=== PATIENT | female | born 1935 | race African-American/Black ===

== ENCOUNTER 2016-08-25 10:58 | Outpatient (CLI) | payer MEDICARE ==
[2016-08-25 11:26] LABS: HEMATOCRIT 22.9 % (36.0-47.0); HGB HCT DIFFERENCE 0.2; MEAN CORPUSCULAR HEMOGLOBIN 31.5 pg (27.0-33.4); MEAN CORPUSCULAR HGB CONC 33.5 g/dL (32.0-36.0); MEAN CORPUSCULAR VOLUME 94 fl (80-97); RED BLOOD COUNT 2.43 10^6/uL (3.72-5.28); RED CELL DISTRIBUTION WIDTH 14.7 % (11.5-14.0); WHITE BLOOD COUNT 5.4 10^3/uL (4.0-10.5)
[2016-08-25] MEDS ORDERED: NORMAL SALINE 250 ML IV PRN (11:40)
[2016-08-25] MEDS ORDERED: DIPHENHYDRAMINE HCL 25 MG CAPSULE PO PRN (11:41)
[2016-08-25] MEDS ORDERED: ACETAMINOPHEN 325 MG TABLET PO PRN (11:41)
[2016-08-25 12:31] LABS: HEMOGLOBIN 7.7 g/dL (12.0-15.5)
[2016-08-25 17:21] VITALS: BP 214/63
== END 2016-08-25 17:22 | disposition home or self-care (01) ==
LOC: II 10:58 → 5TH 11:05 → II 17:22
PROVIDERS: ATTEND Internal Medicine
PROC: 30233N1 Transfusion of Nonautologous Red Blood Cells into Peripheral Vein, Percutaneous Approach (ICD-10-PCS; principal; 2016-08-25)
DX: D64.9 Anemia, unspecified (principal)
CPT/HCPCS: 86900; 86901; 36430; 86850; 86920; P9016

== ENCOUNTER 2016-10-21 14:09 | Inpatient (IN) | payer MEDICARE ==
[2016-10-21 16:24] LABS: HEMATOCRIT 18.7 % (36.0-47.0); HGB HCT DIFFERENCE 0.2; MEAN CORPUSCULAR HEMOGLOBIN 31.3 pg (27.0-33.4); MEAN CORPUSCULAR HGB CONC 33.5 g/dL (32.0-36.0); MEAN CORPUSCULAR VOLUME 93 fl (80-97); RED BLOOD COUNT 2.01 10^6/uL (3.72-5.28); RED CELL DISTRIBUTION WIDTH 14.7 % (11.5-14.0); WHITE BLOOD COUNT 6.3 10^3/uL (4.0-10.5)
[2016-10-21 16:45] LABS: ALANINE AMINOTRANSFERASE 20 U/L (9-52); ALBUMIN 3.7 g/dL (3.5-5.0); ALKALINE PHOSPHATASE 534 U/L (38-126); ANION GAP 19 (5-19); ASPARTATE AMINO TRANSFERASE 18 U/L (14-36); BILIRUBIN,DIRECT 0.3 mg/dL (0.0-0.4); BILIRUBIN,TOTAL 0.3 mg/dL (0.2-1.3); BLOOD UREA NITROGEN 85 mg/dL (7-20); CALCIUM 10.1 mg/dL (8.4-10.2); CARBON DIOXIDE 15 mmol/L (22-30); CHLORIDE 110 mmol/L (98-107); CREATININE RESULT 6.17 mg/dL (0.52-1.25); GLUCOSE 85 mg/dL (75-110); POTASSIUM 5.6 mmol/L (3.6-5.0); SODIUM 143.7 mmol/L (137-145); TOTAL PROTEIN 6.2 g/dL (6.3-8.2)
[2016-10-21 16:56] LABS: HEMOGLOBIN 6.3 g/dL (12.0-15.5)
[2016-10-21] MEDS: SODIUM POLYSTYRENE SULFONATE 15 GM/60 ML PO SCH (18:44)
[2016-10-21] MEDS ORDERED: DIPHENHYDRAMINE HCL 50 MG/ML VIAL IV PRN (21:10)
[2016-10-21] MEDS ORDERED: ACETAMINOPHEN 325 MG TABLET PO PRN (21:10)
[2016-10-22] MEDS: SODIUM POLYSTYRENE SULFONATE 15 GM/60 ML PO SCH ×3 (00:30→11:08)
[2016-10-22 07:31] LABS: ABSOLUTE EOSINOPHILS # (AUTO) 0.1 10^3/uL (0.0-0.6); ABSOLUTE LYMPHOCYTES (AUTO) 1.1 10^3/uL (0.5-4.7); ABSOLUTE MONOCYTES (AUTO) 0.4 10^3/uL (0.1-1.4); ABSOLUTE NEUT (AUTO) 4.9 10^3/uL (1.7-8.2); BASOPHILS % (AUTO) 0.7 % (0-2); EOSINOPHILS % (AUTO) 1.2 % (0-6); HEMATOCRIT 27.2 % (36.0-47.0); HGB HCT DIFFERENCE 0.4; LYMPHOCYTES % (AUTO) 16.6 % (13-45); MEAN CORPUSCULAR HEMOGLOBIN 29.8 pg (27.0-33.4); MEAN CORPUSCULAR HGB CONC 33.7 g/dL (32.0-36.0); MONOCYTES % (AUTO) 5.9 % (3-13); RED BLOOD COUNT 3.07 10^6/uL (3.72-5.28); RED CELL DISTRIBUTION WIDTH 17.7 % (11.5-14.0); SEGMENTED NEUTROPHILS % (AUTO) 75.6 % (42-78); WHITE BLOOD COUNT 6.5 10^3/uL (4.0-10.5)
[2016-10-22 07:46] LABS: HEMOGLOBIN 9.2 g/dL (12.0-15.5)
[2016-10-22 07:47] LABS: MEAN CORPUSCULAR VOLUME 89 fl (80-97)
[2016-10-22] MEDS ORDERED: FUROSEMIDE INJ/PF 40 MG/4 ML SDV IV PRN (10:44)
[2016-10-22] MEDS ORDERED: CLONIDINE HCL 0.2 MG TABLET PO ONE (11:00)
--- NOTE | 2016-10-22 11:28 | CONSULTATION REPORT E ---
Consultation Report NAME: BRIAN GUDINO : 1935 AGE: 80Y DATE: 10/21/2016 325 A TO: MANDO HORVATH M.D. FROM: MARIANO WASHINGTON M.D. Requesting Physician HISTORY: This 80-year-old patient was admitted to the hospital with rectal bleeding. Her bleeding started about 4 days ago when she had 6-8 bloody bowel movements during the day. She had no bleeding for the following 2 days, but it started again on the day of admission. She does have some low abdominal pain off and on prior to bowel movements. There is no nausea or vomiting. Patient has had multiple episodes of GI bleed in the past. I saw her back in August 2015 also for rectal bleeding. She had an EGD and colonoscopy at that time and only pancolonic diverticulosis was found. Previous bleeding episodes in April 2011 and February 2013 also revealed diverticular disease. Hemoglobin on this admission was 6.3. She has a chronic history of renal disease and anemia and has refused dialysis over the years. PAST MEDICAL HISTORY: 1. Chronic renal failure, stage V. 2. Hypertension. 3. Pancolonic diverticulosis. 4. Recurrent diverticular bleeding. PAST SURGICAL HISTORY: EGD and colonoscopy in 2010, 2012, and 2015. SOCIAL HISTORY: None significant. ALLERGIES: ALOE VERA. REVIEW OF SYSTEMS: Other than the above, this is noncontributory. PHYSICAL EXAMINATION: GENERAL: Shows the patient in no distress. VITAL SIGNS: She has a blood pressure of 180/58, heart rate of 69. HEENT: There is some pallor. Oropharynx normal. NECK: No bruits. No JVD. CHEST: There is kyphosis and scoliosis. LUNGS: Clear. HEART: Heart sounds 1 and 2 without murmur. ABDOMEN: Soft and nontender. Liver and spleen not palpable. Bowel sounds active. NEUROLOGIC: Grossly nonfocal. LABORATORY: Other laboratory tests showed creatinine of 6, potassium of 5.6, alkaline phosphatase of 534, which was also high in August 2015. ASSESSMENT AND PLAN: Rectal bleeding. Again, patient has had recurrent painless rectal bleeding, most likely from her diverticular disease. Her last bloody bowel movement was about 6 hours ago and I suspect it has stopped. She also bled temporarily about 4 days ago. I would suggest conservative management for now and hold off on repeating her endoscopies. She is not a good candidate for surgery. She will be receiving transfusion. I will follow he with you. DICTATING PHYSICIAN: MANDO HORVATH M.D. [id number] PHY#: [id number] ID: [id number] JOB#: [id number] ACCT: [id number] cc:Juan YU M.D. >
--- NOTE | 2016-10-22 18:40 | PDOC H&P ---
History of Present Illness Admission Date/PCP: 10/21/16 14:09 MARIANO WASHINGTON MD History of Present Illness: BRIAN GUDINO is a 80 year old female, she has chronic kidney disease stage V, chronic anemia, hypertension related to chronic kidney disease she came to the office because of rectal bleed she said there was associated clot in the blood. She was admitted directly from the office into the hospital for management, the hemogram revealed hemoglobin of 6. She has had episode of rectal bleed in the past and she has had multiple colonoscopy she is known to have wide mouth diverticulosis and she has a tendency to bleed from the diverticulosis and that is most likely etiology of her rectal bleed. GI consultation was obtained from Dr. Reyes, he does not see another need for colonoscopy because the bleeding stopped and also because she is not particularly a candidate for surgery, the definitive treatment for this wide mouth diverticulosis will be colectomy but she is not a candidate for such invasive abdominal surgery with history of chronic kidney disease stage V and severe hypertension. She will be transfused with packed red blood cells and discharged home. Past Medical History Cardiac Medical History: Reports: Hypertension Pulmonary Medical History: Reports: Pneumonia Renal/ Medical History: Reports: Chronic Kidney Disease - Chronic kidney disease stage V GI Medical History: Reports: Diverticulitis, Other - Wide mouth diverticulosis Musculoskeltal Medical History: Reports: Arthritis Hematology: Reports: Anemia, Bleeding Tendencies Social History Smoking Status: Never Smoker Frequency of Alcohol Use: None Hx Recreational Drug Use: No Drugs: None Hx Prescription Drug Abuse: No Family History Family History: Reviewed & Not Pertinent Parental Family History Reviewed: Yes Children Family History Reviewed: Yes Sibling(s) Family History Reviewed.: Yes Medication/Allergy Home Medications: Clonidine HCl [Catapres 0.2 mg Tablet] 0.2 mg PO DAILYP PRN 10/21/16 Olmesartan/Hydrochlorothiazide [Benicar Hct 20-12.5 mg Tablet] 1 tab PO DAILY Potassium Citrate [Urocit-K] 20 mg PO DAILY 10/21/16 Allergies/Adverse Reactions: aloe vera [Aloe Vera] Allergy (Unknown, Verified 03/09/14 21:25) Swelling jalapeno peppers Allergy (Unknown, Uncoded 03/09/14 21:25) Swelling Review of Systems Constitutional: ABSENT: chills, fever(s), headache(s), weight gain, weight loss Eyes: ABSENT: visual disturbances Ears: ABSENT: hearing changes Cardiovascular: ABSENT: chest pain, dyspnea on exertion, edema, orthropnea, palpitations Respiratory: ABSENT: cough, hemoptysis Gastrointestinal: PRESENT: hematochezia Genitourinary: ABSENT: dysuria, hematuria Musculoskeletal: ABSENT: joint swelling Integumentary: ABSENT: rash, wounds Neurological: ABSENT: abnormal gait, abnormal speech, confusion, dizziness, focal weakness, syncope Psychiatric: ABSENT: anxiety, depression, homidical ideation, suicidal ideation Endocrine: ABSENT: cold intolerance, heat intolerance, menstrual abnormalities, polydipsia, polyuria Hematologic/Lymphatic: ABSENT: easy bleeding, easy bruising, lymphadenopathy Physical Exam Vital Signs: Temp Pulse Resp BP Pulse Ox 98.3 F 74 18 186/57 H 100 10/22/16 16:23 10/22/16 16:23 10/22/16 16:23 10/22/16 16:23 10/22/16 16:23 Intake & Output 10/21/16 10/22/16 10/23/16 06:59 06:59 06:59 Intake Total 1750 570 Output Total 1050 300 Balance 700 270 Weight 53.1 kg General appearance: PRESENT: no acute distress, well-developed, well-nourished Head exam: PRESENT: atraumatic, normocephalic Eye exam: PRESENT: conjunctiva pale Ear exam: PRESENT: normal external ear exam Mouth exam: PRESENT: moist, tongue midline Neck exam: PRESENT: full ROM Respiratory exam: PRESENT: clear to auscultation vinicius Cardiovascular exam: PRESENT: RRR, +S1, +S2 Pulses: PRESENT: normal dorsalis pedis pul, +2 pedal pulses bilateral Vascular exam: PRESENT: normal capillary refill GI/Abdominal exam: PRESENT: normal bowel sounds, soft Rectal exam: PRESENT: deferred Neurological exam: PRESENT: alert, awake, oriented to person, oriented to place , oriented to time, oriented to situation, CN II-XII grossly intact. ABSENT: motor sensory deficit Psychiatric exam: PRESENT: appropriate affect, normal mood Skin exam: PRESENT: dry, intact, warm Results Laboratory Results: 10/22/16 06:38 10/21/16 15:45 10/21/16 10/22/16 15:45 06:38 WBC 6.5 RBC 3.07 L Hgb 9.2 L D Hct 27.2 L MCV 89 D MCH 29.8 MCHC 33.7 RDW 17.7 H Plt Count 243 Seg Neutrophils % 75.6 Lymphocytes % 16.6 Monocytes % 5.9 Eosinophils % 1.2 Basophils % 0.7 Absolute Neutrophils 4.9 Absolute Lymphocytes 1.1 Absolute Monocytes 0.4 Absolute Eosinophils 0.1 Absolute Basophils 0.0 Blood Type O POSITIVE Antibody Screen NEGATIVE Assessment & Plan - Diagnosis (1) Anemia due to blood loss, acute Is this a current diagnosis for this admission?: YesPlan: Patient is admitted to the hospital for management of acute blood loss with anemia she be transfused with packed red blood cells, she will not have colonoscopy because she is known to have wide mouth diverticulosis GI consultation was obtained on GI is of the opinion that there is no need at this point for another colonoscopy (2) Chronic kidney disease, stage V (very severe) Is this a current diagnosis for this admission?: Yes (3) Diverticulosis of both small and large intestine with bleeding Is this a current diagnosis for this admission?: Yes
[2016-10-22 18:43] LABS: HEMATOCRIT 32.4 % (36.0-47.0); HGB HCT DIFFERENCE 0.6; MEAN CORPUSCULAR HEMOGLOBIN 29.8 pg (27.0-33.4); MEAN CORPUSCULAR HGB CONC 33.9 g/dL (32.0-36.0); MEAN CORPUSCULAR VOLUME 88 fl (80-97); RED BLOOD COUNT 3.69 10^6/uL (3.72-5.28); RED CELL DISTRIBUTION WIDTH 16.6 % (11.5-14.0); WHITE BLOOD COUNT 5.5 10^3/uL (4.0-10.5)
--- NOTE | 2016-10-22 18:45 | PDOC DISCHARGE SUMMARY ---
General - Admit/Disc Date/PCP Admission Date/Primary Care Provider: 10/21/16 14:09 MARIANO WASHINGTON MD Discharge Date: 10/22/16 - Discharge Diagnosis (1) Anemia due to blood loss, acute Is this a current diagnosis for this admission?: Yes (2) Chronic kidney disease, stage V (very severe) Is this a current diagnosis for this admission?: Yes (3) Diverticulosis of both small and large intestine with bleeding Is this a current diagnosis for this admission?: Yes - Additional Information Discharge Diet: Other (Comments) - renal diet Discharge Activity: Activity As Tolerated Home Medications: Clonidine HCl [Catapres 0.2 mg Tablet] 0.2 mg PO DAILYP PRN 10/21/16 Olmesartan/Hydrochlorothiazide [Benicar Hct 20-12.5 mg Tablet] 1 tab PO DAILY History of Present Illness History of Present Illness: BRIAN GUDINO is a 80 year old female, she has chronic kidney disease stage V, chronic anemia, hypertension related to chronic kidney disease she came to the office because of rectal bleed she said there was associated clot in the blood. She was admitted directly from the office into the hospital for management, the hemogram revealed hemoglobin of 6. She has had episode of rectal bleed in the past and she has had multiple colonoscopy she is known to have wide mouth diverticulosis and she has a tendency to bleed from the diverticulosis and that is most likely etiology of her rectal bleed. GI consultation was obtained from Dr. Reyes, he does not see another need for colonoscopy because the bleeding stopped and also because she is not particularly a candidate for surgery, the definitive treatment for this wide mouth diverticulosis will be colectomy but she is not a candidate for such invasive abdominal surgery with history of chronic kidney disease stage V and severe hypertension. She will be transfused with packed red blood cells and discharged home. Hospital Course Hospital Course: Patient was admitted because of severe anemia due to acute blood loss, she had episode of hematochezia, she was treated with blood transfusion, she was seen by GI and it was felt that there was no need at this point for colonoscopy. Posttransfusion hemoglobin is 10, she had 3 units of packed red blood cells Physical Exam Vital Signs: Temp Pulse Resp BP Pulse Ox 98.3 F 74 18 186/57 H 100 10/22/16 16:23 10/22/16 16:23 10/22/16 16:23 10/22/16 16:23 10/22/16 16:23 Intake & Output 10/21/16 10/22/16 10/23/16 06:59 06:59 06:59 Intake Total 1750 570 Output Total 1050 300 Balance 700 270 Weight 53.1 kg General appearance: PRESENT: no acute distress, well-developed, well-nourished Head exam: PRESENT: atraumatic, normocephalic Eye exam: PRESENT: conjunctiva pink, EOMI, PERRLA. ABSENT: scleral icterus Ear exam: PRESENT: normal external ear exam Mouth exam: PRESENT: moist, tongue midline Neck exam: PRESENT: full ROM Respiratory exam: PRESENT: clear to auscultation vinicius Cardiovascular exam: PRESENT: RRR, +S1, +S2 Pulses: PRESENT: normal dorsalis pedis pul, +2 pedal pulses bilateral Vascular exam: PRESENT: normal capillary refill GI/Abdominal exam: PRESENT: normal bowel sounds, soft Rectal exam: PRESENT: deferred Neurological exam: PRESENT: alert, awake, oriented to person, oriented to place , oriented to time, oriented to situation, CN II-XII grossly intact. ABSENT: motor sensory deficit Psychiatric exam: PRESENT: appropriate affect, normal mood Skin exam: PRESENT: dry, intact, warm. ABSENT: cyanosis, rash Results Laboratory Results: 10/21/16 15:45 10/21/16 10/22/16 15:45 06:38 WBC 6.5 RBC 3.07 L Hgb 9.2 L D Hct 27.2 L MCV 89 D MCH 29.8 MCHC 33.7 RDW 17.7 H Plt Count 243 Seg Neutrophils % 75.6 Lymphocytes % 16.6 Monocytes % 5.9 Eosinophils % 1.2 Basophils % 0.7 Absolute Neutrophils 4.9 Absolute Lymphocytes 1.1 Absolute Monocytes 0.4 Absolute Eosinophils 0.1 Absolute Basophils 0.0 Blood Type O POSITIVE Antibody Screen NEGATIVE
[2016-10-22 20:01] VITALS: BP 180/80
== END 2016-10-22 20:05 | disposition home or self-care (01) | DRG 378 ==
LOC: 3W 14:09
PROVIDERS: ADMIT Internal Medicine; ATTEND Internal Medicine
PROC: 30233N1 Transfusion of Nonautologous Red Blood Cells into Peripheral Vein, Percutaneous Approach (ICD-10-PCS; principal; 2016-10-21)
DX: K57.51 Diverticulosis of both small and large intestine without perforation or abscess with bleeding (principal); D62 Acute posthemorrhagic anemia; I12.0 Hypertensive chronic kidney disease with stage 5 chronic kidney disease or end stage renal disease; N18.5 Chronic kidney disease, stage 5; M40.209 Unspecified kyphosis, site unspecified; M19.90 Unspecified osteoarthritis, unspecified site; Z79.899 Other long term (current) drug therapy; Z88.8 Allergy status to other drugs, medicaments and biological substances; Z91.018 Allergy to other foods
CPT/HCPCS: 36415; 36430; 80048; 80076; 85025; 85027; 86850; 86900; 86901; 86920; J1940; P9016

== ENCOUNTER 2017-01-14 17:10 | Observation (INO) | payer MEDICARE ==
[2017-01-14 18:16] LABS: ABSOLUTE EOSINOPHILS # (AUTO) 0.1 10^3/uL (0.0-0.6); ABSOLUTE LYMPHOCYTES (AUTO) 0.9 10^3/uL (0.5-4.7); ABSOLUTE MONOCYTES (AUTO) 0.5 10^3/uL (0.1-1.4); ABSOLUTE NEUT (AUTO) 4.8 10^3/uL (1.7-8.2); BASOPHILS % (AUTO) 0.5 % (0-2); EOSINOPHILS % (AUTO) 1.2 % (0-6); HEMATOCRIT 23.5 % (36.0-47.0); HGB HCT DIFFERENCE -1.3; LYMPHOCYTES % (AUTO) 14.2 % (13-45); MEAN CORPUSCULAR HEMOGLOBIN 29.8 pg (27.0-33.4); MEAN CORPUSCULAR HGB CONC 31.5 g/dL (32.0-36.0); MEAN CORPUSCULAR VOLUME 95 fl (80-97); MONOCYTES % (AUTO) 8.3 % (3-13); RED BLOOD COUNT 2.48 10^6/uL (3.72-5.28); RED CELL DISTRIBUTION WIDTH 16.3 % (11.5-14.0); SEGMENTED NEUTROPHILS % (AUTO) 75.8 % (42-78); WHITE BLOOD COUNT 6.3 10^3/uL (4.0-10.5)
[2017-01-14 18:34] LABS: ALANINE AMINOTRANSFERASE 22 U/L (9-52); ALBUMIN 4.1 g/dL (3.5-5.0); ALKALINE PHOSPHATASE 698 U/L (38-126); ANION GAP 14 (5-19); ASPARTATE AMINO TRANSFERASE 18 U/L (14-36); BILIRUBIN,DIRECT 0.3 mg/dL (0.0-0.4); BILIRUBIN,TOTAL 0.3 mg/dL (0.2-1.3); BLOOD UREA NITROGEN 91 mg/dL (7-20); CALCIUM 10.5 mg/dL (8.4-10.2); CARBON DIOXIDE 17 mmol/L (22-30); CHLORIDE 110 mmol/L (98-107); GLUCOSE 103 mg/dL (75-110); HEMOGLOBIN 7.4 g/dL (12.0-15.5); POTASSIUM 5.4 mmol/L (3.6-5.0); SODIUM 140.8 mmol/L (137-145)
[2017-01-15] MEDS ORDERED: HYDROCHLOROTHIAZIDE 12.5 MG CAPSULE PO SCH (10:00)
[2017-01-15] MEDS ORDERED: CLONIDINE HCL 0.2 MG TABLET PO SCH (10:00)
[2017-01-15] MEDS ORDERED: OLMESARTAN PO SCH (10:00)
[2017-01-15] MEDS ORDERED: [UNRECOGNIZED DRUG - OTHER] PO SCH (10:00)
[2017-01-15] MEDS ORDERED: HYDROCHLOROTHIAZIDE PO SCH (10:00)
[2017-01-15] MEDS ORDERED: LOSARTAN POTASSIUM 50 MG TABLET PO SCH (10:00)
[2017-01-15 11:54] LABS: ABSOLUTE EOSINOPHILS # (AUTO) 0.1 10^3/uL (0.0-0.6); ABSOLUTE LYMPHOCYTES (AUTO) 1.2 10^3/uL (0.5-4.7); ABSOLUTE MONOCYTES (AUTO) 0.6 10^3/uL (0.1-1.4); ABSOLUTE NEUT (AUTO) 4.5 10^3/uL (1.7-8.2); BASOPHILS % (AUTO) 0.4 % (0-2); EOSINOPHILS % (AUTO) 1.2 % (0-6); HEMATOCRIT 31.8 % (36.0-47.0); HGB HCT DIFFERENCE 0.3; LYMPHOCYTES % (AUTO) 18.7 % (13-45); MEAN CORPUSCULAR HEMOGLOBIN 30.8 pg (27.0-33.4); MEAN CORPUSCULAR HGB CONC 33.5 g/dL (32.0-36.0); MEAN CORPUSCULAR VOLUME 92 fl (80-97); MONOCYTES % (AUTO) 9.8 % (3-13); RED BLOOD COUNT 3.47 10^6/uL (3.72-5.28); RED CELL DISTRIBUTION WIDTH 17.1 % (11.5-14.0); SEGMENTED NEUTROPHILS % (AUTO) 69.9 % (42-78); WHITE BLOOD COUNT 6.5 10^3/uL (4.0-10.5)
--- NOTE | 2017-01-15 12:00 | PDOC H&P ---
History of Present Illness Admission Date/PCP: 01/14/17 17:10 MARIANO WASHINGTON MD History of Present Illness: BRIAN GUDINO is a 81 year old female, she has a history of chronic kidney disease stage V, anemia of chronic disease, she came to the for evaluation of severe fatigue, generalized body weakness. She has a history of multiple admission for blood transfusion due to very severe symptomatic anemia from chronic kidney disease stage V. She needed to have procrit injection but the medical insurance will not pay for the medication and patient is not able to afford it. The hemogram showed hemoglobin 7.4 Past Medical History Cardiac Medical History: Reports: Hypertension Pulmonary Medical History: Reports: Pneumonia Renal/ Medical History: Reports: Chronic Kidney Disease - Chronic kidney disease stage V GI Medical History: Reports: Diverticulitis Musculoskeltal Medical History: Reports: Arthritis Hematology: Reports: Anemia, Bleeding Tendencies Social History Smoking Status: Never Smoker Frequency of Alcohol Use: None Hx Recreational Drug Use: No Drugs: None Hx Prescription Drug Abuse: No Family History Family History: Reviewed & Not Pertinent Parental Family History Reviewed: Yes Children Family History Reviewed: Yes Sibling(s) Family History Reviewed.: Yes Medication/Allergy Home Medications: Clonidine HCl [Catapres 0.2 mg Tablet] 0.2 mg PO DAILY 10/21/16 Olmesartan/Hydrochlorothiazide [Benicar Hct 40-12.5 mg Tablet] 1 tab PO DAILY Allergies/Adverse Reactions: aloe vera [Aloe Vera] Allergy (Unknown, Verified 03/09/14 21:25) Swelling jalapeno peppers Allergy (Unknown, Uncoded 03/09/14 21:25) Swelling Review of Systems Constitutional: PRESENT: fatigue Eyes: ABSENT: visual disturbances Ears: ABSENT: hearing changes Cardiovascular: ABSENT: chest pain, dyspnea on exertion, edema, orthropnea, palpitations Respiratory: ABSENT: cough, hemoptysis Gastrointestinal: ABSENT: abdominal pain, constipation, diarrhea, hematemesis, hematochezia, nausea, vomiting Genitourinary: ABSENT: dysuria, hematuria Musculoskeletal: ABSENT: joint swelling Integumentary: ABSENT: rash, wounds Neurological: ABSENT: abnormal gait, abnormal speech, confusion, dizziness, focal weakness, syncope Psychiatric: ABSENT: anxiety, depression, homidical ideation, suicidal ideation Endocrine: ABSENT: cold intolerance, heat intolerance, menstrual abnormalities, polydipsia, polyuria Hematologic/Lymphatic: ABSENT: easy bleeding, easy bruising, lymphadenopathy Physical Exam Vital Signs: Temp Pulse Resp BP Pulse Ox 98.3 F 70 20 170/68 H 100 01/15/17 08:00 01/15/17 08:00 01/15/17 08:00 01/15/17 08:00 01/15/17 08:00 Intake & Output 01/14/17 01/15/17 01/16/17 06:59 06:59 06:59 Intake Total 1500 Balance 1500 Weight 45.4 kg General appearance: PRESENT: no acute distress, well-developed, well-nourished Head exam: PRESENT: atraumatic, normocephalic Eye exam: PRESENT: conjunctiva pink, EOMI, PERRLA Ear exam: PRESENT: normal external ear exam Mouth exam: PRESENT: moist, tongue midline Neck exam: PRESENT: full ROM Cardiovascular exam: PRESENT: RRR, +S1, +S2 Pulses: PRESENT: normal dorsalis pedis pul, +2 pedal pulses bilateral Vascular exam: PRESENT: normal capillary refill GI/Abdominal exam: PRESENT: normal bowel sounds, soft Rectal exam: PRESENT: deferred Neurological exam: PRESENT: alert, CN II-XII grossly intact Skin exam: PRESENT: dry, intact, warm Results Laboratory Results: 01/14/17 18:00 01/14/17 18:00 01/14/17 01/14/17 01/14/17 18:00 18:00 18:00 WBC 6.3 RBC 2.48 L Hgb 7.4 L Hct 23.5 L MCV 95 MCH 29.8 MCHC 31.5 L RDW 16.3 H Plt Count 272 Seg Neutrophils % 75.8 Lymphocytes % 14.2 Monocytes % 8.3 Eosinophils % 1.2 Basophils % 0.5 Absolute Neutrophils 4.8 Absolute Lymphocytes 0.9 Absolute Monocytes 0.5 Absolute Eosinophils 0.1 Absolute Basophils 0.0 Sodium 140.8 Potassium 5.4 H Chloride 110 H Carbon Dioxide 17 L Anion Gap 14 BUN 91 H Creatinine 5.50 H Est GFR ( Amer) 9 L Est GFR (Non-Af Amer) 7 L Glucose 103 Calcium 10.5 H Total Bilirubin 0.3 AST 18 ALT 22 Alkaline Phosphatase 698 H Total Protein 7.0 Albumin 4.1 Blood Type O POSITIVE Antibody Screen NEGATIVE Assessment & Plan - Diagnosis (1) Anemia in chronic kidney disease Qualifiers: Chronic kidney disease stage: stage 5, not on chronic dialysis Qualified Code(s): N18.5 - Chronic kidney disease, stage 5; D63.1 - Anemia in chronic kidney disease Is this a current diagnosis for this admission?: YesPlan: She has anemia of chronic kidney disease stage V, she is very symptomatic, she was transfused with 2 units of red blood cells (2) Hypertension Qualifiers: Hypertension type: secondary to other renal disorders Qualified Code (s): I15.1 - Hypertension secondary to other renal disorders; N28.89 - Other specified disorders of kidney and ureter Is this a current diagnosis for this admission?: Yes (3) Chronic kidney disease, stage V Is this a current diagnosis for this admission?: Yes
[2017-01-15 12:01] LABS: HEMOGLOBIN 10.7 g/dL (12.0-15.5)
--- NOTE | 2017-01-15 12:03 | PDOC DISCHARGE SUMMARY ---
General - Admit/Disc Date/PCP Admission Date/Primary Care Provider: 01/14/17 17:10 MARIANO WASHINGTON MD Discharge Date: 01/15/17 - Discharge Diagnosis (1) Anemia in chronic kidney disease Is this a current diagnosis for this admission?: Yes (2) Hypertension Is this a current diagnosis for this admission?: Yes (3) Chronic kidney disease, stage V Is this a current diagnosis for this admission?: Yes - Additional Information Discharge Diet: As Tolerated Discharge Activity: Activity As Tolerated Home Medications: Clonidine HCl [Catapres 0.2 mg Tablet] 0.2 mg PO DAILY 10/21/16 Olmesartan/Hydrochlorothiazide [Benicar Hct 40-12.5 mg Tablet] 1 tab PO DAILY History of Present Illness History of Present Illness: BRIAN GUDINO is a 81 year old female, she has a history of chronic kidney disease stage V, anemia of chronic disease, she came to the for evaluation of severe fatigue, generalized body weakness. She has a history of multiple admission for blood transfusion due to very severe symptomatic anemia from chronic kidney disease stage V. She needed to have procrit injection but the medical insurance will not pay for the medication and patient is not able to afford it. The hemogram showed hemoglobin 7.4 Hospital Course Hospital Course: She was admitted because of symptomatic anemia she was transferred with packed red blood cells without any complications. She had 2 units of packed red blood Physical Exam Vital Signs: Temp Pulse Resp BP Pulse Ox 98.3 F 70 20 170/68 H 100 01/15/17 08:00 01/15/17 08:00 01/15/17 08:00 01/15/17 08:00 01/15/17 08:00 Intake & Output 01/14/17 01/15/17 01/16/17 06:59 06:59 06:59 Intake Total 1500 Balance 1500 Weight 45.4 kg General appearance: PRESENT: no acute distress, well-developed, well-nourished Head exam: PRESENT: atraumatic, normocephalic Eye exam: PRESENT: conjunctiva pink, EOMI, PERRLA. ABSENT: scleral icterus Ear exam: PRESENT: normal external ear exam Mouth exam: PRESENT: moist, tongue midline Neck exam: PRESENT: full ROM Respiratory exam: PRESENT: clear to auscultation vinicius Cardiovascular exam: PRESENT: RRR, +S1, +S2 Pulses: PRESENT: normal dorsalis pedis pul, +2 pedal pulses bilateral Vascular exam: PRESENT: normal capillary refill GI/Abdominal exam: PRESENT: normal bowel sounds, soft Rectal exam: PRESENT: deferred Neurological exam: PRESENT: alert, awake, oriented to person, oriented to place , oriented to time, oriented to situation, CN II-XII grossly intact. ABSENT: motor sensory deficit Psychiatric exam: PRESENT: appropriate affect, normal mood Skin exam: PRESENT: dry, intact, warm Results Laboratory Results: 01/14/17 18:00 01/14/17 01/14/17 01/14/17 18:00 18:00 18:00 WBC 6.3 RBC 2.48 L Hgb 7.4 L Hct 23.5 L MCV 95 MCH 29.8 MCHC 31.5 L RDW 16.3 H Plt Count 272 Seg Neutrophils % 75.8 Lymphocytes % 14.2 Monocytes % 8.3 Eosinophils % 1.2 Basophils % 0.5 Absolute Neutrophils 4.8 Absolute Lymphocytes 0.9 Absolute Monocytes 0.5 Absolute Eosinophils 0.1 Absolute Basophils 0.0 Sodium 140.8 Potassium 5.4 H Chloride 110 H Carbon Dioxide 17 L Anion Gap 14 BUN 91 H Creatinine 5.50 H Est GFR ( Amer) 9 L Est GFR (Non-Af Amer) 7 L Glucose 103 Calcium 10.5 H Total Bilirubin 0.3 AST 18 ALT 22 Alkaline Phosphatase 698 H Total Protein 7.0 Albumin 4.1 Blood Type O POSITIVE Antibody Screen NEGATIVE
[2017-01-15 12:22] VITALS: BP 197/65
== END 2017-01-15 12:30 | disposition home or self-care (01) ==
LOC: 4N 17:10
PROVIDERS: ADMIT Internal Medicine; ATTEND Internal Medicine
PROC: 30233N1 Transfusion of Nonautologous Red Blood Cells into Peripheral Vein, Percutaneous Approach (ICD-10-PCS; principal; 2017-01-14)
PROC: 30233N1 Transfusion of Nonautologous Red Blood Cells into Peripheral Vein, Percutaneous Approach (ICD-10-PCS; 2017-01-15)
DX: N18.5 Chronic kidney disease, stage 5 (principal); D63.1 Anemia in chronic kidney disease; I15.1 Hypertension secondary to other renal disorders; N28.89 Other specified disorders of kidney and ureter
CPT/HCPCS: 86900; 86901; 36415 ×2; 36430; 86850; 85025 ×2; 80076; 80048; 86920; G0378 ×2; G0379; P9016 ×2

== ENCOUNTER → 2017-02-07 | Outpatient (CLI) | payer MEDICARE ==
[2017-02-07 14:06] LABS: ABSOLUTE MONOCYTES (AUTO) 0.5 10^3/uL (0.1-1.4); ABSOLUTE NEUT (AUTO) 4.1 10^3/uL (1.7-8.2); BASOPHILS % (AUTO) 0.4 % (0-2); EOSINOPHILS % (AUTO) 0.6 % (0-6); HEMATOCRIT 29.1 % (36.0-47.0); HEMOGLOBIN 9.6 g/dL (12.0-15.5); HGB HCT DIFFERENCE -0.3; LYMPHOCYTES % (AUTO) 17.1 % (13-45); MEAN CORPUSCULAR HEMOGLOBIN 31.1 pg (27.0-33.4); MEAN CORPUSCULAR HGB CONC 32.9 g/dL (32.0-36.0); MEAN CORPUSCULAR VOLUME 95 fl (80-97); MONOCYTES % (AUTO) 8.3 % (3-13); RED BLOOD COUNT 3.09 10^6/uL (3.72-5.28); SEGMENTED NEUTROPHILS % (AUTO) 73.6 % (42-78); WHITE BLOOD COUNT 5.6 10^3/uL (4.0-10.5)
== END ==
LOC: OD 13:02
PROVIDERS: ATTEND Internal Medicine
DX: K62.5 Hemorrhage of anus and rectum (principal)
CPT/HCPCS: 36415; 85025

== ENCOUNTER → 2017-02-07 | Outpatient (CLI) | payer MEDICARE ==
[2017-02-07 18:15] LABS: ANION GAP 16 (5-19); BLOOD UREA NITROGEN 119 mg/dL (7-20); CALCIUM 10.2 mg/dL (8.4-10.2); CARBON DIOXIDE 16 mmol/L (22-30); CHLORIDE 111 mmol/L (98-107); CREATININE RESULT 5.79 mg/dL (0.52-1.25); GLUCOSE 113 mg/dL (75-110); POTASSIUM 5.1 mmol/L (3.6-5.0)
== END ==
LOC: OD 16:21
PROVIDERS: ATTEND Internal Medicine Gastroenterology
DX: N18.4 Chronic kidney disease, stage 4 (severe) (principal)
CPT/HCPCS: 36415; 80048

== ENCOUNTER 2017-02-14 06:24 | Inpatient (IN) | payer MEDICARE ==
[2017-02-14] MEDS ORDERED: ASPIRIN 81 MG TABLET, CHEWABLE PO ONE (06:55)
--- NOTE | 2017-02-14 07:31 | RADIOLOGY REPORT (SQ) ---
EXAM DESCRIPTION: CHEST SINGLE VIEW COMPLETED DATE/TIME: 02/14/2017 7:10 am REASON FOR STUDY: syncope COMPARISON: 02/14/2013. EXAM PARAMETERS: NUMBER OF VIEWS: One view. TECHNIQUE: Single frontal radiographic view of the chest acquired. RADIATION DOSE: NA LIMITATIONS: None. FINDINGS: LUNGS AND PLEURA: No opacities, masses or pneumothorax. No pleural effusion. MEDIASTINUM AND HILAR STRUCTURES: No masses. Contour normal. HEART AND VASCULAR STRUCTURES: Heart normal in size. Normal vasculature. BONES: No acute findings. HARDWARE: None in the chest. OTHER: No other significant finding. IMPRESSION: NO ACUTE RADIOGRAPHIC FINDING IN THE CHEST. TECHNICAL DOCUMENTATION: JOB ID: [id number]
--- NOTE | 2017-02-14 07:38 | ER Document Report ---
ED General - General Chief Complaint: Passed Out Prior to Arrival Stated Complaint: POSSIBLE SYNCOPAL EPISODE Time Seen by Provider: 02/14/17 06:55 Mode of Arrival: Medic Information source: Patient, Relative Notes: 81-year-old female presents with complaints of syncope. Patient notes she has passed out multiple times in the past family member says today's syncope lasts approximately 5 minutes and that this occurs when she gets overheated TRAVEL OUTSIDE OF THE [place] IN LAST 30 DAYS: No - HPI Onset: Just prior to arrival Onset/Duration: Sudden Quality of pain: No pain Severity: Mild Pain Level: Denies Associated symptoms: Other Exacerbated by: Denies Relieved by: Denies Similar symptoms previously: Yes Recently seen / treated by doctor: Yes - Related Data Allergies/Adverse Reactions: aloe vera [Aloe Vera] Allergy (Unknown, Verified 03/09/14 21:25) Swelling jalapeno peppers Allergy (Unknown, Uncoded 03/09/14 21:25) Swelling Past Medical History - Social History Smoking Status: Never Smoker Cigarette use (# per day): No Chew tobacco use (# tins/day): No Smoking Education Provided: No Family History: Reviewed & Not Pertinent Patient has suicidal ideation: No Patient has homicidal ideation: No - Past Medical History Cardiac Medical History: Reports: Hx Hypertension Pulmonary Medical History: Reports: Hx Pneumonia Renal/ Medical History: Reports: Hx Kidney Stones. Denies: Hx Peritoneal Dialysis GI Medical History: Reports: Hx Diverticulitis, Hx Ulcer - Peptic ulcer disease in 1992-no history of GI bleeding in the past Musculoskeltal Medical History: Reports Hx Arthritis, Denies Hx Multiple Sclerosis Psychiatric Medical History: Denies: Hx Schizophrenia Past Surgical History: Reports: Hx Kidney (Renal Surgery) - 1 removal - Immunizations Immunizations up to date: Yes Hx Diphtheria, Pertussis, Tetanus Vaccination: No Hx Pneumococcal Vaccination: 07/04/16 Review of Systems - Review of Systems Notes: REVIEW OF SYSTEMS: CONSTITUTIONAL : Denies fever, chills, or sweats. Denies recent illness. EENT: Denies eye, ear, throat, or mouth pain or symptoms. Denies nasal or sinus congestion or discharge. Denies throat, tongue, or mouth swelling or difficulty swallowing. CARDIOVASCULAR: Denies chest pain. Denies palpitations or racing or irregular heart beat. Denies ankle edema. RESPIRATORY: Denies cough, cold, or chest congestion. Denies shortness of breath, difficulty breathing, or wheezing. GASTROINTESTINAL: Denies abdominal pain or distention. Denies nausea, vomiting , or diarrhea. Denies blood in vomitus, stools, or per rectum. Denies black, tarry stools. Denies constipation. GENITOURINARY: Denies difficulty urinating, painful urination, burning, frequency, blood in urine, or discharge. FEMALE GENITOURINARY: Denies vaginal bleeding, heavy or abnormal periods, irregular periods. Denies vaginal discharge or odor. MUSCULOSKELETAL: Denies back or neck pain or stiffness. Denies joint pain or swelling. SKIN: Denies rash, lesions or sores. HEMATOLOGIC : Denies easy bruising or bleeding. LYMPHATIC: Denies swollen, enlarged glands. NEUROLOGICAL: Admits to syncope PSYCHIATRIC: Denies anxiety or stress. Denies depression, suicidal ideation, or homicidal ideation. ALL OTHER SYSTEMS REVIEWED AND NEGATIVE. PHYSICAL EXAMINATION: GENERAL: Well-appearing, well-nourished and in no acute distress. HEAD: Atraumatic, normocephalic. EYES: Pupils equal round and reactive to light, extraocular movements intact, conjunctiva are normal. ENT: Nares patent, oropharynx clear without exudates. Moist mucous membranes. NECK: Normal range of motion, supple without lymphadenopathy LUNGS: Breath sounds clear to auscultation bilaterally and equal. No wheezes rales or rhonchi. HEART: Regular rate and rhythm without murmurs ABDOMEN: Soft, nontender, nondistended abdomen. No guarding, no rebound. No masses appreciated. Female : deferred Musculoskeletal: Normal range of motion, no pitting or edema. No cyanosis. NEUROLOGICAL: Cranial nerves grossly intact. Normal speech, normal gait. Normal sensory, motor exams PSYCH: Normal mood, normal affect. SKIN: Warm, Dry, normal turgor, no rashes or lesions noted. Dictation was performed using [employer] voice recognition software Physical Exam - Vital signs Vitals: Temp Pulse Resp BP Pulse Ox 97.6 F 71 22 H 111/76 97 02/14/17 06:27 02/14/17 06:27 02/14/17 06:27 02/14/17 06:27 02/14/17 06:27 Course - Re-evaluation Re-evalutation: 02/14/17 07:37 This is an overall extremely well-appearing 81-year-old female who has had multiple episodes of syncope in the past, neither she nor her family member seem very concerned about the syncope, however I have asked that I perform extensive lab workup given her age and concern they are agreeable to this at this time 02/14/17 08:00 Hgb is noted to be 5.4, pt has been bleeding for 2 weeks, seen Dr Reyes who diagnosed it as internal hemorrhoids. , will emergently transfuse dr Reyes called 02/14/17 08:05 Dr Reyes notes that he is around if needed Dr Chaparro paged 02/14/17 08:[address] Chaparro to [facility] - Vital Signs Vital signs: Temp Pulse Resp BP Pulse Ox 97.6 F 71 19 100/80 100 02/14/17 06:27 02/14/17 06:27 02/14/17 07:18 02/14/17 07:18 02/14/17 07:18 - Laboratory Result Diagrams: 02/14/17 07:33 02/14/17 07:33 Laboratory results interpreted by me: 02/14/17 02/14/17 02/14/17 07:33 07:33 08:13 RBC 1.69 L Hgb 5.4 L Hct 16.2 L RDW 16.1 H Seg Neutrophils % 85.4 H Lymphocytes % 10.3 L Absolute Neutrophils 8.7 H Chloride 113 H Carbon Dioxide 13 L BUN 123 H Creatinine 6.65 H Est GFR ( Amer) 7 L Est GFR (Non-Af Amer) 6 L Glucose 230 H AST 13 L Alkaline Phosphatase 531 H Total Protein 5.5 L Albumin 3.1 L Crossmatch See Detail Critical Care Note - Critical Care Note Total time excluding time spent on procedures (mins): 34 Comments: 44 minutes of critical care time spent in direct contact evaluating and reevaluating the patient, treating symptoms, reviewing labs and studies and speaking with family and consultants excluding any procedures Discharge - Discharge Clinical Impression: Chronic kidney disease, stage V, Anemia due to blood loss, acute, Syncope and collapse Condition: Fair Disposition: ADMITTED INPATIENT Admitting Provider: Shankar Unit Admitted: [facility]
[2017-02-14 07:50] LABS: ABSOLUTE MONOCYTES (AUTO) 0.4 10^3/uL (0.1-1.4); ABSOLUTE NEUT (AUTO) 8.7 10^3/uL (1.7-8.2); BASOPHILS % (AUTO) 0.3 % (0-2); EOSINOPHILS % (AUTO) 0.3 % (0-6); HEMATOCRIT 16.2 % (36.0-47.0); LYMPHOCYTES % (AUTO) 10.3 % (13-45); MEAN CORPUSCULAR HEMOGLOBIN 31.9 pg (27.0-33.4); MEAN CORPUSCULAR HGB CONC 33.2 g/dL (32.0-36.0); MEAN CORPUSCULAR VOLUME 96 fl (80-97); MONOCYTES % (AUTO) 3.7 % (3-13); RED BLOOD COUNT 1.69 10^6/uL (3.72-5.28); RED CELL DISTRIBUTION WIDTH 16.1 % (11.5-14.0); SEGMENTED NEUTROPHILS % (AUTO) 85.4 % (42-78); WHITE BLOOD COUNT 10.1 10^3/uL (4.0-10.5)
--- NOTE | 2017-02-14 07:52 | EKG REPORT ---
SEVERITY:- ABNORMAL ECG - SINUS RHYTHM NONSPECIFIC T ABNORMALITIES, LATERAL LEADS BORDERLINE ST ELEVATION, ANTERIOR LEADS : Confirmed by: Jw Hernández MD 14-Feb-2017 07:50:55
[2017-02-14 07:55] LABS: HEMOGLOBIN 5.4 g/dL (12.0-15.5)
[2017-02-14] MEDS ORDERED: NORMAL SALINE 250 ML IV PRN ×2 (07:56)
[2017-02-14 07:57] LABS: ALANINE AMINOTRANSFERASE 19 U/L (9-52); ALBUMIN 3.1 g/dL (3.5-5.0); ALKALINE PHOSPHATASE 531 U/L (38-126); ANION GAP 15 (5-19); ASPARTATE AMINO TRANSFERASE 13 U/L (14-36); BILIRUBIN,DIRECT 0.3 mg/dL (0.0-0.4); BILIRUBIN,TOTAL 0.3 mg/dL (0.2-1.3); CALCIUM 9.6 mg/dL (8.4-10.2); CARBON DIOXIDE 13 mmol/L (22-30); CHLORIDE 113 mmol/L (98-107); CREATINE KINASE 67 U/L (30-135); CREATININE RESULT 6.65 mg/dL (0.52-1.25); GLUCOSE 230 mg/dL (75-110); POTASSIUM 4.2 mmol/L (3.6-5.0); SODIUM 141.2 mmol/L (137-145); TOTAL PROTEIN 5.5 g/dL (6.3-8.2)
[2017-02-14 08:04] LABS: BLOOD UREA NITROGEN 123 mg/dL (7-20)
[2017-02-14 08:08] LABS: CREATINE KINASE MB 1.68 ng/mL (<4.55)
[2017-02-14 08:14] LABS: TROPONIN I 0.037 ng/mL
[2017-02-14] MEDS ORDERED: ACETAMINOPHEN 325 MG TABLET PO PRN (08:31)
--- NOTE | 2017-02-14 12:48 | PDOC H&P ---
History of Present Illness Admission Date/PCP: 02/14/17 08:31 MARIANO WASHINGTON MD Patient complains of: Syncopal episode and severe anemia History of Present Illness: BRIAN GUDINO is a 81 year old female This is a 81-year-old female with a patient of Dr. Washington with a significant history of the anemia and chronic kidney disease stage IVAnd currently not on a dialysisCame to the emergency department because of the passing out and according to the daughter this is happening very often today's see almost pass out and she is scared and bring the patient in the emergency departmentWhere patient hemoglobin was 5.4 and patient's creatinine about 6 and BUN was 123 Patients denied any chest pain denied any shortness of the breath. Patient only 1 kidney and was removed so many years back do not know her daughter Patient recently see her Dr. Reyes and he thought it is coming from the hemorrhoid but today's he might think need a further scope and further evaluate for GI bleed Patients used to see a Dr. Crane in the past and patient's creatinine at that time was 3.96 back in 2012 but looking for the hospital record patient's creatinine is running about 5 and a bowel since last couple of years Patients denied any weakness Patients denied any blood in the stools or black stools are denied any abdominal pain Past Medical History Cardiac Medical History: Reports: Hyperlipidema, Hypertension Pulmonary Medical History: Reports: Pneumonia Renal/ Medical History: Reports: Chronic Kidney Disease GI Medical History: Reports: Diverticulitis Musculoskeltal Medical History: Reports: Arthritis Hematology: Reports: Anemia, Bleeding Tendencies Social History Smoking Status: Never Smoker Frequency of Alcohol Use: None Hx Recreational Drug Use: No Drugs: None Hx Prescription Drug Abuse: No Family History Family History: Reviewed & Not Pertinent Parental Family History Reviewed: Yes Children Family History Reviewed: Yes Sibling(s) Family History Reviewed.: Yes Medication/Allergy Home Medications: Clonidine HCl [Catapres 0.2 mg Tablet] 0.2 mg PO DAILYP PRN 02/14/17 Olmesartan/Hydrochlorothiazide [Benicar Hct 20-12.5 Mg Tablet] 1 each PO DAILY 02/14/17 Allergies/Adverse Reactions: aloe vera [Aloe Vera] Allergy (Unknown, Verified 02/14/17 10:17) Swelling jalapeno peppers Allergy (Unknown, Uncoded 02/14/17 10:17) Swelling Review of Systems Constitutional: PRESENT: fatigue, weakness. ABSENT: chills, fever(s), headache( s), weight gain, weight loss Eyes: ABSENT: visual disturbances Ears: ABSENT: hearing changes Cardiovascular: ABSENT: chest pain, dyspnea on exertion, edema, orthropnea, palpitations Respiratory: ABSENT: cough, hemoptysis Gastrointestinal: ABSENT: abdominal pain, constipation, diarrhea, hematemesis, hematochezia, nausea, vomiting Genitourinary: ABSENT: dysuria, hematuria Musculoskeletal: ABSENT: joint swelling Integumentary: ABSENT: rash, wounds Neurological: ABSENT: abnormal gait, abnormal speech, confusion, dizziness, focal weakness, syncope Psychiatric: ABSENT: anxiety, depression, homidical ideation, suicidal ideation Endocrine: ABSENT: cold intolerance, heat intolerance, menstrual abnormalities, polydipsia, polyuria Hematologic/Lymphatic: ABSENT: easy bleeding, easy bruising, lymphadenopathy Physical Exam Vital Signs: Temp Pulse Resp BP Pulse Ox 97.8 F 72 18 145/106 H 100 02/14/17 12:03 02/14/17 12:03 02/14/17 12:03 02/14/17 12:03 02/14/17 12:03 Intake & Output 02/13/17 02/14/17 02/15/17 06:59 06:59 06:59 Intake Total 300 Balance 300 General appearance: PRESENT: no acute distress, well-developed, well-nourished Head exam: PRESENT: atraumatic, normocephalic Eye exam: PRESENT: conjunctiva pale, EOMI, PERRLA. ABSENT: scleral icterus Ear exam: PRESENT: normal external ear exam Mouth exam: PRESENT: moist, tongue midline Neck exam: PRESENT: full ROM. ABSENT: carotid bruit, JVD, lymphadenopathy, thyromegaly Respiratory exam: PRESENT: clear to auscultation vinicius Cardiovascular exam: PRESENT: RRR. ABSENT: diastolic murmur, rubs, systolic murmur Pulses: PRESENT: normal dorsalis pedis pul, +2 pedal pulses bilateral Vascular exam: PRESENT: normal capillary refill GI/Abdominal exam: PRESENT: normal bowel sounds, soft. ABSENT: distended, guarding, mass, organolmegaly, rebound, tenderness Rectal exam: PRESENT: deferred Extremities exam: ABSENT: joint swelling, pedal edema Neurological exam: PRESENT: alert, awake, oriented to person, oriented to place , oriented to time, oriented to situation, CN II-XII grossly intact. ABSENT: motor sensory deficit Psychiatric exam: PRESENT: appropriate affect, normal mood. ABSENT: homicidal ideation, suicidal ideation Skin exam: PRESENT: dry, intact, warm. ABSENT: cyanosis, rash Results Impressions: Chest X-Ray 02/14/17 06:55 IMPRESSION: NO ACUTE RADIOGRAPHIC FINDING IN THE CHEST. Assessment & Plan - Diagnosis (1) Anemia due to blood loss, acute Is this a current diagnosis for this admission?: YesPlan: Admit the patient in IMCU transfuse her 2 units of blood and consult the GI for the further evaluations put the patient on the Protonix drip (2) Chronic kidney disease, stage V Is this a current diagnosis for this admission?: YesPlan: Patients probably need a dialysis will consult the nephrology for further evaluation (3) Syncope and collapse Is this a current diagnosis for this admission?: YesPlan: Most likely due to the anemia and GI bleed will continues to monitor and the fall precautions (4) Hypertension Qualifiers: Hypertension type: secondary to other renal disorders Qualified Code (s): I15.1 - Hypertension secondary to other renal disorders; N28.89 - Other specified disorders of kidney and ureter Is this a current diagnosis for this admission?: YesPlan: Currently stable - Time Time Spent: 30 to 50 Minutes Medications reviewed and adjusted accordingly: Yes Anticipated discharge: Other Within: Other - Inpatient Certification Medical Necessity: Need Close Monitoring Due to Risk of Patient Decompensation, Need for Surgery Post Hospital Care: D/C Entry Level Drafter Documentation - Plan Summary Plan Summary: Admit the patient's in IMCU with a serial H&H and consult the Dr. Reyes and transfused her 2 units of the blood keep hemoglobin near 10Very extensive discussions with the daughter on the bedside about the patient's current conditions and all plan and discuss about the CODE STATUS but daughter is not sure she is going to talk to the patient
--- NOTE | 2017-02-14 13:27 | RADIOLOGY REPORT (SQ) ---
EXAM DESCRIPTION: CT HEAD WITHOUT COMPLETED DATE/TIME: 02/14/2017 1:20 pm REASON FOR STUDY: syncopal episode COMPARISON: None. TECHNIQUE: Axial images acquired through the brain without intravenous contrast. Images reviewed wi th bone, brain and subdural windows. Images stored on PACS. All CT scanners at this facility use dose modulation, iterative reconstruction, and/or weight based d osing when appropriate to reduce radiation dose to as low as reasonably achievable (ALARA). [facility]: Dose Right [facility]: CareDose [facility]: Dose Right [facility]: Teradose 4D [facility]: [employer] RADIATION DOSE: Up-to-date CT equipment and radiation dose reduction techniques were employed. CTDIv ol: 49.0 mGy. DLP: 1566 mGy-cm.mGy. LIMITATIONS: Patient motion. FINDINGS: VENTRICLES: Prominent. CEREBRUM: No masses. No hemorrhage. No midline shift. Areas of low density in the white matter mos t likely due to chronic micro-vascular ischemic change. No evidence for acute infarction. CEREBELLUM: No masses. No hemorrhage. No alteration of density. No evidence for acute infarction. EXTRAAXIAL SPACES: Age-related involutional change. No fluid collections. No masses. ORBITS AND GLOBE: No intra- or extraconal masses. Normal contour of globe without masses. CALVARIUM: No fracture. PARANASAL SINUSES: No fluid or mucosal thickening. SOFT TISSUES: No mass or hematoma. OTHER: No other significant finding. IMPRESSION: CHRONIC CHANGES OF ATROPHY AND MICROVASCULAR ISCHEMIA. NO ACUTE PROCESS. TECHNICAL DOCUMENTATION: JOB ID: [id number] Quality ID # [id number]: Final reports with documentation of one or more dose reduction techniques (e.g., Au tomated exposure control, adjustment of the mA and/or kV according to patient size, use of iterative reconstruction technique) 2010 [employer]- All Rights Reserved
[2017-02-14] MEDS ORDERED: TUBERCULIN,PURIF.PROT.DERIV. 5 TU/0.1 ML TEST 1 ML VIAL ID ONE (14:00)
[2017-02-14] MEDS ORDERED: PEG 3350/NA SULF,BICARB,CL/KCL 4000 ML PO ONE (15:45)
[2017-02-14] MEDS: SODIUM BICARBONATE 650 MG TABLET PO SCH (15:58)
[2017-02-14] MEDS: PANTOPRAZOLE SODIUM 40 MG VIAL IV SCH ×2 (15:59→21:46)
[2017-02-14] MEDS ORDERED: CLONIDINE HCL 0.2 MG TABLET PO PRN (16:38)
--- NOTE | 2017-02-14 17:14 | PDOC CONSULTATION ---
Consultation Consult Date: 02/14/17 Consult reason:: ESRD and need for initiation of hemodialysis in the setting of uremia, metabolic acidosis History of Present Illness Admission Date/PCP: 02/14/17 08:31 MARIANO WASHINGTON MD History of Present Illness: BRIAN GUDINO is a 81 year old female patient of Dr. Washington with a significant history of the anemia and advancing chronic kidney disease stage 4 who came to the emergency department because of recurrent passing out according to the daughter. This has been happening intermittently over the last 1 week. There is no history of any seizures. No history of any trauma. She does have intermittent history of orthostasis. No history of any GI bleeds but patient has not been actively looking for any signs or symptoms. However does give a history of intermittent to constant left lower abdominal pain and she has a history of diverticulosis. This patient was last seen in my office in 2012 were her creatinine was close to 4 and she was advised and discussed on hemodialysis. But the patient and the daughter did not and was not willing to accept that diagnosis and did not come in further on to see me in the office as an outpatient. I see from notes from Dr. Washington's office as well as the hospitalization she has had in the last couple of years that the previous creatinine was 5.8 in this December. The patient was brought to the ER and lab evaluations revealed that her hemoglobin was 5.4 and patient's creatinine 6 + and BUN was 123 Patient recently see her Dr. Reyes and he thought it is coming from bleeding hemorrhoids. Currently the patient has underwent 1 out of 2 blood transfusions. Admits to being progressively weak over the last couple of months. She has lost her appetite and she has lost considerable amounts of weight according to both patient and the daughter. No history of nausea vomiting. Past Medical History Cardiac Medical History: Reports: Hyperlipidemia, Hypertension-primary Pulmonary Medical History: Reports: Pneumonia Renal/ Medical History: Reports: Chronic Kidney Disease Stage V Denies: Benign Prostatic Hyperplasia GI Medical History: Reports: Diverticulitis Musculoskeltal Medical History: Reports: Arthritis Hematology Medical History: Reports Anemia of Chronic Kidney Disease Social History Smoking Status: Never Smoker Frequency of Alcohol Use: None Hx Recreational Drug Use: No Drugs: None Hx Prescription Drug Abuse: No Family History Parental Family History Reviewed: Yes - Negative for ESRD Children Family History Reviewed: No Sibling(s) Family History Reviewed.: No Medication/Allergy Home Medications: Clonidine HCl [Catapres 0.2 mg Tablet] 0.2 mg PO DAILYP PRN 02/14/17 Olmesartan/Hydrochlorothiazide [Benicar Hct 20-12.5 Mg Tablet] 1 each PO DAILY 02/14/17 Allergies/Adverse Reactions: aloe vera [Aloe Vera] Allergy (Unknown, Verified 02/14/17 10:17) Swelling jalapeno peppers Allergy (Unknown, Uncoded 02/14/17 10:17) Swelling Review of Systems Constitutional: PRESENT: anorexia, fatigue, weakness, weight loss. ABSENT: chills, fever(s), headache(s), night sweats Nose, Mouth, and Throat: ABSENT: mouth pain, sore throat Cardiovascular: PRESENT: dyspnea on exertion. ABSENT: edema, orthropnea Respiratory: PRESENT: dyspnea. ABSENT: hemoptysis Gastrointestinal: PRESENT: diarrhea - Intermittent and, nausea. ABSENT: coffee ground emesis, hematemesis, vomiting Neurological: PRESENT: frequent falls. ABSENT: confusion, convulsions, focal weakness Psychiatric: PRESENT: anxiety, depression Endocrine: ABSENT: heat intolerance, polydipsia Hematologic/Lymphatic: ABSENT: easy bruising, lymphadenopathy Physical Exam Vital Signs: Temp Pulse Resp BP Pulse Ox 98.3 F 77 18 128/53 H 100 02/14/17 15:21 02/14/17 15:21 02/14/17 15:21 02/14/17 15:21 02/14/17 15:21 Intake & Output 02/13/17 02/14/17 02/15/17 06:59 06:59 06:59 Intake Total 300 Balance 300 Results Laboratory Results: 02/14/17 12:51 Troponin I 0.033 Impressions: Head CT 02/14/17 00:00 IMPRESSION: CHRONIC CHANGES OF ATROPHY AND MICROVASCULAR ISCHEMIA. NO ACUTE PROCESS. Chest X-Ray 02/14/17 06:55 IMPRESSION: NO ACUTE RADIOGRAPHIC FINDING IN THE CHEST. Assessment & Plan - Diagnosis (1) Anemia due to blood loss, acute Is this a current diagnosis for this admission?: YesPlan: Hemodynamically stable. Patient being transfused. Differentials include diverticular bleed, AV malformations dictated by uremic bleeding. Patient has been consulted with GI. The patient was stabilized I am going to initiate her on hemodialysis which will also help prevent further blood loss from the uremic standpoint (2) Syncope and collapse Is this a current diagnosis for this admission?: YesPlan: Secondary to acute GI bleed. History of orthostasis (3) Chronic kidney disease, stage V (very severe) Plan: Patient is uremic. Be the cause of GI bleed as also being aided by her being uremic. Initiation of hemodialysis will definitely help stabilize. Had a long discussion about hemodialysis the procedure and its complications with the patient and the daughter and they are both agreeable at this point. Discussed the need for insertion of an IJ catheter to initiate hemodialysis and will consult with Dr. Carvalho. Discussed the complications including infections because of the catheter and they understand. Later on the need to refer for AV fistula. Plan to initiate hemodialysis on this Tuesday. We will get hepatitis serologies and PPD in the meanwhile. (4) Diverticulosis of both small and large intestine with bleeding Plan: Based on history. I am unsure of previous history of diverticulosis but the symptomatology is quite suggestive. Further evaluations as per GI. 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 Monitor. (6) Metabolic acidosis Plan: Start bicarbonate tablets. Should correct once initiated on hemodialysis. (7) Abnormal serum level of alkaline phosphatase Plan: Will order an abdominal ultrasound
[2017-02-14] MEDS ORDERED: FUROSEMIDE INJ/PF 20 MG/2 ML SDV ONE (18:58)
[2017-02-14 19:39] LABS: ABSOLUTE LYMPHOCYTES (AUTO) 0.9 10^3/uL (0.5-4.7); ABSOLUTE MONOCYTES (AUTO) 0.5 10^3/uL (0.1-1.4); ABSOLUTE NEUT (AUTO) 5.7 10^3/uL (1.7-8.2); BASOPHILS % (AUTO) 0.2 % (0-2); EOSINOPHILS % (AUTO) 0.4 % (0-6); HEMATOCRIT 25.7 % (36.0-47.0); HGB HCT DIFFERENCE 0.1; MEAN CORPUSCULAR HEMOGLOBIN 31.2 pg (27.0-33.4); MEAN CORPUSCULAR HGB CONC 33.5 g/dL (32.0-36.0); MEAN CORPUSCULAR VOLUME 93 fl (80-97); MONOCYTES % (AUTO) 6.9 % (3-13); RED BLOOD COUNT 2.76 10^6/uL (3.72-5.28); RED CELL DISTRIBUTION WIDTH 15.4 % (11.5-14.0); SEGMENTED NEUTROPHILS % (AUTO) 79.5 % (42-78); WHITE BLOOD COUNT 7.2 10^3/uL (4.0-10.5)
[2017-02-14 19:46] LABS: HEMOGLOBIN 8.6 g/dL (12.0-15.5)
--- NOTE | 2017-02-14 19:52 | CONSULTATION REPORT E ---
Consultation Report NAME: BRIAN GUDINO : 1935 AGE: 81Y DATE: 02/14/2017 325 A TO: MARIAM JORGE M.D. FROM: LATISHA PIEDRA M.D. Requesting Physician Patient seen at the request of Dr. Nikunj Crane. REASON FOR CONSULTATION: Perm catheter placement. SUMMARY OF CONSULTATION: The patient is an 81-year-old female with now end-stage renal failure, hospitalized for weakness, syncope, and anemia. The decision has been made by the patient and Dr. Crane to proceed with hemodialysis. PAST MEDICAL AND SURGICAL HISTORY: Can be found in history and physical document. ALLERGIES: None known. REVIEW OF SYSTEMS: Patient is non-communicative. PHYSICAL EXAMINATION: GENERAL: Patient [facility] on third floor [facility]. She is scrunched up, contracted, and rolled to the right side. NECK: The neck is examined. There is no evidence of JVP. LUNGS: Clear to auscultation bilaterally. ABDOMEN: Soft. No peritoneal signs. IMPRESSION: 1. End-stage renal failure, now approaching hemodialysis. 2. Anemia, likely blood loss related due to hemorrhoids as well as end-stage renal failure. RECOMMENDATIONS: I have spoken with the patient and her 2 daughters at bedside this afternoon. I explained to them the mechanics of the planned procedure, a PermCath, with a thorough discussion of the risks, benefits and alternatives including bleeding, infection, catheter malfunction, DVT, cardiovascular collapse, and even albeit rare. The daughters appear to understand what is being proposed. The patient is less than enthusiastic as evidenced by her lack of response. At this point I suggest we keep her n.p.o., proceed with scheduled colonoscopy by Dr. Reyes tomorrow, and then set her up for PermCath placement subsequently if patient is in agreement. DICTATING PHYSICIAN: MARIAM JORGE M.D. [id number] PHY#: [id number] ID: [id number] JOB#: [id number] ACCT: [id number] cc:MARIAM JORGE M.D. >
[2017-02-14 20:10] LABS: CREATINE KINASE MB 2.03 ng/mL (<4.55); TROPONIN I 0.041 ng/mL
[2017-02-14] MEDS ORDERED: FUROSEMIDE INJ/PF 20 MG/2 ML SDV IV ONE (23:59)
[2017-02-15 02:24] LABS: CREATINE KINASE MB 2.07 ng/mL (<4.55); TROPONIN I 0.05 ng/mL
[2017-02-15 04:00] LABS: MEAN CORPUSCULAR HEMOGLOBIN 31.8 pg (27.0-33.4); MEAN CORPUSCULAR HGB CONC 34.6 g/dL (32.0-36.0); MEAN CORPUSCULAR VOLUME 92 fl (80-97); RED BLOOD COUNT 3.15 10^6/uL (3.72-5.28); RED CELL DISTRIBUTION WIDTH 15.3 % (11.5-14.0); WHITE BLOOD COUNT 6.7 10^3/uL (4.0-10.5)
[2017-02-15 07:51] LABS: ABSOLUTE EOSINOPHILS # (AUTO) 0.1 10^3/uL (0.0-0.6); ABSOLUTE LYMPHOCYTES (AUTO) 1.4 10^3/uL (0.5-4.7); ABSOLUTE MONOCYTES (AUTO) 0.6 10^3/uL (0.1-1.4); ABSOLUTE NEUT (AUTO) 5.1 10^3/uL (1.7-8.2); BASOPHILS % (AUTO) 0.4 % (0-2); EOSINOPHILS % (AUTO) 0.8 % (0-6); HEMATOCRIT 30.3 % (36.0-47.0); HEMOGLOBIN 10.4 g/dL (12.0-15.5); HGB HCT DIFFERENCE 0.9; LYMPHOCYTES % (AUTO) 19.8 % (13-45); MEAN CORPUSCULAR HEMOGLOBIN 31.3 pg (27.0-33.4); MEAN CORPUSCULAR HGB CONC 34.5 g/dL (32.0-36.0); MEAN CORPUSCULAR VOLUME 91 fl (80-97); MONOCYTES % (AUTO) 7.8 % (3-13); RED BLOOD COUNT 3.33 10^6/uL (3.72-5.28); RED CELL DISTRIBUTION WIDTH 15.4 % (11.5-14.0); SEGMENTED NEUTROPHILS % (AUTO) 71.2 % (42-78); WHITE BLOOD COUNT 7.1 10^3/uL (4.0-10.5)
[2017-02-15 07:55] LABS: ALANINE AMINOTRANSFERASE 18 U/L (9-52); ALBUMIN 3.4 g/dL (3.5-5.0); ALKALINE PHOSPHATASE 546 U/L (38-126); ANION GAP 16 (5-19); ASPARTATE AMINO TRANSFERASE 15 U/L (14-36); BILIRUBIN,DIRECT 0.4 mg/dL (0.0-0.4); BILIRUBIN,TOTAL 0.4 mg/dL (0.2-1.3); BLOOD UREA NITROGEN 110 mg/dL (7-20); CARBON DIOXIDE 14 mmol/L (22-30); CHLORIDE 112 mmol/L (98-107); CREATININE RESULT 6.31 mg/dL (0.52-1.25); GLUCOSE 99 mg/dL (75-110); POTASSIUM 4.5 mmol/L (3.6-5.0); SODIUM 142.4 mmol/L (137-145); TOTAL PROTEIN 5.9 g/dL (6.3-8.2)
[2017-02-15 07:57] LABS: PARTIAL THROMBOPLASTIN TIME 32.8 SEC (23.5-35.8)
[2017-02-15 08:07] LABS: CREATINE KINASE MB 2.24 ng/mL (<4.55); TROPONIN I 0.055 ng/mL
--- NOTE | 2017-02-15 08:52 | RADIOLOGY REPORT (SQ) ---
EXAM DESCRIPTION: U/S ABDOMEN COMPLETE W/O DOP COMPLETED DATE/TIME: 02/15/2017 7:29 am REASON FOR STUDY: elevated alkaline phosphatase COMPARISON: CT abdomen pelvis 06/29/2016, 02/13/2008 TECHNIQUE: Dynamic and static grayscale images acquired of the abdomen and recorded on PACS. Additio nal selected color Doppler and spectral images recorded. LIMITATIONS: Midline bowel gas FINDINGS: PANCREAS: Midline pancreas unremarkable LIVER: No masses. Echotexture normal. LIVER VASCULATURE: Normal directional flow of the main portal vein and hepatic veins. GALLBLADDER: No stones. Normal wall thickness. No pericholecystic fluid. Minimal sludge in the gallb ladder ULTRASOUND-DETECTED PATINO'S SIGN: Negative. INTRAHEPATIC DUCTS AND COMMON DUCT: CBD and intrahepatic ducts normal caliber. No filling defects. INFERIOR VENA CAVA: Not well seen AORTA: Upper and mid abdominal aorta normal caliber. Distal abdominal aorta not well seen RIGHT KIDNEY: Post nephrectomy and 9 LEFT KIDNEY: 9 left kidney is small, 9 cm in length with diffuse cortical thinning particularly ethel g the lower half of the left kidney. In the extreme lower pole kidney, a 2.4 cm cyst is present with an adjacent dilated blood vessel with internal color flow, which could be a venous varix. There is cortical thinning and increased echogenicity. Shadowing calcifications in the lower pole left kidn ey are present. No hydronephrosis. SPLEEN: Normal size. No solid masses. PERITONEAL AND PLEURAL SPACES: No ascites or effusions. OTHER: No other significant finding. IMPRESSION: Post right nephrectomy. Small echogenic left kidney without hydronephrosis seen. Left lower pole cortical cyst with adjacent venous varix. Liver, pancreas unremarkable. No gallstones. TECHNICAL DOCUMENTATION: JOB ID: [id number] [employer]- All Rights Reserved
[2017-02-15] MEDS: SODIUM BICARBONATE 650 MG TABLET PO SCH ×3 (11:13→15:10)
[2017-02-15] MEDS: PANTOPRAZOLE SODIUM 40 MG VIAL IV SCH (11:19)
--- NOTE | 2017-02-15 11:58 | PDOC PROGRESS REPORT ---
Subjective Progress Note for:: 02/15/17 Subjective:: Patient's currently denied any chest pain denied any shortness of the breath no abdominal pain.Patient's scheduled for the dialysis catheter tomorrow and scheduled for the colonoscopy today Patients received a total of 3 units of the blood and currently hemoglobin stable Physical Exam Vital Signs: Temp Pulse Resp BP Pulse Ox 98.7 F 67 18 150/44 H 100 02/15/17 07:28 02/15/17 07:28 02/15/17 07:28 02/15/17 07:28 02/15/17 07:28 Intake & Output 02/14/17 02/15/17 02/16/17 06:59 06:59 06:59 Intake Total 2527 Balance 2527 Weight 46.4 kg General appearance: PRESENT: no acute distress, well-developed, well-nourished Head exam: PRESENT: atraumatic, normocephalic Eye exam: PRESENT: conjunctiva pink, EOMI, PERRLA. ABSENT: scleral icterus Ear exam: PRESENT: normal external ear exam Mouth exam: PRESENT: moist, tongue midline Neck exam: PRESENT: full ROM. ABSENT: carotid bruit, JVD, lymphadenopathy, thyromegaly Respiratory exam: PRESENT: clear to auscultation vinicius Cardiovascular exam: PRESENT: RRR. ABSENT: diastolic murmur, rubs, systolic murmur Pulses: PRESENT: normal dorsalis pedis pul, +2 pedal pulses bilateral Vascular exam: PRESENT: normal capillary refill GI/Abdominal exam: PRESENT: normal bowel sounds, soft. ABSENT: distended, guarding, mass, organolmegaly, rebound, tenderness Rectal exam: PRESENT: deferred Neurological exam: PRESENT: alert, awake, oriented to person, oriented to place , oriented to time, oriented to situation, CN II-XII grossly intact. ABSENT: motor sensory deficit Psychiatric exam: PRESENT: appropriate affect, normal mood. ABSENT: homicidal ideation, suicidal ideation Skin exam: PRESENT: dry, intact, warm. ABSENT: cyanosis, rash Results Laboratory Results: 02/15/17 07:19 02/15/17 07:19 02/14/17 02/15/17 02/15/17 19:27 03:34 07:19 WBC 7.2 6.7 7.1 RBC 2.76 L 3.15 L 3.33 L Hgb 8.6 L D 10.0 L 10.4 L Hct 25.7 L 29.0 L 30.3 L MCV 93 92 91 MCH 31.2 31.8 31.3 MCHC 33.5 34.6 34.5 RDW 15.4 H 15.3 H 15.4 H Plt Count 220 220 233 Seg Neutrophils % 79.5 H 71.2 Lymphocytes % 13.0 19.8 Monocytes % 6.9 7.8 Eosinophils % 0.4 0.8 Basophils % 0.2 0.4 Absolute Neutrophils 5.7 5.1 Absolute Lymphocytes 0.9 1.4 Absolute Monocytes 0.5 0.6 Absolute Eosinophils 0.0 0.1 Absolute Basophils 0.0 0.0 Sodium Potassium Chloride Carbon Dioxide Anion Gap BUN Creatinine Est GFR ( Amer) Est GFR (Non-Af Amer) Glucose Calcium Phosphorus Total Bilirubin AST ALT Alkaline Phosphatase Total Protein Albumin 02/15/17 02/15/17 07:19 07:19 WBC RBC Hgb Hct MCV MCH MCHC RDW Plt Count Seg Neutrophils % Lymphocytes % Monocytes % Eosinophils % Basophils % Absolute Neutrophils Absolute Lymphocytes Absolute Monocytes Absolute Eosinophils Absolute Basophils Sodium 142.4 Potassium 4.5 Chloride 112 H Carbon Dioxide 14 L Anion Gap 16 BUN 110 H Creatinine 6.31 H Est GFR ( Amer) 8 L Est GFR (Non-Af Amer) 6 L Glucose 99 Calcium 10.0 Phosphorus 6.9 H Total Bilirubin 0.4 AST 15 ALT 18 Alkaline Phosphatase 546 H Total Protein 5.9 L Albumin 3.4 L 02/14/17 02/14/17 02/14/17 12:51 19:27 19:27 Creatine Kinase 81 CK-MB (CK-2) 2.03 Troponin I 0.033 0.041 02/15/17 02/15/17 02/15/17 01:45 01:45 07:19 Creatine Kinase 72 96 CK-MB (CK-2) 2.07 Troponin I 0.050 02/15/17 07:19 Creatine Kinase CK-MB (CK-2) 2.24 Troponin I 0.055 Impressions: Head CT 02/14/17 00:00 IMPRESSION: CHRONIC CHANGES OF ATROPHY AND MICROVASCULAR ISCHEMIA. NO ACUTE PROCESS. Chest X-Ray 02/14/17 06:55 IMPRESSION: NO ACUTE RADIOGRAPHIC FINDING IN THE CHEST. Abdomen Ultrasound 02/15/17 00:00 IMPRESSION: Post right nephrectomy. Small echogenic left kidney without hydronephrosis seen. Left lower pole cortical cyst with adjacent venous varix. Liver, pancreas unremarkable. No gallstones. Assessment & Plan - Diagnosis (1) Anemia due to blood loss, acute Is this a current diagnosis for this admission?: YesPlan: Status post 3 units of the blood currently stable scheduled for the colonoscopy (2) Chronic kidney disease, stage V Is this a current diagnosis for this admission?: YesPlan: Patient scheduled for the dialysis per nephrology (3) Syncope and collapse Is this a current diagnosis for this admission?: YesPlan: Patient CT head was negative and echocardiogram is also stable I think is more likely related to the anemia (4) Hypertension Qualifiers: Hypertension type: secondary to other renal disorders Qualified Code (s): I15.1 - Hypertension secondary to other renal disorders; N28.89 - Other specified disorders of kidney and ureter Is this a current diagnosis for this admission?: YesPlan: Currently stable - Time Time Spent with patient: 15-24 minutes Medications reviewed and adjusted accordingly: Yes Anticipated discharge: Other Within: Other - Inpatient Certification Medical Necessity: Need Close Monitoring Due to Risk of Patient Decompensation Post Hospital Care: D/C [facility] Map Documentation - Plan Summary Plan Summary: Continues to have as above plan continues current medication
--- NOTE | 2017-02-15 12:30 | PDOC PROGRESS REPORT ---
Subjective Progress Note for:: 02/15/17 Subjective:: Patient continues to be fatigued. She denies any history of chest pain shortness of breath. She is quite anxious about the pending procedures namely a colonoscopy later this afternoon followed by insertion of IJ PermCath. She has some questions about both the procedures which I have answered her and she seemed rather comfortable with those answers. Labs were reviewed with the patient that shows CKD stage V with no improvement. She continues to be uremic. Status post transfusion and hemoglobin is much better. Physical Exam Vital Signs: Temp Pulse Resp BP Pulse Ox 98.7 F 67 18 150/44 H 100 02/15/17 07:28 02/15/17 07:28 02/15/17 07:28 02/15/17 07:28 02/15/17 07:28 Intake & Output 02/14/17 02/15/17 02/16/17 06:59 06:59 06:59 Intake Total 2527 Balance 2527 Weight 46.4 kg General appearance: PRESENT: no acute distress Respiratory exam: PRESENT: clear to auscultation vinicius. ABSENT: crackles, rhonchi Cardiovascular exam: PRESENT: +S1, +S2, systolic murmur GI/Abdominal exam: PRESENT: normal bowel sounds, soft. ABSENT: organomegaly, tenderness Extremities exam: ABSENT: pedal edema Neurological exam: PRESENT: alert, awake, oriented to person, oriented to place Psychiatric exam: PRESENT: anxious Skin exam: ABSENT: erythema, mottled, rash Results Laboratory Results: 02/15/17 07:19 02/15/17 07:19 02/14/17 02/15/17 02/15/17 19:27 03:34 07:19 WBC 7.2 6.7 7.1 RBC 2.76 L 3.15 L 3.33 L Hgb 8.6 L D 10.0 L 10.4 L Hct 25.7 L 29.0 L 30.3 L MCV 93 92 91 MCH 31.2 31.8 31.3 MCHC 33.5 34.6 34.5 RDW 15.4 H 15.3 H 15.4 H Plt Count 220 220 233 Seg Neutrophils % 79.5 H 71.2 Lymphocytes % 13.0 19.8 Monocytes % 6.9 7.8 Eosinophils % 0.4 0.8 Basophils % 0.2 0.4 Absolute Neutrophils 5.7 5.1 Absolute Lymphocytes 0.9 1.4 Absolute Monocytes 0.5 0.6 Absolute Eosinophils 0.0 0.1 Absolute Basophils 0.0 0.0 Sodium Potassium Chloride Carbon Dioxide Anion Gap BUN Creatinine Est GFR ( Amer) Est GFR (Non-Af Amer) Glucose Calcium Phosphorus Total Bilirubin AST ALT Alkaline Phosphatase Total Protein Albumin 02/15/17 02/15/17 07:19 07:19 WBC RBC Hgb Hct MCV MCH MCHC RDW Plt Count Seg Neutrophils % Lymphocytes % Monocytes % Eosinophils % Basophils % Absolute Neutrophils Absolute Lymphocytes Absolute Monocytes Absolute Eosinophils Absolute Basophils Sodium 142.4 Potassium 4.5 Chloride 112 H Carbon Dioxide 14 L Anion Gap 16 BUN 110 H Creatinine 6.31 H Est GFR ( Amer) 8 L Est GFR (Non-Af Amer) 6 L Glucose 99 Calcium 10.0 Phosphorus 6.9 H Total Bilirubin 0.4 AST 15 ALT 18 Alkaline Phosphatase 546 H Total Protein 5.9 L Albumin 3.4 L 02/14/17 02/14/17 02/14/17 12:51 19:27 19:27 Creatine Kinase 81 CK-MB (CK-2) 2.03 Troponin I 0.033 0.041 02/15/17 02/15/17 02/15/17 01:45 01:45 07:19 Creatine Kinase 72 96 CK-MB (CK-2) 2.07 Troponin I 0.050 02/15/17 07:19 Creatine Kinase CK-MB (CK-2) 2.24 Troponin I 0.055 Impressions: Head CT 02/14/17 00:00 IMPRESSION: CHRONIC CHANGES OF ATROPHY AND MICROVASCULAR ISCHEMIA. NO ACUTE PROCESS. Chest X-Ray 02/14/17 06:55 IMPRESSION: NO ACUTE RADIOGRAPHIC FINDING IN THE CHEST. Abdomen Ultrasound 02/15/17 00:00 IMPRESSION: Post right nephrectomy. Small echogenic left kidney without hydronephrosis seen. Left lower pole cortical cyst with adjacent venous varix. Liver, pancreas unremarkable. No gallstones. Assessment & Plan - Diagnosis (1) Anemia due to blood loss, acute Is this a current diagnosis for this admission?: YesPlan: Hemodynamically stable. Status post transfusion. Stable hemoglobin at the moment. Further workup as per GI. (2) Syncope and collapse Is this a current diagnosis for this admission?: YesPlan: No further attacks. (3) Chronic kidney disease, stage V (very severe) Plan: Patient continues to be uremic. Scheduled for placement of an IJ catheter today and plan for hemodialysis in the morning. Again discussed the procedure and its complications and patient willing to proceed. (4) Diverticulosis of both small and large intestine with bleeding Plan: Presumed such. Await colonoscopy findings and GI workup. 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 Monitor. (6) Metabolic acidosis Plan: Began on bicarbonate. Monitor. Should correct well to the initiation of hemodialysis. (7) Abnormal serum level of alkaline phosphatase Plan: LFTs otherwise are normal. Abdominal ultrasound did not show any liver , gallbladder pathology. Likely this could be from bone related disease including secondary hyperparathyroidism. Elevated PTH levels.
[2017-02-15] MEDS ORDERED: LIDOCAINE 1%/EPINEPHRINE INJ 20 ML VIAL ONE (15:00)
[2017-02-15 16:28] LABS: ABSOLUTE EOSINOPHILS # (AUTO) 0.1 10^3/uL (0.0-0.6); ABSOLUTE LYMPHOCYTES (AUTO) 1.2 10^3/uL (0.5-4.7); ABSOLUTE MONOCYTES (AUTO) 0.6 10^3/uL (0.1-1.4); BASOPHILS % (AUTO) 0.3 % (0-2); HEMATOCRIT 27.7 % (36.0-47.0); HEMOGLOBIN 9.5 g/dL (12.0-15.5); HGB HCT DIFFERENCE 0.8; LYMPHOCYTES % (AUTO) 17.2 % (13-45); MEAN CORPUSCULAR HEMOGLOBIN 31.7 pg (27.0-33.4); MEAN CORPUSCULAR HGB CONC 34.2 g/dL (32.0-36.0); MEAN CORPUSCULAR VOLUME 93 fl (80-97); MONOCYTES % (AUTO) 9.2 % (3-13); RED BLOOD COUNT 2.99 10^6/uL (3.72-5.28); RED CELL DISTRIBUTION WIDTH 15.3 % (11.5-14.0); SEGMENTED NEUTROPHILS % (AUTO) 72.3 % (42-78); WHITE BLOOD COUNT 6.9 10^3/uL (4.0-10.5)
[2017-02-15] MEDS ORDERED: NALOXONE HCL INJ/PF 0.4 MG/1 ML SDV ONE (16:40)
[2017-02-15] MEDS ORDERED: MIDAZOLAM 2 MG/2 ML INJ ONE ×2 (16:40)
[2017-02-15] MEDS ORDERED: FLUMAZENIL INJ 0.5 MG/5 ML VIAL IV ONE (16:41)
[2017-02-15] MEDS ORDERED: GLUCAGON,HUMAN RECOMB 1 MG INJ ONE (16:41)
[2017-02-15] MEDS ORDERED: EPINEPHRINE INJ 1 MG/10 ML DISP.SYRIN ONE (16:41)
[2017-02-15] MEDS: FENTANYL CITRATE INJ/PF 100 MCG/2 ML AMPUL ONE ×2 (17:51→18:04)
--- NOTE | 2017-02-15 18:25 | PDOC CONSULTATION ---
Consultation Consult Date: 02/14/17 History of Present Illness Admission Date/PCP: 02/14/17 08:31 MARIANO WASHINGTON MD History of Present Illness: This is an 81-year-old patient who was admitted by Dr. Chaparro on 02/14/2017 with rectal bleeding severe anemia and syncopal episodes. Patient had 2 episodes of syncope within 24 hours of been admitted. Her hemoglobin was 8.4 on admission. I saw her in the office on 02/07/2017 when she had a few episodes of rectal bleeding mixed with brown stools. At that time I felt she was bleeding from hemorrhoids and her hemoglobin was stable at 9.6. She had another more severe rectal bleeding episode 2 days before being admitted and this was before her syncopal attacks. She also complains of some left lower quadrant pain. She has had multiple episodes of rectal bleeding over the years and has had multiple EGDs and colonoscopies. Her last EGD and colonoscopies was in August of last year and these only showed pancolonic diverticulosis. She has end-stage renal disease and has refused dialysis over the years. She seemed to be agreeable to that now Past Medical History Cardiac Medical History: Reports: Hyperlipidema, Hypertension Pulmonary Medical History: Reports: Pneumonia Neurological Medical History: Denies: Seizures Renal/ Medical History: Reports: Chronic Kidney Disease GI Medical History: Reports: Diverticulitis Musculoskeltal Medical History: Reports: Arthritis Hematology: Reports: Anemia, Bleeding Tendencies Past Surgical History Past Surgical History: Denies: Hysterectomy Social History Smoking Status: Never Smoker Frequency of Alcohol Use: None Hx Recreational Drug Use: No Drugs: None Hx Prescription Drug Abuse: No - Advance Directive Resuscitation Status: Full Code Family History Family History: Reviewed & Not Pertinent Parental Family History Reviewed: No Children Family History Reviewed: NA Sibling(s) Family History Reviewed.: NA Medication/Allergy Home Medications: Clonidine HCl [Catapres 0.2 mg Tablet] 0.2 mg PO DAILYP PRN 02/14/17 Olmesartan/Hydrochlorothiazide [Benicar Hct 20-12.5 Mg Tablet] 1 each PO DAILY 02/14/17 Allergies/Adverse Reactions: aloe vera [Aloe Vera] Allergy (Unknown, Verified 02/14/17 10:17) Swelling jalapeno peppers Allergy (Unknown, Uncoded 02/14/17 10:17) Swelling Review of Systems All systems: reviewed and no additional remarkable complaints except as stated Physical Exam Vital Signs: Temp Pulse Resp BP Pulse Ox 98.5 F 76 23 H 191/73 H 100 02/15/17 15:09 02/15/17 17:25 02/15/17 17:25 02/15/17 17:25 02/15/17 17:25 Intake & Output 02/14/17 02/15/17 02/16/17 06:59 06:59 06:59 Intake Total 2527 340 Balance 2527 340 Weight 46.4 kg Exam: General: Patient is alert and looks well. HEENT: There pallor but no jaundice. PERRLA. Oropharynx normal Respiratory: No chest deformity. No respiratory distress. Chest wall palpitation was unremarkable. Breath sounds were normal Cardiovascular: Heart sounds 1 and 2 normal with no murmurs. Abdominal: Not distended. Soft and nontender. Liver and spleen not palpable. No ascites demonstrated. Bowel sounds active. Rectal examination was deferred. Extremities: No edema Neurological: Alert and oriented x4. Grossly nonfocal. Normal speech Skin: No significant rash Psychological: Normal affect Results Laboratory Results: 02/15/17 16:00 02/15/17 07:19 02/14/17 02/15/17 02/15/17 19:27 03:34 07:19 WBC 7.2 6.7 7.1 RBC 2.76 L 3.15 L 3.33 L Hgb 8.6 L D 10.0 L 10.4 L Hct 25.7 L 29.0 L 30.3 L MCV 93 92 91 MCH 31.2 31.8 31.3 MCHC 33.5 34.6 34.5 RDW 15.4 H 15.3 H 15.4 H Plt Count 220 220 233 Seg Neutrophils % 79.5 H 71.2 Lymphocytes % 13.0 19.8 Monocytes % 6.9 7.8 Eosinophils % 0.4 0.8 Basophils % 0.2 0.4 Absolute Neutrophils 5.7 5.1 Absolute Lymphocytes 0.9 1.4 Absolute Monocytes 0.5 0.6 Absolute Eosinophils 0.0 0.1 Absolute Basophils 0.0 0.0 Sodium Potassium Chloride Carbon Dioxide Anion Gap BUN Creatinine Est GFR ( Amer) Est GFR (Non-Af Amer) Glucose Calcium Phosphorus Total Bilirubin AST ALT Alkaline Phosphatase Total Protein Albumin 02/15/17 02/15/17 02/15/17 07:19 07:19 16:00 WBC 6.9 RBC 2.99 L Hgb 9.5 L Hct 27.7 L MCV 93 MCH 31.7 MCHC 34.2 RDW 15.3 H Plt Count 210 Seg Neutrophils % 72.3 Lymphocytes % 17.2 Monocytes % 9.2 Eosinophils % 1.0 Basophils % 0.3 Absolute Neutrophils 5.0 Absolute Lymphocytes 1.2 Absolute Monocytes 0.6 Absolute Eosinophils 0.1 Absolute Basophils 0.0 Sodium 142.4 Potassium 4.5 Chloride 112 H Carbon Dioxide 14 L Anion Gap 16 BUN 110 H Creatinine 6.31 H Est GFR ( Amer) 8 L Est GFR (Non-Af Amer) 6 L Glucose 99 Calcium 10.0 Phosphorus 6.9 H Total Bilirubin 0.4 AST 15 ALT 18 Alkaline Phosphatase 546 H Total Protein 5.9 L Albumin 3.4 L 02/14/17 02/14/17 02/14/17 12:51 19:27 19:27 Creatine Kinase 81 CK-MB (CK-2) 2.03 Troponin I 0.033 0.041 02/15/17 02/15/17 02/15/17 01:45 01:45 07:19 Creatine Kinase 72 96 CK-MB (CK-2) 2.07 Troponin I 0.050 02/15/17 07:19 Creatine Kinase CK-MB (CK-2) 2.24 Troponin I 0.055 Impressions: Head CT 02/14/17 00:00 IMPRESSION: CHRONIC CHANGES OF ATROPHY AND MICROVASCULAR ISCHEMIA. NO ACUTE PROCESS. Chest X-Ray 02/14/17 06:55 IMPRESSION: NO ACUTE RADIOGRAPHIC FINDING IN THE CHEST. Abdomen Ultrasound 02/15/17 00:00 IMPRESSION: Post right nephrectomy. Small echogenic left kidney without hydronephrosis seen. Left lower pole cortical cyst with adjacent venous varix. Liver, pancreas unremarkable. No gallstones. Assessment & Plan - Diagnosis (1) Blood loss anemia Is this a current diagnosis for this admission?: YesPlan: She has had multiple episodes of bleeding over the last week or so leading to a hemoglobin of 5. She has chronic anemia and normally runs between 9 and 10. I suspect her current bleeding is from her diverticular disease. She will undergo an EGD and colonoscopy for further evaluation. She is being transfused (2) Abnormal serum level of alkaline phosphatase Is this a current diagnosis for this admission?: YesPlan: She has had elevated alkaline phosphatase at least since 2012. Her last CAT scan in June 2016 showed no hepatic lesions. I will perform liver ultrasound while in the hospital. I suspect the elevation is related to her renal failure (3) Chronic kidney disease, stage V Is this a current diagnosis for this admission?: Yes (4) Anemia in chronic kidney disease Qualifiers: Chronic kidney disease stage: stage 5, not on chronic dialysis Qualified Code(s): N18.5 - Chronic kidney disease, stage 5; D63.1 - Anemia in chronic kidney disease
--- NOTE | 2017-02-15 18:29 | Operative Report ---
Operative Report DATE OF SURGERY: 02/15/17 Operative Report: Pre-op diagnosis: GI bleed Post-op diagnosis: 1. Antral gastritis 2. Colonic diverticulosis 3. Limited view of the colon Surgery: Upper endoscopy with biopsy and Colonoscopy Medications: Versed 2mg, Fentanyl 100mcg IV push Tissue removed: Antral biopsy Procedure: After informed consent obtained from patient, patient's pharynx was sprayed with Hurricane and conscious sedation was achieved. The upper endoscope was then inserted into the esophagus under direct vision and advanced into the stomach and further into the duodenum. Detailed examination of the duodenum, stomach and the esophagus was then performed. A digital rectal examination was performed and this was unremarkable. The colonoscope was inserted into the rectum and advanced to the cecum. The appendiceal orifice and the terminal ileum were both identified. The mucosa was examined into details as the colonoscope was slowly pulled out of the patient. The endoscope was retroflexed in the rectum. Patient tolerated the procedure well. Findings Esophagus: Normal Stomach: Moderate erythema in the gastric antrum Duodenum: Normal Terminal ileum: Not intubated Cecum: Not intubated Ascending colon: View of the whole colon was very limited due to retained black stools most likely from use of iron Transverse colon: Multiple diverticuli Descending colon: Multiple diverticuli Sigmoid colon: Multiple diverticuli Rectum: Normal except for internal hemorrhoids Plan: Will repeat colonoscopy as outpatient. Consider bleeding scan if acute rectal bleeding resumes OPERATION: .
--- NOTE | 2017-02-15 19:40 | XCELERA REPORT ---
[address] [address] Transthoracic Echocardiogram Report Name: BRIAN GUDINO Age: 81 yrs Gender: Female : 1935 Patient Status: Inpatient Patient Location: 3W\S\325\S\A Study Date: 02/15/2017 11:34 AM Height: 60 in Weight: 104 lb BSA: 1.4 m2 Procedure: A complete two-dimensional transthoracic echocardiogram was performed (2D, M-mode, spectral and color flow Doppler). The study was technically adequate with some images being suboptimal in quality. Reason For Study: syncopal episode Ordering Physician: LATISHA PIEDRA Performed By: Eileen Rae Interpretation Summary The left ventricular ejection fraction is normal. Doppler measurements suggest pseudonormalized left ventricular relaxation, which is associated with grade II/IV or mild to moderate diastolic dysfunction There is mild concentric left ventricular hypertrophy. The left ventricle is grossly normal size. Wall motion cannot be accurately commented on, but no definite regional wall motion abnormalities noted. The right ventricular systolic function is normal. The right atrium is normal in size The left atrial size is normal. There is a mild amount of mitral regurgitation There is no mitral valve stenosis. No aortic regurgitation is present. There is no aortic valve stenosis There is a trace or physiologic amount of tricuspid regurgitation Tricuspid regurgitation jet envelope not well defined to measure RV systolic pressure accurately. The aortic root is not well visualized but is probably normal size. The inferior vena cava was not well visualized Minimal pericardial effusion. MMode/2D Measurements \T\ Calculations RVDd: 3.4 cm LVIDd: 4.3 cm FS: 35.4 % Ao root diam: 2.3 cm IVSd: 1.2 cm LVIDs: 2.8 cm EDV(Teich): 84.3 ml LVPWd: 1.2 cm ESV(Teich): 29.4 ml Ao root area: 4.3 cm2 EF(Teich): 65.1 % Doppler Measurements \T\ Calculations MV E max kalen: MV dec slope: Ao V2 max: LV V1 max P.3 cm/sec 166.5 cm/sec 4.8 mmHg MV A max kalen: 262.5 cm/sec2 Ao max PG: LV V1 max: 92.5 cm/sec MV dec time: 11.1 mmHg 109.2 cm/sec MV E/A: 0.69 0.24 sec PA V2 max: PI end-d kalen: TR max kalen: 90.7 cm/sec 101.7 cm/sec 234.0 cm/sec PA max PG: TR max P.3 mmHg 21.9 mmHg Left Ventricle The left ventricle is grossly normal size. There is mild concentric left ventricular hypertrophy. The left ventricular ejection fraction is normal. Doppler measurements suggest pseudonormalized left ventricular relaxation, which is associated with grade II/IV or mild to moderate diastolic dysfunction. Wall motion cannot be accurately commented on, but no definite regional wall motion abnormalities noted. Right Ventricle The right ventricle is grossly normal size. There is normal right ventricular wall thickness. The right ventricular systolic function is normal. Atria The right atrium is normal in size. The left atrial size is normal. Interarterial septum not well visualized and not well dopplered. Cannot comment on ASD/PFO presence. Mitral Valve The mitral valve is grossly normal. There is no mitral valve stenosis. There is a mild amount of mitral regurgitation. Aortic Valve The aortic valve is grossly normal. There is no aortic valve stenosis. No aortic regurgitation is present. Tricuspid Valve The tricuspid valve is not well visualized, but is grossly normal. There is no tricuspid stenosis. There is a trace or physiologic amount of tricuspid regurgitation. Tricuspid regurgitation jet envelope not well defined to measure RV systolic pressure accurately. Pulmonic Valve The pulmonic valve is not well visualized. Great Vessels The aortic root is not well visualized but is probably normal size. The inferior vena cava was not well visualized. Effusions Minimal pericardial effusion. : LATISHA PIEDRA > Caryn Anthony
[2017-02-16 07:39] LABS: ABSOLUTE EOSINOPHILS # (AUTO) 0.1 10^3/uL (0.0-0.6); ABSOLUTE LYMPHOCYTES (AUTO) 1.6 10^3/uL (0.5-4.7); ABSOLUTE MONOCYTES (AUTO) 0.7 10^3/uL (0.1-1.4); ABSOLUTE NEUT (AUTO) 5.1 10^3/uL (1.7-8.2); BASOPHILS % (AUTO) 0.2 % (0-2); EOSINOPHILS % (AUTO) 1.4 % (0-6); HEMATOCRIT 29.2 % (36.0-47.0); HEMOGLOBIN 9.9 g/dL (12.0-15.5); HGB HCT DIFFERENCE 0.5; LYMPHOCYTES % (AUTO) 20.7 % (13-45); MEAN CORPUSCULAR HEMOGLOBIN 31.3 pg (27.0-33.4); MEAN CORPUSCULAR HGB CONC 33.8 g/dL (32.0-36.0); MEAN CORPUSCULAR VOLUME 93 fl (80-97); MONOCYTES % (AUTO) 9.6 % (3-13); RED BLOOD COUNT 3.15 10^6/uL (3.72-5.28); RED CELL DISTRIBUTION WIDTH 15.6 % (11.5-14.0); SEGMENTED NEUTROPHILS % (AUTO) 68.1 % (42-78); WHITE BLOOD COUNT 7.5 10^3/uL (4.0-10.5)
[2017-02-16 07:58] LABS: ALANINE AMINOTRANSFERASE 23 U/L (9-52); ALBUMIN 3.4 g/dL (3.5-5.0); ALKALINE PHOSPHATASE 574 U/L (38-126); ANION GAP 17 (5-19); ASPARTATE AMINO TRANSFERASE 18 U/L (14-36); BILIRUBIN,DIRECT 0.4 mg/dL (0.0-0.4); BILIRUBIN,TOTAL 0.4 mg/dL (0.2-1.3); BLOOD UREA NITROGEN 107 mg/dL (7-20); CALCIUM 10.2 mg/dL (8.4-10.2); CARBON DIOXIDE 15 mmol/L (22-30); CHLORIDE 109 mmol/L (98-107); CREATININE RESULT 6.08 mg/dL (0.52-1.25); GLUCOSE 92 mg/dL (75-110); POTASSIUM 4.3 mmol/L (3.6-5.0)
[2017-02-16] MEDS: LANSOPRAZOLE 30 MG TAB.RAP.DR PO SCH (08:24)
[2017-02-16] MEDS: SODIUM BICARBONATE 650 MG TABLET PO SCH ×3 (08:24→17:21)
--- NOTE | 2017-02-16 08:49 | PDOC PROGRESS REPORT ---
Subjective Progress Note for:: 02/16/17 Subjective:: Patient is currently doing well. Patient underwent for colonoscopy yesterday. No active GI bleed is fine. Patient's also going for the catheter placement for the dialysis. Patient's complaining some mild back painBut denied any chest pain denied any shortness of the breath family is in the bedside discussed with the family about the all the test results Physical Exam Vital Signs: Temp Pulse Resp BP Pulse Ox 98.7 F 69 19 137/47 H 97 02/16/17 03:04 02/16/17 03:04 02/16/17 03:04 02/16/17 03:04 02/16/17 03:04 Intake & Output 02/15/17 02/16/17 02/17/17 06:59 06:59 06:59 Intake Total 2527 997 Balance 2527 997 Weight 46.4 kg 46.9 kg General appearance: PRESENT: no acute distress, well-developed, well-nourished Head exam: PRESENT: atraumatic, normocephalic Eye exam: PRESENT: conjunctiva pink, EOMI, PERRLA. ABSENT: scleral icterus Ear exam: PRESENT: normal external ear exam Mouth exam: PRESENT: moist, tongue midline Neck exam: PRESENT: full ROM. ABSENT: carotid bruit, JVD, lymphadenopathy, thyromegaly Respiratory exam: PRESENT: clear to auscultation vinicius Cardiovascular exam: PRESENT: RRR. ABSENT: diastolic murmur, rubs, systolic murmur Pulses: PRESENT: normal dorsalis pedis pul, +2 pedal pulses bilateral Vascular exam: PRESENT: normal capillary refill GI/Abdominal exam: PRESENT: normal bowel sounds, soft. ABSENT: distended, guarding, mass, organolmegaly, rebound, tenderness Rectal exam: PRESENT: deferred Neurological exam: PRESENT: alert, awake, oriented to person, oriented to place , oriented to time, oriented to situation, CN II-XII grossly intact. ABSENT: motor sensory deficit Psychiatric exam: PRESENT: appropriate affect, normal mood. ABSENT: homicidal ideation, suicidal ideation Skin exam: PRESENT: dry, intact, warm. ABSENT: cyanosis, rash Results Laboratory Results: 02/15/17 16:00 02/15/17 07:19 02/15/17 02/15/17 07:19 16:00 WBC 6.9 RBC 2.99 L Hgb 9.5 L Hct 27.7 L MCV 93 MCH 31.7 MCHC 34.2 RDW 15.3 H Plt Count 210 Seg Neutrophils % 72.3 Lymphocytes % 17.2 Monocytes % 9.2 Eosinophils % 1.0 Basophils % 0.3 Absolute Neutrophils 5.0 Absolute Lymphocytes 1.2 Absolute Monocytes 0.6 Absolute Eosinophils 0.1 Absolute Basophils 0.0 PTH Intact 1721 H 02/14/17 02/14/17 02/14/17 12:51 19:27 19:27 Creatine Kinase 81 CK-MB (CK-2) 2.03 Troponin I 0.033 0.041 02/15/17 02/15/17 02/15/17 01:45 01:45 07:19 Creatine Kinase 72 96 CK-MB (CK-2) 2.07 Troponin I 0.050 02/15/17 07:19 Creatine Kinase CK-MB (CK-2) 2.24 Troponin I 0.055 Impressions: Head CT 02/14/17 00:00 IMPRESSION: CHRONIC CHANGES OF ATROPHY AND MICROVASCULAR ISCHEMIA. NO ACUTE PROCESS. Chest X-Ray 02/14/17 06:55 IMPRESSION: NO ACUTE RADIOGRAPHIC FINDING IN THE CHEST. Abdomen Ultrasound 02/15/17 00:00 IMPRESSION: Post right nephrectomy. Small echogenic left kidney without hydronephrosis seen. Left lower pole cortical cyst with adjacent venous varix. Liver, pancreas unremarkable. No gallstones. Assessment & Plan - Diagnosis (1) Anemia due to blood loss, acute Is this a current diagnosis for this admission?: Yes Plan: Currently all stable (2) Chronic kidney disease, stage V Is this a current diagnosis for this admission?: Yes Plan: Scheduled for the hemodialysis (3) Syncope and collapse Is this a current diagnosis for this admission?: Yes Plan: Patient CT head was negative and echocardiogram is also stable I think is more likely related to the anemia (4) Hypertension Qualifiers: Hypertension type: secondary to other renal disorders Qualified Code(s): I15.1 - Hypertension secondary to other renal disorders Is this a current diagnosis for this admission?: Yes Plan: Currently stable - Time Time Spent with patient: 15-24 minutes Medications reviewed and adjusted accordingly: Yes Anticipated discharge: Home Within: Other - Inpatient Certification Medical Necessity: Need Close Monitoring Due to Risk of Patient Decompensation Post Hospital Care: D/C Protocol Manager Documentation - Plan Summary Plan Summary: Scheduled for hemodialysis per nephrology continues to monitor the patient
[2017-02-16] MEDS: PHARMACY COMMUNICATION ORDER MC SCH (09:38)
[2017-02-16] MEDS ORDERED: LIDOCAINE 1%/EPINEPHRINE INJ 20 ML VIAL ONE (09:50)
[2017-02-16] MEDS ORDERED: ACETAMINOPHEN 650 MG SUPP.RECT PR ONE (10:00)
[2017-02-16] MEDS ORDERED: FENTANYL CITRATE INJ/PF 100 MCG/2 ML AMPUL ONE (10:46)
[2017-02-16] MEDS ORDERED: PROPOFOL INJ 200 MG/20 ML VIAL IV ONE (10:46)
[2017-02-16] MEDS ORDERED: MIDAZOLAM 2 MG/2 ML INJ ONE (10:46)
[2017-02-16] MEDS ORDERED: CEFAZOLIN INJ 1 GM VIAL ONE (10:57)
[2017-02-16] MEDS ORDERED: DIPHENHYDRAMINE HCL 50 MG/ML VIAL IV PRN (11:08)
[2017-02-16] MEDS ORDERED: FENTANYL CITRATE INJ/PF 100 MCG/2 ML AMPUL IV PRN ×2 (11:08)
[2017-02-16] MEDS ORDERED: ONDANSETRON HCL INJ/PF 4 MG/2 ML SDV IV PRN (11:08)
[2017-02-16] MEDS ORDERED: LIDOCAINE 2%/EPINEPHRINE INJ 20 ML VIAL INJ ONE ×2 (11:09)
--- NOTE | 2017-02-16 11:27 | Operative Report ---
Operative Report DATE OF SURGERY: 02/15/17 PREOPERATIVE DIAGNOSIS: End-stage renal failure POSTOPERATIVE DIAGNOSIS: Same OPERATION: 1. Focused ultrasound of the right neck. 2. Insertion of Willie split 23 cm permacatheter right internal jugular vein. 3. Use of intraoperative fluoroscopy with interpretation SURGEON: MARIAM CERRATO MIXER DRIVER: LEROY RUCKER ANESTHESIA: LMAC TISSUE REMOVED OR ALTERED: None COMPLICATIONS: None ESTIMATED BLOOD LOSS: Scant INTRAOPERATIVE FINDINGS: See below PROCEDURE: The patient was seen in the preop holding area where consent was provided. The right neck was marked by Dr. Walker The patient was then taken to the operating room where she is placed supine position arms tucked right neck and chest wall exposed, prepped and draped sterile fashion. Suitable level of anesthesia induced. This was under LMAC. Surgical plan and surgical timeout conducted. Using the ultrasound real-time as a guide, the skin was any stopped 1% lidocaine with epinephrine, and using Seldinger technique, a micro needle and wire was threaded into the right internal jugular vein which was suitable for cannulation. A separate site for the exit of the permanent catheter was chosen on the right subclavian chest wall area. Skin was anesthetized with lidocaine 1%, incision made in the skin, and the 23 cm cuff to tip catheter was threaded between the 2 incisions using the tunneling device. Under fluoroscopic guidance, the micro wire was switched over to a conventional wire using the micro-introducer sheath. We then dilated up under fluoroscopic guidance real-time the tract using the small medium and then the large introducer dilators. We then threaded the arches dilator into the strip away sheath and threaded this over the wire. The wire and dilator were removed, and the dual lumen Willie split catheter was threaded into the right internal jugular vein. Under fluoroscopic guidance the tip of the catheter was in the superior vena cava and there is no kinking of the catheter. There was excellent aspiration and flush through both lumens. Lumens were flushed with dilute saline. Catheter was secured the skin at 4 sites with 2-0 Prolene suture Biopatch sterile dressing applied. The initial stab wound closed with 2-0 Vicryl suture. OpSite applied. Patient tolerated the procedure well, taken to the recovery room in stable condition. The physician optical assistant, Ms. Seals, provided assistance during this case by: Assisting by retracting tissue, instillation of local anesthesia and closure of skin incisions. Portable upright chest x-ray pending at time of dictation.
[2017-02-16] MEDS ORDERED: HEPARIN SOD (PORCINE) 5,000 UNIT/ML 1 ML SYRINGE ONE (12:06)
--- NOTE | 2017-02-16 12:36 | RADIOLOGY REPORT (SQ) ---
EXAM DESCRIPTION: CHEST SINGLE VIEW COMPLETED DATE/TIME: 02/16/2017 12:17 pm REASON FOR STUDY: Perm catheter placement COMPARISON: 02/14/2017 EXAM PARAMETERS: NUMBER OF VIEWS: One view. TECHNIQUE: Single frontal radiographic view of the chest acquired. RADIATION DOSE: NA LIMITATIONS: None. FINDINGS: LUNGS AND PLEURA: No opacities, masses or pneumothorax. No pleural effusion. MEDIASTINUM AND HILAR STRUCTURES: Fullness in the right paratracheal region, question enlargement of the right lobe thyroid versus right neck hematoma. Slight deviation of the trachea towards the left. This report was discussed with Dr. Carvalho 1225 hours, 02/16/2017. HEART AND VASCULAR STRUCTURES: Heart normal in size. Normal vasculature. BONES: No acute findings. HARDWARE: Right jugular central venous dialysis catheter, with the tip in the upper aspect right atri um/inferior aspect of the SVC OTHER: No other significant finding. IMPRESSION: No pneumothorax post right central venous dialysis catheter placement. Fullness of the right peritracheal region at the thoracic inlet with slight deviation airway towards the left. Findings could be due to underlying thyroid mass. Hematoma post central venous catheter p lacement could not be excluded. Findings discussed with the operating surgeon TECHNICAL DOCUMENTATION: JOB ID: [id number]
--- NOTE | 2017-02-16 15:24 | PDOC PROGRESS REPORT ---
Subjective Progress Note for:: 02/16/17 Subjective:: Patient seen in the hospital today.She continues to feel very weak and fatigued.She underwent a colonoscopy yesterday and I did discuss with Dr. Reyes/ KULWINDER about that.He did not see any clear-cut evidences of GI bleed. However he saw multiple tics and he believes the bleeding was related to diverticulitis.Patient this morning underwent a right IJ PermCath placement by Dr. Carvalho which was uneventful.She is now currently being seen on hemodialysis. Orders were discussed with the treating nurse Jessa. Will remove no fluid and try to see how she does over the period of 2.5 hours.The procedure of hemodialysis and his complications including hypotension, infections and rare causes of cardiac arrest were explained to both patient and her daughter were willing to proceed. Physical Exam Vital Signs: Temp Pulse Resp BP Pulse Ox 97.5 F 73 16 174/51 H 100 02/16/17 12:44 02/16/17 14:00 02/16/17 12:44 02/16/17 12:44 02/16/17 12:44 Intake & Output 02/15/17 02/16/17 02/17/17 06:59 06:59 06:59 Intake Total 2527 997 350 Output Total 10 Balance 2527 997 340 Weight 46.4 kg 46.9 kg General appearance: PRESENT: no acute distress Respiratory exam: PRESENT: clear to auscultation vinicius. ABSENT: crackles, rhonchi Cardiovascular exam: PRESENT: +S1, +S2, systolic murmur GI/Abdominal exam: PRESENT: normal bowel sounds, soft. ABSENT: organomegaly, tenderness Extremities exam: ABSENT: pedal edema Neurological exam: PRESENT: alert, awake, oriented to person, oriented to place Skin exam: ABSENT: erythema, rash Results Laboratory Results: 02/16/17 05:17 02/16/17 05:17 02/15/17 02/15/17 02/16/17 07:19 16:00 05:17 WBC 6.9 7.5 RBC 2.99 L 3.15 L Hgb 9.5 L 9.9 L Hct 27.7 L 29.2 L MCV 93 93 MCH 31.7 31.3 MCHC 34.2 33.8 RDW 15.3 H 15.6 H Plt Count 210 240 Seg Neutrophils % 72.3 68.1 Lymphocytes % 17.2 20.7 Monocytes % 9.2 9.6 Eosinophils % 1.0 1.4 Basophils % 0.3 0.2 Absolute Neutrophils 5.0 5.1 Absolute Lymphocytes 1.2 1.6 Absolute Monocytes 0.6 0.7 Absolute Eosinophils 0.1 0.1 Absolute Basophils 0.0 0.0 Sodium Potassium Chloride Carbon Dioxide Anion Gap BUN Creatinine Est GFR ( Amer) Est GFR (Non-Af Amer) Glucose Calcium Total Bilirubin AST ALT Alkaline Phosphatase Total Protein Albumin PTH Intact 1721 H 02/16/17 05:17 WBC RBC Hgb Hct MCV MCH MCHC RDW Plt Count Seg Neutrophils % Lymphocytes % Monocytes % Eosinophils % Basophils % Absolute Neutrophils Absolute Lymphocytes Absolute Monocytes Absolute Eosinophils Absolute Basophils Sodium 141.0 Potassium 4.3 Chloride 109 H Carbon Dioxide 15 L Anion Gap 17 BUN 107 H Creatinine 6.08 H Est GFR ( Amer) 8 L Est GFR (Non-Af Amer) 7 L Glucose 92 Calcium 10.2 Total Bilirubin 0.4 AST 18 ALT 23 Alkaline Phosphatase 574 H Total Protein 6.0 L Albumin 3.4 L PTH Intact 02/14/17 02/14/17 02/14/17 12:51 19:27 19:27 Creatine Kinase 81 CK-MB (CK-2) 2.03 Troponin I 0.033 0.041 02/15/17 02/15/17 02/15/17 01:45 01:45 07:19 Creatine Kinase 72 96 CK-MB (CK-2) 2.07 Troponin I 0.050 02/15/17 07:19 Creatine Kinase CK-MB (CK-2) 2.24 Troponin I 0.055 Impressions: Head CT 02/14/17 00:00 IMPRESSION: CHRONIC CHANGES OF ATROPHY AND MICROVASCULAR ISCHEMIA. NO ACUTE PROCESS. Abdomen Ultrasound 02/15/17 00:00 IMPRESSION: Post right nephrectomy. Small echogenic left kidney without hydronephrosis seen. Left lower pole cortical cyst with adjacent venous varix. Liver, pancreas unremarkable. No gallstones. Chest X-Ray 02/16/17 00:00 IMPRESSION: No pneumothorax post right central venous dialysis catheter placement. Fullness of the right peritracheal region at the thoracic inlet with slight deviation airway towards the left. Findings could be due to underlying thyroid mass. Hematoma post central venous catheter placement could not be excluded. Findings discussed with the operating surgeon Assessment & Plan - Diagnosis (1) Anemia due to blood loss, acute Is this a current diagnosis for this admission?: Yes Plan: Hemodynamically stable. Status post transfusion. Stable hemoglobin at the moment. Status post colonoscopy and most likely from diverticular bleed.We will also check iron studies and see if she needs any replacements. We will also start her on Procrit (2) Syncope and collapse Is this a current diagnosis for this admission?: Yes (3) Chronic kidney disease, stage V (very severe) Plan: Initiated on hemodialysis and undergoing dialysis without any issues. Vital signs are stable. Dialysis is being monitored to ensure a safe and smooth procedure.Orders were discussed with the treating nurse Jessa.Once she is hemodynamically stable from a GI bleeding point of view she can be ready to be discharged to [facility] as an outpatient. She will continue to receive outpatient dialysis. Discharge plannner and needs to coordinate that with the patient and the family. (4) Diverticulosis of both small and large intestine with bleeding Plan: Status post colonoscopy findings and GI workup. (5) Hypertension Qualifiers: Hypertension type: secondary to other renal disorders Qualified Code(s): I15.1 - Hypertension secondary to other renal disorders Is this a current diagnosis for this admission?: Yes Plan: Hemodynamically stable in the presence of GI bleed. Monitor. (6) Metabolic acidosis Plan: Began on bicarbonate. Monitor. Should correct well to the initiation of hemodialysis. (7) Abnormal serum level of alkaline phosphatase Is this a current diagnosis for this admission?: Yes Plan: Elevated PTH levels.We will start vitamin D3
[2017-02-16] MEDS ORDERED: HEPARIN SOD (PORCINE) 1,000 UNIT/ML 1 ML VIAL IV PRN (15:25)
[2017-02-16] MEDS ORDERED: HEPARIN SOD (PORCINE) 1,000 UNIT/ML 10 ML VIAL IV PRN (15:43)
[2017-02-16] MEDS ORDERED: EPOETIN ALFA 10,000 UNIT in SYRINGE, DISPOSABLE, 1 EACH IV PRN (16:15)
[2017-02-16 19:37] LABS: HEPATITIS C QUANTITATION HCV Not Detected IU/mL (.)
[2017-02-17 06:01] LABS: ABSOLUTE EOSINOPHILS # (AUTO) 0.1 10^3/uL (0.0-0.6); ABSOLUTE LYMPHOCYTES (AUTO) 1.3 10^3/uL (0.5-4.7); ABSOLUTE MONOCYTES (AUTO) 0.7 10^3/uL (0.1-1.4); ABSOLUTE NEUT (AUTO) 5.3 10^3/uL (1.7-8.2); BASOPHILS % (AUTO) 0.3 % (0-2); EOSINOPHILS % (AUTO) 1.2 % (0-6); HEMATOCRIT 27.9 % (36.0-47.0); HEMOGLOBIN 9.8 g/dL (12.0-15.5); HGB HCT DIFFERENCE 1.5; LYMPHOCYTES % (AUTO) 17.7 % (13-45); MEAN CORPUSCULAR HEMOGLOBIN 31.9 pg (27.0-33.4); MEAN CORPUSCULAR VOLUME 91 fl (80-97); MONOCYTES % (AUTO) 8.9 % (3-13); RED BLOOD COUNT 3.06 10^6/uL (3.72-5.28); RED CELL DISTRIBUTION WIDTH 15.7 % (11.5-14.0); SEGMENTED NEUTROPHILS % (AUTO) 71.9 % (42-78); WHITE BLOOD COUNT 7.4 10^3/uL (4.0-10.5)
[2017-02-17 06:26] LABS: ALANINE AMINOTRANSFERASE 22 U/L (9-52); ALBUMIN 3.3 g/dL (3.5-5.0); ALKALINE PHOSPHATASE 587 U/L (38-126); ANION GAP 12 (5-19); ASPARTATE AMINO TRANSFERASE 22 U/L (14-36); BILIRUBIN,DIRECT 0.4 mg/dL (0.0-0.4); BILIRUBIN,TOTAL 0.4 mg/dL (0.2-1.3); CHLORIDE 101 mmol/L (98-107); CREATININE RESULT 3.49 mg/dL (0.52-1.25); GLUCOSE 118 mg/dL (75-110); POTASSIUM 3.8 mmol/L (3.6-5.0); SODIUM 138.7 mmol/L (137-145); TOTAL PROTEIN 5.8 g/dL (6.3-8.2)
[2017-02-17 06:39] LABS: BLOOD UREA NITROGEN 44 mg/dL (7-20); CARBON DIOXIDE 26 mmol/L (22-30)
[2017-02-17 07:27] LABS: FOLATE 4.78 ng/mL (>2.76)
[2017-02-17] MEDS: SODIUM BICARBONATE 650 MG TABLET PO SCH ×3 (09:29→17:33)
[2017-02-17] MEDS: LANSOPRAZOLE 30 MG TAB.RAP.DR PO SCH (09:30)
[2017-02-17] MEDS: DOXERCALCIFEROL 0.5 MCG CAPSULE PO SCH (09:30)
[2017-02-17] MEDS: PHARMACY COMMUNICATION ORDER MC SCH (09:31)
--- NOTE | 2017-02-17 13:09 | PDOC PROGRESS REPORT ---
Subjective Progress Note for:: 02/17/17 Subjective:: Patient is complaining of neck pain but other than that denied any chest pain denied any headache denied any shortness of the breath Recent underwent for the hemodialysis and currently doing well Denied any chest pain denied any shortness of the breath Physical Exam Vital Signs: Temp Pulse Resp BP Pulse Ox 98.1 F 82 18 140/54 H 100 02/17/17 11:03 02/17/17 11:03 02/17/17 11:03 02/17/17 11:03 02/17/17 11:03 Intake & Output 02/16/17 02/17/17 02/18/17 06:59 06:59 06:59 Intake Total 997 1125 400 Output Total 10 Balance 997 1115 400 Weight 46.9 kg 46.7 kg General appearance: PRESENT: no acute distress, well-developed, well-nourished Head exam: PRESENT: atraumatic, normocephalic Eye exam: PRESENT: conjunctiva pink, EOMI, PERRLA. ABSENT: scleral icterus Ear exam: PRESENT: normal external ear exam Mouth exam: PRESENT: moist, tongue midline Neck exam: PRESENT: full ROM. ABSENT: carotid bruit, JVD, lymphadenopathy, thyromegaly Respiratory exam: PRESENT: clear to auscultation vinicius Cardiovascular exam: PRESENT: RRR. ABSENT: diastolic murmur, rubs, systolic murmur Pulses: PRESENT: normal dorsalis pedis pul, +2 pedal pulses bilateral Vascular exam: PRESENT: normal capillary refill GI/Abdominal exam: PRESENT: normal bowel sounds, soft. ABSENT: distended, guarding, mass, organolmegaly, rebound, tenderness Rectal exam: PRESENT: deferred Neurological exam: PRESENT: alert, awake, oriented to person, oriented to place , oriented to time, oriented to situation, CN II-XII grossly intact. ABSENT: motor sensory deficit Psychiatric exam: PRESENT: appropriate affect, normal mood. ABSENT: homicidal ideation, suicidal ideation Skin exam: PRESENT: dry, intact, warm. ABSENT: cyanosis, rash Results Laboratory Results: 02/17/17 05:14 02/17/17 05:14 02/17/17 02/17/17 02/17/17 05:14 05:14 05:14 WBC 7.4 RBC 3.06 L Hgb 9.8 L Hct 27.9 L MCV 91 MCH 31.9 MCHC 35.0 RDW 15.7 H Plt Count 219 Seg Neutrophils % 71.9 Lymphocytes % 17.7 Monocytes % 8.9 Eosinophils % 1.2 Basophils % 0.3 Absolute Neutrophils 5.3 Absolute Lymphocytes 1.3 Absolute Monocytes 0.7 Absolute Eosinophils 0.1 Absolute Basophils 0.0 Retic Count (auto) 1.97 Absolute Retic 0.060 Sodium Cancelled Cancelled Potassium Cancelled Cancelled Chloride Cancelled Cancelled Carbon Dioxide Cancelled Cancelled Anion Gap Cancelled Cancelled BUN Cancelled Cancelled Creatinine Cancelled Cancelled Est GFR ( Amer) Cancelled Cancelled Est GFR (Non-Af Amer) Cancelled Cancelled Glucose Cancelled Cancelled Calcium Cancelled Cancelled Iron 54.1 TIBC 201 L % Saturation 27 Ferritin 1690.00 H Total Bilirubin Cancelled AST Cancelled ALT Cancelled Alkaline Phosphatase Cancelled Total Protein Cancelled Albumin Cancelled Vitamin B12 806.0 Folate 4.78 02/17/17 05:14 WBC RBC Hgb Hct MCV MCH MCHC RDW Plt Count Seg Neutrophils % Lymphocytes % Monocytes % Eosinophils % Basophils % Absolute Neutrophils Absolute Lymphocytes Absolute Monocytes Absolute Eosinophils Absolute Basophils Retic Count (auto) Absolute Retic Sodium 138.7 Potassium 3.8 Chloride 101 Carbon Dioxide 26 D Anion Gap 12 BUN 44 H D Creatinine 3.49 H Est GFR ( Amer) 15 L Est GFR (Non-Af Amer) 13 L Glucose 118 H Calcium 10.0 Iron TIBC % Saturation Ferritin Total Bilirubin 0.4 AST 22 ALT 22 Alkaline Phosphatase 587 H Total Protein 5.8 L Albumin 3.3 L Vitamin B12 Folate 02/14/17 02/14/17 02/14/17 12:51 19:27 19:27 Creatine Kinase 81 CK-MB (CK-2) 2.03 Troponin I 0.033 0.041 02/15/17 02/15/17 02/15/17 01:45 01:45 07:19 Creatine Kinase 72 96 CK-MB (CK-2) 2.07 Troponin I 0.050 02/15/17 07:19 Creatine Kinase CK-MB (CK-2) 2.24 Troponin I 0.055 Impressions: Head CT 02/14/17 00:00 IMPRESSION: CHRONIC CHANGES OF ATROPHY AND MICROVASCULAR ISCHEMIA. NO ACUTE PROCESS. Abdomen Ultrasound 02/15/17 00:00 IMPRESSION: Post right nephrectomy. Small echogenic left kidney without hydronephrosis seen. Left lower pole cortical cyst with adjacent venous varix. Liver, pancreas unremarkable. No gallstones. Chest X-Ray 02/16/17 00:00 IMPRESSION: No pneumothorax post right central venous dialysis catheter placement. Fullness of the right peritracheal region at the thoracic inlet with slight deviation airway towards the left. Findings could be due to underlying thyroid mass. Hematoma post central venous catheter placement could not be excluded. Findings discussed with the operating surgeon Assessment & Plan - Diagnosis (1) Anemia due to blood loss, acute Is this a current diagnosis for this admission?: Yes Plan: Currently all stable (2) Chronic kidney disease, stage V Is this a current diagnosis for this admission?: Yes Plan: Currently on hemodialysis follow with the nephrology (3) Syncope and collapse Is this a current diagnosis for this admission?: Yes Plan: Patient CT head was negative and echocardiogram is also stable I think is more likely related to the anemia (4) Hypertension Qualifiers: Hypertension type: secondary to other renal disorders Qualified Code(s): I15.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
--- NOTE | 2017-02-17 15:05 | PDOC PROGRESS REPORT ---
Subjective Progress Note for:: 02/17/17 Subjective:: Patient is seen today lying in her bed. She said that she felt better after dialysis but did not like how long treatments were. She repeated the same story several times thus showing that she is still confused. She was not able to answer questions very well. She kept reverting back to the same story. Physical Exam Vital Signs: Temp Pulse Resp BP Pulse Ox 98.1 F 82 18 140/54 H 100 02/17/17 11:03 02/17/17 11:03 02/17/17 11:03 02/17/17 11:03 02/17/17 11:03 Intake & Output 02/16/17 02/17/17 02/18/17 06:59 06:59 06:59 Intake Total 997 1125 400 Output Total 10 Balance 997 1115 400 Weight 46.9 kg 46.7 kg General appearance: PRESENT: no acute distress. ABSENT: well-developed, well- nourished Head exam: PRESENT: atraumatic, normocephalic Mouth exam: PRESENT: moist, neck supple Respiratory exam: PRESENT: clear to auscultation vinicius. ABSENT: accessory muscle use, crackles, rhonchi, wheezes Cardiovascular exam: PRESENT: +S1, +S2, systolic murmur GI/Abdominal exam: PRESENT: normal bowel sounds, soft. ABSENT: organomegaly, tenderness Extremities exam: ABSENT: joint swelling, pedal edema Musculoskeletal exam: PRESENT: full ROM, normal inspection. ABSENT: deformity Neurological exam: PRESENT: alert, awake, oriented to person, oriented to place , oriented to time, oriented to situation Skin exam: PRESENT: dry, intact, warm. ABSENT: cyanosis, rash Results Laboratory Results: 02/17/17 05:14 02/17/17 05:14 02/17/17 02/17/17 02/17/17 05:14 05:14 05:14 WBC 7.4 RBC 3.06 L Hgb 9.8 L Hct 27.9 L MCV 91 MCH 31.9 MCHC 35.0 RDW 15.7 H Plt Count 219 Seg Neutrophils % 71.9 Lymphocytes % 17.7 Monocytes % 8.9 Eosinophils % 1.2 Basophils % 0.3 Absolute Neutrophils 5.3 Absolute Lymphocytes 1.3 Absolute Monocytes 0.7 Absolute Eosinophils 0.1 Absolute Basophils 0.0 Retic Count (auto) 1.97 Absolute Retic 0.060 Sodium Cancelled Cancelled Potassium Cancelled Cancelled Chloride Cancelled Cancelled Carbon Dioxide Cancelled Cancelled Anion Gap Cancelled Cancelled BUN Cancelled Cancelled Creatinine Cancelled Cancelled Est GFR ( Amer) Cancelled Cancelled Est GFR (Non-Af Amer) Cancelled Cancelled Glucose Cancelled Cancelled Calcium Cancelled Cancelled Iron 54.1 TIBC 201 L % Saturation 27 Ferritin 1690.00 H Total Bilirubin Cancelled AST Cancelled ALT Cancelled Alkaline Phosphatase Cancelled Total Protein Cancelled Albumin Cancelled Vitamin B12 806.0 Folate 4.78 02/17/17 05:14 WBC RBC Hgb Hct MCV MCH MCHC RDW Plt Count Seg Neutrophils % Lymphocytes % Monocytes % Eosinophils % Basophils % Absolute Neutrophils Absolute Lymphocytes Absolute Monocytes Absolute Eosinophils Absolute Basophils Retic Count (auto) Absolute Retic Sodium 138.7 Potassium 3.8 Chloride 101 Carbon Dioxide 26 D Anion Gap 12 BUN 44 H D Creatinine 3.49 H Est GFR ( Amer) 15 L Est GFR (Non-Af Amer) 13 L Glucose 118 H Calcium 10.0 Iron TIBC % Saturation Ferritin Total Bilirubin 0.4 AST 22 ALT 22 Alkaline Phosphatase 587 H Total Protein 5.8 L Albumin 3.3 L Vitamin B12 Folate 02/14/17 02/14/17 02/14/17 12:51 19:27 19:27 Creatine Kinase 81 CK-MB (CK-2) 2.03 Troponin I 0.033 0.041 02/15/17 02/15/17 02/15/17 01:45 01:45 07:19 Creatine Kinase 72 96 CK-MB (CK-2) 2.07 Troponin I 0.050 02/15/17 07:19 Creatine Kinase CK-MB (CK-2) 2.24 Troponin I 0.055 Impressions: Head CT 02/14/17 00:00 IMPRESSION: CHRONIC CHANGES OF ATROPHY AND MICROVASCULAR ISCHEMIA. NO ACUTE PROCESS. Abdomen Ultrasound 02/15/17 00:00 IMPRESSION: Post right nephrectomy. Small echogenic left kidney without hydronephrosis seen. Left lower pole cortical cyst with adjacent venous varix. Liver, pancreas unremarkable. No gallstones. Chest X-Ray 02/16/17 00:00 IMPRESSION: No pneumothorax post right central venous dialysis catheter placement. Fullness of the right peritracheal region at the thoracic inlet with slight deviation airway towards the left. Findings could be due to underlying thyroid mass. Hematoma post central venous catheter placement could not be excluded. Findings discussed with the operating surgeon Assessment & Plan - Diagnosis (1) ESRD (end stage renal disease) Plan: Will run another session of dialysis tomorrow. (2) Metabolic acidosis Plan: stable on bicarbonate (3) Anemia in chronic kidney disease Qualifiers: Chronic kidney disease stage: on chronic dialysis Qualified Code(s): N18.6 - End stage renal disease; D63.1 - Anemia in chronic kidney disease; Z99.2 - Dependence on renal dialysis Plan: On epogen 10,000 units on dialysis days. Irons stores are at the low end of normal. (4) Renal osteodystrophy Plan: elevated PTH on vitamin D.
--- NOTE | 2017-02-18 02:11 | RADIOLOGY REPORT (SQ) ---
EXAM DESCRIPTION: FLUORO/CV PLACEMENT COMPLETED DATE/TIME: 02/16/2017 2:14 pm REASON FOR STUDY: PERMCATH PLCMT RT SIDE ASSISTED WITH FLUORO IN OR COMPARISON: AP CHEST 02/14/2017 FLUOROSCOPY TIME: 0.2 minutes 3 digital C-arm images saved to PACS. TECHNIQUE: Intraoperative fluoroscopy and imaging in the OR LIMITATIONS: None. PROCEDURE: Intra procedural imaging and fluoro during placement of a right-sided central venous dial ysis catheter with the tip in the superior vena cava/upper right atrium. Please see the operative re port for further details. IMPRESSION: Intra procedural imaging and fluoro. COMMENT: Quality ID [id number]: Final reports for procedures using fluoroscopy that document radiation exp osure indices, or exposure time and number of fluorographic images (if radiation exposure indices are not available) TECHNICAL DOCUMENTATION: JOB ID: [id number] [facility]- All Rights Reserved
[2017-02-18] MEDS ORDERED: EPOETIN ALFA 10,000 UNIT in SYRINGE, DISPOSABLE, 1 EACH IV PRN ×4 (05:00)
[2017-02-18 06:10] LABS: ABSOLUTE EOSINOPHILS # (AUTO) 0.1 10^3/uL (0.0-0.6); ABSOLUTE LYMPHOCYTES (AUTO) 1.1 10^3/uL (0.5-4.7); ABSOLUTE MONOCYTES (AUTO) 0.7 10^3/uL (0.1-1.4); ABSOLUTE NEUT (AUTO) 4.2 10^3/uL (1.7-8.2); BASOPHILS % (AUTO) 0.5 % (0-2); EOSINOPHILS % (AUTO) 1.5 % (0-6); HEMATOCRIT 28.8 % (36.0-47.0); HEMOGLOBIN 9.8 g/dL (12.0-15.5); HGB HCT DIFFERENCE 0.6; LYMPHOCYTES % (AUTO) 17.9 % (13-45); MEAN CORPUSCULAR HEMOGLOBIN 31.3 pg (27.0-33.4); MEAN CORPUSCULAR HGB CONC 34.1 g/dL (32.0-36.0); MEAN CORPUSCULAR VOLUME 92 fl (80-97); MONOCYTES % (AUTO) 11.1 % (3-13); RED BLOOD COUNT 3.14 10^6/uL (3.72-5.28); RED CELL DISTRIBUTION WIDTH 15.5 % (11.5-14.0)
[2017-02-18 06:31] LABS: ALANINE AMINOTRANSFERASE 20 U/L (9-52); ALBUMIN 3.3 g/dL (3.5-5.0); ALKALINE PHOSPHATASE 548 U/L (38-126); ANION GAP 14 (5-19); ASPARTATE AMINO TRANSFERASE 21 U/L (14-36); BILIRUBIN,DIRECT 0.4 mg/dL (0.0-0.4); BILIRUBIN,TOTAL 0.4 mg/dL (0.2-1.3); BLOOD UREA NITROGEN 48 mg/dL (7-20); CALCIUM 10.1 mg/dL (8.4-10.2); CARBON DIOXIDE 25 mmol/L (22-30); CHLORIDE 98 mmol/L (98-107); GLUCOSE 107 mg/dL (75-110); POTASSIUM 3.6 mmol/L (3.6-5.0); SODIUM 136.6 mmol/L (137-145); TOTAL PROTEIN 5.8 g/dL (6.3-8.2)
[2017-02-18] MEDS ORDERED: EPOETIN ALFA INJ 20000 UNIT/1 ML VIAL (RENAL) IV PRN (07:00)
[2017-02-18] MEDS ORDERED: HEPARIN SOD (PORCINE) 1,000 UNIT/ML 1 ML VIAL IV ONE (08:36)
[2017-02-18] MEDS ORDERED: HEPARIN SOD (PORCINE) 1,000 UNIT/ML 10 ML VIAL IV PRN (08:52)
[2017-02-18] MEDS ORDERED: ONDANSETRON HCL INJ/PF 4 MG/2 ML SDV IV ONE ×2 (09:30→10:15)
[2017-02-18] MEDS: SODIUM BICARBONATE 650 MG TABLET PO SCH ×3 (09:45→16:23)
[2017-02-18] MEDS: LANSOPRAZOLE 30 MG TAB.RAP.DR PO SCH (09:45)
[2017-02-18] MEDS: DOXERCALCIFEROL 0.5 MCG CAPSULE PO SCH (12:12)
--- NOTE | 2017-02-18 14:24 | PDOC PROGRESS REPORT ---
Subjective Progress Note for:: 02/18/17 Subjective:: Patient is currently doing well. Patient's denied any chest pain denied any shortness of the breath.Patient's otherwise underwent for the hemodialysis today Physical Exam Vital Signs: Temp Pulse Resp BP Pulse Ox 98.1 F 67 19 130/85 H 98 02/18/17 05:01 02/18/17 07:00 02/18/17 05:01 02/18/17 05:01 02/18/17 05:01 Intake & Output 02/17/17 02/18/17 02/19/17 06:59 06:59 06:59 Intake Total 1125 1459 Output Total 10 700 Balance 1115 1459 -700 Weight 46.7 kg 48.9 kg General appearance: PRESENT: no acute distress, well-developed, well-nourished Head exam: PRESENT: atraumatic, normocephalic Eye exam: PRESENT: conjunctiva pink, EOMI, PERRLA. ABSENT: scleral icterus Ear exam: PRESENT: normal external ear exam Mouth exam: PRESENT: moist, tongue midline Neck exam: PRESENT: full ROM. ABSENT: carotid bruit, JVD, lymphadenopathy, thyromegaly Respiratory exam: PRESENT: clear to auscultation vinicius Cardiovascular exam: PRESENT: RRR. ABSENT: diastolic murmur, rubs, systolic murmur Pulses: PRESENT: normal dorsalis pedis pul, +2 pedal pulses bilateral Vascular exam: PRESENT: normal capillary refill GI/Abdominal exam: PRESENT: normal bowel sounds, soft. ABSENT: distended, guarding, mass, organolmegaly, rebound, tenderness Rectal exam: PRESENT: deferred Neurological exam: PRESENT: alert, awake, oriented to person, oriented to place , oriented to time, oriented to situation, CN II-XII grossly intact. ABSENT: motor sensory deficit Psychiatric exam: PRESENT: appropriate affect, normal mood. ABSENT: homicidal ideation, suicidal ideation Skin exam: PRESENT: dry, intact, warm. ABSENT: cyanosis, rash Results Laboratory Results: 02/18/17 05:31 02/18/17 05:31 02/17/17 02/18/17 02/18/17 05:14 05:31 05:31 WBC 6.0 RBC 3.14 L Hgb 9.8 L Hct 28.8 L MCV 92 MCH 31.3 MCHC 34.1 RDW 15.5 H Plt Count 228 Seg Neutrophils % 69.0 Lymphocytes % 17.9 Monocytes % 11.1 Eosinophils % 1.5 Basophils % 0.5 Absolute Neutrophils 4.2 Absolute Lymphocytes 1.1 Absolute Monocytes 0.7 Absolute Eosinophils 0.1 Absolute Basophils 0.0 Sodium 136.6 L Potassium 3.6 Chloride 98 Carbon Dioxide 25 Anion Gap 14 BUN 48 H Creatinine 4.20 H Est GFR ( Amer) 12 L Est GFR (Non-Af Amer) 10 L Glucose 107 Calcium 10.1 Transferrin 145 L Total Bilirubin 0.4 AST 21 ALT 20 Alkaline Phosphatase 548 H Total Protein 5.8 L Albumin 3.3 L 02/14/17 02/14/17 02/14/17 12:51 19:27 19:27 Creatine Kinase 81 CK-MB (CK-2) 2.03 Troponin I 0.033 0.041 02/15/17 02/15/17 02/15/17 01:45 01:45 07:19 Creatine Kinase 72 96 CK-MB (CK-2) 2.07 Troponin I 0.050 02/15/17 07:19 Creatine Kinase CK-MB (CK-2) 2.24 Troponin I 0.055 Impressions: Head CT 02/14/17 00:00 IMPRESSION: CHRONIC CHANGES OF ATROPHY AND MICROVASCULAR ISCHEMIA. NO ACUTE PROCESS. Abdomen Ultrasound 02/15/17 00:00 IMPRESSION: Post right nephrectomy. Small echogenic left kidney without hydronephrosis seen. Left lower pole cortical cyst with adjacent venous varix. Liver, pancreas unremarkable. No gallstones. Chest X-Ray 02/16/17 00:00 IMPRESSION: No pneumothorax post right central venous dialysis catheter placement. Fullness of the right peritracheal region at the thoracic inlet with slight deviation airway towards the left. Findings could be due to underlying thyroid mass. Hematoma post central venous catheter placement could not be excluded. Findings discussed with the operating surgeon Guidance Fluoroscopy 02/16/17 00:00 IMPRESSION: Intra procedural imaging and fluoro. Assessment & Plan - Diagnosis (1) Anemia due to blood loss, acute Is this a current diagnosis for this admission?: Yes Plan: Currently all stable (2) Chronic kidney disease, stage V Is this a current diagnosis for this admission?: Yes Plan: Currently on hemodialysis follow with the nephrology (3) Syncope and collapse Is this a current diagnosis for this admission?: Yes Plan: Patient CT head was negative and echocardiogram is also stable I think is more likely related to the anemia (4) Hypertension Qualifiers: Hypertension type: secondary to other renal disorders Qualified Code(s): I15.1 - Hypertension secondary to other renal disorders Is this a current diagnosis for this admission?: Yes Plan: Currently stable - Time Time Spent with patient: 15-24 minutes Medications reviewed and adjusted accordingly: Yes Anticipated discharge: Home Within: Other - Inpatient Certification Medical Necessity: Need Close Monitoring Due to Risk of Patient Decompensation Post Hospital Care: D/C R And D Lab Technician Documentation - Continues current medications
[2017-02-18] MEDS ORDERED: ONDANSETRON HCL INJ/PF 4 MG/2 ML SDV IV PRN (16:24)
[2017-02-18] MEDS ORDERED: ONDANSETRON HCL INJ/PF 4 MG/2 ML SDV ONE (16:24)
--- NOTE | 2017-02-18 18:07 | PDOC PROGRESS REPORT ---
Subjective Progress Note for:: 02/18/17 Subjective:: Patient was seen today on dialysis. She was complaining of nausea while the machine was running. When given 4mg of zofran she the nausea went away. Her labs show a creatinine around 4s. Her potassium is also stable with a bun that is not elevating. She states that she has been noticing increase in urination. While on dialysis she produced 200mL of urine. She has noticed an increase in energy since starting dialysis. Physical Exam Vital Signs: Temp Pulse Resp BP Pulse Ox 98.1 F 87 19 130/85 H 98 02/18/17 05:01 02/18/17 14:00 02/18/17 05:01 02/18/17 05:01 02/18/17 05:01 Intake & Output 02/17/17 02/18/17 02/19/17 06:59 06:59 06:59 Intake Total 1125 1459 Output Total 10 700 Balance 1115 1459 -700 Weight 46.7 kg 48.9 kg General appearance: PRESENT: no acute distress, thin Head exam: PRESENT: atraumatic, normocephalic Neck exam: PRESENT: full ROM. ABSENT: JVD, tracheal deviation Respiratory exam: PRESENT: clear to auscultation vinicius. ABSENT: accessory muscle use, chest wall tenderness, crackles, rhonchi Cardiovascular exam: PRESENT: +S1, +S2, systolic murmur GI/Abdominal exam: PRESENT: normal bowel sounds, soft. ABSENT: organomegaly, tenderness Extremities exam: ABSENT: joint swelling, pedal edema, tenderness Musculoskeletal exam: PRESENT: normal inspection. ABSENT: deformity Neurological exam: PRESENT: alert, awake, oriented to person, oriented to place , oriented to time, oriented to situation Skin exam: PRESENT: dry, intact, warm Results Laboratory Results: 02/18/17 05:31 02/18/17 05:31 02/17/17 02/18/17 02/18/17 05:14 05:31 05:31 WBC 6.0 RBC 3.14 L Hgb 9.8 L Hct 28.8 L MCV 92 MCH 31.3 MCHC 34.1 RDW 15.5 H Plt Count 228 Seg Neutrophils % 69.0 Lymphocytes % 17.9 Monocytes % 11.1 Eosinophils % 1.5 Basophils % 0.5 Absolute Neutrophils 4.2 Absolute Lymphocytes 1.1 Absolute Monocytes 0.7 Absolute Eosinophils 0.1 Absolute Basophils 0.0 Sodium 136.6 L Potassium 3.6 Chloride 98 Carbon Dioxide 25 Anion Gap 14 BUN 48 H Creatinine 4.20 H Est GFR ( Amer) 12 L Est GFR (Non-Af Amer) 10 L Glucose 107 Calcium 10.1 Transferrin 145 L Total Bilirubin 0.4 AST 21 ALT 20 Alkaline Phosphatase 548 H Total Protein 5.8 L Albumin 3.3 L 02/14/17 02/14/17 02/14/17 12:51 19:27 19:27 Creatine Kinase 81 CK-MB (CK-2) 2.03 Troponin I 0.033 0.041 02/15/17 02/15/17 02/15/17 01:45 01:45 07:19 Creatine Kinase 72 96 CK-MB (CK-2) 2.07 Troponin I 0.050 02/15/17 07:19 Creatine Kinase CK-MB (CK-2) 2.24 Troponin I 0.055 Impressions: Head CT 02/14/17 00:00 IMPRESSION: CHRONIC CHANGES OF ATROPHY AND MICROVASCULAR ISCHEMIA. NO ACUTE PROCESS. Abdomen Ultrasound 02/15/17 00:00 IMPRESSION: Post right nephrectomy. Small echogenic left kidney without hydronephrosis seen. Left lower pole cortical cyst with adjacent venous varix. Liver, pancreas unremarkable. No gallstones. Chest X-Ray 02/16/17 00:00 IMPRESSION: No pneumothorax post right central venous dialysis catheter placement. Fullness of the right peritracheal region at the thoracic inlet with slight deviation airway towards the left. Findings could be due to underlying thyroid mass. Hematoma post central venous catheter placement could not be excluded. Findings discussed with the operating surgeon Guidance Fluoroscopy 02/16/17 00:00 IMPRESSION: Intra procedural imaging and fluoro. Assessment & Plan - Diagnosis (1) ESRD (end stage renal disease) Plan: Will continue dialysis as out patient. With the improvements seen in her labs and with urination could consider that she is not in ESRD and instead possibly an ALONSO. (2) Metabolic acidosis Plan: stable on bicarbonate (3) Anemia in chronic kidney disease Qualifiers: Chronic kidney disease stage: on chronic dialysis Qualified Code(s): N18.6 - End stage renal disease; D63.1 - Anemia in chronic kidney disease; Z99.2 - Dependence on renal dialysis Plan: On epogen 10,000 units on dialysis days. (4) Renal osteodystrophy Plan: elevated PTH on vitamin D. Will follow up at the dialysis center
[2017-02-19] MEDS: SODIUM BICARBONATE 650 MG TABLET PO SCH ×3 (08:30→17:41)
[2017-02-19] MEDS: LANSOPRAZOLE 30 MG TAB.RAP.DR PO SCH (08:31)
--- NOTE | 2017-02-19 10:19 | PDOC PROGRESS REPORT ---
Subjective Progress Note for:: 02/19/17 Subjective:: Patient is currently doing well. Patient's denied any chest pain denied any shortness of the breath.Patient's underwent for the hemodialysis Physical Exam Vital Signs: Temp Pulse Resp BP Pulse Ox 98.3 F 70 19 154/49 H 99 02/19/17 07:30 02/19/17 07:30 02/19/17 07:30 02/19/17 07:30 02/19/17 07:30 Intake & Output 02/18/17 02/19/17 02/20/17 06:59 06:59 06:59 Intake Total 1459 10 Output Total 700 Balance 1459 -690 Weight 48.9 kg 50.6 kg General appearance: PRESENT: no acute distress, well-developed, well-nourished Head exam: PRESENT: atraumatic, normocephalic Eye exam: PRESENT: conjunctiva pink, EOMI, PERRLA. ABSENT: scleral icterus Ear exam: PRESENT: normal external ear exam Mouth exam: PRESENT: moist, tongue midline Neck exam: PRESENT: full ROM. ABSENT: carotid bruit, JVD, lymphadenopathy, thyromegaly Respiratory exam: PRESENT: clear to auscultation vinicius Cardiovascular exam: PRESENT: RRR. ABSENT: diastolic murmur, rubs, systolic murmur Pulses: PRESENT: normal dorsalis pedis pul, +2 pedal pulses bilateral Vascular exam: PRESENT: normal capillary refill GI/Abdominal exam: PRESENT: normal bowel sounds, soft. ABSENT: distended, guarding, mass, organolmegaly, rebound, tenderness Rectal exam: PRESENT: deferred Neurological exam: PRESENT: alert, awake, oriented to person, oriented to place , oriented to time, oriented to situation, CN II-XII grossly intact. ABSENT: motor sensory deficit Psychiatric exam: PRESENT: appropriate affect, normal mood. ABSENT: homicidal ideation, suicidal ideation Skin exam: PRESENT: dry, intact, warm. ABSENT: cyanosis, rash Results Laboratory Results: 02/18/17 05:31 02/18/17 05:31 02/14/17 02/14/17 02/14/17 12:51 19:27 19:27 Creatine Kinase 81 CK-MB (CK-2) 2.03 Troponin I 0.033 0.041 02/15/17 02/15/17 02/15/17 01:45 01:45 07:19 Creatine Kinase 72 96 CK-MB (CK-2) 2.07 Troponin I 0.050 02/15/17 07:19 Creatine Kinase CK-MB (CK-2) 2.24 Troponin I 0.055 Impressions: Head CT 02/14/17 00:00 IMPRESSION: CHRONIC CHANGES OF ATROPHY AND MICROVASCULAR ISCHEMIA. NO ACUTE PROCESS. Abdomen Ultrasound 02/15/17 00:00 IMPRESSION: Post right nephrectomy. Small echogenic left kidney without hydronephrosis seen. Left lower pole cortical cyst with adjacent venous varix. Liver, pancreas unremarkable. No gallstones. Chest X-Ray 02/16/17 00:00 IMPRESSION: No pneumothorax post right central venous dialysis catheter placement. Fullness of the right peritracheal region at the thoracic inlet with slight deviation airway towards the left. Findings could be due to underlying thyroid mass. Hematoma post central venous catheter placement could not be excluded. Findings discussed with the operating surgeon Guidance Fluoroscopy 02/16/17 00:00 IMPRESSION: Intra procedural imaging and fluoro. Assessment & Plan - Diagnosis (1) Anemia due to blood loss, acute Is this a current diagnosis for this admission?: Yes Plan: Currently all stable (2) Chronic kidney disease, stage V Is this a current diagnosis for this admission?: Yes Plan: Currently on hemodialysis follow with the nephrology (3) Syncope and collapse Is this a current diagnosis for this admission?: Yes (4) Hypertension Qualifiers: Hypertension type: secondary to other renal disorders Qualified Code(s): I15.1 - Hypertension secondary to other renal disorders Is this a current diagnosis for this admission?: Yes Plan: Currently stable - Time Time Spent with patient: 15-24 minutes Medications reviewed and adjusted accordingly: Yes Anticipated discharge: Home Within: Other - Inpatient Certification Medical Necessity: Significant Comorbidiites Make Outpatient Treatment Too Risky , Need Close Monitoring Due to Risk of Patient Decompensation - Plan Summary Plan Summary: Continues current medication
[2017-02-19] MEDS: DOXERCALCIFEROL 0.5 MCG CAPSULE PO SCH (11:26)
[2017-02-20 06:28] LABS: ANION GAP 11 (5-19); BLOOD UREA NITROGEN 35 mg/dL (7-20); CALCIUM 9.8 mg/dL (8.4-10.2); CARBON DIOXIDE 29 mmol/L (22-30); CHLORIDE 94 mmol/L (98-107); CREATININE RESULT 4.82 mg/dL (0.52-1.25); GLUCOSE 100 mg/dL (75-110); POTASSIUM 3.5 mmol/L (3.6-5.0); SODIUM 133.7 mmol/L (137-145)
[2017-02-20] MEDS ORDERED: POTASSIUM CHLORIDE 10 MEQ TABLET.SA PO ONE (07:25)
[2017-02-20] MEDS: SODIUM BICARBONATE 650 MG TABLET PO SCH ×3 (08:00→16:50)
[2017-02-20] MEDS: LANSOPRAZOLE 30 MG TAB.RAP.DR PO SCH (08:00)
--- NOTE | 2017-02-20 09:41 | PDOC PROGRESS REPORT ---
Subjective Progress Note for:: 02/20/17 Subjective:: Patient is currently doing well. Patient's denied any chest pain denied any shortness of the breath.Patient's underwent for the hemodialysis Physical Exam Vital Signs: Temp Pulse Resp BP Pulse Ox 98.3 F 77 20 161/58 H 97 02/20/17 03:04 02/20/17 03:04 02/20/17 03:04 02/20/17 03:04 02/20/17 03:04 Intake & Output 02/19/17 02/20/17 02/21/17 06:59 06:59 06:59 Intake Total 10 1600 Output Total 700 Balance -690 1600 Weight 50.6 kg 50.2 kg General appearance: PRESENT: no acute distress, well-developed, well-nourished Head exam: PRESENT: atraumatic, normocephalic Eye exam: PRESENT: conjunctiva pink, EOMI, PERRLA. ABSENT: scleral icterus Ear exam: PRESENT: normal external ear exam Mouth exam: PRESENT: moist, tongue midline Neck exam: PRESENT: full ROM. ABSENT: carotid bruit, JVD, lymphadenopathy, thyromegaly Cardiovascular exam: PRESENT: RRR. ABSENT: diastolic murmur, rubs, systolic murmur Pulses: PRESENT: normal dorsalis pedis pul, +2 pedal pulses bilateral Vascular exam: PRESENT: normal capillary refill GI/Abdominal exam: PRESENT: normal bowel sounds, soft. ABSENT: distended, guarding, mass, organolmegaly, rebound, tenderness Rectal exam: PRESENT: deferred Neurological exam: PRESENT: alert, awake, oriented to person, oriented to place , oriented to time, oriented to situation, CN II-XII grossly intact. ABSENT: motor sensory deficit Psychiatric exam: PRESENT: appropriate affect, normal mood. ABSENT: homicidal ideation, suicidal ideation Skin exam: PRESENT: dry, intact, warm. ABSENT: cyanosis, rash Results Laboratory Results: 02/18/17 05:31 02/20/17 05:17 02/20/17 05:17 Sodium 133.7 L Potassium 3.5 L Chloride 94 L Carbon Dioxide 29 Anion Gap 11 BUN 35 H Creatinine 4.82 H Est GFR ( Amer) 11 L Est GFR (Non-Af Amer) 9 L Glucose 100 Calcium 9.8 02/14/17 02/14/17 02/14/17 12:51 19:27 19:27 Creatine Kinase 81 CK-MB (CK-2) 2.03 Troponin I 0.033 0.041 02/15/17 02/15/17 02/15/17 01:45 01:45 07:19 Creatine Kinase 72 96 CK-MB (CK-2) 2.07 Troponin I 0.050 02/15/17 07:19 Creatine Kinase CK-MB (CK-2) 2.24 Troponin I 0.055 Impressions: Head CT 02/14/17 00:00 IMPRESSION: CHRONIC CHANGES OF ATROPHY AND MICROVASCULAR ISCHEMIA. NO ACUTE PROCESS. Abdomen Ultrasound 02/15/17 00:00 IMPRESSION: Post right nephrectomy. Small echogenic left kidney without hydronephrosis seen. Left lower pole cortical cyst with adjacent venous varix. Liver, pancreas unremarkable. No gallstones. Chest X-Ray 02/16/17 00:00 IMPRESSION: No pneumothorax post right central venous dialysis catheter placement. Fullness of the right peritracheal region at the thoracic inlet with slight deviation airway towards the left. Findings could be due to underlying thyroid mass. Hematoma post central venous catheter placement could not be excluded. Findings discussed with the operating surgeon Guidance Fluoroscopy 02/16/17 00:00 IMPRESSION: Intra procedural imaging and fluoro. Assessment & Plan - Diagnosis (1) Anemia due to blood loss, acute Is this a current diagnosis for this admission?: Yes Plan: Currently all stable (2) Chronic kidney disease, stage V Is this a current diagnosis for this admission?: Yes Plan: Currently on hemodialysis follow with the nephrology (3) Syncope and collapse Is this a current diagnosis for this admission?: Yes Plan: Patient CT head was negative and echocardiogram is also stable I think is more likely related to the anemia (4) Hypertension Qualifiers: Hypertension type: secondary to other renal disorders Qualified Code(s): I15.1 - Hypertension secondary to other renal disorders Is this a current diagnosis for this admission?: Yes - Time Time Spent with patient: 15-24 minutes Medications reviewed and adjusted accordingly: Yes Anticipated discharge: Home - Inpatient Certification Based on my medical assessment, after consideration of the patient's comorbidities, presenting symptoms, or acuity I expect that the services needed warrant INPATIENT care.: Yes I certify that my determination is in accordance with my understanding of Medicare's requirements for reasonable and necessary INPATIENT services [42 CFR 412.3e].: Yes Medical Necessity: Need Close Monitoring Due to Risk of Patient Decompensation Post Hospital Care: D/C Telegrapher Agent Documentation - Plan Summary Plan Summary: cont curr med
[2017-02-20] MEDS: DOXERCALCIFEROL 0.5 MCG CAPSULE PO SCH (11:07)
[2017-02-21 05:59] LABS: ANION GAP 11 (5-19); BLOOD UREA NITROGEN 42 mg/dL (7-20); CALCIUM 9.8 mg/dL (8.4-10.2); CARBON DIOXIDE 29 mmol/L (22-30); CHLORIDE 95 mmol/L (98-107); CREATININE RESULT 5.62 mg/dL (0.52-1.25); GLUCOSE 159 mg/dL (75-110); POTASSIUM 3.7 mmol/L (3.6-5.0); SODIUM 134.5 mmol/L (137-145)
[2017-02-21] MEDS ORDERED: EPOETIN ALFA INJ 20000 UNIT/1 ML VIAL (RENAL) IV PRN ×2 (07:15→15:31)
[2017-02-21] MEDS ORDERED: HEPARIN SOD (PORCINE) 1,000 UNIT/ML 10 ML VIAL IV PRN (07:15)
[2017-02-21 07:27] LABS: ABSOLUTE EOSINOPHILS # (AUTO) 0.1 10^3/uL (0.0-0.6); ABSOLUTE LYMPHOCYTES (AUTO) 0.9 10^3/uL (0.5-4.7); ABSOLUTE MONOCYTES (AUTO) 0.5 10^3/uL (0.1-1.4); ABSOLUTE NEUT (AUTO) 4.8 10^3/uL (1.7-8.2); BASOPHILS % (AUTO) 0.4 % (0-2); EOSINOPHILS % (AUTO) 1.2 % (0-6); HEMATOCRIT 24.2 % (36.0-47.0); HEMOGLOBIN 8.4 g/dL (12.0-15.5); LYMPHOCYTES % (AUTO) 13.7 % (13-45); MEAN CORPUSCULAR HEMOGLOBIN 32.5 pg (27.0-33.4); MEAN CORPUSCULAR HGB CONC 34.8 g/dL (32.0-36.0); MEAN CORPUSCULAR VOLUME 93 fl (80-97); MONOCYTES % (AUTO) 8.4 % (3-13); RED BLOOD COUNT 2.59 10^6/uL (3.72-5.28); RED CELL DISTRIBUTION WIDTH 15.5 % (11.5-14.0); SEGMENTED NEUTROPHILS % (AUTO) 76.3 % (42-78); WHITE BLOOD COUNT 6.3 10^3/uL (4.0-10.5)
[2017-02-21] MEDS ORDERED: EPOETIN ALFA 10,000 UNIT in SYRINGE, DISPOSABLE, 1 EACH IV PRN (08:00)
[2017-02-21] MEDS: SODIUM BICARBONATE 650 MG TABLET PO SCH (08:19)
[2017-02-21] MEDS: LANSOPRAZOLE 30 MG TAB.RAP.DR PO SCH (08:19)
[2017-02-21] MEDS: DOXERCALCIFEROL 0.5 MCG CAPSULE PO SCH (09:22)
[2017-02-21 12:29] VITALS: BP 132/102
--- NOTE | 2017-02-21 12:37 | PDOC PROGRESS REPORT ---
Subjective Progress Note for:: 02/21/17 Subjective:: Patient is currently doing well denied any chest pain denied any shortness of the breath Physical Exam Vital Signs: Temp Pulse Resp BP Pulse Ox 99.3 F 74 16 132/102 H 98 02/21/17 12:14 02/21/17 12:14 02/21/17 12:14 02/21/17 12:14 02/21/17 12:14 Intake & Output 02/20/17 02/21/17 02/22/17 06:59 06:59 06:59 Intake Total 1600 647 118 Balance 1600 647 118 Weight 50.2 kg 50.8 kg General appearance: PRESENT: no acute distress, well-developed, well-nourished Head exam: PRESENT: atraumatic, normocephalic Eye exam: PRESENT: conjunctiva pink, EOMI, PERRLA. ABSENT: scleral icterus Ear exam: PRESENT: normal external ear exam Mouth exam: PRESENT: moist, tongue midline Neck exam: PRESENT: full ROM. ABSENT: carotid bruit, JVD, lymphadenopathy, thyromegaly Respiratory exam: PRESENT: clear to auscultation vinicius Cardiovascular exam: PRESENT: RRR. ABSENT: diastolic murmur, rubs, systolic murmur Pulses: PRESENT: normal dorsalis pedis pul, +2 pedal pulses bilateral Vascular exam: PRESENT: normal capillary refill GI/Abdominal exam: PRESENT: normal bowel sounds, soft. ABSENT: distended, guarding, mass, organolmegaly, rebound, tenderness Rectal exam: PRESENT: deferred Neurological exam: PRESENT: alert, awake, oriented to person, oriented to place , oriented to time, oriented to situation, CN II-XII grossly intact. ABSENT: motor sensory deficit Psychiatric exam: PRESENT: appropriate affect, normal mood. ABSENT: homicidal ideation, suicidal ideation Skin exam: PRESENT: dry, intact, warm. ABSENT: cyanosis, rash Results Laboratory Results: 02/21/17 05:10 02/21/17 05:10 02/21/17 02/21/17 05:10 05:10 WBC 6.3 RBC 2.59 L Hgb 8.4 L Hct 24.2 L MCV 93 MCH 32.5 MCHC 34.8 RDW 15.5 H Plt Count 244 Seg Neutrophils % 76.3 Lymphocytes % 13.7 Monocytes % 8.4 Eosinophils % 1.2 Basophils % 0.4 Absolute Neutrophils 4.8 Absolute Lymphocytes 0.9 Absolute Monocytes 0.5 Absolute Eosinophils 0.1 Absolute Basophils 0.0 Sodium 134.5 L Potassium 3.7 Chloride 95 L Carbon Dioxide 29 Anion Gap 11 BUN 42 H Creatinine 5.62 H Est GFR ( Amer) 9 L Est GFR (Non-Af Amer) 7 L Glucose 159 H Calcium 9.8 02/14/17 02/14/17 02/14/17 12:51 19:27 19:27 Creatine Kinase 81 CK-MB (CK-2) 2.03 Troponin I 0.033 0.041 02/15/17 02/15/17 02/15/17 01:45 01:45 07:19 Creatine Kinase 72 96 CK-MB (CK-2) 2.07 Troponin I 0.050 02/15/17 07:19 Creatine Kinase CK-MB (CK-2) 2.24 Troponin I 0.055 Impressions: Head CT 02/14/17 00:00 IMPRESSION: CHRONIC CHANGES OF ATROPHY AND MICROVASCULAR ISCHEMIA. NO ACUTE PROCESS. Abdomen Ultrasound 02/15/17 00:00 IMPRESSION: Post right nephrectomy. Small echogenic left kidney without hydronephrosis seen. Left lower pole cortical cyst with adjacent venous varix. Liver, pancreas unremarkable. No gallstones. Chest X-Ray 02/16/17 00:00 IMPRESSION: No pneumothorax post right central venous dialysis catheter placement. Fullness of the right peritracheal region at the thoracic inlet with slight deviation airway towards the left. Findings could be due to underlying thyroid mass. Hematoma post central venous catheter placement could not be excluded. Findings discussed with the operating surgeon Guidance Fluoroscopy 02/16/17 00:00 IMPRESSION: Intra procedural imaging and fluoro. Assessment & Plan - Diagnosis (1) Anemia due to blood loss, acute Is this a current diagnosis for this admission?: Yes Plan: Currently all stable (2) Chronic kidney disease, stage V Is this a current diagnosis for this admission?: Yes Plan: Currently on hemodialysis follow with the nephrology (3) Syncope and collapse Is this a current diagnosis for this admission?: Yes Plan: Patient CT head was negative and echocardiogram is also stable I think is more likely related to the anemia (4) Hypertension Qualifiers: Hypertension type: secondary to other renal disorders Qualified Code(s): I15.1 - Hypertension secondary to other renal disorders Is this a current diagnosis for this admission?: Yes - Time Time Spent with patient: 15-24 minutes Medications reviewed and adjusted accordingly: Yes Anticipated discharge: Home Within: Other - Inpatient Certification Medical Necessity: Need Close Monitoring Due to Risk of Patient Decompensation Post Hospital Care: D/C Client Success Manager Documentation - Plan Summary Plan Summary: Continues current medication
--- NOTE | 2017-02-21 13:51 | PDOC PROGRESS REPORT ---
Subjective Progress Note for:: 02/21/17 Subjective:: Patient seen on dialysis today. She is doing much better than ever she states and she is quite happy that she began on dialysis.Appetite is back. She is not depressed anymore. She denies any sick chest pain shortness of breath.Dialysis is being supervised to ensure a safe and smooth procedure. Vital signs are stable. Physical Exam Vital Signs: Temp Pulse Resp BP Pulse Ox 99.3 F 74 16 132/102 H 98 02/21/17 12:14 02/21/17 12:14 02/21/17 12:14 02/21/17 12:14 02/21/17 12:14 Intake & Output 02/20/17 02/21/17 02/22/17 06:59 06:59 06:59 Intake Total 1600 647 118 Balance 1600 647 118 Weight 50.2 kg 50.8 kg General appearance: PRESENT: no acute distress Respiratory exam: PRESENT: clear to auscultation vinicius. ABSENT: crackles, rhonchi Cardiovascular exam: PRESENT: +S1, +S2, systolic murmur GI/Abdominal exam: PRESENT: normal bowel sounds, soft. ABSENT: organomegaly, tenderness Extremities exam: PRESENT: +1 edema Neurological exam: PRESENT: alert, awake, oriented to person, oriented to place Results Laboratory Results: 02/21/17 05:10 02/21/17 05:10 02/21/17 02/21/17 05:10 05:10 WBC 6.3 RBC 2.59 L Hgb 8.4 L Hct 24.2 L MCV 93 MCH 32.5 MCHC 34.8 RDW 15.5 H Plt Count 244 Seg Neutrophils % 76.3 Lymphocytes % 13.7 Monocytes % 8.4 Eosinophils % 1.2 Basophils % 0.4 Absolute Neutrophils 4.8 Absolute Lymphocytes 0.9 Absolute Monocytes 0.5 Absolute Eosinophils 0.1 Absolute Basophils 0.0 Sodium 134.5 L Potassium 3.7 Chloride 95 L Carbon Dioxide 29 Anion Gap 11 BUN 42 H Creatinine 5.62 H Est GFR ( Amer) 9 L Est GFR (Non-Af Amer) 7 L Glucose 159 H Calcium 9.8 02/14/17 02/14/17 02/14/17 12:51 19:27 19:27 Creatine Kinase 81 CK-MB (CK-2) 2.03 Troponin I 0.033 0.041 02/15/17 02/15/17 02/15/17 01:45 01:45 07:19 Creatine Kinase 72 96 CK-MB (CK-2) 2.07 Troponin I 0.050 02/15/17 07:19 Creatine Kinase CK-MB (CK-2) 2.24 Troponin I 0.055 Impressions: Head CT 02/14/17 00:00 IMPRESSION: CHRONIC CHANGES OF ATROPHY AND MICROVASCULAR ISCHEMIA. NO ACUTE PROCESS. Abdomen Ultrasound 02/15/17 00:00 IMPRESSION: Post right nephrectomy. Small echogenic left kidney without hydronephrosis seen. Left lower pole cortical cyst with adjacent venous varix. Liver, pancreas unremarkable. No gallstones. Chest X-Ray 02/16/17 00:00 IMPRESSION: No pneumothorax post right central venous dialysis catheter placement. Fullness of the right peritracheal region at the thoracic inlet with slight deviation airway towards the left. Findings could be due to underlying thyroid mass. Hematoma post central venous catheter placement could not be excluded. Findings discussed with the operating surgeon Guidance Fluoroscopy 02/16/17 00:00 IMPRESSION: Intra procedural imaging and fluoro. Assessment & Plan - Diagnosis (1) Anemia due to blood loss, acute Is this a current diagnosis for this admission?: Yes Plan: Hemodynamically stable. Stable hemoglobin at the moment. Status post colonoscopy and most likely from diverticular bleed. She is on Procrit (2) Syncope and collapse Is this a current diagnosis for this admission?: Yes (3) Chronic kidney disease, stage V (very severe) Plan: Initiated on hemodialysis and undergoing dialysis without any issues. Vital signs are stable. Dialysis is being monitored to ensure a safe and smooth procedure.Orders were discussed with the treating nurse Jessa. She is hemodynamically stable from a GI bleeding point of view and if her hemoglobin is stable tomorrow, she can be ready to be discharged to [facility] as an outpatient. She will continue to receive outpatient dialysis. Discharge plannner and needs to coordinate that with the patient and the family.If she is discharged tomorrow her next dialysis will be on .Meanwhile start on Lasix 40 daily. (4) Diverticulosis of both small and large intestine with bleeding Plan: Status post colonoscopy findings and GI workup. (5) Hypertension Qualifiers: Hypertension type: secondary to other renal disorders Qualified Code(s): I15.1 - Hypertension secondary to other renal disorders Is this a current diagnosis for this admission?: Yes Plan: Hemodynamically stable in the presence of GI bleed. Monitor. (6) Metabolic acidosis Plan: Resolved on dialysis. (7) Abnormal serum level of alkaline phosphatase Is this a current diagnosis for this admission?: Yes (8) Renal osteodystrophy Plan: Began on appropriate medications and can be followed as an outpatient
[2017-02-21] MEDS ORDERED: FUROSEMIDE 40 MG TABLET PO SCH (14:00)
--- NOTE | 2017-02-21 15:14 | PDOC DISCHARGE SUMMARY ---
General - Admit/Disc Date/PCP Admission Date/Primary Care Provider: 02/14/17 08:31 MARIANO WASHINGTON MD Discharge Date: 02/21/17 - Discharge Diagnosis (1) Anemia due to blood loss, acute Is this a current diagnosis for this admission?: Yes (2) Chronic kidney disease, stage V Is this a current diagnosis for this admission?: Yes Summary: Status post hemodialysis (3) Syncope and collapse Is this a current diagnosis for this admission?: Yes Summary: Most likely from anemia (4) Hypertension Is this a current diagnosis for this admission?: Yes Summary: Stable - Additional Information Resuscitation Status: Full Code Discharge Diet: Cardiac Discharge Activity: Activity As Tolerated Home Medications: Clonidine HCl [Catapres 0.2 mg Tablet] 0.2 mg PO DAILYP PRN 02/14/17 Olmesartan/Hydrochlorothiazide [Benicar Hct 20-12.5 mg Tablet] 1 each PO DAILY 02/14/17 Furosemide [Lasix 40 mg Tablet] 40 mg PO DAILY@1400 #30 tablet 02/21/17 History of Present Illness History of Present Illness: BRIAN GUDINO is a 81 year old female This is a 81-year-old female with a patient of Dr. Washington with a significant history of the anemia and chronic kidney disease stage IVAnd currently not on a dialysisCame to the emergency department because of the passing out and according to the daughter this is happening very often today's see almost pass out and she is scared and bring the patient in the emergency departmentWhere patient hemoglobin was 5.4 and patient's creatinine about 6 and BUN was 123 Patients denied any chest pain denied any shortness of the breath. Patient only 1 kidney and was removed so many years back do not know her daughter Patient recently see her Dr. Reyes and he thought it is coming from the hemorrhoid but today's he might think need a further scope and further evaluate for GI bleed Patients used to see a Dr. Crane in the past and patient's creatinine at that time was 3.96 back in 2012 but looking for the hospital record patient's creatinine is running about 5 and a bowel since last couple of years Patients denied any weakness Patients denied any blood in the stools or black stools are denied any abdominal pain Hospital Course Hospital Course: This 81-year-old female present in the emergency department with the feeling dizzy and the passing out and the patient's hemoglobin was very low and the patient was underwent for colonoscopy by Dr. Garcia was all stable Patients received all blood transfusions Patient also have a history of the chronic kidney disease and the patient's underwent for hemodialysis per Dr. Crane Patient otherwise remained stable throughout the hospitalizations Patient also walk around in the hallway without any problems Patient's p.o. intake is good Discussed with the daughter and the patient and coordinate care with Dr. Fraser patient's discharge home with the stable conditions Physical Exam Vital Signs: Temp Pulse Resp BP Pulse Ox 99.3 F 68 16 132/102 H 98 02/21/17 12:14 02/21/17 14:00 02/21/17 12:14 02/21/17 12:14 02/21/17 12:14 Intake & Output 02/20/17 02/21/17 02/22/17 06:59 06:59 06:59 Intake Total 1600 647 118 Balance 1600 647 118 Weight 50.2 kg 50.8 kg General appearance: PRESENT: no acute distress, well-developed, well-nourished Head exam: PRESENT: atraumatic, normocephalic Eye exam: PRESENT: conjunctiva pink, EOMI, PERRLA. ABSENT: scleral icterus Ear exam: PRESENT: normal external ear exam Mouth exam: PRESENT: moist, tongue midline Neck exam: PRESENT: full ROM. ABSENT: carotid bruit, JVD, lymphadenopathy, thyromegaly Respiratory exam: PRESENT: clear to auscultation vinicius Cardiovascular exam: PRESENT: RRR. ABSENT: diastolic murmur, rubs, systolic murmur Pulses: PRESENT: normal dorsalis pedis pul, +2 pedal pulses bilateral Vascular exam: PRESENT: normal capillary refill GI/Abdominal exam: PRESENT: normal bowel sounds, soft. ABSENT: distended, guarding, mass, organolmegaly, rebound, tenderness Rectal exam: PRESENT: deferred Neurological exam: PRESENT: alert, awake, oriented to person, oriented to place , oriented to time, oriented to situation, CN II-XII grossly intact. ABSENT: motor sensory deficit Psychiatric exam: PRESENT: appropriate affect, normal mood. ABSENT: homicidal ideation, suicidal ideation Skin exam: PRESENT: dry, intact, warm. ABSENT: cyanosis, rash Results Laboratory Results: 02/21/17 05:10 02/21/17 05:10 02/21/17 02/21/17 05:10 05:10 WBC 6.3 RBC 2.59 L Hgb 8.4 L Hct 24.2 L MCV 93 MCH 32.5 MCHC 34.8 RDW 15.5 H Plt Count 244 Seg Neutrophils % 76.3 Lymphocytes % 13.7 Monocytes % 8.4 Eosinophils % 1.2 Basophils % 0.4 Absolute Neutrophils 4.8 Absolute Lymphocytes 0.9 Absolute Monocytes 0.5 Absolute Eosinophils 0.1 Absolute Basophils 0.0 Sodium 134.5 L Potassium 3.7 Chloride 95 L Carbon Dioxide 29 Anion Gap 11 BUN 42 H Creatinine 5.62 H Est GFR ( Amer) 9 L Est GFR (Non-Af Amer) 7 L Glucose 159 H Calcium 9.8 02/14/17 02/14/17 02/14/17 12:51 19:27 19:27 Creatine Kinase 81 CK-MB (CK-2) 2.03 Troponin I 0.033 0.041 02/15/17 02/15/17 02/15/17 01:45 01:45 07:19 Creatine Kinase 72 96 CK-MB (CK-2) 2.07 Troponin I 0.050 02/15/17 07:19 Creatine Kinase CK-MB (CK-2) 2.24 Troponin I 0.055 Impressions: Head CT 02/14/17 00:00 IMPRESSION: CHRONIC CHANGES OF ATROPHY AND MICROVASCULAR ISCHEMIA. NO ACUTE PROCESS. Abdomen Ultrasound 02/15/17 00:00 IMPRESSION: Post right nephrectomy. Small echogenic left kidney without hydronephrosis seen. Left lower pole cortical cyst with adjacent venous varix. Liver, pancreas unremarkable. No gallstones. Chest X-Ray 02/16/17 00:00 IMPRESSION: No pneumothorax post right central venous dialysis catheter placement. Fullness of the right peritracheal region at the thoracic inlet with slight deviation airway towards the left. Findings could be due to underlying thyroid mass. Hematoma post central venous catheter placement could not be excluded. Findings discussed with the operating surgeon Guidance Fluoroscopy 02/16/17 00:00 IMPRESSION: Intra procedural imaging and fluoro. Plan Time Spent: Greater than 30 Minutes - Patient discharged home and follow with the Dr. Crane for the hemodialysis and follow-up with Dr. Washington in a one- week and repeat the CBC
== END 2017-02-21 17:01 | disposition home or self-care (01) | DRG 812 ==
LOC: ER 06:24 → EH 08:31 → UNDOADMIN 09:00 → 3S 11:06 → 3W 18:14
PROVIDERS: ADMIT Family Medicine; ATTEND Internal Medicine
PROC: 30233N1 Transfusion of Nonautologous Red Blood Cells into Peripheral Vein, Percutaneous Approach (ICD-10-PCS; 2017-02-14)
PROC: 0DB68ZX Excision of Stomach, Via Natural or Artificial Opening Endoscopic, Diagnostic (ICD-10-PCS; 2017-02-15)
PROC: 0DJD8ZZ Inspection of Lower Intestinal Tract, Via Natural or Artificial Opening Endoscopic (ICD-10-PCS; 2017-02-15)
PROC: 02HV33Z Insertion of Infusion Device into Superior Vena Cava, Percutaneous Approach (ICD-10-PCS; principal; 2017-02-15 17:30)
PROC: B548ZZA Ultrasonography of Superior Vena Cava, Guidance (ICD-10-PCS; 2017-02-15 17:30)
PROC: 5A1D00Z (ICD-10-PCS; 2017-02-16)
PROC: 5A1D00Z (ICD-10-PCS; 2017-02-18)
PROC: 5A1D00Z (ICD-10-PCS; 2017-02-21)
DX: D62 Acute posthemorrhagic anemia (principal); N18.5 Chronic kidney disease, stage 5; E87.2 Acidosis; K57.30 Diverticulosis of large intestine without perforation or abscess without bleeding; I12.9 Hypertensive chronic kidney disease with stage 1 through stage 4 chronic kidney disease, or unspecified chronic kidney disease; D63.1 Anemia in chronic kidney disease; E78.5 Hyperlipidemia, unspecified; K64.8 Other hemorrhoids; K29.70 Gastritis, unspecified, without bleeding; M19.90 Unspecified osteoarthritis, unspecified site; Z87.19 Personal history of other diseases of the digestive system; Z79.899 Other long term (current) drug therapy; Z91.018 Allergy to other foods; Z91.048 Other nonmedicinal substance allergy status
CPT/HCPCS: 36415; 36430; 43239; 45378; 532; 70450; 71010; 76700; 77001; 80048; 80053; 82550; 82553; 82607; 82728; 82746; 83540; 83550; 83970; 84100; 84466; 84484; 85025; 85027; 85045; 85610; 85730; 86317; 86704; 86850; 86900; 86901; 86920; 87340; 87522; 88305; 88313; 88342; 93005; 93010; 93306; 99291; C1752; J0171; J0690; J1610; J1642; J1644; J1940; J2250; J2310; J2405; J2704; J3010; J3490; P9016; Q4081; S0164

== ENCOUNTER 2017-03-29 05:24 | Day surgery (SDC) | payer MEDICARE ==
[2017-03-22 10:11] LABS: HEMATOCRIT 30.2 % (36.0-47.0); HEMOGLOBIN 10.3 g/dL (12.0-15.5); HGB HCT DIFFERENCE 0.7; MEAN CORPUSCULAR HEMOGLOBIN 32.6 pg (27.0-33.4); MEAN CORPUSCULAR HGB CONC 34.1 g/dL (32.0-36.0); MEAN CORPUSCULAR VOLUME 96 fl (80-97); RED BLOOD COUNT 3.15 10^6/uL (3.72-5.28); RED CELL DISTRIBUTION WIDTH 18.3 % (11.5-14.0); WHITE BLOOD COUNT 5.8 10^3/uL (4.0-10.5)
[2017-03-22 10:42] LABS: ANION GAP 17 (5-19); BLOOD UREA NITROGEN 37 mg/dL (7-20); CALCIUM 10.4 mg/dL (8.4-10.2); CARBON DIOXIDE 27 mmol/L (22-30); CHLORIDE 99 mmol/L (98-107); GLUCOSE 96 mg/dL (75-110); POTASSIUM 3.7 mmol/L (3.6-5.0); SODIUM 142.9 mmol/L (137-145)
[~2017-03-29 05:24] MED LIST: CEFAZOLIN 1 GM/D5W RTU 1 GM/50 ML RTUPB IV PRN; LIDOCAINE 0.5% INJ-PF (5 MG/ML) 50 ML SDV SUBCUT PRN; NORMAL SALINE 1000 ML (RENAL PATIENTS) IV PRN
[2017-03-29] MEDS ORDERED: FENTANYL CITRATE INJ/PF 100 MCG/2 ML AMPUL ONE ×2 (06:40→06:41)
[2017-03-29] MEDS ORDERED: PROPOFOL INJ 200 MG/20 ML VIAL IV ONE (06:41)
[2017-03-29] MEDS ORDERED: LIDOCAINE 1% INJ-PF (10 MG/ML) 30 ML SDV ONE (06:42)
[2017-03-29] MEDS ORDERED: BACITRACIN INJ 50,000 UNIT VIAL ONE (06:42)
[2017-03-29] MEDS ORDERED: HEPARIN SOD (PORCINE) 1,000 UNIT/ML 10 ML VIAL ONE (06:42)
[2017-03-29] MEDS ORDERED: BUPIVACAINE HCL 0.25 % INJ/PF (2.5 MG/1 ML) 30 ML VIAL ONE (06:42)
[2017-03-29] MEDS ORDERED: LIDOCAINE 0.5% INJ-PF (5 MG/ML) 50 ML SDV ONE (06:42)
[2017-03-29] MEDS ORDERED: NITROGLYCERIN/D5W 0 MG/0 ML RTUINJ IV ONE (06:46)
[2017-03-29] MEDS ORDERED: FENTANYL CITRATE INJ/PF 100 MCG/2 ML AMPUL IV PRN ×3 (08:18)
[2017-03-29] MEDS ORDERED: PROMETHAZINE HCL INJ 25 MG/1 ML VIAL IV PRN ×2 (08:18)
[2017-03-29] MEDS ORDERED: DIPHENHYDRAMINE HCL 50 MG/ML VIAL IV PRN (08:18)
[2017-03-29] MEDS ORDERED: MEPERIDINE HCL/PF INJ 25 MG/1 ML DISP.SYRIN IV PRN (08:18)
--- NOTE | 2017-03-29 09:29 | PDOC DISCHARGE SUMMARY ---
Discharge Summary (SDC) - Discharge Final Diagnosis: #[address] 2. End-stage renal disease on hemodialysis. 3. History of breast cancer. 4. Hypertension. Date of Surgery: 03/29/17 Discharge Date: 03/29/17 Condition: Fair Treatment or Instructions: Discharge home [after recovery per ASU criteria]. Diet , [renal],as tolerated, when fully awake advance as tolerated. Activities within moderation encouraged. Follow up in my office by appointment in about [1 week]. Call for appointment. Leave wounds [covered], [keep clean and dry, until office visit in 1 week]. Hold of on school/work [until evaluation in office]. Meds per med rec. May shower [in 48 hrs], [try to keep operated area as dry as possible]. Prescriptions: Oxycodone HCl/Acetaminophen [Percocet 5-325 mg Tablet] 1 tab PO ASDIR PRN #15 tab PRN Reason: Referrals: MARIANO WASHINGTON MD [Primary Care Provider] - Discharge Diet: Other (Comments) - Renal Respiratory Treatments at Home: Deep Breathing/Coughing Discharge Activity: Activity As Tolerated Report the Following to Your Physician Immediately: Shortness of Breath, Unusual Bleeding
--- NOTE | 2017-03-29 09:35 | Operative Report ---
Operative Report DATE OF SURGERY: 03/29/17 PREOPERATIVE DIAGNOSIS: #[address] 2. End-stage renal disease on hemodialysis. 3. History of breast cancer. 4. Hypertension POSTOPERATIVE DIAGNOSIS: #[address] 2. End-stage renal disease on hemodialysis. 3. History of breast cancer. 4. Hypertension OPERATION: Insertion of right brachiocephalic arteriovenous fistula. SURGEON: ALESSIA CERRATO SENIOR ENVIRONMENTAL ENGINEER: LEROY RUCKER ANESTHESIA: LMAC TISSUE REMOVED OR ALTERED: Not applicable. COMPLICATIONS: None ESTIMATED BLOOD LOSS: 5 mL. INTRAOPERATIVE FINDINGS: Of acceptable vein and arterial flow on the small side. External diameter of the artery measured over 4 mm, internal estimated about 3.5 mm. The vein accepted a 3.5 mm coronary dilator up to a distance of at least 15 cm. With ease. Anastomosis to 10.3 minutes, there was appropriate Doppler signals in the [place] proximal brachial artery which was triphasic and somewhat slurred. Distally in the brachial artery was multiphasic with no slurring and a continuous thrill and bruit were appreciated in the vein. These point to adequate findings. PROCEDURE: Operative Report PROCEDURE: After reviewing the procedure with the patient, [she] was taken to the operating room. In this patient with relatively small vessels, [id number], history of breast cancer, right permacatheter a right brachiocephalic or first stage transposed basilic fistula is recommended. The patient was sedated and the [right upper extremity] prepared with chlorhexidine and draped out with sterile linen. After the "" universal timeout ", in which it was verified that the patient [received IV antibiotics] the procedure commenced. The sterilely sheathed ultrasound probe was used to evaluate the left venous and arterial systems, pertinent to the previously done vein mapping. Based on this and the preoperative vein mapping a Brachiocephalic fistula was selected. Local anesthesia was infiltrated and a transverse incision made over the upper forearm, near the antecubital fossa. Dissection proceeded through the subcutaneous tissues down to the cephalic vein. This was dissected out proximally and distally for about 2 cm. Likewise major branches. The Bicipital aponeurosis was now incised longitudinally and the brachial artery dissected out for a distance of about 1.5 cm. Rubber loops were placed on either end. The patient was given 2500 units of heparin intravenously. The distal branch of the cephalic vein was transected and irrigated with heparinized solution. The distal branches were clipped Coronary dilators were accepted [up to 3.5 mm]. The artery was controlled proximally and distally with rubber loops. An arteriotomy approximately [1 cm] in length was made, the artery was irrigated proximally and distally with heparinized solution. The transected vein was now spatulated [using the branch patch technique], it was then anastomosed end to end to side into the brachial artery. This was done using a continuous suture of 6-0 Prolene. Controls of the fistula were now released and it was analyzed using a Doppler probe. Hemostasis was secured once optimal function was assured, the wound was irrigated with antibiotic containing solution and closed. Closure was done using interrupted 3-0 PDS for the subcutaneous tissues. The skin was closed using a continuous subcutaneous suture of 4-0 Monocryl which was reinforced with Steri-Strips over benzoin. I then left the operative field and returned with a stethoscope covered with a sterile Tegaderm dressing. The procedure was concluded by applying a sterile dressing over the surgical site. DICTATING PHYSICIAN: ALESSIA MADRID M.D.
[2017-03-29] MEDS ORDERED: OXYCODONE-ACETAMINOPHEN 5-325 MG TABLET ONE (11:05)
[2017-03-29 11:55] VITALS: BP 140/43
--- NOTE | 2017-03-29 16:45 | EKG REPORT ---
SEVERITY:- ABNORMAL ECG - SINUS RHYTHM ATRIAL PREMATURE COMPLEX CONSIDER LEFT VENTRICULAR HYPERTROPHY : Confirmed by: Marva Araiza MD 29-Mar-2017 16:44:29
== END 2017-03-29 11:30 | disposition home or self-care (01) ==
LOC: OROUT 05:24
PROVIDERS: ATTEND Surgery
PROC: 05SD0ZZ Reposition Right Cephalic Vein, Open Approach (ICD-10-PCS; principal; 2017-03-29 07:30)
DX: I12.0 Hypertensive chronic kidney disease with stage 5 chronic kidney disease or end stage renal disease (principal); N18.6 End stage renal disease; Z85.3 Personal history of malignant neoplasm of breast; Z79.899 Other long term (current) drug therapy; Z99.2 Dependence on renal dialysis
CPT/HCPCS: 36821; 36415 ×2; 84132; 85027; 80048; 93005; 93010; J3490 ×3; J0690; J3010; J1644; J2704; 1844

== ENCOUNTER 2017-06-16 07:16 | Day surgery (SDC) | payer MEDICARE ==
[2017-06-16 07:48] LABS: ABSOLUTE EOSINOPHILS # (AUTO) 0.1 10^3/uL (0.0-0.6); ABSOLUTE LYMPHOCYTES (AUTO) 1.4 10^3/uL (0.5-4.7); ABSOLUTE MONOCYTES (AUTO) 0.6 10^3/uL (0.1-1.4); ABSOLUTE NEUT (AUTO) 3.5 10^3/uL (1.7-8.2); BASOPHILS % (AUTO) 0.6 % (0-2); EOSINOPHILS % (AUTO) 1.3 % (0-6); HEMATOCRIT 29.9 % (36.0-47.0); HEMOGLOBIN 9.7 g/dL (12.0-15.5); HGB HCT DIFFERENCE -0.8; LYMPHOCYTES % (AUTO) 24.8 % (13-45); MEAN CORPUSCULAR HEMOGLOBIN 31.1 pg (27.0-33.4); MEAN CORPUSCULAR HGB CONC 32.3 g/dL (32.0-36.0); MEAN CORPUSCULAR VOLUME 96 fl (80-97); MONOCYTES % (AUTO) 10.9 % (3-13); RED BLOOD COUNT 3.11 10^6/uL (3.72-5.28); RED CELL DISTRIBUTION WIDTH 16.9 % (11.5-14.0); SEGMENTED NEUTROPHILS % (AUTO) 62.4 % (42-78); WHITE BLOOD COUNT 5.6 10^3/uL (4.0-10.5)
[2017-06-16 07:55] LABS: PROTHROMBIN TIME 13.4 SEC (11.4-15.4)
[2017-06-16 07:56] LABS: PARTIAL THROMBOPLASTIN TIME 38.9 SEC (23.5-35.8)
[2017-06-16 08:12] LABS: ANION GAP 17 (5-19); BLOOD UREA NITROGEN 46 mg/dL (7-20); CALCIUM 11.5 mg/dL (8.4-10.2); CARBON DIOXIDE 27 mmol/L (22-30); CHLORIDE 99 mmol/L (98-107); CREATININE RESULT 4.92 mg/dL (0.52-1.25); GLUCOSE 103 mg/dL (75-110); POTASSIUM 3.9 mmol/L (3.6-5.0); SODIUM 142.9 mmol/L (137-145)
[2017-06-16] MEDS ORDERED: LIDOCAINE 0.5% INJ-PF (5 MG/ML) 50 ML SDV ONE ×2 (08:26→09:04)
[2017-06-16] MEDS ORDERED: MIDAZOLAM 2 MG/2 ML INJ ONE (08:27)
[2017-06-16] MEDS ORDERED: HEPARIN SODIUM,PORCINE/NS/PF 0 UNIT/0 ML RTUINJ IV ONE (08:27)
[2017-06-16] MEDS ORDERED: HEPARIN SOD (PORCINE) 5,000 UNIT/ML 1 ML SYRINGE ONE (08:27)
[2017-06-16] MEDS ORDERED: FENTANYL CITRATE INJ/PF 100 MCG/2 ML AMPUL ONE (08:27)
[2017-06-16] MEDS ORDERED: BACITRACIN INJ 50,000 UNIT VIAL ONE (08:28)
[2017-06-16] MEDS ORDERED: OXYCODONE-ACETAMINOPHEN 5-325 MG TABLET PO PRN (08:46)
[2017-06-16] MEDS ORDERED: DIAZEPAM 5 MG TABLET PO PRN (08:47)
--- NOTE | 2017-06-16 10:19 | PDOC DISCHARGE SUMMARY ---
Discharge Summary (SDC) - Discharge Final Diagnosis: #1 malfunctioning AV fistula, right brachiocephalic. 2. End-stage renal disease on hemodialysis. 3. Hypertension Date of Surgery: 06/16/17 Discharge Date: 06/16/17 Condition: Good Treatment or Instructions: Discharge home [after recovery per ASU criteria]. Diet , [renal],as tolerated, when fully awake advance as tolerated. Activities within moderation encouraged. Follow up in my office by appointment in about [1 week]. Call for appointment. Leave wounds [covered], [keep clean and dry, until hemodialysis]. Hold of on school/work [until evaluation in office]. Meds per med rec. May shower [in 48 hrs], [try to keep operated area as dry as possible]. Referrals: MARIANO WASHINGTON MD [Primary Care Provider] - Discharge Diet: Other (Comments) - Renal Respiratory Treatments at Home: Deep Breathing/Coughing Discharge Activity: Activity As Tolerated Report the Following to Your Physician Immediately: Shortness of Breath, Unusual Bleeding
--- NOTE | 2017-06-16 10:27 | Operative Report ---
Operative Report DATE OF SURGERY: 06/16/17 PREOPERATIVE DIAGNOSIS: #1 malfunctioning AV fistula, right brachiocephalic. 2. End-stage renal disease on hemodialysis. 3. Hypertension POSTOPERATIVE DIAGNOSIS: #1 malfunctioning AV fistula, right brachiocephalic. Angioplasty. 2. End-stage renal disease on hemodialysis. 3. Hypertension OPERATION: 1. Ultrasound evaluation and guidance into arteriovenous fistula. 2. Angioplasty. 3. Angiogram and interpretation. SURGEON: ALESSIA CERRATO PTA: None ANESTHESIA: Moderate Sedation TISSUE REMOVED OR ALTERED: Not applicable. COMPLICATIONS: None ESTIMATED BLOOD LOSS: 2 mL. INTRAOPERATIVE FINDINGS: Of a well founded right brachiocephalic fistula. Quite firm and hyper pulsatile in the first 4 cm. On angioplasty a tight stenosis about 80% of the adjacent lumen noted just cephalad to the introducer. Another at about 12 cm. Both of these almost entirely resolved on angioplasty. A residual area 26 cm is about 30% stenosis. Postprocedure the fistula was improved but is still relatively soft cephalad. I would plan for a retrograde angioplasty of the next 1 or 2 weeks to really get this fistula optimal. This was not done today as the body of the fistula is really still quite small measuring 1 4.3 mm. 1.93 at its narrowest. Before dilatation. PROCEDURE: PROCEDURE: After verifying the procedure and having obtained informed consent, the patient's right arm was prepared with Chlorhexidine and draped out with sterile linen. Local anesthesia infiltrated. Percutaneous access into the fistula ,[ antegrade], obtained about [2 cm] from the arteriovenous anastomosis using a micro puncture needle followed by micro puncture wire and then a micro puncture catheter. Angiogram demonstrated the aforementioned findings. Angioplasty was elected. A 0.035 [place] wire was inserted, and over this, a 6 [place] short introducer was placed, this was followed by a [7-mm ] angioplasty balloon . Angioplasty was serially done from the upper fistula down to the introducer. Inflating using a 3 mils syringe for 2 minutes at a time.]. Completion angiogram demonstrated [acceptable result]. The instrumentation was now withdrawn over hand pressure for 10 minutes. Dressings applied, procedure concluded. Exposure time: 0.2 minutes Radiation: 2.06 mg Contrast: 25 mL of Isovue-300, low osmolality. DICTATING PHYSICIAN: ALESSIA MADRID M.D. cc: ALESSIA MADRID M.D. ([id number]) >>
[2017-06-16 11:32] VITALS: BP 165/48
--- NOTE | 2017-06-16 13:04 | EKG REPORT ---
SEVERITY:- ABNORMAL ECG - SINUS RHYTHM SUPRAVENTRICULAR BIGEMINY BLOCKED APC CONSIDER LEFT VENTRICULAR HYPERTROPHY BORDERLINE PROLONGED QT INTERVAL : Confirmed by: Caryn Anthony 16-Jun-2017 13:03:54
--- NOTE | 2017-06-16 15:05 | RADIOLOGY REPORT (SQ) ---
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 FLUOROSCOPY TIME: 0.2 minutes 10 series of digital images saved to PACS. TECHNIQUE: Intra-operative images acquired during surgical procedure to evaluate progress. NUMBER OF IMAGES: 10 series of digital images LIMITATIONS: None. FINDINGS: Intra procedural imaging and fluoro during evaluation and plasty of a right upper extremit y AV dialysis access by Dr. Gottlieb IMPRESSION: Intra procedural imaging and fluoro COMMENT: Quality ID [id number]: Final reports for procedures using fluoroscopy that document radiation exp osure indices, or exposure time and number of fluorographic images (if radiation exposure indices are not available) Please consult full operative report of the attending physician for description of the procedure. TECHNICAL DOCUMENTATION: JOB ID: [id number] [employer]- All Rights Reserved
== END 2017-06-16 11:40 | disposition home or self-care (01) ==
LOC: CCL 07:16
PROVIDERS: ATTEND Surgery
PROC: 057D3DZ Dilation of Right Cephalic Vein with Intraluminal Device, Percutaneous Approach (ICD-10-PCS; principal; 2017-06-16)
DX: T82.858A Stenosis of other vascular prosthetic devices, implants and grafts, initial encounter (principal); Y83.2 Surgical operation with anastomosis, bypass or graft as the cause of abnormal reaction of the patient, or of later complication, without mention of misadventure at the time of the procedure; I12.0 Hypertensive chronic kidney disease with stage 5 chronic kidney disease or end stage renal disease; N18.6 End stage renal disease; Z99.2 Dependence on renal dialysis; Z85.3 Personal history of malignant neoplasm of breast; Z79.899 Other long term (current) drug therapy; Q60.0 Renal agenesis, unilateral; Z87.19 Personal history of other diseases of the digestive system
CPT/HCPCS: 36415; 85025; 85610; 85730; 80048; 36902; 76937; 93005; 93010; C1752; C1725; Q9967; C1769; J2250; J1644 ×2; A9270 ×2; J3010; J3490

== ENCOUNTER 2017-06-30 09:32 | Day surgery (SDC) | payer MEDICARE ==
[~2017-06-30 09:32] MED LIST changes: -CEFAZOLIN 1 GM/D5W RTU 1 GM/50 ML RTUPB IV PRN; +DIAZEPAM 5 MG TABLET PO PRN; -LIDOCAINE 0.5% INJ-PF (5 MG/ML) 50 ML SDV SUBCUT PRN; -NORMAL SALINE 1000 ML (RENAL PATIENTS) IV PRN; +OXYCODONE-ACETAMINOPHEN 5-325 MG TABLET PO PRN
[2017-06-30] MEDS ORDERED: LIDOCAINE 0.5% INJ-PF (5 MG/ML) 50 ML SDV ONE (10:32)
[2017-06-30] MEDS ORDERED: MIDAZOLAM 2 MG/2 ML INJ ONE (10:38)
[2017-06-30] MEDS ORDERED: FENTANYL CITRATE INJ/PF 100 MCG/2 ML AMPUL ONE (10:39)
[2017-06-30] MEDS ORDERED: HEPARIN SOD (PORCINE) 5,000 UNIT/ML 1 ML SYRINGE ONE (10:39)
--- NOTE | 2017-06-30 12:14 | PDOC DISCHARGE SUMMARY ---
Discharge Summary (SDC) - Discharge Final Diagnosis: #1 malfunctioning arteriovenous fistula, right brachiocephalic. 2. End-stage renal disease on hemodialysis. 3. History of breast cancer. 4. Hypertension. Date of Surgery: 06/30/17 Discharge Date: 06/30/17 Condition: Fair Treatment or Instructions: Discharge home [after recovery per ASU criteria]. Diet , [renal],as tolerated, when fully awake advance as tolerated. Activities within moderation encouraged. Follow up in my office by appointment in about 1 month. Call for appointment. Leave wounds [covered], [keep clean and dry, until hemodialysis]. Meds per med rec. May shower [in 48 hrs], [try to keep operated area as dry as possible]. Referrals: MARIANO WASHINGTON MD [Primary Care Provider] - Discharge Diet: Other (Comments) - Renal Respiratory Treatments at Home: Deep Breathing/Coughing Report the Following to Your Physician Immediately: Shortness of Breath, Unusual Bleeding
--- NOTE | 2017-06-30 12:19 | Operative Report ---
Operative Report DATE OF SURGERY: 06/30/17 PREOPERATIVE DIAGNOSIS: #1 malfunctioning arteriovenous fistula, right brachiocephalic. 2. End-stage renal disease on hemodialysis. 3. History of breast cancer. 4. Hypertension. POSTOPERATIVE DIAGNOSIS: #1 malfunctioning arteriovenous fistula, right brachiocephalic. Post angioplasty. 2. End-stage renal disease on hemodialysis. 3. History of breast cancer. 4. Hypertension. OPERATION: 1 #1 needle access into arteriovenous fistula, right brachiocephalic. 2. Angioplasty. 3. Angiogram and interpretation. SURGEON: ALESSIA CERRATO SUPERINTENDENT MECHANICAL: None ANESTHESIA: Moderate Sedation TISSUE REMOVED OR ALTERED: Not applicable. COMPLICATIONS: None. ESTIMATED BLOOD LOSS: 5 mL. INTRAOPERATIVE FINDINGS: Of a well founded right brachiocephalic fistula. Relatively soft above the proximal 7 cm. Hyper pulsatile and firm below that level. Concordant with the stenosis at 5 cm. Difficult to see on angiogram but certainly significant waist is appreciated at that point just about 4-5 cm. Estimated to be about 70% stenosis. Much improved with probably less than 10 % residual stenosis. Another area around 7 cm was also addressed. Both were addressed with a 7 mm balloon, using hand injection with a 3 mils syringe. In addition the initial angiogram showed flow through the artery, afterwards flow is much improved to the fistula itself. All of the suggests of the fistula should be adequate for use and we will leave it to the hemodialysis team. PROCEDURE: PROCEDURE: After verifying the procedure and having obtained informed consent, the patient's right arm and forearm were prepared with Chlorhexidine and draped out with sterile linen. Local anesthesia infiltrated. Percutaneous access into the fistula ,[retrograde], obtained about [20 cm] from the arteriovenous anastomosis using a micro puncture needle followed by micro puncture wire and then a micro puncture catheter. A 0.035 [place] wire was inserted, and over this, a 6 Afghan short introducer was placed, this was followed by a Kumpe cath.. Angiogram demonstrated the aforementioned findings. Angioplasty was elected. Angioplasty was now done using a 7 mm Marvell balloon inflating using a 3 mils syringe up to 2 minutes at a time. Angiogram demonstrated successful outcome. The instrumentation was now withdrawn over hand control for 10 minutes. Dressings applied, procedure concluded. Exposure time: 1 minutes Radiation: 4.28 mGy Contrast: 25 mL of Isovue-M 300 low osmolality. DICTATING PHYSICIAN: ALESSIA MADRID M.D. cc: ALESSIA MADIRD M.D. ([id number]) >>
--- NOTE | 2017-06-30 14:17 | RADIOLOGY REPORT (SQ) ---
EXAM DESCRIPTION: FISTULAGRAM W/PLASTY COMPLETED DATE/TIME: 06/30/2017 12:42 pm REASON FOR STUDY: T82.858A AV FISTULAGRAM W/POSS ANGIOGRAM T82.858A STENOSIS OF OTHER VASCULAR PROS TH DEV/GRFT, INIT COMPARISON: None. FLUOROSCOPY TIME: 1.0 minutes. 14 series of cine fluoroscopic images saved to PACS. TECHNIQUE: Intra-operative images acquired during surgical procedure to evaluate progress. NUMBER OF IMAGES: 14 series of cine fluoroscopic images. LIMITATIONS: None. FINDINGS: Imaging in fluoroscopy during right upper extremity dialysis access evaluation and plasty by Dr. Gottlieb . Please refer to the operative report for further details. IMPRESSION: INTRA PROCEDURAL IMAGING ABOVE . COMMENT: Quality ID [id number]: Final reports for procedures using fluoroscopy that document radiation exp osure indices, or exposure time and number of fluorographic images (if radiation exposure indices are not available) Please consult full operative report of the attending physician for description of the procedure. TECHNICAL DOCUMENTATION: JOB ID: [id number] [employer]- All Rights Reserved
[2017-06-30 17:23] VITALS: BP 145/50
== END 2017-06-30 13:25 | disposition home or self-care (01) ==
LOC: CCL 09:32
PROVIDERS: ATTEND Surgery
PROC: 057D3DZ Dilation of Right Cephalic Vein with Intraluminal Device, Percutaneous Approach (ICD-10-PCS; principal; 2017-06-30)
DX: T82.858A Stenosis of other vascular prosthetic devices, implants and grafts, initial encounter (principal); Y83.2 Surgical operation with anastomosis, bypass or graft as the cause of abnormal reaction of the patient, or of later complication, without mention of misadventure at the time of the procedure; I12.0 Hypertensive chronic kidney disease with stage 5 chronic kidney disease or end stage renal disease; N18.6 End stage renal disease; Z99.2 Dependence on renal dialysis; Z85.3 Personal history of malignant neoplasm of breast; Q60.0 Renal agenesis, unilateral; Z79.899 Other long term (current) drug therapy
CPT/HCPCS: 36902; C1752; C1887; Q9967; C1769; J2250; J1644 ×2; A9270 ×2; J3010; J3490

== ENCOUNTER → 2017-08-04 | Outpatient (CLI) | payer MEDICARE ==
--- NOTE | 2017-08-04 13:00 | RADIOLOGY REPORT (SQ) ---
EXAM DESCRIPTION: HUMERUS LEFT COMPLETED DATE/TIME: 08/04/2017 12:25 pm REASON FOR STUDY: PAIN IN LEFT ARM M79.602 PAIN IN LEFT ARM COMPARISON: None. NUMBER OF VIEWS: Two views. TECHNIQUE: Two radiographic images were acquired of the left humerus to include elbow and shoulder i n at least one projection. LIMITATIONS: None. 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 This is most evident over the ribs included in the field of view BONES: No acute fracture or dislocation. No worrisome bone lesions. LEFT SHOULDER JOINT: There is advanced degenerative joint change in the left shoulder, with bony ero darline along the anterior humeral head at near the greater tuberosity, and calcific tendinitis or an ol d fracture fragment superimposed on the distal clavicle. Humeral head abuts and erodes the undersurf kaia of the acromion likely from chronic rotator cuff disease. SOFT TISSUES: No obvious swelling or foreign body. No elbow joint effusion OTHER: No other significant finding. IMPRESSION: No acute fracture. Advanced degenerative changes left shoulder TECHNICAL DOCUMENTATION: JOB ID: [id number] [employer]- All Rights Reserved
== END ==
LOC: OD 11:53
PROVIDERS: ATTEND Physician Assistant Medical
DX: M79.602 Pain in left arm (principal)

== ENCOUNTER 2017-11-07 12:12 | Emergency (ER) | payer MEDICARE ==
[2017-11-07] MEDS ORDERED: ASPIRIN 81 MG TABLET, CHEWABLE PO ONE (12:14)
[2017-11-07 12:30] LABS: ABSOLUTE EOSINOPHILS # (AUTO) 0.1 10^3/uL (0.0-0.6); ABSOLUTE LYMPHOCYTES (AUTO) 1.4 10^3/uL (0.5-4.7); ABSOLUTE MONOCYTES (AUTO) 0.5 10^3/uL (0.1-1.4); ABSOLUTE NEUT (AUTO) 3.6 10^3/uL (1.7-8.2); BASOPHILS % (AUTO) 0.6 % (0-2); HEMATOCRIT 32.4 % (36.0-47.0); HEMOGLOBIN 10.6 g/dL (12.0-15.5); LYMPHOCYTES % (AUTO) 24.8 % (13-45); MEAN CORPUSCULAR HEMOGLOBIN 30.6 pg (27.0-33.4); MEAN CORPUSCULAR HGB CONC 32.7 g/dL (32.0-36.0); MEAN CORPUSCULAR VOLUME 93 fl (80-97); MONOCYTES % (AUTO) 9.7 % (3-13); PLATELET COUNT 350 10^3/uL (150-450); RED BLOOD COUNT 3.47 10^6/uL (3.72-5.28); RED CELL DISTRIBUTION WIDTH 19.3 % (11.5-14.0); SEGMENTED NEUTROPHILS % (AUTO) 63.9 % (42-78); TOTAL CELLS COUNTED % (AUTO) 100 %; WHITE BLOOD COUNT 5.6 10^3/uL (4.0-10.5)
[2017-11-07] MEDS ORDERED: HYDROMORPHONE HCL INJ/PF 2 MG/ML AMPULE IV ONE (12:35)
[2017-11-07 12:54] LABS: ALANINE AMINOTRANSFERASE 11 U/L (9-52); ALBUMIN 4.2 g/dL (3.5-5.0); ALKALINE PHOSPHATASE 1197 U/L (38-126); ANION GAP 15 (5-19); ASPARTATE AMINO TRANSFERASE 19 U/L (14-36); BILIRUBIN,DIRECT 0.2 mg/dL (0.0-0.4); BILIRUBIN,TOTAL 0.2 mg/dL (0.2-1.3); BLOOD UREA NITROGEN 44 mg/dL (7-20); CALCIUM 10.3 mg/dL (8.4-10.2); CARBON DIOXIDE 28 mmol/L (22-30); CHLORIDE 97 mmol/L (98-107); CREATINE KINASE 73 U/L (30-135); GLUCOSE 131 mg/dL (75-110); POTASSIUM 3.3 mmol/L (3.6-5.0); TOTAL PROTEIN 7.1 g/dL (6.3-8.2)
[2017-11-07 13:06] LABS: CREATINE KINASE MB 1.27 ng/mL (<4.55)
[2017-11-07 13:11] LABS: TROPONIN I 0.054 ng/mL
--- NOTE | 2017-11-07 14:10 | EKG REPORT ---
SEVERITY:- ABNORMAL ECG - SINUS TACHYCARDIA ATRIAL PREMATURE COMPLEXES CONSIDER LEFT VENTRICULAR HYPERTROPHY : Confirmed by: Jw Hernández MD 07-Nov-2017 14:09:02
--- NOTE | 2017-11-07 14:14 | ER Document Report ---
ED General - General Chief Complaint: Chest Pain Stated Complaint: CHEST PAIN Time Seen by Provider: 11/07/17 12:20 TRAVEL OUTSIDE OF THE [place] IN LAST 30 DAYS: No - HPI Notes: 81-year-old female, single kidney, end-stage renal disease on dialysis with hypertension presents with chest discomfort. Patient was 45 minutes into dialysis when she states she had onset of a vague, poorly described chest tightness and pain. Substernal, nonradiating. EMS was called and the pain was markedly improved with the administration of sublingual and transdermal nitrates. She has some mild residual pain but feels much better. Nonradiating. Sudden onset. No history of previous stress testing, no history of known cardiac disease, no history of diabetes. No other modifying factors, no other associated symptoms, no other provocative or palliative factors. - Related Data Allergies/Adverse Reactions: aloe vera [Aloe Vera] Allergy (Unknown, Verified 06/16/17 08:02) Swelling jalapeno peppers Allergy (Unknown, Uncoded 03/22/17 08:34) Swelling Past Medical History - General Information source: Patient - Social History Smoking Status: Never Smoker Chew tobacco use (# tins/day): No Frequency of alcohol use: None Drug Abuse: None Family History: Reviewed & Not Pertinent Patient has suicidal ideation: No Patient has homicidal ideation: No - Past Medical History Cardiac Medical History: Reports: Hx Hypercholesterolemia, Hx Hypertension Denies: Hx Coronary Artery Disease, Hx Heart Attack Pulmonary Medical History: Reports: Hx Pneumonia - hx of as child Denies: Hx Asthma, Hx Bronchitis, Hx COPD Neurological Medical History: Denies: Hx Cerebrovascular Accident, Hx Seizures Renal/ Medical History: Reports: Hx Kidney Stones. Denies: Hx Peritoneal Dialysis GI Medical History: Reports: Hx Diverticulitis, Hx Ulcer - Peptic ulcer disease in 1992-no history of GI bleeding in the past Musculoskeltal Medical History: Denies Hx Arthritis, Denies Hx Multiple Sclerosis Psychiatric Medical History: Denies: Hx Schizophrenia Past Surgical History: Reports: Hx Kidney (Renal Surgery) - 1 removal. Denies: Hx Hysterectomy - Immunizations Immunizations up to date: Yes Hx Diphtheria, Pertussis, Tetanus Vaccination: Yes Hx Pneumococcal Vaccination: 07/04/16 Review of Systems - Review of Systems Notes: Review of systems as in the history of present illness, otherwise negative. Physical Exam - Vital signs Vitals: Resp Pulse Ox 16 97 11/07/17 12:35 11/07/17 12:35 - Notes Notes: General: Well developed . HEENT: Normocephalic, atraumatic. Pupils equal round reactive to light. No JVD. Chest: No trauma. Respiratory: Good air exchange, normal excursion. Cardiac: Regular rhythm. No murmurs or gallops. Abdomen: Soft, benign. Nondistended. Nontender. Back: No asymmetry or gross abnormality. Motor: Grossly normal power and tone. Neurologic: Alert, nonfocal. Cranial nerves II-12 are intact. Sensation intact. Vascular: Well perfused. Normal peripheral pulses. Skin: No petechiae or purpura. Course - Re-evaluation Re-evalutation: 81-year-old female chest pain, certainly would consider underlying ACS, atypical chest pain, esophageal spasm, pneumonia or other etiology. Plan to proceed with continued nitrates, morphine, basic labs, EKG, troponin and reassess. 12 Lead ECG Analysis A 12 lead ECG is obtained and shows a sinus rhythm, normal QRS, normal QTC. There are nonspecific ST-T changes, no evidence of acute ischemic changes. Patient has had substantial improvement, pain-free at this time. Admitted to the internal medicine service for rule out and potential provocative or stratification. Case discussed briefly with her furnace setter who indicated that she should be okay for dialysis tomorrow or later. - Vital Signs Vital signs: Temp Pulse Resp BP Pulse Ox 14 190/53 H 95 11/07/17 14:02 11/07/17 14:02 11/07/17 14:02 - Laboratory Result Diagrams: 11/07/17 11:47 11/07/17 11:47 Laboratory results interpreted by me: 11/07/17 11/07/17 11:47 11:47 RBC 3.47 L Hgb 10.6 L Hct 32.4 L RDW 19.3 H Potassium 3.3 L Chloride 97 L BUN 44 H Creatinine 4.63 H Est GFR ( Amer) 11 L Est GFR (Non-Af Amer) 9 L Glucose 131 H Calcium 10.3 H Alkaline Phosphatase 1197 H Discharge - Discharge Clinical Impression: Chest pain Qualifiers: Chest pain type: unspecified Qualified Code(s): R07.9 - Chest pain, unspecified Condition: Serious Disposition: ADMITTED OBSERVATION Admitting Provider: [facility] Admitted: Telemetry
[2017-11-07 18:00] VITALS: BP 160/80
--- NOTE | 2017-11-07 20:44 | PDOC H&P ---
History of Present Illness Admission Date/PCP: 11/07/17 15:18 MARIANO WASHINGTON MD History of Present Illness: BRIAN GUDINO is a 81 year old female. She has end-stage renal disease on maintenance hemodialysis, she came to the emergency room from dialysis center for evaluation of chest pain, in the emergency room, she was evaluated, hospital admission was advised. But patient left AMA before I saw her in the ER , when I came to the emergency room to the patient before a bed was assigned to her in the hospital she already left AMA Past Medical History Cardiac Medical History: Reports: Hyperlipidema, Hypertension Pulmonary Medical History: Reports: Pneumonia - hx of as child Renal/ Medical History: Reports: End Stage Renal Disease GI Medical History: Reports: Diverticulitis Psychiatric Medical History: Hematology: Reports: Anemia, Bleeding Tendencies Past Surgical History Past Surgical History: Denies: Hysterectomy Social History Smoking Status: Never Smoker Frequency of Alcohol Use: None Hx Recreational Drug Use: No Drugs: None Hx Prescription Drug Abuse: No Family History Family History: Reviewed & Not Pertinent Parental Family History Reviewed: Yes Children Family History Reviewed: Yes Sibling(s) Family History Reviewed.: Yes Medication/Allergy Home Medications: Olmesartan/Hydrochlorothiazide [Benicar Hct 20-12.5 mg Tablet] 1 each PO DAILY 02/14/17 Clonidine HCl [Catapres 0.2 mg Tablet] 0.2 mg PO Q8 11/07/17 Allergies/Adverse Reactions: aloe vera [Aloe Vera] Allergy (Unknown, Verified 06/16/17 08:02) Swelling jalapeno peppers Allergy (Unknown, Uncoded 03/22/17 08:34) Swelling Physical Exam Vital Signs: Temp Pulse Resp BP Pulse Ox 17 160/80 H 96 11/07/17 17:00 11/07/17 16:01 11/07/17 17:00 Results Laboratory Results: 11/07/17 16:15 Troponin I 0.057 Assessment & Plan - Diagnosis (1) Chest pain Qualifiers: Chest pain type: unspecified Qualified Code(s): R07.9 - Chest pain, unspecified Is this a current diagnosis for this admission?: Yes Plan: I did not see this patient she left AMA
--- NOTE | 2017-11-07 20:46 | PDOC DISCHARGE SUMMARY ---
General - Admit/Disc Date/PCP Admission Date/Primary Care Provider: 11/07/17 15:18 MARIANO WASHINGTON MD Discharge Date: 11/07/17 - Discharge Diagnosis (1) Chest pain Is this a current diagnosis for this admission?: Yes - Additional Information Home Medications: Olmesartan/Hydrochlorothiazide [Benicar Hct 20-12.5 mg Tablet] 1 each PO DAILY 02/14/17 Clonidine HCl [Catapres 0.2 mg Tablet] 0.2 mg PO Q8 11/07/17 History of Present Illness History of Present Illness: BRIAN GUDINO is a 81 year old female. She has end-stage renal disease on maintenance hemodialysis, she came to the emergency room from dialysis center for evaluation of chest pain, in the emergency room, she was evaluated, hospital admission was advised. But patient left AMA before I saw her in the ER , when I came to the emergency room to the patient before a bed was assigned to her in the hospital she already left AMA Hospital Course Hospital Course: She left AMA Physical Exam Vital Signs: Temp Pulse Resp BP Pulse Ox 17 160/80 H 96 11/07/17 17:00 11/07/17 16:01 11/07/17 17:00 Results Laboratory Results: 11/07/17 16:15 Troponin I 0.057 Qualifiers - * PATIENT BEING DISCHARGED WITH ANY OF THE FOLLOWING DIAGNOSIS: No
--- NOTE | 2017-11-08 16:57 | RADIOLOGY REPORT (SQ) ---
EXAM DESCRIPTION: CHEST SINGLE VIEW COMPLETED DATE/TIME: 11/07/2017 12:27 pm REASON FOR STUDY: cp COMPARISON: None. NUMBER OF VIEWS: One view. TECHNIQUE: Single frontal radiographic view of the chest acquired. LIMITATIONS: None. FINDINGS: LUNGS AND PLEURA: No acute pulmonary findings. Small stable calcified granuloma right ap ex of the lung. No pneumothorax or pleural effusion. MEDIASTINUM AND HILAR STRUCTURES: No masses. Contour normal. HEART AND VASCULAR STRUCTURES: Borderline cardiomegaly, may be related to patient positioning and de gree of inspiration. BONES: No acute findings. HARDWARE: Interval removal of the right central venous dialysis catheter. OTHER: No other significant finding. IMPRESSION: 1. Interval removal of right central venous dialysis catheter. 2 No acute pulmonary findings. 3 Borderline cardiomegaly, may be related to patient positioning and degree of inspiration. TECHNICAL DOCUMENTATION: JOB ID: [id number] [employer]- All Rights Reserved Reading location - IP/workstation name: [email or web address]
== END 2017-11-07 17:56 | disposition admitted as inpatient to this hospital (09) ==
LOC: ER 12:12 → UNDOADMOB 15:18 → EH 15:18 → UNDODISOB 18:15
DX: R07.89 Other chest pain (principal); I12.0 Hypertensive chronic kidney disease with stage 5 chronic kidney disease or end stage renal disease; N18.6 End stage renal disease; Z99.2 Dependence on renal dialysis; Z90.5 Acquired absence of kidney
CPT/HCPCS: 93005; 99285; 96374; 36415; 82553; 82550; 85025; 80053; 84484; 71045; 93010; J1170

== ENCOUNTER → 2018-02-09 | Outpatient (CLI) | payer MEDICARE ==
--- NOTE | 2018-02-09 11:35 | EKG REPORT ---
SEVERITY:- ABNORMAL ECG - SINUS RHYTHM SUPRAVENTRICULAR BIGEMINY LEFT VENTRICULAR HYPERTROPHY : Confirmed by: Marva Araiza MD 09-Feb-2018 11:34:43
== END ==
LOC: DAVITANR 08:35
PROVIDERS: ATTEND Internal Medicine Nephrology
DX: I49.9 Cardiac arrhythmia, unspecified (principal)
CPT/HCPCS: 93005; 93010

== ENCOUNTER 2018-05-01 11:01 | Inpatient (IN) | payer MEDICARE ==
--- NOTE | 2018-05-01 11:20 | ER Document Report ---
ED Medical Screen (RME) - General Chief Complaint: Shortness Of Breath Stated Complaint: DIFFICULTY BREATHING Time Seen by Provider: 05/01/18 11:17 Mode of Arrival: Ambulatory Notes: 82 years old female with a history of end-stage renal disease on dialysis, woke up this morning with shortness of breath. She went to the dialysis, while she is being dialyzed she was on oxygen. Subsequently at the end of dialysis she felt better went home. Started having shortness of breath again therefore present to the ED. Has been coughing on and off but denies any fever, largely dry cough. Denies any chest pain. Denies any left arm numbness tingling sensation. On examination-elderly female not seems to be in any acute distress. Lungs are clear no obvious rales or wheezing heard. TRAVEL OUTSIDE OF THE [place] IN LAST 30 DAYS: No - Related Data Allergies/Adverse Reactions: aloe vera [Aloe Vera] Allergy (Unknown, Verified 05/01/18 11:02) Swelling jalapeno peppers Allergy (Unknown, Uncoded 03/22/17 08:34) Swelling Past Medical History - Past Medical History Cardiac Medical History: Reports: Hx Hypercholesterolemia, Hx Hypertension Denies: Hx Coronary Artery Disease, Hx Heart Attack Pulmonary Medical History: Reports: Hx Pneumonia - hx of as child Denies: Hx Asthma, Hx Bronchitis, Hx COPD Neurological Medical History: Denies: Hx Cerebrovascular Accident, Hx Seizures Renal/ Medical History: Reports: Hx End Stage Renal Disease, Hx Kidney Stones. Denies: Hx Peritoneal Dialysis GI Medical History: Reports: Hx Diverticulitis, Hx Ulcer - Peptic ulcer disease in 1992-no history of GI bleeding in the past Musculoskeltal Medical History: Denies Hx Arthritis, Denies Hx Multiple Sclerosis Psychiatric Medical History: Denies: Hx Schizophrenia Past Surgical History: Reports: Hx Kidney (Renal Surgery) - 1 removal. Denies: Hx Hysterectomy - Immunizations Immunizations up to date: Yes Hx Diphtheria, Pertussis, Tetanus Vaccination: Yes History of Influenza Vaccine for 04/2017 - 09/2017 Season: Yes Influenza Administration Date for 04/2017 - 09/2017 Season: 04/03/17 Physical Exam - Vital signs Vitals: Temp Pulse Resp BP Pulse Ox 98.5 F 79 14 172/70 H 99 05/01/18 11:07 05/01/18 11:07 05/01/18 11:07 05/01/18 11:07 05/01/18 11:07 Course - Vital Signs Vital signs: Temp Pulse Resp BP Pulse Ox 98.5 F 79 14 172/70 H 99 05/01/18 11:07 05/01/18 11:07 05/01/18 11:07 05/01/18 11:07 05/01/18 11:07 Doctor's Discharge - Discharge Referrals: Robert SPRINGER MD [Primary Care Provider] - Follow up as needed
[2018-05-01 12:01] LABS: HEMOGLOBIN 9.6 g/dL (12.0-15.5); MEAN CORPUSCULAR HEMOGLOBIN 30.4 pg (27.0-33.4); RED CELL DISTRIBUTION WIDTH 18.5 % (11.5-14.0)
[2018-05-01 12:05] LABS: HEMATOCRIT 29.7 % (36.0-47.0); MEAN CORPUSCULAR HGB CONC 32.3 g/dL (32.0-36.0); MEAN CORPUSCULAR VOLUME 94 fl (80-97); PLATELET COUNT 351 10^3/uL (150-450); RED BLOOD COUNT 3.15 10^6/uL (3.72-5.28); WHITE BLOOD COUNT 4.7 10^3/uL (4.0-10.5)
[2018-05-01 12:18] LABS: ALANINE AMINOTRANSFERASE 23 U/L (9-52); ALBUMIN 4.2 g/dL (3.5-5.0); ALKALINE PHOSPHATASE 1282 U/L (38-126); ANION GAP 13 (5-19); ASPARTATE AMINO TRANSFERASE 27 U/L (14-36); BILIRUBIN,DIRECT 0.3 mg/dL (0.0-0.4); BILIRUBIN,TOTAL 0.6 mg/dL (0.2-1.3); BLOOD UREA NITROGEN 15 mg/dL (7-20); CALCIUM 11.4 mg/dL (8.4-10.2); CARBON DIOXIDE 30 mmol/L (22-30); CHLORIDE 99 mmol/L (98-107); CREATINE KINASE 76 U/L (30-135); GLUCOSE 79 mg/dL (75-110); POTASSIUM 3.9 mmol/L (3.6-5.0); SODIUM 142.4 mmol/L (137-145); TOTAL PROTEIN 7.3 g/dL (6.3-8.2)
[2018-05-01 12:30] LABS: CREATINE KINASE MB 1.62 ng/mL (<4.55)
[2018-05-01 12:33] LABS: ABSOLUTE LYMPHOCYTES# (MANUAL) 1.2 10^3/uL (0.5-4.7); ABSOLUTE MONOCYTES # (MANUAL) 0.2 10^3/uL (0.1-1.4); ABSOLUTE NEUTROPHILS# (MANUAL) 3.2 10^3/uL (1.7-8.2); BAND NEUTROPHILS % (MANUAL) 1 % (3-5); BASOPHILS % (MANUAL) 1 % (0-2); EOSINOPHILS % (MANUAL) 0 % (0-6); LYMPHOCYTES % (MANUAL) 25 % (13-45); MONOCYTES % (MANUAL) 4 % (3-13); SEGMENTED NEUTROPHILS % (MAN) 68 % (42-78); TOTAL CELLS COUNTED 100
[2018-05-01 12:35] LABS: ANISOCYTOSIS SLIGHT; HYPOCHROMASIA SLIGHT; PLATELET COMMENT ADEQUATE; POLYCHROMASIA SLIGHT; TROPONIN I 0.073 ng/mL
[2018-05-01] MEDS ORDERED: ASPIRIN 81 MG TABLET, CHEWABLE PO ONE (13:00)
[2018-05-01] MEDS ORDERED: LORAZEPAM 1 MG TABLET PO ONE (13:00)
--- NOTE | 2018-05-01 13:12 | ER Document Report ---
ED General - General Chief Complaint: Shortness Of Breath Stated Complaint: DIFFICULTY BREATHING Time Seen by Provider: 05/01/18 11:17 Mode of Arrival: Ambulatory TRAVEL OUTSIDE OF THE [place] IN LAST 30 DAYS: No - HPI Notes: Patient is a 82-year-old female that presents to the emergency department for chief complaint of shortness of breath. Patient had sudden onset of shortness of breath when she woke up around 430 this morning. Family denies history of lung disease including COPD and congestive heart failure. Patient has continued to feel short of breath since. She did receive a full dialysis treatment this morning and is not due for dialysis again until tomorrow. Patient denies any chest pain numbness tingling diaphoresis nausea or vomiting. She denies history of cardiac disease in the past. Patient denies any aggravating or relieving factors. She has not had relief of her shortness of breath with nasal cannula oxygen. She denies feeling anxious or having history of panic in the past. Past Medical History: CKD, hypertension Past Surgical History: Right arm AV fistula Social History: Denies drugs alcohol and tobacco Family History: Reviewed and noncontributory for presenting illness Allergies: Reviewed, see documented allergy list. REVIEW OF SYSTEMS: CONSTITUTIONAL : No fever No chills No diaphoresis No recent illness EENT: No vision changes No congestion No sore throat CARDIOVASCULAR: No chest pain No palpitations RESPIRATORY: shortness of breath No cough No difficulty breathing GASTROINTESTINAL: No abdominal pain No nausea No vomiting No diarrhea GENITOURINARY: No dysuria No hematuria No difficulty urinating MUSCULOSKELETAL: No back pain No leg pain No arm pain SKIN: No rashes No lesions LYMPHATIC: No swollen, enlarged glands. NEUROLOGICAL: No lightheadedness No headache No weakness No paresthesias PSYCHIATRIC: No anxiety No depression PHYSICAL EXAMINATION: Vital signs reviewed, nursing noted reviewed. GENERAL: Well-appearing, well-nourished and in no acute distress. HEAD: Atraumatic, normocephalic. EYES: Eyes appear normal, extraocular movements intact, sclera anicteric, conjunctiva are normal. ENT: nares patent, oropharynx clear without exudates. Moist mucous membranes. NECK: Normal range of motion, supple without lymphadenopathy LUNGS: Breath sounds clear to auscultation bilaterally and equal. No wheezes rales or rhonchi. Mild increased work of breathing and tachypnea HEART: Regular rate and rhythm without murmurs ABDOMEN: Soft, nontender, normoactive bowel sounds. No rebound, guarding, or rigidity. No masses appreciated. EXTREMITIES: Nontender, good range of motion, no pitting or edema. NEUROLOGICAL: No focal neurological deficits. Moves all extremities spontaneously Motor and sensory grossly intact on exam. PSYCH: Appears anxious, normal mood SKIN: Warm, Dry, normal turgor, no rashes or lesions noted on exposed skin - Related Data Allergies/Adverse Reactions: aloe vera [Aloe Vera] Allergy (Unknown, Verified 05/01/18 11:02) Swelling jalapeno peppers Allergy (Unknown, Uncoded 03/22/17 08:34) Swelling Past Medical History - Social History Smoking Status: Never Smoker Family History: Reviewed & Not Pertinent Patient has suicidal ideation: No Patient has homicidal ideation: No - Past Medical History Cardiac Medical History: Reports: Hx Hypercholesterolemia, Hx Hypertension Denies: Hx Coronary Artery Disease, Hx Heart Attack Pulmonary Medical History: Reports: Hx Pneumonia - hx of as child Denies: Hx Asthma, Hx Bronchitis, Hx COPD Neurological Medical History: Denies: Hx Cerebrovascular Accident, Hx Seizures Renal/ Medical History: Reports: Hx End Stage Renal Disease, Hx Kidney Stones. Denies: Hx Peritoneal Dialysis GI Medical History: Reports: Hx Diverticulitis, Hx Ulcer - Peptic ulcer disease in 1992-no history of GI bleeding in the past Musculoskeletal Medical History: Denies Hx Arthritis, Denies Hx Multiple Sclerosis Psychiatric Medical History: Denies: Hx Schizophrenia Past Surgical History: Reports: Hx Kidney (Renal Surgery) - 1 removal. Denies: Hx Hysterectomy - Immunizations Immunizations up to date: Yes Hx Diphtheria, Pertussis, Tetanus Vaccination: Yes Hx Pneumococcal Vaccination: 07/04/16 Review of Systems - Review of Systems Notes: Dictated Physical Exam - Vital signs Vitals: Temp Pulse Resp BP Pulse Ox 98.5 F 79 14 172/70 H 99 05/01/18 11:07 05/01/18 11:07 05/01/18 11:07 05/01/18 11:07 05/01/18 11:07 - Notes Notes: Dictated Course - Re-evaluation Re-evalutation: 05/01/18 13:10 Vitals reviewed. Nursing notes reviewed. Patient was given aspirin for possible ACS equivalent. She was given Ativan for air hunger and anxiety. Patient's lab work shows mild elevation in her troponin. Creatinine is 2.2. Her electrolytes are stable. Patient will be admitted to the hospital for observation and telemetry monitoring and further ACS rule out. She is stable at time of admission. Case discussed with Dr. Lozoya who accepted admission. - Vital Signs Vital signs: Temp Pulse Resp BP Pulse Ox 98.5 F 79 14 172/70 H 99 05/01/18 11:07 05/01/18 11:07 05/01/18 11:07 05/01/18 11:07 05/01/18 11:07 - Laboratory Result Diagrams: 05/01/18 11:44 05/01/18 11:44 Laboratory results interpreted by me: 05/01/18 05/01/18 11:44 11:44 RBC 3.15 L Hgb 9.6 L Hct 29.7 L RDW 18.5 H Band Neutrophils % 1 L Creatinine 2.22 H Est GFR ( Amer) 26 L Est GFR (Non-Af Amer) 21 L Calcium 11.4 H Alkaline Phosphatase 1282 H - EKG Interpretation by Me Additional EKG results interpreted by me: 05/01/18 13:11 Interpreted by myself [id number]: Sinus tachycardia, rate 112, frequent PVCs and PACs, no ST elevation, LVH , normal axis Discharge - Discharge Clinical Impression: Shortness of breath, Elevated troponin Condition: Stable Disposition: ADMITTED OBSERVATION Admitting Provider: [facility] Admitted: Telemetry Referrals: Robert SPRINGER MD [Primary Care Provider] - Follow up as needed
--- NOTE | 2018-05-01 13:24 | RADIOLOGY REPORT (SQ) ---
EXAM DESCRIPTION: CHEST SINGLE VIEW COMPLETED DATE/TIME: 05/01/2018 12:34 pm REASON FOR STUDY: Shortness of breath COMPARISON: 02/14/2013 EXAM PARAMETERS: NUMBER OF VIEWS: One view. TECHNIQUE: Single frontal radiographic view of the chest acquired. RADIATION DOSE: NA LIMITATIONS: None. FINDINGS: LUNGS AND PLEURA: Mild pulmonary vascular prominence. No pulmonary edema. MEDIASTINUM AND HILAR STRUCTURES: No masses. Contour normal. HEART AND VASCULAR STRUCTURES: Borderline heart size. BONES: No acute findings. HARDWARE: None in the chest. OTHER: Vertical linear markings overlie the right side of the chest. This appears to be secondary to skin folds. IMPRESSION: Borderline cardiomegaly without pulmonary edema. TECHNICAL DOCUMENTATION: JOB ID: [id number] [employer]- All Rights Reserved Reading location - IP/workstation name: [email or web address]
[2018-05-01] MEDS ORDERED: CINACALCET HCL 30 MG TABLET PO ONE (15:33)
[2018-05-01] MEDS: CINACALCET HCL 30 MG TABLET PO SCH (19:28)
[2018-05-01 20:19] LABS: CREATINE KINASE MB 1.33 ng/mL (<4.55); TROPONIN I 0.079 ng/mL
--- NOTE | 2018-05-01 20:34 | PDOC H&P ---
History of Present Illness Admission Date/PCP: 05/01/18 13:49 Robert SPRINGER MD History of Present Illness: BRIAN GUDINO is a 82 year old female, She presented to the emergency room for evaluation of acute onset shortness of breath, there was no chest pain, she related this symptom to her daughter this morning, the daughter was going to bring her to the emergency room earlier this morning but she opted to go to dialysis stating that she will receive oxygen in dialysis center.In the Dialysis center the symptoms persisted she was then transferred to the emergency room. In the emergency room the blood pressure was elevated at over 200 systolic, the chest x-ray did not show any acute CHF picture, the initial cardiac enzymes were negative EKG did not show any ST elevation to suggest acute ID. A VQ scan was ordered this afternoon but patient cannot lay flat in bed CTA of the chest cannot be done at this time because she is on hemodialysis , she was dialyzed today, the next dialysis day is on Tuesday hopefully can ge ,t a CTA done tomorrow before dialysis. Past Medical History Cardiac Medical History: Reports: Hyperlipidema, Hypertension Pulmonary Medical History: Reports: Pneumonia - hx of as child Renal/ Medical History: Reports: End Stage Renal Disease GI Medical History: Reports: Diverticulitis Musculoskeltal Medical History: Denies: Arthritis Psychiatric Medical History: Hematology: Reports: Anemia, Bleeding Tendencies Social History Smoking Status: Never Smoker Frequency of Alcohol Use: None Hx Recreational Drug Use: No Drugs: None Hx Prescription Drug Abuse: No Family History Family History: Reviewed & Not Pertinent Parental Family History Reviewed: Yes Children Family History Reviewed: Yes Sibling(s) Family History Reviewed.: Yes Medication/Allergy Home Medications: Aspirin [Aspirin EC] 81 mg PO DAILY 05/01/18 Cinacalcet HCl [Sensipar 60 mg Tablet] 1 tab PO DAILY 05/01/18 Furosemide [Lasix 40 mg Tablet] 40 mg PO QAM 05/01/18 Allergies/Adverse Reactions: aloe vera [Aloe Vera] Allergy (Unknown, Verified 05/01/18 11:02) Swelling jalapeno peppers Allergy (Unknown, Uncoded 03/22/17 08:34) Swelling Review of Systems Constitutional: ABSENT: chills, fever(s), headache(s), weight gain, weight loss Eyes: ABSENT: visual disturbances Ears: ABSENT: hearing changes Cardiovascular: PRESENT: orthropnea. ABSENT: chest pain, dyspnea on exertion, edema, palpitations Respiratory: PRESENT: dyspnea Gastrointestinal: ABSENT: abdominal pain, constipation, diarrhea, hematemesis, hematochezia, nausea, vomiting Genitourinary: ABSENT: dysuria, hematuria Musculoskeletal: ABSENT: joint swelling Integumentary: ABSENT: rash, wounds Neurological: ABSENT: abnormal gait, abnormal speech, confusion, dizziness, focal weakness, syncope Psychiatric: ABSENT: anxiety, depression, homidical ideation, suicidal ideation Endocrine: ABSENT: cold intolerance, heat intolerance, menstrual abnormalities, polydipsia, polyuria Hematologic/Lymphatic: ABSENT: easy bleeding, easy bruising, lymphadenopathy Physical Exam Vital Signs: Temp Pulse Resp BP Pulse Ox 98.8 F 85 18 176/68 H 100 05/01/18 17:46 05/01/18 17:59 05/01/18 17:46 05/01/18 17:46 05/01/18 17:46 Intake & Output 04/30/18 05/01/18 05/02/18 06:59 06:59 06:59 Intake Total 0 Balance 0 Weight 45.8 kg General appearance: PRESENT: no acute distress Head exam: PRESENT: atraumatic, normocephalic Eye exam: PRESENT: conjunctiva pink, EOMI, PERRLA Ear exam: PRESENT: normal external ear exam Mouth exam: PRESENT: moist, tongue midline Neck exam: PRESENT: full ROM Respiratory exam: PRESENT: clear to auscultation vinicius Cardiovascular exam: PRESENT: RRR, +S1, +S2 Pulses: PRESENT: normal dorsalis pedis pul, +2 pedal pulses bilateral Vascular exam: PRESENT: normal capillary refill GI/Abdominal exam: PRESENT: normal bowel sounds, soft Rectal exam: PRESENT: deferred Neurological exam: PRESENT: alert, awake, oriented to person, oriented to place , oriented to time, oriented to situation, CN II-XII grossly intact Psychiatric exam: PRESENT: appropriate affect, normal mood Skin exam: PRESENT: dry, intact, warm Results Laboratory Results: 05/01/18 19:35 Creatine Kinase 70 Impressions: Chest X-Ray 05/01/18 11:18 IMPRESSION: Borderline cardiomegaly without pulmonary edema. Assessment & Plan - Diagnosis (1) Hypertensive emergency Is this a current diagnosis for this admission?: Yes Plan: The blood pressure is elevated, (2) Shortness of breath Is this a current diagnosis for this admission?: Yes Plan: The differential diagnosis includes pulmonary embolism, diastolic heart failure , 2D echo to be ordered (3) End stage renal disease Is this a current diagnosis for this admission?: Yes
[2018-05-01 21:01] LABS: FREE T4 (FREE THYROXINE) 0.89 ng/dL (0.78-2.19)
[2018-05-01 21:06] LABS: PROTHROMBIN TIME 13.7 SEC (11.4-15.4)
[2018-05-01 21:07] LABS: PARTIAL THROMBOPLASTIN TIME 37.5 SEC (23.5-35.8)
[2018-05-01 21:15] LABS: THYROID STIMULATING HORMONE 1.14 uIU/mL (0.47-4.68)
[2018-05-01 21:16] LABS: ALANINE AMINOTRANSFERASE 23 U/L (9-52); ALBUMIN 3.9 g/dL (3.5-5.0); ALKALINE PHOSPHATASE 1173 U/L (38-126); AMYLASE 188 U/L (30-110); ASPARTATE AMINO TRANSFERASE 24 U/L (14-36); BILIRUBIN,DIRECT 0.2 mg/dL (0.0-0.4); BILIRUBIN,TOTAL 0.4 mg/dL (0.2-1.3); LIPASE 196.8 U/L (23-300); PHOSPHORUS 3.9 mg/dL (2.5-4.5); TOTAL PROTEIN 6.7 g/dL (6.3-8.2)
--- NOTE | 2018-05-01 21:55 | EKG REPORT ---
SEVERITY:- ABNORMAL ECG - ATRIAL FIBRILLATION VERSUS MFAT LEFT VENTRICULAR HYPERTROPHY BORDERLINE PROLONGED QT INTERVAL : Confirmed by: Marva Araiza MD 01-May-2018 21:54:43
[2018-05-01] MEDS: HEPARIN SOD (PORCINE) 5,000 UNIT/ML 1 ML SYRINGE SUBCUT SCH (23:02)
[2018-05-02 03:34] LABS: ABSOLUTE BASOPHILS # (AUTO) 0.1 10^3/uL (0.0-0.2); ABSOLUTE EOSINOPHILS # (AUTO) 0.1 10^3/uL (0.0-0.6); ABSOLUTE MONOCYTES (AUTO) 0.6 10^3/uL (0.1-1.4); ABSOLUTE NEUT (AUTO) 3.3 10^3/uL (1.7-8.2); BASOPHILS % (AUTO) 1.1 % (0-2); EOSINOPHILS % (AUTO) 1.4 % (0-6); HEMATOCRIT 28.9 % (36.0-47.0); HEMOGLOBIN 9.3 g/dL (12.0-15.5); LYMPHOCYTES % (AUTO) 20.8 % (13-45); MEAN CORPUSCULAR HEMOGLOBIN 30.1 pg (27.0-33.4); MEAN CORPUSCULAR HGB CONC 32.3 g/dL (32.0-36.0); MEAN CORPUSCULAR VOLUME 93 fl (80-97); MONOCYTES % (AUTO) 11.3 % (3-13); PLATELET COUNT 301 10^3/uL (150-450); RED CELL DISTRIBUTION WIDTH 18.6 % (11.5-14.0); SEGMENTED NEUTROPHILS % (AUTO) 65.4 % (42-78); TOTAL CELLS COUNTED % (AUTO) 100 %
[2018-05-02 03:49] LABS: ANION GAP 15 (5-19); BLOOD UREA NITROGEN 26 mg/dL (7-20); CARBON DIOXIDE 28 mmol/L (22-30); CHLORIDE 101 mmol/L (98-107); CREATINE KINASE 81 U/L (30-135); GLUCOSE 99 mg/dL (75-110); POTASSIUM 3.9 mmol/L (3.6-5.0); SODIUM 144.1 mmol/L (137-145)
[2018-05-02 04:01] LABS: CREATINE KINASE MB 1.38 ng/mL (<4.55); TROPONIN I 0.072 ng/mL
[2018-05-02] MEDS: HEPARIN SOD (PORCINE) 5,000 UNIT/ML 1 ML SYRINGE SUBCUT SCH ×3 (06:29→22:03)
[2018-05-02] MEDS: FUROSEMIDE 40 MG TABLET PO SCH (07:47)
[2018-05-02] MEDS: HYDRALAZINE HCL INJ/PF 20 MG/1 ML SDV IV PRN ×2 (07:47→22:02)
[2018-05-02] MEDS: CINACALCET HCL 30 MG TABLET PO SCH (09:55)
[2018-05-02] MEDS ORDERED: ASPIRIN 81 MG TABLET, ENT COATED PO SCH (10:00)
--- NOTE | 2018-05-02 11:22 | XCELERA REPORT ---
[address] [address] Transthoracic Echocardiogram Report Name: BRIAN GUDINO Age: 82 yrs Gender: Female : 1935 Patient Status: Inpatient Patient Location: [address] [place] [address] Study Date: 05/01/2018 08:56 PM Height: 60 in Weight: 100 lb BSA: 1.4 m2 Procedure: A complete two-dimensional transthoracic echocardiogram was performed (2D, M-mode, spectral and color flow Doppler). The study was technically adequate with some images being suboptimal in quality. Reason For Study: hypertensive emergency Ordering Physician: MARIANO WASHINGTON Performed By: Sophia Boyd Interpretation Summary The Ejection Fraction estimate is 50-55% Left ventricular systolic function is borderline reduced. There is normal left ventricular wall thickness. The left ventricle is grossly normal size. Doppler measurements suggest pseudonormalized left ventricular relaxation, which is associated with grade II/IV or mild to moderate diastolic dysfunction Wall motion cannot be accurately commented on, but no definite regional wall motion abnormalities noted. The right ventricular systolic function is normal. The right atrium is normal in size The left atrium is moderately dilated. There is a moderate to severe amount of mitral regurgitation There is no mitral valve stenosis. There is no aortic valve stenosis There is a trace amount of aortic regurgitation There is a moderate amount of tricuspid regurgitation There is moderate pulmonary hypertension by echo Right ventricular systolic pressure is estimated to be elevated at 50-60mmHg. The aortic root is not well visualized but is probably normal size. The inferior vena cava appeared normal and decreased < 50% with respiration (RAP 10-15 mmHg) Minimal pericardial effusion. MMode/2D Measurements & Calculations RVDd: 1.5 cm LVIDd: 5.1 cm FS: 17.5 % Ao root diam: 2.5 cm IVSd: 0.64 cm LVIDs: 4.2 cm EDV(Teich): 125.4 ml Ao root area: 4.8 cm2 LVPWd: 0.81 cm ESV(Teich): 80.0 ml LA dimension: 3.6 cm EF(Teich): 36.2 % Doppler Measurements & Calculations MV E max kalen: MV P1/2t max kalen: Ao V2 max: LV V1 max P.3 cm/sec 165.3 cm/sec 173.0 cm/sec 4.1 mmHg MV A max kalen: MV P1/2t: 83.7 msec Ao max PG: LV V1 max: 97.2 cm/sec MVA(P1/2t): 2.6 cm2 12.0 mmHg 100.7 cm/sec MV E/A: 1.4 MV dec slope: 578.2 cm/sec2 MV dec time: 0.15 sec PA V2 max: TR max kalen: MV P1/2t-pr_phl: 89.6 cm/sec 331.8 cm/sec 83.7 msec PA max P.2 mmHgTR max P.0 mmHg Left Ventricle The left ventricle is grossly normal size. There is normal left ventricular wall thickness. Left ventricular systolic function is borderline reduced. The Ejection Fraction estimate is 50-55%. Doppler measurements suggest pseudonormalized left ventricular relaxation, which is associated with grade II/IV or mild to moderate diastolic dysfunction. Wall motion cannot be accurately commented on, but no definite regional wall motion abnormalities noted. Right Ventricle The right ventricle is grossly normal size. There is normal right ventricular wall thickness. The right ventricular systolic function is normal. Atria The right atrium is normal in size. The left atrium is moderately dilated. Interarterial septum not well visualized and not well dopplered. Cannot comment on ASD/PFO presence. Mitral Valve The mitral valve leaflets are sclerotic and show some degree of functional abnormality. There is no mitral valve stenosis. There is a moderate to severe amount of mitral regurgitation. Aortic Valve The aortic valve is grossly normal. There is no aortic valve stenosis. There is a trace amount of aortic regurgitation. Tricuspid Valve The tricuspid valve is not well visualized, but is grossly normal. There is no tricuspid stenosis. There is a moderate amount of tricuspid regurgitation. There is moderate pulmonary hypertension by echo. Right ventricular systolic pressure is estimated to be elevated at 50-60mmHg. Pulmonic Valve The pulmonic valve is not well visualized. Great Vessels The aortic root is not well visualized but is probably normal size. The inferior vena cava appeared normal and decreased < 50% with respiration (RAP 10-15 mmHg). Effusions Minimal pericardial effusion. : MARIANO WASHINGTON > Caryn Anthony
--- NOTE | 2018-05-02 13:12 | Physician Advisory Note ---
Physician Advisor ProgressNote .: Pursuant to the plan for Kim Mcdermott, I have reviewed the medical record for this patient. Physician Advisor Statement: Please consider documenting, if you agree: 1. "Hypoxemia, suspect due to ____" ? (& state what is being done about this) 2. "[Chronic/Nqwwa-hy-oxthrwz] diastolic CHF", "mod-sev MR w/mod TR", "mod pulmonary hypertension" 3. Any clinical reason not to give presumptive tx for PE while awaiting CT-A findings (risks/concerns ...) 4. Was there a "now" dose of BP med given, to support dx of hypertensive emergency? What was the acute end-organ dysfunction felt to be caused by hypertensive emergency? - Or, by time of d/c, is dx of hypertensive emergency ruled out (" hypertensive urgency" instead)? STatus: 82yo Medicare pt w/ESRD, anemia of CKD, & HTN, in w/SOB/tachycardia/ tachypnea up to 50, persistent sx despite HD that day. Attg suspecting PE more so than acute diast CHF, given HD didn't help. Pt unable to lie flat for V/Q, unable to get CT-A 'til right before next HD ( which is 05/03), so attending knew at time of adm she would need at least 2 MNs in hospital for workup. However, intensity of service low so far: O2 only ordered in ED, Lasix is po 40mg daily, heparin is DVT prophylaxis dose. Not needing frequent prn IV hydralazine. All this sounds most appropriate for Obs status. This AM, showing hypoxemia as low as 89% on RA (but only once, at 04:49 - next sat 100% on RA). Please document ongoing clinical concerns / this pt's severity of illness & intensity of service, & reasons she is not clinically safe for d/c home later today on same po meds, with planned outpt HD again, as scheduled, tomorrow. Thanks! CK
--- NOTE | 2018-05-02 18:38 | PDOC CONSULTATION ---
Consultation Consult Date: 05/02/18 Attending physician:: DEEJAY RICE Consult reason:: epigastric pain, needs egd History of Present Illness Admission Date/PCP: 05/01/18 13:49 Robert SPRINGER MD History of Present Illness: BRIAN GUDINO is a 82 year old female patient admitted for HTN emergency, patient stabalized having CTA in the am patient has been having post prandial epigastric pain attending requesting EGD to rule out peptic ulcer disease chronic anemia due to reduced renal function patient going for dialysis tomorrow Past Medical History Cardiac Medical History: Reports: Hyperlipidema, Hypertension Denies: Coronary Artery Disease, Myocardial Infarction Pulmonary Medical History: Reports: Pneumonia - hx of as child Denies: Asthma, Bronchitis, Chronic Obstructive Pulmonary Disease (COPD) Neurological Medical History: Denies: Seizures Renal/ Medical History: Reports: End Stage Renal Disease GI Medical History: Reports: Diverticulitis Musculoskeltal Medical History: Denies: Arthritis Psychiatric Medical History: Hematology: Reports: Anemia, Bleeding Tendencies Past Surgical History Past Surgical History: Denies: Hysterectomy Social History Smoking Status: Never Smoker Frequency of Alcohol Use: None Hx Recreational Drug Use: No Drugs: None Hx Prescription Drug Abuse: No Family History Family History: Reviewed & Not Pertinent Parental Family History Reviewed: Yes Children Family History Reviewed: Unknown Sibling(s) Family History Reviewed.: Unknown Medication/Allergy Home Medications: Aspirin [Aspirin EC] 81 mg PO DAILY 05/01/18 Cinacalcet HCl [Sensipar 60 mg Tablet] 1 tab PO DAILY 05/01/18 Furosemide [Lasix 40 mg Tablet] 40 mg PO QAM 05/01/18 Allergies/Adverse Reactions: aloe vera [Aloe Vera] Allergy (Unknown, Verified 05/01/18 11:02) Swelling jalapeno peppers Allergy (Unknown, Uncoded 03/22/17 08:34) Swelling Review of Systems Constitutional: ABSENT: fever(s), headache(s), night sweats Eyes: ABSENT: visual disturbances Ears: ABSENT: hearing changes Nose, Mouth, and Throat: ABSENT: mouth pain, sore throat Cardiovascular: ABSENT: orthropnea, palpitations Respiratory: ABSENT: dyspnea, hemoptysis Gastrointestinal: PRESENT: abdominal pain, heartburn. ABSENT: melena Genitourinary: ABSENT: dysuria, hematuria Musculoskeletal: ABSENT: deformity, joint swelling Neurological: ABSENT: syncope, tingling, tremor(s), vertigo Endocrine: ABSENT: polydipsia, polyphagia, polyuria Hematologic/Lymphatic: ABSENT: easy bruising Physical Exam Vital Signs: Temp Pulse Resp BP Pulse Ox 99.3 F 127 H 16 179/86 H 100 05/02/18 15:49 05/02/18 15:49 05/02/18 15:49 05/02/18 15:49 05/02/18 15:49 Intake & Output 05/01/18 05/02/18 05/03/18 06:59 06:59 06:59 Intake Total 50 459 Output Total 0 300 Balance 50 159 Weight 45 kg General appearance: PRESENT: no acute distress, well-developed Head exam: PRESENT: atraumatic, normocephalic Eye exam: PRESENT: EOMI, PERRLA. ABSENT: scleral icterus Mouth exam: PRESENT: moist, neck supple Throat exam: ABSENT: tonsillar exudate, tonsillogmegaly Respiratory exam: PRESENT: symmetrical, unlabored. ABSENT: tachypnea, wheezes Cardiovascular exam: PRESENT: RRR, +S1, +S2 GI/Abdominal exam: PRESENT: soft. ABSENT: rebound, rigid, tenderness Neurological exam: PRESENT: alert, awake, oriented to time, CN II-XII grossly intact Focused psych exam: ABSENT: restlessness Skin exam: PRESENT: normal color. ABSENT: mottled, pallor, urticaria, vesicles Results Laboratory Results: 05/02/18 03:25 05/02/18 03:25 05/01/18 05/01/18 05/01/18 19:35 20:57 20:57 WBC RBC Hgb Hct MCV MCH MCHC RDW Plt Count Seg Neutrophils % Lymphocytes % Monocytes % Eosinophils % Basophils % Absolute Neutrophils Absolute Lymphocytes Absolute Monocytes Absolute Eosinophils Absolute Basophils Sodium Potassium Chloride Carbon Dioxide Anion Gap BUN Creatinine Est GFR ( Amer) Est GFR (Non-Af Amer) Glucose Calcium Phosphorus 3.9 Magnesium 2.3 Total Bilirubin 0.4 AST 24 ALT 23 Alkaline Phosphatase 1173 H Ammonia < 8.7 L Total Protein 6.7 Albumin 3.9 Amylase 188 H Lipase 196.8 TSH 1.14 Free T4 0.89 05/02/18 05/02/18 03:25 03:25 WBC 5.0 RBC 3.10 L Hgb 9.3 L Hct 28.9 L MCV 93 MCH 30.1 MCHC 32.3 RDW 18.6 H Plt Count 301 Seg Neutrophils % 65.4 Lymphocytes % 20.8 Monocytes % 11.3 Eosinophils % 1.4 Basophils % 1.1 Absolute Neutrophils 3.3 Absolute Lymphocytes 1.0 Absolute Monocytes 0.6 Absolute Eosinophils 0.1 Absolute Basophils 0.1 Sodium 144.1 Potassium 3.9 Chloride 101 Carbon Dioxide 28 Anion Gap 15 BUN 26 H Creatinine 3.46 H Est GFR ( Amer) 15 L Est GFR (Non-Af Amer) 13 L Glucose 99 Calcium 10.0 Phosphorus Magnesium Total Bilirubin AST ALT Alkaline Phosphatase Ammonia Total Protein Albumin Amylase Lipase TSH Free T4 05/01/18 05/01/18 05/01/18 19:35 19:35 19:35 Creatine Kinase 70 CK-MB (CK-2) 1.33 Troponin I 0.079 NT-Pro-B Natriuret Pep 32338 H 05/02/18 05/02/18 03:25 03:25 Creatine Kinase 81 CK-MB (CK-2) 1.38 Troponin I 0.072 NT-Pro-B Natriuret Pep Impressions: Chest X-Ray 05/01/18 11:18 IMPRESSION: Borderline cardiomegaly without pulmonary edema. Assessment & Plan - Diagnosis (1) Abdominal pain Plan: post prandial abdominal pain suspect for possible peptic ulcer disease will need EGD start on PPI for now Risks, benefits and alternatives are discussed with the patient in detail further recommendations to follow (2) Abnormal serum level of alkaline phosphatase Plan: with the rest of her LFT's being normal, ? if due to bone source would start with fractionation of the alk phos and may need skeletal survey (3) Anemia in chronic kidney disease Qualifiers: Chronic kidney disease stage: on chronic dialysis Qualified Code(s): N18.6 - End stage renal disease; D63.1 - Anemia in chronic kidney disease; Z99.2 - Dependence on renal dialysis Plan: due to probably ESRD, monitor for any signs of potential GI bleeding had EGD and colonoscopy in 2014,2015 and 2016 , all performed by Dr Reyes in consecutive years do not think that she would benefit from another colonoscopy she does have diverticulosis and the presumption here is that if there is any bleeding , there is a good chance that it would be from diverticulosis (4) Diverticulosis of both small and large intestine with bleeding Plan: no diverticulitis si noted - Time Time Spent: 50 to 70 Minutes
--- NOTE | 2018-05-02 21:03 | PDOC CONSULTATION ---
Consultation Consult Date: 05/02/18 Consult reason:: esrd History of Present Illness Admission Date/PCP: 05/01/18 13:49 Robert SPRINGER MD History of Present Illness: BRIAN GUDINO is a 82 year old female with past medical history of ESRD on HD, a-fib, and hypertension. She presented to the emergency room for evaluation of acute onset shortness of breath. The shortness of breath started yesterday morning prior to dialysis. There was no chest pain associated with it. The patient went to her dialysis treatment and was placed on a oxygen at treatment. In the Dialysis center the symptoms persisted she was then transferred to the emergency room. In the emergency room the blood pressure was elevated at over 200 systolic, the chest x-ray did not show any acute CHF picture. Labs done showed that initial cardiac enzymes were negative, EKG did not show any ST elevation to suggest acute GA. A CTA will be done tomorrow, prior to dialysis. Patient at the time of examination this morning was on oxygen via [place]. She denied SOB when using the oxygen. According to her when she removes the oxygen she becomes SOB. She denies chest pain, N/V/D/C. Past Medical History Cardiac Medical History: Reports: Hyperlipidemia, Hypertension-primary Denies: Coronary Artery Disease, Myocardial Infarction Pulmonary Medical History: Reports: Pneumonia - hx of as child Denies: Asthma, Bronchitis, Chronic Obstructive Pulmonary Disease (COPD) Neurological Medical History: Denies: Seizures Renal/ Medical History: Reports: Chronic Kidney Disease Stage V, End Stage Renal Disease Denies: Benign Prostatic Hyperplasia GI Medical History: Reports: Diverticulitis Musculoskeltal Medical History: Denies: Arthritis Psychiatric Medical History: Past Surgical History Past Surgical History: Denies: Hysterectomy Social History Smoking Status: Never Smoker Frequency of Alcohol Use: None Hx Recreational Drug Use: No Drugs: None Hx Prescription Drug Abuse: No Family History Parental Family History Reviewed: No Children Family History Reviewed: Unknown Sibling(s) Family History Reviewed.: Unknown Medication/Allergy Home Medications: Aspirin [Aspirin EC] 81 mg PO DAILY 05/01/18 Cinacalcet HCl [Sensipar 60 mg Tablet] 1 tab PO DAILY 05/01/18 Furosemide [Lasix 40 mg Tablet] 40 mg PO QAM 05/01/18 Allergies/Adverse Reactions: aloe vera [Aloe Vera] Allergy (Unknown, Verified 05/01/18 11:02) Swelling jalapeno peppers Allergy (Unknown, Uncoded 03/22/17 08:34) Swelling Review of Systems Constitutional: ABSENT: chills, fever(s), headache(s) Cardiovascular: PRESENT: dyspnea on exertion. ABSENT: chest pain, edema, orthropnea, palpitations Respiratory: PRESENT: dyspnea. ABSENT: cough, sputum Gastrointestinal: ABSENT: abdominal pain, nausea, vomiting Genitourinary: ABSENT: dysuria Neurological: PRESENT: memory loss - -chronic. ABSENT: dizziness, focal weakness, numbness, weakness Psychiatric: PRESENT: anxiety Physical Exam Vital Signs: Temp Pulse Resp BP Pulse Ox 99.3 F 127 H 16 179/86 H 100 05/02/18 15:49 05/02/18 15:49 05/02/18 15:49 05/02/18 15:49 05/02/18 15:49 Intake & Output 05/01/18 05/02/18 05/03/18 06:59 06:59 06:59 Intake Total 50 459 Output Total 0 300 Balance 50 159 Weight 45 kg General appearance: PRESENT: no acute distress, well-developed, well-nourished Mouth exam: PRESENT: moist, neck supple Neck exam: PRESENT: full ROM. ABSENT: JVD, tracheal deviation Respiratory exam: PRESENT: clear to auscultation vinicius. ABSENT: crackles, rales, rhonchi, wheezes Cardiovascular exam: PRESENT: irregular rhythm, +S1, +S2. ABSENT: RRR GI/Abdominal exam: PRESENT: soft. ABSENT: tenderness Extremities exam: ABSENT: pedal edema, tenderness, +1 edema, +2 edema Musculoskeletal exam: PRESENT: normal inspection. ABSENT: tenderness Neurological exam: PRESENT: alert, awake, oriented to person, oriented to place , oriented to time, oriented to situation Psychiatric exam: PRESENT: anxious. ABSENT: depressed Skin exam: PRESENT: dry, intact, warm Results Laboratory Results: 05/02/18 03:25 05/02/18 03:25 05/01/18 05/01/18 05/01/18 19:35 20:57 20:57 WBC RBC Hgb Hct MCV MCH MCHC RDW Plt Count Seg Neutrophils % Lymphocytes % Monocytes % Eosinophils % Basophils % Absolute Neutrophils Absolute Lymphocytes Absolute Monocytes Absolute Eosinophils Absolute Basophils Sodium Potassium Chloride Carbon Dioxide Anion Gap BUN Creatinine Est GFR ( Amer) Est GFR (Non-Af Amer) Glucose Calcium Phosphorus 3.9 Magnesium 2.3 Total Bilirubin 0.4 AST 24 ALT 23 Alkaline Phosphatase 1173 H Ammonia < 8.7 L Total Protein 6.7 Albumin 3.9 Amylase 188 H Lipase 196.8 TSH 1.14 Free T4 0.89 05/02/18 05/02/18 03:25 03:25 WBC 5.0 RBC 3.10 L Hgb 9.3 L Hct 28.9 L MCV 93 MCH 30.1 MCHC 32.3 RDW 18.6 H Plt Count 301 Seg Neutrophils % 65.4 Lymphocytes % 20.8 Monocytes % 11.3 Eosinophils % 1.4 Basophils % 1.1 Absolute Neutrophils 3.3 Absolute Lymphocytes 1.0 Absolute Monocytes 0.6 Absolute Eosinophils 0.1 Absolute Basophils 0.1 Sodium 144.1 Potassium 3.9 Chloride 101 Carbon Dioxide 28 Anion Gap 15 BUN 26 H Creatinine 3.46 H Est GFR ( Amer) 15 L Est GFR (Non-Af Amer) 13 L Glucose 99 Calcium 10.0 Phosphorus Magnesium Total Bilirubin AST ALT Alkaline Phosphatase Ammonia Total Protein Albumin Amylase Lipase TSH Free T4 05/01/18 05/01/18 05/01/18 19:35 19:35 19:35 Creatine Kinase 70 CK-MB (CK-2) 1.33 Troponin I 0.079 NT-Pro-B Natriuret Pep [id number] H 05/02/18 05/02/18 03:25 03:25 Creatine Kinase 81 CK-MB (CK-2) 1.38 Troponin I 0.072 NT-Pro-B Natriuret Pep Impressions: Chest X-Ray 05/01/18 11:18 IMPRESSION: Borderline cardiomegaly without pulmonary edema. Assessment & Plan - Diagnosis (1) Elevated troponin Plan: per primary, she will have a chest CTA will be performed tomorrow (2) Shortness of breath Plan: A CTA of chest will be preformed. No current signs of CHF causing the SOB. (3) End stage renal disease Is this a current diagnosis for this admission?: Yes Plan: Will look to arrange for dialysis tomorrow, no current indication for LEARNING AND DEVELOPMENT COORDINATOR today (4) Hypertensive emergency Is this a current diagnosis for this admission?: Yes Plan: According to the patient and her daughter home blood pressure is 130s to 140s systolic. Will look to see if bp can be better controlled in the hospital setting. (5) Abnormal serum level of alkaline phosphatase Plan: elevated due to a persistently high PTH despite being given medications. The family did not a parathyroidectomy due to her age. (6) Anemia in chronic kidney disease Qualifiers: Chronic kidney disease stage: on chronic dialysis Qualified Code(s): N18.6 - End stage renal disease; D63.1 - Anemia in chronic kidney disease; Z99.2 - Dependence on renal dialysis Plan: will look to give more epogen with dialysis tomorrow
--- NOTE | 2018-05-02 21:51 | PDOC PROGRESS REPORT ---
Subjective Progress Note for:: 05/02/18 Subjective:: She complains of epigastric pain after food ingestion, a GI consult requested for EGD. The pretest probability for pulmonary embolism in this patient is intermediate to low, the plan is to obtain CTA chest tomorrow morning before dialysis, yesterday she could not get the VQ scan done because she could not lay flat in bed Reason For Visit: HYPERTENSIVE EMERGENCY,SOB PE,DIASTOLIC HEART Physical Exam Vital Signs: Temp Pulse Resp BP Pulse Ox 99.3 F 127 H 16 179/86 H 100 05/02/18 15:49 05/02/18 15:49 05/02/18 15:49 05/02/18 15:49 05/02/18 15:49 Intake & Output 05/01/18 05/02/18 05/03/18 06:59 06:59 06:59 Intake Total 50 459 Output Total 0 300 Balance 50 159 Weight 45 kg General appearance: PRESENT: no acute distress Eye exam: PRESENT: PERRLA Respiratory exam: PRESENT: clear to auscultation vinicius Cardiovascular exam: PRESENT: +S1, +S2 GI/Abdominal exam: PRESENT: soft Results Laboratory Results: 05/02/18 03:25 05/02/18 03:25 05/02/18 05/02/18 03:25 03:25 WBC 5.0 RBC 3.10 L Hgb 9.3 L Hct 28.9 L MCV 93 MCH 30.1 MCHC 32.3 RDW 18.6 H Plt Count 301 Seg Neutrophils % 65.4 Lymphocytes % 20.8 Monocytes % 11.3 Eosinophils % 1.4 Basophils % 1.1 Absolute Neutrophils 3.3 Absolute Lymphocytes 1.0 Absolute Monocytes 0.6 Absolute Eosinophils 0.1 Absolute Basophils 0.1 Sodium 144.1 Potassium 3.9 Chloride 101 Carbon Dioxide 28 Anion Gap 15 BUN 26 H Creatinine 3.46 H Est GFR ( Amer) 15 L Est GFR (Non-Af Amer) 13 L Glucose 99 Calcium 10.0 05/01/18 05/01/18 05/01/18 19:35 19:35 19:35 Creatine Kinase 70 CK-MB (CK-2) 1.33 Troponin I 0.079 NT-Pro-B Natriuret Pep [id number] H 05/02/18 05/02/18 03:25 03:25 Creatine Kinase 81 CK-MB (CK-2) 1.38 Troponin I 0.072 NT-Pro-B Natriuret Pep Impressions: Chest X-Ray 05/01/18 11:18 IMPRESSION: Borderline cardiomegaly without pulmonary edema. Assessment & Plan - Diagnosis (1) Hypertensive emergency Is this a current diagnosis for this admission?: Yes (2) Shortness of breath Is this a current diagnosis for this admission?: Yes (3) End stage renal disease Is this a current diagnosis for this admission?: Yes (4) Epigastric pain Is this a current diagnosis for this admission?: Yes Plan: GI consultation for EGD
[2018-05-03] MEDS ORDERED: EPOETIN ALFA INJ 20000 UNIT/1 ML VIAL (RENAL) IV PRN (05:00)
[2018-05-03] MEDS: HEPARIN SOD (PORCINE) 5,000 UNIT/ML 1 ML SYRINGE SUBCUT SCH ×2 (05:43→15:42)
[2018-05-03 06:35] LABS: ABSOLUTE LYMPHOCYTES (AUTO) 1.1 10^3/uL (0.5-4.7); ABSOLUTE MONOCYTES (AUTO) 0.5 10^3/uL (0.1-1.4); ABSOLUTE NEUT (AUTO) 3.2 10^3/uL (1.7-8.2); BASOPHILS % (AUTO) 0.4 % (0-2); EOSINOPHILS % (AUTO) 0.7 % (0-6); HEMATOCRIT 32.2 % (36.0-47.0); HEMOGLOBIN 10.4 g/dL (12.0-15.5); LYMPHOCYTES % (AUTO) 22.4 % (13-45); MEAN CORPUSCULAR HEMOGLOBIN 30.2 pg (27.0-33.4); MEAN CORPUSCULAR HGB CONC 32.2 g/dL (32.0-36.0); MEAN CORPUSCULAR VOLUME 94 fl (80-97); PLATELET COUNT 326 10^3/uL (150-450); RED BLOOD COUNT 3.44 10^6/uL (3.72-5.28); RED CELL DISTRIBUTION WIDTH 18.7 % (11.5-14.0); SEGMENTED NEUTROPHILS % (AUTO) 66.5 % (42-78); TOTAL CELLS COUNTED % (AUTO) 100 %; WHITE BLOOD COUNT 4.8 10^3/uL (4.0-10.5)
[2018-05-03 06:56] LABS: ANION GAP 18 (5-19); BLOOD UREA NITROGEN 35 mg/dL (7-20); CALCIUM 10.7 mg/dL (8.4-10.2); CARBON DIOXIDE 26 mmol/L (22-30); CHLORIDE 100 mmol/L (98-107); GLUCOSE 90 mg/dL (75-110); SODIUM 143.8 mmol/L (137-145)
[2018-05-03] MEDS ORDERED: NALOXONE HCL INJ/PF 0.4 MG/1 ML SDV ONE (10:40)
[2018-05-03] MEDS ORDERED: FLUMAZENIL INJ 0.5 MG/5 ML VIAL ONE (10:40)
[2018-05-03] MEDS ORDERED: GLUCAGON,HUMAN RECOMB 1 MG INJ ONE (10:40)
[2018-05-03] MEDS ORDERED: EPINEPHRINE INJ 1 MG/10 ML DISP.SYRIN ONE (10:40)
[2018-05-03] MEDS ORDERED: FENTANYL CITRATE INJ/PF 100 MCG/2 ML AMPUL ONE (10:40)
[2018-05-03] MEDS ORDERED: ONDANSETRON HCL INJ/PF 4 MG/2 ML SDV ONE (10:40)
[2018-05-03] MEDS: MIDAZOLAM 2 MG/2 ML INJ ONE ×3 (11:00→11:04)
--- NOTE | 2018-05-03 11:21 | Operative Report ---
Operative Report DATE OF SURGERY: 05/03/18 Operative Report: The risks benefits and alternatives of the procedure explained to the patient in detail and informed consent is obtained.A GIF Olympus video scope was inserted into the patient's mouth and hypopharynx, the esophagus is identified intubated and insufflated, the scope was then advanced through the esophagus stomach and duodenum, retroflexion maneuver is done ,the esophagus stomach and first and second portions of the duodenum examined PREOPERATIVE DIAGNOSIS: Postprandial abdominal pain POSTOPERATIVE DIAGNOSIS: Gastritis status post biopsy OPERATION: EGD with biopsy SURGEON: DEEJAY RICE ANESTHESIA: Moderate Sedation - 3 mg of Versed. Conscious sedation monitoring time 30 minutes. TISSUE REMOVED OR ALTERED: As noted above. COMPLICATIONS: None. ESTIMATED BLOOD LOSS: None. INTRAOPERATIVE FINDINGS: As noted above. PROCEDURE: Patient tolerated the procedure well. No immediate postprocedure complications are noted. Patient sent back to her room in good condition. Resume previous medications Resume previous activity level Diet clear advance as tolerated Dialysis later on today From a GI standpoint can be discharged She has seen Dr. Reyes for the past 3 years and can follow-up with him as an outpatient
--- NOTE | 2018-05-03 15:28 | PDOC DISCHARGE SUMMARY ---
General - Admit/Disc Date/PCP Admission Date/Primary Care Provider: 05/01/18 13:49 K Soraya SPRINGER MD Discharge Date: 05/03/18 - Discharge Diagnosis (1) Severe mitral valve regurgitation Is this a current diagnosis for this admission?: Yes (2) Hypertensive emergency Is this a current diagnosis for this admission?: Yes (3) End stage renal disease Is this a current diagnosis for this admission?: Yes (4) Epigastric pain Is this a current diagnosis for this admission?: Yes (5) Pulmonary hypertension Is this a current diagnosis for this admission?: Yes (6) Chronic diastolic heart failure Is this a current diagnosis for this admission?: Yes - Additional Information Resuscitation Status: Full Code Prescriptions: Furosemide [Lasix 80 mg Tablet] 80 mg PO DAILY #90 tablet Home Medications: Aspirin [Aspirin EC] 81 mg PO DAILY 05/01/18 Cinacalcet HCl [Sensipar 60 mg Tablet] 1 tab PO DAILY 05/01/18 Furosemide [Lasix 80 mg Tablet] 80 mg PO DAILY #90 tablet 05/03/18 History of Present Illness History of Present Illness: BRIAN GUDINO is a 82 year old female, She presented to the emergency room for evaluation of acute onset shortness of breath, there was no chest pain, she related this symptom to her daughter this morning, the daughter was going to bring her to the emergency room earlier this morning but she opted to go to dialysis stating that she will receive oxygen in dialysis center.In the Dialysis center the symptoms persisted she was then transferred to the emergency room. In the emergency room the blood pressure was elevated at over 200 systolic, the chest x-ray did not show any acute CHF picture, the initial cardiac enzymes were negative EKG did not show any ST elevation to suggest acute FL. A VQ scan was ordered this afternoon but patient cannot lay flat in bed CTA of the chest cannot be done at this time because she is on hemodialysis , she was dialyzed today, the next dialysis day is on Tuesday hopefully can ge ,t a CTA done tomorrow before dialysis. Hospital Course Hospital Course: Patient was admitted for the management of shortness of breath in the setting of hypertensive emergency, she also is end-stage renal disease on hemodialysis. A 2D echo was done, it demonstrated ejection fraction left ventricle 50-55% Doppler measurement suggests pseudonormalization of left ventricle consistent with grade 2 diastolic heart failure there is moderate to severe mitral valve regurgitation, dilated left atrium moderate tricuspid regurgitation with pulmonary hypertension by echo. Attempt was made to do CTA chest to rule out PE but the IV access was a challenge for this patient, there was enough explanation for the shortness of breath on the basis of severe mitral valve regurgitation, pulmonary hypertension probably secondary to mitral valve regurgitation. I gave family option of referral to tertiary care to be considered for mitral valve repair/replacement not particularly sure she is a good candidate for this procedure family will think about it, I also gave the option of having a hospital bed at home to help with sleeping, she was given position for diuretic furosemide family says she still make urine Physical Exam Vital Signs: Temp Pulse Resp BP Pulse Ox 98.5 F 55 L 18 145/85 H 100 05/03/18 11:55 05/03/18 11:55 05/03/18 11:55 05/03/18 11:55 05/03/18 11:55 Intake & Output 05/02/18 05/03/18 05/04/18 06:59 06:59 06:59 Intake Total 50 577 387 Output Total 0 300 Balance 50 277 387 Weight 45 kg 45.2 kg General appearance: PRESENT: no acute distress Head exam: PRESENT: atraumatic, normocephalic Eye exam: PRESENT: conjunctiva pink, EOMI, PERRLA Ear exam: PRESENT: normal external ear exam Mouth exam: PRESENT: moist, tongue midline Neck exam: PRESENT: full ROM Respiratory exam: PRESENT: clear to auscultation vinicius Cardiovascular exam: PRESENT: RRR, +S1, +S2 Pulses: PRESENT: normal dorsalis pedis pul, +2 pedal pulses bilateral Vascular exam: PRESENT: normal capillary refill GI/Abdominal exam: PRESENT: normal bowel sounds, soft Rectal exam: PRESENT: deferred Neurological exam: PRESENT: alert, awake, oriented to person, oriented to place , oriented to time, oriented to situation, CN II-XII grossly intact Psychiatric exam: PRESENT: appropriate affect, normal mood Skin exam: PRESENT: dry, intact, warm Results Laboratory Results: 05/03/18 05:35 05/03/18 05:35 05/03/18 05/03/18 05:35 05:35 WBC 4.8 RBC 3.44 L Hgb 10.4 L Hct 32.2 L MCV 94 MCH 30.2 MCHC 32.2 RDW 18.7 H Plt Count 326 Seg Neutrophils % 66.5 Lymphocytes % 22.4 Monocytes % 10.0 Eosinophils % 0.7 Basophils % 0.4 Absolute Neutrophils 3.2 Absolute Lymphocytes 1.1 Absolute Monocytes 0.5 Absolute Eosinophils 0.0 Absolute Basophils 0.0 Sodium 143.8 Potassium 4.0 Chloride 100 Carbon Dioxide 26 Anion Gap 18 BUN 35 H Creatinine 5.05 H Est GFR ( Amer) 10 L Est GFR (Non-Af Amer) 8 L Glucose 90 Calcium 10.7 H 05/01/18 05/01/18 05/01/18 19:35 19:35 19:35 Creatine Kinase 70 CK-MB (CK-2) 1.33 Troponin I 0.079 NT-Pro-B Natriuret Pep [id number] H 05/02/18 05/02/18 03:25 03:25 Creatine Kinase 81 CK-MB (CK-2) 1.38 Troponin I 0.072 NT-Pro-B Natriuret Pep Impressions: Chest X-Ray 05/01/18 11:18 IMPRESSION: Borderline cardiomegaly without pulmonary edema. Qualifiers - * PATIENT BEING DISCHARGED WITH ANY OF THE FOLLOWING DIAGNOSIS: No
[2018-05-03] MEDS ORDERED: FUROSEMIDE 80 MG TABLET PO SCH (15:30)
[2018-05-03] MEDS: FUROSEMIDE 40 MG TABLET PO SCH (15:43)
--- NOTE | 2018-05-03 16:03 | PDOC PROGRESS REPORT ---
Subjective Progress Note for:: 05/03/18 Reason For Visit: Patient doing well today while she is being seen on dialysis. She is undergoing dialysis without any issues. No complaints of any chest pain or shortness of breath or headaches. Labs and medications were reviewed with the patient. Dialysis orders were reviewed with the treating dialysis nurse. Physical Exam Vital Signs: Temp Pulse Resp BP Pulse Ox 98.5 F 105 H 18 145/85 H 100 05/03/18 11:55 05/03/18 14:00 05/03/18 11:55 05/03/18 11:55 05/03/18 11:55 Intake & Output 05/02/18 05/03/18 05/04/18 06:59 06:59 06:59 Intake Total 50 577 387 Output Total 0 300 Balance 50 277 387 Weight 45 kg 45.2 kg General appearance: PRESENT: no acute distress Respiratory exam: PRESENT: clear to auscultation vinicius. ABSENT: crackles Cardiovascular exam: PRESENT: irregular rhythm, +S1, +S2. ABSENT: RRR GI/Abdominal exam: PRESENT: soft. ABSENT: organomegaly, tenderness Extremities exam: ABSENT: pedal edema Neurological exam: PRESENT: alert, awake, oriented to person, oriented to place Psychiatric exam: PRESENT: anxious Skin exam: ABSENT: erythema, rash Results Laboratory Results: 05/03/18 05:35 05/03/18 05:35 05/03/18 05/03/18 05:35 05:35 WBC 4.8 RBC 3.44 L Hgb 10.4 L Hct 32.2 L MCV 94 MCH 30.2 MCHC 32.2 RDW 18.7 H Plt Count 326 Seg Neutrophils % 66.5 Lymphocytes % 22.4 Monocytes % 10.0 Eosinophils % 0.7 Basophils % 0.4 Absolute Neutrophils 3.2 Absolute Lymphocytes 1.1 Absolute Monocytes 0.5 Absolute Eosinophils 0.0 Absolute Basophils 0.0 Sodium 143.8 Potassium 4.0 Chloride 100 Carbon Dioxide 26 Anion Gap 18 BUN 35 H Creatinine 5.05 H Est GFR ( Amer) 10 L Est GFR (Non-Af Amer) 8 L Glucose 90 Calcium 10.7 H 05/01/18 05/01/18 05/01/18 19:35 19:35 19:35 Creatine Kinase 70 CK-MB (CK-2) 1.33 Troponin I 0.079 NT-Pro-B Natriuret Pep [id number] H 05/02/18 05/02/18 03:25 03:25 Creatine Kinase 81 CK-MB (CK-2) 1.38 Troponin I 0.072 NT-Pro-B Natriuret Pep Impressions: Chest X-Ray 05/01/18 11:18 IMPRESSION: Borderline cardiomegaly without pulmonary edema. Assessment & Plan - Diagnosis (1) End-stage renal disease on hemodialysis Plan: Patient currently undergoing dialysis without any issues. Is being supervised to ensure safe and smooth procedure. Vital signs are stable. Plan to remove between 2 and 3 L as tolerated. Anemia stable. (2) Hypertension Qualifiers: Hypertension type: secondary to other renal disorders Qualified Code(s): I15.1 - Hypertension secondary to other renal disorders Plan: Relatively controlled. She gets very anxious with doctor's advice and hospitalist. (3) Anemia in chronic kidney disease Qualifiers: Chronic kidney disease stage: on chronic dialysis Qualified Code(s): N18.6 - End stage renal disease; D63.1 - Anemia in chronic kidney disease; Z99.2 - Dependence on renal dialysis Plan: Stable. No indication for erythropoietin. Monitor. (4) Abdominal pain Plan: She has had an EGD yesterday which showed gastritis. On appropriate medications. Currently feeling better. Monitor. (5) Hypertensive emergency Is this a current diagnosis for this admission?: Yes Plan: Currently resolved. Monitor.
[2018-05-03 16:53] VITALS: BP 178/68
== END 2018-05-03 18:11 | disposition home or self-care (01) | DRG 304 ==
LOC: ER 11:01 → OBSVTOIN 13:49 → EH 13:49 → INTOOBSV 13:49 → 3S 17:59 → OBSVTOIN 05-03 14:40
PROVIDERS: ADMIT Internal Medicine; ATTEND Internal Medicine
PROC: 5A1D70Z Performance of Urinary Filtration, Intermittent, Less than 6 Hours Per Day (ICD-10-PCS; 2018-05-03)
PROC: 0DB68ZX Excision of Stomach, Via Natural or Artificial Opening Endoscopic, Diagnostic (ICD-10-PCS; principal; 2018-05-03 11:00)
DX: I16.1 Hypertensive emergency (principal); N18.6 End stage renal disease; K57.51 Diverticulosis of both small and large intestine without perforation or abscess with bleeding; I50.32 Chronic diastolic (congestive) heart failure; E11.22 Type 2 diabetes mellitus with diabetic chronic kidney disease; I27.20 Pulmonary hypertension, unspecified; I13.2 Hypertensive heart and chronic kidney disease with heart failure and with stage 5 chronic kidney disease, or end stage renal disease; I08.1 Rheumatic disorders of both mitral and tricuspid valves; E78.00 Pure hypercholesterolemia, unspecified; F41.9 Anxiety disorder, unspecified; D63.1 Anemia in chronic kidney disease; K29.70 Gastritis, unspecified, without bleeding; I49.3 Ventricular premature depolarization; I49.1 Atrial premature depolarization; R00.0 Tachycardia, unspecified; Z79.899 Other long term (current) drug therapy; Z91.018 Allergy to other foods; Z99.2 Dependence on renal dialysis
CPT/HCPCS: 36415; 43239; 71045; 80048; 80053; 80076; 82140; 82150; 82550; 82553; 83036; 83690; 83735; 83880; 84100; 84439; 84443; 84484; 85025; 85610; 85730; 87040; 88305; 88342; 93005; 93010; 93306; 99285; G0378; J0171; J0360; J1610; J1644; J2250; J2310; J2405; J3010; J3490

== ENCOUNTER → 2018-11-28 | Outpatient (CLI) | payer MEDICARE ==
--- NOTE | 2018-11-28 14:40 | RADIOLOGY REPORT (SQ) ---
EXAM DESCRIPTION: ARTERIAL LOWER EXTREM UNILAT COMPLETED DATE/TIME: 11/28/2018 1:39 pm REASON FOR STUDY: LT FOOT ULCER I70.245 ATHSCL AUGUSTINE ARTERIES OF LEFT LEG W ULCERATION OTH COMPARISON: None. TECHNIQUE: Dynamic and static saeed scale and color images acquired of the left lower extremity arter ies. Additional selected spectral images recorded. LIMITATIONS: None. FINDINGS: LEFT LEG: ABIS: Unable to obtain, trickle flow in the dorsalis pedis artery. INFLOW ARTERIES: Triphasic waveform in the common femoral artery with normal velocity suggests agains t inflow disease COMMON FEMORAL ARTERY:Multiphasic waveforms. Normal, no velocity elevation to suggest focal stenosis. Normal color Doppler evaluation. No aneurysm. PROFUNDA FEMORAL ARTERY: Triphasic waveforms with mildly elevated velocities along the profunda femo ral artery. No high-grade stenosis SUPERFICIAL FEMORAL ARTERY: Diffuse disease throughout the superficial femoral artery with atheroscl erotic calcification. Focal areas of shadowing of the vessel lumen. Multiphasic waveforms with norm al velocities. POPLITEAL ARTERY:Diffuse atherosclerotic disease throughout the popliteal artery with calcified vesse l. Monophasic waveform with normal velocities but increased diastolic flow. PATENT TIBIOPERONEAL TRUNK AND 3 VESSEL RUNOFF: The posterior tibial artery is occluded throughout th e left calf. The anterior tibial artery is occluded along its mid and distal 3rd with monophasic óscar w proximally. The peroneal artery provides runoff to the foot through collaterals to the dorsalis pe dis artery. Throughout the peroneal artery in the left calf there is monophasic flow. TBI: Unable to perform OTHER: Trickle flow in the dorsalis pedis artery IMPRESSION: Moderate atherosclerotic irregularity throughout the superficial femoral and popliteal a rtery without high-grade stenosis. 1 vessel runoff in the left calf via the peroneal artery with collaterals filling the dorsalis pedis artery. COMMENT: [facility] NORMAL: Greater than 1.0 MINIMAL DISEASE: 0.9 to 1.0 CLAUDICATION: 0.5 to 0.9 SEVERE ARTERIAL DISEASE: Less than 0.5 [facility] NORMAL: Greater than 1.0 (1.2 If Heavy Calcifications) NORMAL TO MILD ISCHEMIA: 0.8 to 1.0 MODERATE ISCHEMIA: 0.4 to 0.8 SEVERE ISCHEMIA: Less than 0.4 TECHNICAL DOCUMENTATION: JOB ID: [id number]- All Rights Reserved Reading location - IP/workstation name: [email or web address]
== END ==
LOC: SP 10:57
PROVIDERS: ATTEND Internal Medicine
DX: I70.245 Atherosclerosis of native arteries of left leg with ulceration of other part of foot (principal)
CPT/HCPCS: 93926

== ENCOUNTER 2018-12-12 09:51 | Day surgery (SDC) | payer MEDICARE ==
[~2018-12-12 09:51] MED LIST changes: -OXYCODONE-ACETAMINOPHEN 5-325 MG TABLET PO PRN
[2018-12-12] MEDS ORDERED: OXYCODONE-ACETAMINOPHEN 5-325 MG TABLET ONE (10:09)
[2018-12-12] MEDS ORDERED: DIAZEPAM 5 MG TABLET ONE (10:10)
[2018-12-12 11:05] LABS: HEMOGLOBIN 8.8 g/dL (12.0-15.5); MEAN CORPUSCULAR HEMOGLOBIN 31.2 pg (27.0-33.4); MEAN CORPUSCULAR HGB CONC 32.5 g/dL (32.0-36.0); MEAN CORPUSCULAR VOLUME 96 fl (80-97); PLATELET COUNT 285 10^3/uL (150-450); RED BLOOD COUNT 2.81 10^6/uL (3.72-5.28); RED CELL DISTRIBUTION WIDTH 19.2 % (11.5-14.0); WHITE BLOOD COUNT 3.8 10^3/uL (4.0-10.5)
[2018-12-12 11:27] LABS: ANION GAP 12 (5-19); BLOOD UREA NITROGEN 22 mg/dL (7-20); CALCIUM 8.4 mg/dL (8.4-10.2); CARBON DIOXIDE 27 mmol/L (22-30); CHLORIDE 101 mmol/L (98-107); GLUCOSE 93 mg/dL (75-110); SODIUM 140.3 mmol/L (137-145)
[2018-12-12] MEDS ORDERED: LIDOCAINE 0.5% INJ-PF (5 MG/ML) 50 ML SDV ONE (12:02)
[2018-12-12] MEDS ORDERED: FENTANYL CITRATE INJ/PF 100 MCG/2 ML AMPUL ONE (12:03)
[2018-12-12] MEDS ORDERED: HEPARIN SOD (PORCINE) 5,000 UNIT/ML 1 ML SYRINGE ONE (12:03)
[2018-12-12] MEDS ORDERED: MIDAZOLAM 2 MG/2 ML INJ ONE (12:03)
--- NOTE | 2018-12-12 15:15 | PDOC H&P ---
General Chief Complaint: Malfunctioning AV fistula, right arm transposed basilic. Decreased flow has been noted. - Diagnosis (1) Dialysis AV fistula malfunction Is this a Current Diagnosis?: Yes (2) ESRD (end stage renal disease) Is this a Current Diagnosis?: Yes (3) Hypertension Is this a Current Diagnosis?: Yes (4) Pulmonary hypertension Is this a Current Diagnosis?: Yes (5) HX: breast cancer Is this a Current Diagnosis?: Yes - Current Medications/Allergies Home Medications: Aspirin [Aspirin EC] 81 mg PO DAILY 05/01/18 Cinacalcet HCl [Sensipar 60 mg Tablet] 1 tab PO DAILY 05/01/18 Allergies/Adverse Reactions: aloe vera [Aloe Vera] Allergy (Unknown, Verified 05/01/18 11:02) Swelling jalapeno peppers Allergy (Unknown, Uncoded 03/22/17 08:34) Swelling Past Medical History Cardiac Medical History: Reports: Hyperlipidema, Hypertension Denies: Coronary Artery Disease, Myocardial Infarction Pulmonary Medical History: Reports: Pneumonia - hx of Denies: Asthma, Bronchitis, Chronic Obstructive Pulmonary Disease (COPD) Neurological Medical History: Denies: Seizures Renal/ Medical History: Reports: End Stage Renal Disease GI Medical History: Reports: Diverticulitis Musculoskeltal Medical History: Denies: Arthritis Psychiatric Medical History: Hematology: Reports: Bleeding Tendencies Denies: Anemia Past Surgical History Past Surgical History: Denies: Hysterectomy Family History Family History: Reviewed & Not Pertinent Parental Family History Reviewed: No Children Family History Reviewed: No Sibling(s) Family History Reviewed.: No Social History Smoking Status: Never Smoker Frequency of Alcohol Use: None Hx Recreational Drug Use: No Drugs: None Hx Prescription Drug Abuse: No Physical Exam Vital Signs: Temp Pulse Resp BP Pulse Ox 99.2 F 89 18 135/76 H 96 12/12/18 11:10 12/12/18 11:10 12/12/18 11:10 12/12/18 11:10 12/12/18 11:10 Intake & Output 12/11/18 12/12/18 12/13/18 06:59 06:59 06:59 Weight 52.163 kg Additional comments: Constitutional: Well-developed well-nourished -[place]izen [place] lady. No apparent acute distress. Eyes: Mucous membranes pink and moist, pupils equal and reactive to light. Conjunctiva normal. Cornea normal. Cardiac: Heart sounds normal. Respiratory: Normal respiratory effort. Respiratory: breath sounds are present bilat Psychiatric: Judgment, memory, insight seem normal. Mood is pleasant and appropriate. Extremities: Upper extremities show normal range of movement. Pulses present noted to the radial arteries. Capillary refill normal. No cyanosis noted. No muscle wasting noted. Right-sided transposed basilic vein fistula. Reasonably sized but somewhat soft suggesting inflow compromise. Impression/Plan Plan: In this patient with AV fistula malfunction, angioplasty is contemplated. Preceded by diagnostic angiogram. The procedure, its risks, benefits, expected outcome and alternatives are familiar to the patient. She wishes to proceed.
--- NOTE | 2018-12-12 15:19 | Discharge Summary ---
Discharge Summary (SDC) - Discharge Final Diagnosis: #1 malfunctioning AV fistula, right transposed basilic. 2. End-stage renal disease on hemodialysis. 3. History of breast cancer. 4. Pulmonary hypertension. 5. Hypertension. Date of Surgery: 12/12/18 Condition: Fair Treatment or Instructions: Discharge home [after recovery per ASU criteria]. Diet , [renal],as tolerated, when fully awake advance as tolerated. Activities within moderation encouraged. Follow up in my office by appointment in about 1 month. Call for appointment. Leave wounds [covered], [keep clean and dry, until hemodialysis. Meds per med rec. May shower [in 48 hrs], [try to keep operated area as dry as possible]. Referrals: MARIANO WASHINGTON MD [Primary Care Provider] - Discharge Diet: Other (Comments) - Renal. Respiratory Treatments at Home: Deep Breathing/Coughing Discharge Activity: Activity As Tolerated Report the Following to Your Physician Immediately: Shortness of Breath, Unusual Bleeding
[2018-12-12 15:56] VITALS: BP 166/62
--- NOTE | 2018-12-13 09:35 | RADIOLOGY REPORT (SQ) ---
EXAM DESCRIPTION: FISTULAGRAM W/PLASTY COMPLETED DATE/TIME: 12/12/2018 3:09 pm REASON FOR STUDY: T82.858A T82.858A STENOSIS OF OTHER VASCULAR PROSTH DEV/GRFT, INIT COMPARISON: None. FLUOROSCOPY TIME: 0.9 minutes 91 images saved to PACS. TECHNIQUE: Intra-operative images acquired during surgical procedure to evaluate progress. NUMBER OF IMAGES: 91 LIMITATIONS: None. FINDINGS: Arteriography and angioplasty of upper extremity dialysis graft. IMPRESSION: IMAGE(S) OBTAINED DURING PROCEDURE. COMMENT: Quality ID 145: Final reports for procedures using fluoroscopy that document radiation exp osure indices, or exposure time and number of fluorographic images (if radiation exposure indices are not available) Please consult full operative report of the attending physician for description of the procedure. TECHNICAL DOCUMENTATION: JOB ID: [id number] [employer]- All Rights Reserved Reading location - IP/workstation name: [email or web address]
--- NOTE | 2018-12-13 11:49 | Operative Report ---
Operative Report DATE OF SURGERY: 12/12/18 PREOPERATIVE DIAGNOSIS: #1 malfunctioning AV fistula, right transposed basilic. 2. End-stage renal disease on hemodialysis. 3. History of breast cancer. 4. Pulmonary hypertension. 5. Hypertension. POSTOPERATIVE DIAGNOSIS: #1 malfunctioning AV fistula, right transposed basilic. 2. End-stage renal disease on hemodialysis. 3. History of breast cancer. 4. Pulmonary hypertension. 5. Hypertension. OPERATION: 1. Needle access into right arm arteriovenous fistula. 2. Angiogram and angioplasty. 3. Angiogram and interpretation. SURGEON: ALESSIA CERRATO DAY CARE ASSISTANT: None. ANESTHESIA: Moderate Sedation TISSUE REMOVED OR ALTERED: Not applicable. COMPLICATIONS: None. ESTIMATED BLOOD LOSS: 2 mL. INTRAOPERATIVE FINDINGS: Of a well-established transposed basilic vein fistula in the right upper extremity. Somewhat soft consistent with inflow deficiency. Angiogram demonstrates normal outflow possible mild stenosis at the right innominate about 30% or less. Stenosis noted in the fistula starting about a centimeter away from the anastomosis and continuing for about 3 cm. Estimated to be about 50% of the adjacent lumen. Satisfactory improvement after elimination of an waist using a 6 mm angioplasty balloon. The acid anastomosis looks widely patent and the kashia artery unusually large. The fistula much more normal to palpation at the end of the procedure. PROCEDURE: PROCEDURE: After verifying the procedure and having obtained informed consent, the patient's left arm and forearm were prepared with Chlorhexidine and draped out with sterile linen. Local anesthesia infiltrated. Percutaneous access into the fistula ,[retrograde], obtained about [20 cm] from the arteriovenous anastomosis using a micro puncture needle followed by micro puncture wire and then a micro puncture catheter. Angiogram done in the antegrade fashion. Angioplasty was elected. A 0.035 [place] wire was inserted, and over this, a 6 Czech short introducer was placed, this was followed by a 6 mm high pressure angioplasty balloon . Angioplasty was now done at the perianastomotic segment. This was done a 3 mils syringe for about 1 minute. Angiogram demonstrated successful outcome. The balloon was now swapped over the wire for a 6 mm angioplasty balloon. The instrumentation was now withdrawn over hand pressure for 10 minutes . Dressings applied, procedure concluded. Exposure time: 0.5 minutes Radiation: 4.97 Charmaine saeed. Contrast: 5 mL of Isovue-M 300 low osmolality. DICTATING PHYSICIAN: ALESSIA MADRID M.D. cc: ALESSIA MADRID M.D. ([id number]) >>
== END 2018-12-12 15:55 | disposition home or self-care (01) ==
LOC: CCL 09:51
PROVIDERS: ATTEND Surgery
DX: T82.858A Stenosis of other vascular prosthetic devices, implants and grafts, initial encounter (principal); Y83.2 Surgical operation with anastomosis, bypass or graft as the cause of abnormal reaction of the patient, or of later complication, without mention of misadventure at the time of the procedure; I12.0 Hypertensive chronic kidney disease with stage 5 chronic kidney disease or end stage renal disease; N18.6 End stage renal disease; Z99.2 Dependence on renal dialysis; I27.20 Pulmonary hypertension, unspecified; E78.5 Hyperlipidemia, unspecified; Z01.818 Encounter for other preprocedural examination; Z85.3 Personal history of malignant neoplasm of breast; Z79.899 Other long term (current) drug therapy; Z79.82 Long term (current) use of aspirin
CPT/HCPCS: 36415; 85027; 80048; 36902; C1752; C1887; C1725; Q9967; C1769; J2250; J1644 ×2; A9270 ×2; J3010; J3490

== ENCOUNTER 2019-03-29 21:56 | Inpatient (IN) | payer MEDICARE ==
[2019-03-29] MEDS ORDERED: LORAZEPAM INJ 2 MG/1 ML VIAL ONE (21:59)
[2019-03-29] MEDS ORDERED: NITROGLYCERIN 0.4 MG/TAB 25 TAB/BOTTLE ONE (22:06)
[2019-03-29] MEDS ORDERED: IPRATROPIUM BROMIDE 0.02% NEB 0.5 MG/2.5 ML AMPUL NEB PRN (22:08)
[2019-03-29] MEDS ORDERED: ALBUTEROL SULFATE 0.083% NEB 2.5 MG/3 ML AMPUL NEB ONE (22:09)
[2019-03-29] MEDS ORDERED: IPRATROPIUM/ALBUTEROL 0.5-2.5 MG/3 ML AMPUL NEB ONE (22:09)
[2019-03-29] MEDS ORDERED: VANCOMYCIN HCL INJ 1000 MG VIAL IV ONE (22:16)
[2019-03-29] MEDS ORDERED: PIPERACILLIN/TAZOBACTAM 3.375 GM VIAL IV ONE (22:16)
[2019-03-29] MEDS ORDERED: LORAZEPAM INJ 2 MG/1 ML VIAL IV ONE (22:21)
[2019-03-29] MEDS ORDERED: NITROGLYCERIN 0.4 MG/TAB 25 TAB/BOTTLE SL PRN (22:21)
--- NOTE | 2019-03-29 22:22 | ER Document Report ---
ED General - General Chief Complaint: Breathing Difficulty Stated Complaint: DIFFICULTY BREATHING Time Seen by Provider: 03/29/19 22:05 TRAVEL OUTSIDE OF THE [place] IN LAST 30 DAYS: No - HPI Notes: Dialysis patient presents with sudden onset of shortness of breath at home prior to arrival. She did have amputation surgery of her left lower extremity approximately end of February. She has not had any recent fevers or illnesses but today had started developing a cough. She takes Coreg for hypertension ot herwise no other medications. When EMS arrived she was in the 60s saturating. She denies any chest pain - Related Data Allergies/Adverse Reactions: aloe vera [Aloe Vera] Allergy (Unknown, Verified 05/01/18 11:02) Swelling jalapeno peppers Allergy (Unknown, Uncoded 03/22/17 08:34) Swelling Past Medical History - Social History Smoking Status: Unknown if Ever Smoked Family History: Reviewed & Not Pertinent - Past Medical History Cardiac Medical History: Reports: Hx Hypercholesterolemia, Hx Hypertension Denies: Hx Coronary Artery Disease, Hx Heart Attack Pulmonary Medical History: Reports: Hx Pneumonia - hx of Denies: Hx Asthma, Hx Bronchitis, Hx COPD Neurological Medical History: Denies: Hx Cerebrovascular Accident, Hx Seizures, Hx Parkinson's Disease Renal/ Medical History: Reports: Hx End Stage Renal Disease, Hx Kidney Stones. Denies: Hx Peritoneal Dialysis GI Medical History: Reports: Hx Diverticulitis, Hx Ulcer - Peptic ulcer disease in 1992-no history of GI bleeding in the past Musculoskeletal Medical History: Denies Hx Arthritis, Denies Hx Multiple Sclerosis Psychiatric Medical History: Denies: Hx Schizophrenia Past Surgical History: Reports: Hx Kidney (Renal Surgery) - 1 removal. Denies: Hx Hysterectomy - Immunizations Immunizations up to date: Yes Hx Diphtheria, Pertussis, Tetanus Vaccination: Yes Hx Pneumococcal Vaccination: 07/04/16 Review of Systems - Review of Systems Constitutional: No symptoms reported EENT: No symptoms reported Cardiovascular: No symptoms reported Respiratory: See HPI Gastrointestinal: No symptoms reported Genitourinary: No symptoms reported Female Genitourinary: No symptoms reported Musculoskeletal: No symptoms reported Skin: No symptoms reported Hematologic/Lymphatic: No symptoms reported Neurological/Psychological: No symptoms reported Physical Exam - Vital signs Vitals: Pulse Ox 85 L 03/29/19 22:00 - General General appearance: Alert, Other - Very frail In distress: Moderate - HEENT Head: Normocephalic, Atraumatic Eyes: Normal Pupils: PERRL - Respiratory Respiratory status: Respiratory distress, Agonal respirations, Tachypnea Breath sounds: Decreased air movement, Rhonchi, Wheezing - Cardiovascular Rhythm: Regular Heart sounds: Normal auscultation - Abdominal Inspection: Normal Distension: No distension Bowel sounds: Normal Tenderness: Nontender - Extremities General upper extremity: Normal inspection, Normal strength General lower extremity: Other - [id number]-rbke amputation on the left, patient has Jasper bandage wrapped up to proximal aspect of lower leg on the right Course - Re-evaluation Re-evalutation: 03/29/19 22:21 Patient was placed on BiPAP tolerating well saturating 100%, nebulizer treatment started as well as nitroglycerin provided. X-ray was brought in and appears to have bilateral pneumonia worse on the left than the right. 1mg of Ativan provided to help patient tolerate BiPAP 03/29/19 22:22 Blood cultures drawn, pending lactic acid, antibiotics started. Patient is hypertensive do not feel like fluid bolus is necessary at this time. Leading diagnosis at this time is pneumonia would not want to saturate patient's lungs. 03/29/19 23:44 Tolerating BiPAP well 100%. The biotics been provided patient stabilized. Patient will be admitted to the MICU per Dr. Lozoya he does have a slight troponin increase with no chest pain and an elevated BNP likely due to congestive heart failure. Devora made aware - Vital Signs Vital signs: Temp Pulse Resp BP Pulse Ox 98.0 F 87 18 153/68 H 94 03/30/19 01:32 03/30/19 14:27 03/30/19 14:27 03/30/19 14:27 03/30/19 15:53 - Laboratory Result Diagrams: 03/30/19 05:32 03/30/19 05:32 Laboratory results interpreted by me: 03/29/19 03/29/19 03/29/19 22:30 22:30 22:30 WBC 12.2 H RBC 3.20 L Hgb 9.4 L Hct 30.5 L MCHC 30.7 L RDW 26.3 H Lymph % (Auto) 7.6 L Absolute Neuts (auto) 10.4 H Seg Neutrophils % 85.2 H BUN 30 H Creatinine 2.68 H Est GFR ( Amer) 21 L Est GFR (MDRD) Non-Af 17 L Calcium 7.8 L Direct Bilirubin 0.5 H AST 122 H Alkaline Phosphatase 885 H NT-Pro-B Natriuret Pep 11226 H Albumin 3.4 L - Diagnostic Test Radiology reviewed: Reports reviewed - EKG Interpretation by Me EKG shows normal: Sinus rhythm Rate: Tachycardia Rhythm: NSR Discharge - Discharge Clinical Impression: Respiratory distress Pneumonia Qualifiers: Pneumonia type: due to unspecified organism Laterality: unspecified laterality Lung location: unspecified part of lung Qualified Code(s): J18.9 - Pneumonia, unspecified organism Congestive heart failure Qualifiers: Heart failure type: unspecified Heart failure chronicity: unspecified Qualified Code(s): I50.9 - Heart failure, unspecified Condition: Fair Disposition: ADMITTED INPATIENT Admitting Provider: [facility] Unit Admitted: [facility]
--- NOTE | 2019-03-29 22:43 | RADIOLOGY REPORT (SQ) ---
EXAM DESCRIPTION: XR CHEST 1 VIEW COMPLETED DATE/TME: 03/29/2019 22:00 CLINICAL HISTORY: 83 years, Female, resp distress COMPARISON: 02/16/2017 chest NUMBER OF VIEWS: 1 TECHNIQUE: Portable chest LIMITATIONS: None. FINDINGS: Cardiomegaly. Atheromatous change thoracic aorta. Osteopenia. Reticulonodular changes bilaterally suggesting pneumonitis. No pneumothorax IMPRESSION: Cardiomegaly. Reticulonodular changes suggesting minor pneumonitis copyright 2010 [email or web address]- All Rights Reserved
[2019-03-29 22:49] LABS: ABSOLUTE LYMPHOCYTES (AUTO) 0.9 10^3/uL (0.5-4.7); ABSOLUTE MONOCYTES (AUTO) 0.8 10^3/uL (0.1-1.4); ABSOLUTE NEUT (AUTO) 10.4 10^3/uL (1.7-8.2); BASOPHILS % (AUTO) 0.4 % (0-2); EOSINOPHILS % (AUTO) 0.1 % (0-6); HEMATOCRIT 30.5 % (36.0-47.0); HEMOGLOBIN 9.4 g/dL (12.0-15.5); LYMPHOCYTES % (AUTO) 7.6 % (13-45); MEAN CORPUSCULAR HEMOGLOBIN 29.2 pg (27.0-33.4); MEAN CORPUSCULAR HGB CONC 30.7 g/dL (32.0-36.0); MEAN CORPUSCULAR VOLUME 95 fl (80-97); MONOCYTES % (AUTO) 6.7 % (3-13); PLATELET COUNT 361 10^3/uL (150-450); RED CELL DISTRIBUTION WIDTH 26.3 % (11.5-14.0); SEGMENTED NEUTROPHILS % (AUTO) 85.2 % (42-78); TOTAL CELLS COUNTED % (AUTO) 100 %; WHITE BLOOD COUNT 12.2 10^3/uL (4.0-10.5)
[2019-03-29 23:11] LABS: ALBUMIN 3.4 g/dL (3.5-5.0); ALKALINE PHOSPHATASE 885 U/L (38-126); ANION GAP 13 (5-19); ASPARTATE AMINO TRANSFERASE 122 U/L (14-36); BILIRUBIN,DIRECT 0.5 mg/dL (0.0-0.4); BILIRUBIN,TOTAL 0.6 mg/dL (0.2-1.3); BLOOD UREA NITROGEN 30 mg/dL (7-20); CALCIUM 7.8 mg/dL (8.4-10.2); CARBON DIOXIDE 25 mmol/L (22-30); CHLORIDE 100 mmol/L (98-107); GLUCOSE 108 mg/dL (75-110); POTASSIUM 4.2 mmol/L (3.6-5.0); TOTAL PROTEIN 6.7 g/dL (6.3-8.2)
[2019-03-29 23:16] LABS: ANISOCYTOSIS 3+; OVALOCYTES 1+; POLYCHROMASIA SLIGHT; TEAR DROP CELLS SLIGHT
[2019-03-29 23:17] LABS: SCHISTOCYTES SLIGHT
[2019-03-29 23:18] LABS: PLATELET COMMENT ADEQUATE
[2019-03-29 23:40] LABS: TROPONIN I 0.253 ng/mL
[2019-03-29] MEDS ORDERED: PIPERACILLIN SODIUM/TAZOBACTAM 3.375 GM in NORMAL SALINE 100 ML IV ONE (23:45)
[2019-03-29] MEDS ORDERED: HEPARIN SOD (PORCINE) 5,000 UNIT/ML 1 ML VIAL SUBCUT ONE (23:45)
[2019-03-29] MEDS ORDERED: CEFTRIAXONE 1 GM/D5W RTU 50 ML IV SCH (23:45)
[2019-03-29] MEDS ORDERED: VANCOMYCIN HCL 0 MG in DEXTROSE 5%-WATER 250 ML IV NR (23:45)
[2019-03-29] MEDS ORDERED: PIPERACILLIN/TAZOBACTAM 3.375 GM VIAL IV PRN (23:58)
[2019-03-30] MEDS ORDERED: PIPERACILLIN SODIUM/TAZOBACTAM 3.375 GM in NORMAL SALINE 100 ML IV SCH ×2
[2019-03-30 06:01] LABS: ABSOLUTE BASOPHILS # (AUTO) 0.1 10^3/uL (0.0-0.2); ABSOLUTE LYMPHOCYTES (AUTO) 0.7 10^3/uL (0.5-4.7); ABSOLUTE MONOCYTES (AUTO) 0.7 10^3/uL (0.1-1.4); ABSOLUTE NEUT (AUTO) 6.5 10^3/uL (1.7-8.2); BASOPHILS % (AUTO) 0.8 % (0-2); EOSINOPHILS % (AUTO) 0.1 % (0-6); HEMATOCRIT 28.8 % (36.0-47.0); HEMOGLOBIN 9.2 g/dL (12.0-15.5); LYMPHOCYTES % (AUTO) 8.9 % (13-45); MEAN CORPUSCULAR HEMOGLOBIN 29.5 pg (27.0-33.4); MEAN CORPUSCULAR HGB CONC 31.8 g/dL (32.0-36.0); MEAN CORPUSCULAR VOLUME 93 fl (80-97); MONOCYTES % (AUTO) 8.4 % (3-13); PLATELET COUNT 319 10^3/uL (150-450); RED CELL DISTRIBUTION WIDTH 25.5 % (11.5-14.0); SEGMENTED NEUTROPHILS % (AUTO) 81.8 % (42-78); TOTAL CELLS COUNTED % (AUTO) 100 %
[2019-03-30 06:14] LABS: ALBUMIN 3.4 g/dL (3.5-5.0); ALKALINE PHOSPHATASE 800 U/L (38-126); ANION GAP 13 (5-19); ASPARTATE AMINO TRANSFERASE 67 U/L (14-36); BILIRUBIN,DIRECT 0.4 mg/dL (0.0-0.4); BILIRUBIN,TOTAL 0.5 mg/dL (0.2-1.3); BLOOD UREA NITROGEN 32 mg/dL (7-20); CALCIUM 7.6 mg/dL (8.4-10.2); CARBON DIOXIDE 25 mmol/L (22-30); CHLORIDE 100 mmol/L (98-107); GLUCOSE 97 mg/dL (75-110); POTASSIUM 4.4 mmol/L (3.6-5.0); TOTAL PROTEIN 6.6 g/dL (6.3-8.2)
[2019-03-30 06:25] LABS: CREATINE KINASE MB 2.13 ng/mL (<4.55); TROPONIN I 0.239 ng/mL
[2019-03-30] MEDS: HEPARIN SOD (PORCINE) 5,000 UNIT/ML 1 ML VIAL SUBCUT SCH ×3 (06:35→21:45)
[2019-03-30 06:43] LABS: ANISOCYTOSIS 3+; HYPOCHROMASIA 1+
[2019-03-30 06:44] LABS: PLATELET COMMENT ADEQUATE
[2019-03-30] MEDS ORDERED: PIPERACILLIN SODIUM/TAZOBACTAM 3.375 GM in NORMAL SALINE 100 ML IV ONE (07:00)
[2019-03-30] MEDS ORDERED: EPOETIN ALFA-EPBX 20,000 UNIT in SYRINGE, DISPOSABLE, 1 EACH IV PRN (08:54)
[2019-03-30] MEDS ORDERED: PIPERACILLIN SODIUM/TAZOBACTAM 2.25 GM in NORMAL SALINE 50 ML IV SCH (10:00)
[2019-03-30] MEDS: ACETAMINOPHEN 325 MG TABLET PO PRN (11:35)
--- NOTE | 2019-03-30 12:56 | PDOC CONSULTATION ---
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 She denies any history of fever or chills. Evaluations in the ER reveals that she possibly has a left lower lobe pneumonia. Presently she is being seen while undergoing dialysis. She looks rather sickly. She admits to pain which is getting progressively worse affecting her right foot now. She is has a wrap around her whole right lower leg except for some of the toes which shows gangrene. She says she is following with the wound clinic in [place]. No complaints of any chest pain, abdominal pains. She has a good appetite without history of nausea vomiting. Labs and medications were reviewed. Dialysis orders were reviewed with the treating dialysis nurse.Tried to call her daughter but she was not able to answer the phone call. Past Medical History Cardiac Medical History: Reports: Hyperlipidemia, Hypertension-primary Denies: Coronary Artery Disease, Myocardial Infarction Pulmonary Medical History: Reports: Pneumonia - hx of Denies: Asthma, Bronchitis, Chronic Obstructive Pulmonary Disease (COPD) Neurological Medical History: Denies: Seizures Renal/ Medical History: Reports: End Stage Renal Disease Denies: Benign Prostatic Hyperplasia GI Medical History: Reports: Diverticulitis Musculoskeltal Medical History: Denies: Arthritis Psychiatric Medical History: Hematology Medical History: Reports Anemia of Chronic Kidney Disease Past Surgical History Past Surgical History: Reports: Orthopedic Surgery - left AKA mar Denies: Hysterectomy Social History Smoking Status: Never Smoker Frequency of Alcohol Use: None Hx Recreational Drug Use: No Drugs: None Hx Prescription Drug Abuse: No - Advance Directive Resuscitation Status: Full Code Family History Parental Family History Reviewed: Yes - Negative for ESRD Children Family History Reviewed: No Sibling(s) Family History Reviewed.: No Medication/Allergy Home Medications: Carvedilol [Coreg 3.125 mg Tablet] 3.125 mg PO Q12 03/30/19 Furosemide [Lasix 40 mg Tablet] 40 mg PO DAILY 03/30/19 Valsartan [Diovan] 320 mg PO DAILY 03/30/19 Allergies/Adverse Reactions: aloe vera [Aloe Vera] Allergy (Unknown, Verified 05/01/18 11:02) Swelling jalapeno peppers Allergy (Unknown, Uncoded 03/22/17 08:34) Swelling Review of Systems Constitutional: PRESENT: fatigue, weakness. ABSENT: anorexia, chills, fever(s), headache(s), night sweats Nose, Mouth, and Throat: ABSENT: mouth pain, sore throat Cardiovascular: PRESENT: dyspnea on exertion. ABSENT: chest pain, edema, orthropnea, palpitations Gastrointestinal: ABSENT: abdominal pain, bloating, coffee ground emesis, diarrhea, dysphagia, heartburn, hematemesis Genitourinary: ABSENT: difficulty urinating, dysuria Musculoskeletal: ABSENT: deformity, joint swelling Integumentary: ABSENT: lesions, pruritus Neurological: PRESENT: memory loss. ABSENT: abnormal movements, abnormal speech, confusion, convulsions, focal weakness, frequent falls, lack of coordination Psychiatric: PRESENT: depression Hematologic/Lymphatic: ABSENT: easy bleeding, easy bruising Physical Exam Vital Signs: Temp Pulse Resp BP Pulse Ox 98.0 F 88 19 154/76 H 100 03/30/19 01:32 03/30/19 09:40 03/30/19 09:00 03/30/19 08:01 03/30/19 09:00 Intake & Output 03/29/19 03/30/19 03/31/19 06:59 06:59 06:59 Intake Total 150 Balance 150 Weight 43.8 kg General appearance: PRESENT: no acute distress Eye exam: PRESENT: EOMI, PERRLA Ear exam: PRESENT: normal external ear exam Mouth exam: PRESENT: neck supple. ABSENT: moist Neck exam: ABSENT: meningismus, tenderness, thyromegaly, tracheal deviation Respiratory exam: PRESENT: clear to auscultation vinicius. ABSENT: crackles Cardiovascular exam: PRESENT: +S1, +S2, systolic murmur GI/Abdominal exam: PRESENT: normal bowel sounds, soft. ABSENT: organomegaly, tenderness Extremities exam: ABSENT: pedal edema - She is status post left BKA. Her right leg is wrapped except for some toes sticking out which shows dry gangrene. There is no foul-smelling coming out of her right leg. Neurological exam: PRESENT: alert, awake, oriented to person, oriented to place, oriented to time Psychiatric exam: PRESENT: depressed Skin exam: PRESENT: cyanosis - Of right toes., mottled, rash. ABSENT: normal color Results Laboratory Results: 03/30/19 05:32 03/30/19 05:32 03/29/19 03/29/19 03/29/19 22:30 22:30 22:30 WBC 12.2 H RBC 3.20 L Hgb 9.4 L Hct 30.5 L MCV 95 MCH 29.2 MCHC 30.7 L RDW 26.3 H Plt Count 361 Seg Neutrophils % 85.2 H Sodium 138.0 Potassium 4.2 Chloride 100 Carbon Dioxide 25 Anion Gap 13 BUN 30 H Creatinine 2.68 H Est GFR ( Amer) 21 L Glucose 108 Lactic Acid 1.9 Calcium 7.8 L Magnesium 2.2 Total Bilirubin 0.6 AST 122 H Alkaline Phosphatase 885 H Total Protein 6.7 Albumin 3.4 L 03/30/19 03/30/19 05:32 05:32 WBC 8.0 RBC 3.10 L Hgb 9.2 L Hct 28.8 L MCV 93 MCH 29.5 MCHC 31.8 L RDW 25.5 H Plt Count 319 Seg Neutrophils % 81.8 H Sodium 137.9 Potassium 4.4 Chloride 100 Carbon Dioxide 25 Anion Gap 13 BUN 32 H Creatinine 2.94 H Est GFR ( Amer) 19 L Glucose 97 Lactic Acid Calcium 7.6 L Magnesium Total Bilirubin 0.5 AST 67 H Alkaline Phosphatase 800 H Total Protein 6.6 Albumin 3.4 L 03/29/19 03/30/19 22:30 05:32 CK-MB (CK-2) Cancelled 2.13 Troponin I 0.253 0.239 NT-Pro-B Natriuret Pep 99283 H 93653 H Impressions: Chest X-Ray 03/29/19 22:00 IMPRESSION: Cardiomegaly. Reticulonodular changes suggesting minor pneumonitis copyright 2011 [employer]- All Rights Reserved Assessment & Plan - Diagnosis (1) Pneumonia Qualifiers: Pneumonia type: due to unspecified organism Laterality: unspecified laterality Lung location: unspecified part of lung Qualified Code(s): J18.9 - Pneumonia, unspecified organism Plan: Chest x-ray shows high likelihood of left lower lobe pneumonia. She is also got features of sepsis. Patient begun on IV antibiotics. (2) Anemia in chronic kidney disease Qualifiers: Chronic kidney disease stage: on chronic dialysis Qualified Code(s): N18.6 - End stage renal disease; D63.1 - Anemia in chronic kidney disease; Z99.2 - Dependence on renal dialysis Plan: Will adjust erythropoietin. (3) End-stage renal disease on hemodialysis Plan: Patient is currently undergoing dialysis without any issues. Plan to remove approximately a liter of fluid as tolerated. Vital signs are currently stable. Dialysis is being supervised to ensure safe and smooth procedure. Dialysis orders were reviewed with the treating dialysis nurse. (4) Hypertension Qualifiers: Hypertension type: secondary to other renal disorders Qualified Code(s): I15.1 - Hypertension secondary to other renal disorders Plan: Relatively controlled. See response to dialysis. (5) Renal osteodystrophy Plan: Patient is got tertiary hyperparathyroidism and had refused parathyroid surgery which was recommended when she began dialysis. As a result of that she has had severe peripheral vascular disease which has resulted in that left BKA. Currently she is showing all features of a similar nature affecting her right lower extremity resulting in pain and gangrene of the toes. Is unfortunate that I believe she is going to end up with another amputation. I will try again and speak with her daughter.She also needs to have this right leg evaluated by surgeons while she is in the hospital to see if this maybe another focus for infection. (6) Peripheral vascular disease Plan: She is now status post left BKA from her tertiary hyperparathyroidism and severe vascular disease. Unfortunately similar presentation now involving the right lower extremity.
[2019-03-30] MEDS: PIPERACILLIN SODIUM/TAZOBACTAM 2.25 GM in NORMAL SALINE 50 ML IV SCH ×2 (13:37→21:45)
[2019-03-30] MEDS ORDERED: VANCOMYCIN HCL 750 MG in DEXTROSE 5%-WATER 250 ML IV SCH (18:00)
--- NOTE | 2019-03-30 20:39 | PDOC H&P ---
History of Present Illness Admission Date/PCP: 03/30/19 00:12 MARIANO WASHINGTON MD History of Present Illness: BRIAN GUDINO is a 83 year old female,She has end-stage renal disease on maintenance hemodialysis, she presented to the emergency room for evaluation of shortness of breath, She recently had amputation of the left lower extremity approximately at the end of February, when she arrived in the emergency room the oxygen saturation was in the low 60s, she required noninvasive positive pressure ventilation with BiPAP. Chest x-ray that was done demonstrated bilateral pneumonia worse on the left than the right. She also was found to have elevated BNP, I do not understand the value of BNP in the patient with end-stage renal disease, it is essentially uninterpretable.The chest x-ray is consistent with bilateral pneumonia,There is associated leukocytosis, this is consistent with pneumonia rather than CHF I spoke to the patient's daughter about CODE STATUS, patient is wish is to be DNR. She also recently left the half-way where she was for rehabilitation, She probably have healthcare associated pneumonia Past Medical History Cardiac Medical History: Reports: Hyperlipidema, Hypertension, Peripheral Vascular Disease Pulmonary Medical History: Reports: Pneumonia - hx of Renal/ Medical History: Reports: End Stage Renal Disease GI Medical History: Reports: Diverticulitis Psychiatric Medical History: Hematology: Reports: Bleeding Tendencies Past Surgical History Past Surgical History: Reports: Orthopedic Surgery - left A mar Social History Smoking Status: Never Smoker Frequency of Alcohol Use: None Hx Recreational Drug Use: No Drugs: None Hx Prescription Drug Abuse: No - Advance Directive Resuscitation Status: Do Not Resuscitate Family History Family History: Reviewed & Not Pertinent Parental Family History Reviewed: Yes Children Family History Reviewed: Yes Sibling(s) Family History Reviewed.: Yes Medication/Allergy Home Medications: Carvedilol [Coreg 3.125 mg Tablet] 3.125 mg PO Q12 03/30/19 Furosemide [Lasix 40 mg Tablet] 40 mg PO DAILY 03/30/19 Valsartan [Diovan] 320 mg PO DAILY 03/30/19 Allergies/Adverse Reactions: aloe vera [Aloe Vera] Allergy (Unknown, Verified 05/01/18 11:02) Swelling jalapeno peppers Allergy (Unknown, Uncoded 03/22/17 08:34) Swelling Review of Systems Constitutional: ABSENT: chills, fever(s), headache(s), weight gain, weight loss Eyes: ABSENT: visual disturbances Ears: ABSENT: hearing changes Cardiovascular: ABSENT: chest pain, dyspnea on exertion, edema, orthropnea, palpitations Respiratory: PRESENT: cough, dyspnea, sputum Gastrointestinal: ABSENT: abdominal pain, constipation, diarrhea, hematemesis, hematochezia, nausea, vomiting Genitourinary: ABSENT: dysuria, hematuria Musculoskeletal: ABSENT: joint swelling Integumentary: ABSENT: rash, wounds Neurological: ABSENT: abnormal gait, abnormal speech, confusion, dizziness, focal weakness, syncope Psychiatric: ABSENT: anxiety, depression, homidical ideation, suicidal ideation Endocrine: ABSENT: cold intolerance, heat intolerance, menstrual abnormalities, polydipsia, polyuria Hematologic/Lymphatic: ABSENT: easy bleeding, easy bruising, lymphadenopathy Physical Exam Vital Signs: Temp Pulse Resp BP Pulse Ox 98.0 F 96 18 153/68 H 94 03/30/19 01:32 03/30/19 19:00 03/30/19 14:27 03/30/19 14:27 03/30/19 15:53 Intake & Output 03/29/19 03/30/19 03/31/19 06:59 06:59 06:59 Intake Total 150 50 Output Total 2700 Balance 150 -2650 Weight 43.8 kg General appearance: PRESENT: severe distress Head exam: PRESENT: atraumatic Eye exam: PRESENT: PERRLA Neck exam: PRESENT: full ROM Respiratory exam: PRESENT: rhonchi Cardiovascular exam: PRESENT: RRR, +S1, +S2 Vascular exam: PRESENT: normal capillary refill GI/Abdominal exam: PRESENT: normal bowel sounds, soft Rectal exam: PRESENT: deferred Extremities exam: PRESENT: left AKA Neurological exam: PRESENT: alert, CN II-XII grossly intact Psychiatric exam: PRESENT: appropriate affect, normal mood Skin exam: PRESENT: dry, intact, warm Results Laboratory Results: 03/30/19 05:32 03/30/19 05:32 03/29/19 03/29/19 03/29/19 22:30 22:30 22:30 WBC 12.2 H RBC 3.20 L Hgb 9.4 L Hct 30.5 L MCV 95 MCH 29.2 MCHC 30.7 L RDW 26.3 H Plt Count 361 Seg Neutrophils % 85.2 H Sodium 138.0 Potassium 4.2 Chloride 100 Carbon Dioxide 25 Anion Gap 13 BUN 30 H Creatinine 2.68 H Est GFR ( Amer) 21 L Glucose 108 Lactic Acid 1.9 Calcium 7.8 L Magnesium 2.2 Total Bilirubin 0.6 AST 122 H Alkaline Phosphatase 885 H Total Protein 6.7 Albumin 3.4 L 03/30/19 03/30/19 05:32 05:32 WBC 8.0 RBC 3.10 L Hgb 9.2 L Hct 28.8 L MCV 93 MCH 29.5 MCHC 31.8 L RDW 25.5 H Plt Count 319 Seg Neutrophils % 81.8 H Sodium 137.9 Potassium 4.4 Chloride 100 Carbon Dioxide 25 Anion Gap 13 BUN 32 H Creatinine 2.94 H Est GFR ( Amer) 19 L Glucose 97 Lactic Acid Calcium 7.6 L Magnesium Total Bilirubin 0.5 AST 67 H Alkaline Phosphatase 800 H Total Protein 6.6 Albumin 3.4 L 03/29/19 03/30/19 22:30 05:32 CK-MB (CK-2) Cancelled 2.13 Troponin I 0.253 0.239 NT-Pro-B Natriuret Pep 39669 H 48304 H Impressions: Chest X-Ray 03/29/19 22:00 IMPRESSION: Cardiomegaly. Reticulonodular changes suggesting minor pneumonitis copyright 2011 [employer]- All Rights Reserved Assessment & Plan - Diagnosis (1) Acute hypoxemic respiratory failure Is this a current diagnosis for this admission?: Yes Plan: Patient required noninvasive positive pressure ventilation, BiPAP (2) Healthcare-associated pneumonia Is this a current diagnosis for this admission?: Yes Plan: She has bilateral pneumonia, recently was admitted at [facility] for rehabilitation, she will be treated empirically with antibiotic to cover MRSA, gram-negative organisms (3) End stage renal disease Is this a current diagnosis for this admission?: Yes Plan: Consultation requested from nephrology for dialysis while in the hospital (4) Peripheral vascular disease Is this a current diagnosis for this admission?: Yes - Time Time Spent: Greater than 70 Minutes Medications reviewed and adjusted accordingly: Yes Anticipated discharge: Home
--- NOTE | 2019-03-30 21:02 | ADVANCED CARE ---
- Diagnosis (1) Acute hypoxemic respiratory failure Diagnosis Current: Yes (2) Healthcare-associated pneumonia Diagnosis Current: Yes (3) End stage renal disease Diagnosis Current: Yes (4) Peripheral vascular disease Diagnosis Current: Yes Resuscitation Status: Do Not Resuscitate Discussion: Discussed with family, including the daughter about DNR status, family wants patient to be DNR
[2019-03-30] MEDS: CARVEDILOL 3.125 MG TABLET PO SCH (21:46)
[2019-03-31 05:14] LABS: ABSOLUTE EOSINOPHILS # (AUTO) 0.1 10^3/uL (0.0-0.6); ABSOLUTE LYMPHOCYTES (AUTO) 0.9 10^3/uL (0.5-4.7); ABSOLUTE MONOCYTES (AUTO) 0.7 10^3/uL (0.1-1.4); ABSOLUTE NEUT (AUTO) 3.8 10^3/uL (1.7-8.2); BASOPHILS % (AUTO) 0.7 % (0-2); HEMATOCRIT 27.6 % (36.0-47.0); HEMOGLOBIN 8.6 g/dL (12.0-15.5); LYMPHOCYTES % (AUTO) 16.6 % (13-45); MEAN CORPUSCULAR HEMOGLOBIN 29.2 pg (27.0-33.4); MEAN CORPUSCULAR HGB CONC 31.2 g/dL (32.0-36.0); MEAN CORPUSCULAR VOLUME 93 fl (80-97); MONOCYTES % (AUTO) 13.4 % (3-13); PLATELET COUNT 313 10^3/uL (150-450); RED BLOOD COUNT 2.96 10^6/uL (3.72-5.28); RED CELL DISTRIBUTION WIDTH 25.7 % (11.5-14.0); SEGMENTED NEUTROPHILS % (AUTO) 68.3 % (42-78); TOTAL CELLS COUNTED % (AUTO) 100 %; WHITE BLOOD COUNT 5.6 10^3/uL (4.0-10.5)
[2019-03-31] MEDS: PIPERACILLIN SODIUM/TAZOBACTAM 2.25 GM in NORMAL SALINE 50 ML IV SCH ×3 (05:25→21:48)
[2019-03-31] MEDS: HEPARIN SOD (PORCINE) 5,000 UNIT/ML 1 ML VIAL SUBCUT SCH ×3 (05:26→21:47)
[2019-03-31 05:35] LABS: ALBUMIN 3.2 g/dL (3.5-5.0); ALKALINE PHOSPHATASE 676 U/L (38-126); ANION GAP 10 (5-19); ASPARTATE AMINO TRANSFERASE 30 U/L (14-36); BILIRUBIN,DIRECT 0.2 mg/dL (0.0-0.4); BILIRUBIN,TOTAL 0.4 mg/dL (0.2-1.3); BLOOD UREA NITROGEN 22 mg/dL (7-20); CARBON DIOXIDE 30 mmol/L (22-30); CHLORIDE 101 mmol/L (98-107); GLUCOSE 104 mg/dL (75-110); POTASSIUM 3.5 mmol/L (3.6-5.0); TOTAL PROTEIN 6.4 g/dL (6.3-8.2)
[2019-03-31 05:56] LABS: ANISOCYTOSIS 3+; HYPOCHROMASIA 2+; PLATELET COMMENT ADEQUATE
--- NOTE | 2019-03-31 08:54 | EKG REPORT ---
SEVERITY:- ABNORMAL ECG - SINUS RHYTHM MULTIFORM VENTRICULAR PREMATURE COMPLEXES ABERRANT COMPLEX, POSSIBLY SUPRAVENTRICULAR LVH WITH SECONDARY REPOLARIZATION ABNORMALITY : Confirmed by: Caryn Anthony 31-Mar-2019 08:53:25
--- NOTE | 2019-03-31 08:55 | EKG REPORT ---
SEVERITY:- ABNORMAL ECG - MULTI FOCAL ATRIAL TACHYCARDIA PAIRED VENTRICULAR PREMATURE COMPLEXES PROLONGED QT INTERVAL : Confirmed by: Caryn Anthony 31-Mar-2019 08:54:22
[2019-03-31] MEDS: ACETAMINOPHEN 325 MG TABLET PO PRN ×2 (09:07→20:35)
[2019-03-31] MEDS: FUROSEMIDE 40 MG TABLET PO SCH (09:07)
[2019-03-31] MEDS: VALSARTAN 160 MG TABLET PO SCH (09:08)
[2019-03-31] MEDS: CARVEDILOL 3.125 MG TABLET PO SCH ×2 (09:08→21:47)
[2019-03-31] MEDS ORDERED: (PENDING PHARMACY ID) (Valsartan [Diovan] 320 MG) PO SCH (10:00)
--- NOTE | 2019-03-31 15:44 | PDOC PROGRESS REPORT ---
Subjective Progress Note for:: 03/31/19 Subjective:: Patient seen by the bedside, she continues to improve Reason For Visit: PNEUMONIA, ESRD Physical Exam Vital Signs: Temp Pulse Resp BP Pulse Ox 99.0 F 98 23 H 186/71 H 91 L 03/31/19 04:01 03/31/19 14:00 03/31/19 04:01 03/31/19 04:01 03/31/19 04:01 Intake & Output 03/30/19 03/31/19 04/01/19 06:59 06:59 06:59 Intake Total 150 150 360 Output Total 2700 Balance 150 -2550 360 Weight 43.8 kg 44.7 kg General appearance: PRESENT: no acute distress Eye exam: PRESENT: PERRLA Respiratory exam: PRESENT: decreased breath sounds, stridor Cardiovascular exam: PRESENT: +S1, +S2 GI/Abdominal exam: PRESENT: soft Neurological exam: PRESENT: alert, CN II-XII grossly intact Results Laboratory Results: 03/31/19 04:25 03/31/19 04:25 03/31/19 03/31/19 04:25 04:25 WBC 5.6 RBC 2.96 L Hgb 8.6 L Hct 27.6 L MCV 93 MCH 29.2 MCHC 31.2 L RDW 25.7 H Plt Count 313 Seg Neutrophils % 68.3 Sodium 141.1 Potassium 3.5 L Chloride 101 Carbon Dioxide 30 Anion Gap 10 BUN 22 H Creatinine 2.28 H Est GFR ( Amer) 25 L Glucose 104 Calcium 8.0 L Total Bilirubin 0.4 AST 30 Alkaline Phosphatase 676 H Total Protein 6.4 Albumin 3.2 L 03/29/19 03/30/19 22:30 05:32 CK-MB (CK-2) Cancelled 2.13 Troponin I 0.253 0.239 NT-Pro-B Natriuret Pep 05973 H 60048 H Impressions: Chest X-Ray 03/29/19 22:00 IMPRESSION: Cardiomegaly. Reticulonodular changes suggesting minor pneumonitis copyright 2011 [employer]- All Rights Reserved Assessment & Plan - Diagnosis (1) Acute hypoxemic respiratory failure Is this a current diagnosis for this admission?: Yes Plan: She does not require BiPAP in 24 hours, a manifestation of improvement in respiratory status (2) Healthcare-associated pneumonia Is this a current diagnosis for this admission?: Yes Plan: Continue IV antibiotic (3) End stage renal disease Is this a current diagnosis for this admission?: Yes Plan: Per nephrology (4) Peripheral vascular disease Is this a current diagnosis for this admission?: Yes
[2019-04-01 05:48] LABS: ABSOLUTE BASOPHILS # (AUTO) 0.1 10^3/uL (0.0-0.2); ABSOLUTE EOSINOPHILS # (AUTO) 0.1 10^3/uL (0.0-0.6); ABSOLUTE LYMPHOCYTES (AUTO) 1.1 10^3/uL (0.5-4.7); ABSOLUTE MONOCYTES (AUTO) 0.7 10^3/uL (0.1-1.4); ABSOLUTE NEUT (AUTO) 3.5 10^3/uL (1.7-8.2); BASOPHILS % (AUTO) 1.3 % (0-2); EOSINOPHILS % (AUTO) 2.2 % (0-6); HEMATOCRIT 26.1 % (36.0-47.0); HEMOGLOBIN 8.3 g/dL (12.0-15.5); LYMPHOCYTES % (AUTO) 19.9 % (13-45); MEAN CORPUSCULAR HEMOGLOBIN 29.7 pg (27.0-33.4); MEAN CORPUSCULAR HGB CONC 31.7 g/dL (32.0-36.0); MEAN CORPUSCULAR VOLUME 94 fl (80-97); MONOCYTES % (AUTO) 12.3 % (3-13); PLATELET COUNT 292 10^3/uL (150-450); RED BLOOD COUNT 2.78 10^6/uL (3.72-5.28); RED CELL DISTRIBUTION WIDTH 25.6 % (11.5-14.0); SEGMENTED NEUTROPHILS % (AUTO) 64.3 % (42-78); TOTAL CELLS COUNTED % (AUTO) 100 %; WHITE BLOOD COUNT 5.4 10^3/uL (4.0-10.5)
[2019-04-01] MEDS: PIPERACILLIN SODIUM/TAZOBACTAM 2.25 GM in NORMAL SALINE 50 ML IV SCH ×3 (05:50→21:54)
[2019-04-01] MEDS: HEPARIN SOD (PORCINE) 5,000 UNIT/ML 1 ML VIAL SUBCUT SCH ×3 (05:51→21:55)
[2019-04-01 06:01] LABS: ALBUMIN 3.2 g/dL (3.5-5.0); ALKALINE PHOSPHATASE 602 U/L (38-126); ANION GAP 10 (5-19); ASPARTATE AMINO TRANSFERASE 23 U/L (14-36); BILIRUBIN,DIRECT 0.3 mg/dL (0.0-0.4); BILIRUBIN,TOTAL 0.5 mg/dL (0.2-1.3); BLOOD UREA NITROGEN 28 mg/dL (7-20); CARBON DIOXIDE 27 mmol/L (22-30); CHLORIDE 103 mmol/L (98-107); GLUCOSE 97 mg/dL (75-110); POTASSIUM 3.5 mmol/L (3.6-5.0); TOTAL PROTEIN 6.4 g/dL (6.3-8.2)
[2019-04-01 07:06] LABS: ANISOCYTOSIS 3+; HYPOCHROMASIA 2+; PLATELET COMMENT ADEQUATE; POLYCHROMASIA SLIGHT
[2019-04-01] MEDS: CARVEDILOL 3.125 MG TABLET PO SCH ×2 (09:31→21:52)
[2019-04-01] MEDS: FUROSEMIDE 40 MG TABLET PO SCH (09:31)
[2019-04-01] MEDS: VALSARTAN 160 MG TABLET PO SCH (09:31)
--- NOTE | 2019-04-01 14:41 | PDOC PROGRESS REPORT ---
Subjective Progress Note for:: 04/01/19 Subjective:: Patient seen by the bedside, presently stable on present treatment regimen Reason For Visit: PNEUMONIA, ESRD Physical Exam Vital Signs: Temp Pulse Resp BP Pulse Ox 98.6 F 129 H 16 135/75 H 95 04/01/19 07:13 04/01/19 07:13 04/01/19 07:13 04/01/19 07:13 04/01/19 07:13 Intake & Output 03/31/19 04/01/19 04/02/19 06:59 06:59 06:59 Intake Total 150 950 50 Output Total 2700 0 Balance -2550 950 50 Weight 44.7 kg 44 kg General appearance: PRESENT: no acute distress Eye exam: PRESENT: PERRLA Respiratory exam: PRESENT: clear to auscultation vinicius Cardiovascular exam: PRESENT: +S1, +S2 GI/Abdominal exam: PRESENT: soft Neurological exam: PRESENT: alert, CN II-XII grossly intact Results Laboratory Results: 04/01/19 05:10 04/01/19 05:10 04/01/19 04/01/19 05:10 05:10 WBC 5.4 RBC 2.78 L Hgb 8.3 L Hct 26.1 L MCV 94 MCH 29.7 MCHC 31.7 L RDW 25.6 H Plt Count 292 Seg Neutrophils % 64.3 Sodium 140.3 Potassium 3.5 L Chloride 103 Carbon Dioxide 27 Anion Gap 10 BUN 28 H Creatinine 3.16 H Est GFR ( Amer) 17 L Glucose 97 Calcium 8.0 L Total Bilirubin 0.5 AST 23 Alkaline Phosphatase 602 H Total Protein 6.4 Albumin 3.2 L 03/29/19 03/30/19 22:30 05:32 CK-MB (CK-2) Cancelled 2.13 Troponin I 0.253 0.239 NT-Pro-B Natriuret Pep 74731 H 19052 H Impressions: Chest X-Ray 03/29/19 22:00 IMPRESSION: Cardiomegaly. Reticulonodular changes suggesting minor pneumonitis copyright 2011 [employer]- All Rights Reserved Assessment & Plan - Diagnosis (1) Acute hypoxemic respiratory failure Is this a current diagnosis for this admission?: Yes (2) Healthcare-associated pneumonia Is this a current diagnosis for this admission?: Yes Plan: Continue IV antibiotic (3) End stage renal disease Is this a current diagnosis for this admission?: Yes (4) Peripheral vascular disease Is this a current diagnosis for this admission?: Yes
[2019-04-02] MEDS: PIPERACILLIN SODIUM/TAZOBACTAM 2.25 GM in NORMAL SALINE 50 ML IV SCH ×3 (05:30→21:15)
[2019-04-02] MEDS: HEPARIN SOD (PORCINE) 5,000 UNIT/ML 1 ML VIAL SUBCUT SCH ×3 (05:30→21:15)
[2019-04-02 06:26] LABS: HEMATOCRIT 26.7 % (36.0-47.0); HEMOGLOBIN 8.3 g/dL (12.0-15.5); MEAN CORPUSCULAR HEMOGLOBIN 29.6 pg (27.0-33.4); MEAN CORPUSCULAR HGB CONC 31.2 g/dL (32.0-36.0); MEAN CORPUSCULAR VOLUME 95 fl (80-97); PLATELET COUNT 304 10^3/uL (150-450); RED BLOOD COUNT 2.82 10^6/uL (3.72-5.28); RED CELL DISTRIBUTION WIDTH 25.8 % (11.5-14.0); WHITE BLOOD COUNT 7.2 10^3/uL (4.0-10.5)
[2019-04-02 06:41] LABS: ANION GAP 14 (5-19); BLOOD UREA NITROGEN 33 mg/dL (7-20); CARBON DIOXIDE 25 mmol/L (22-30); CHLORIDE 106 mmol/L (98-107); GLUCOSE 95 mg/dL (75-110); POTASSIUM 3.3 mmol/L (3.6-5.0)
[2019-04-02 06:47] LABS: VANCOMYCIN,TROUGH 13.4 ug/mL (5.0-20.0)
[2019-04-02] MEDS: VALSARTAN 160 MG TABLET PO SCH (09:52)
[2019-04-02] MEDS: CARVEDILOL 3.125 MG TABLET PO SCH ×2 (09:52→21:15)
[2019-04-02] MEDS: FUROSEMIDE 40 MG TABLET PO SCH (09:53)
[2019-04-02] MEDS ORDERED: EPOETIN ALFA-EPBX 20,000 UNITS (ESRD) in SYRINGE IV SCH (10:00)
[2019-04-02] MEDS: HYDRALAZINE HCL 50 MG TABLET PO SCH ×2 (10:18→21:15)
--- NOTE | 2019-04-02 12:02 | PDOC PROGRESS REPORT ---
Subjective Progress Note for:: 04/02/19 Reason For Visit: Patient seen today on dialysis. She is undergoing dialysis without any issues but for the fact she gets anxious when she is undergoing dialysis resulting in high blood pressure. She denies history of headaches, chest pain and improved shortness of breath. Food intake is very poor as she says the food is not good in the hospital. No complaints otherwise. Her leg pains is much better now. Labs and medications were reviewed with her. Dialysis orders were reviewed with the treating dialysis nurse. Physical Exam Vital Signs: Temp Pulse Resp BP Pulse Ox 98.2 F 77 17 199/77 H 89 L 04/02/19 07:11 04/02/19 07:11 04/02/19 07:11 04/02/19 07:11 04/02/19 07:11 Intake & Output 04/01/19 04/02/19 04/03/19 06:59 06:59 06:59 Intake Total 950 780 50 Output Total 0 0 Balance 950 780 50 Weight 44 kg 43.8 kg General appearance: PRESENT: no acute distress Respiratory exam: PRESENT: clear to auscultation vinicius. ABSENT: crackles Cardiovascular exam: PRESENT: +S1, +S2, systolic murmur GI/Abdominal exam: PRESENT: normal bowel sounds, soft. ABSENT: organomegaly, tenderness Extremities exam: ABSENT: pedal edema Neurological exam: PRESENT: alert, awake, oriented to person, oriented to place, oriented to time Psychiatric exam: PRESENT: anxious Results Laboratory Results: 04/02/19 05:58 04/02/19 05:58 04/02/19 04/02/19 05:58 05:58 WBC 7.2 RBC 2.82 L Hgb 8.3 L Hct 26.7 L MCV 95 MCH 29.6 MCHC 31.2 L RDW 25.8 H Plt Count 304 Sodium 145.1 H Potassium 3.3 L Chloride 106 Carbon Dioxide 25 Anion Gap 14 BUN 33 H Creatinine 3.76 H Est GFR ( Amer) 14 L Glucose 95 Calcium 8.0 L 03/29/19 03/30/19 22:30 05:32 CK-MB (CK-2) Cancelled 2.13 Troponin I 0.253 0.239 NT-Pro-B Natriuret Pep 65979 H 62750 H Impressions: Chest X-Ray 03/29/19 22:00 IMPRESSION: Cardiomegaly. Reticulonodular changes suggesting minor pneumonitis copyright 2010 [employer]- All Rights Reserved Assessment & Plan - Diagnosis (1) Pneumonia Qualifiers: Pneumonia type: due to unspecified organism Laterality: unspecified laterality Lung location: unspecified part of lung Qualified Code(s): J18.9 - Pneumonia, unspecified organism Plan: Improving on antibiotics. (2) Anemia in chronic kidney disease Qualifiers: Chronic kidney disease stage: on chronic dialysis Qualified Code(s): N18.6 - End stage renal disease; D63.1 - Anemia in chronic kidney disease; Z99.2 - Dependence on renal dialysis Plan: Adjust erythropoietin. (3) End-stage renal disease on hemodialysis Plan: Currently undergoing dialysis without any issues. Vital signs are showing high blood pressure she always gets anxious while she is on dialysis. Appropriate antihypertensive medications have been administered. Dialysis is being supervised to ensure safe and smooth procedure. Plan to remove between 1 and 2 L as tolerated. Dialysis orders were reviewed with the treating dialysis nurse. (4) Hypertension Qualifiers: Hypertension type: secondary to other renal disorders Qualified Code(s): I15.1 - Hypertension secondary to other renal disorders Plan: Currently uncontrolled as she is on dialysis. Monitor. Antihypertensives have been given. 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 She is got evidences of perip heral vascular disease of the right leg which is unfortunate. Patient had refused any form of surgical treatment when she was begun on dialysis earlier. She and her daughter had been explained about the potential complications. (6) Peripheral vascular disease Plan: She has left BKA and now having this is affecting the right leg as well.
--- NOTE | 2019-04-02 12:06 | EKG REPORT ---
SEVERITY:- ABNORMAL ECG - SINUS RHYTHM MULTIFORM VENTRICULAR PREMATURE COMPLEXES BORDERLINE T WAVE ABNORMALITIES BORDERLINE PROLONGED QT INTERVAL : Confirmed by: Marva Araiza MD 02-Apr-2019 12:05:37
[2019-04-02] MEDS ORDERED: VANCOMYCIN HCL 1,000 MG in DEXTROSE 5%-WATER 250 ML IV SCH (18:00)
--- NOTE | 2019-04-02 18:29 | PDOC PROGRESS REPORT ---
Subjective Progress Note for:: 04/02/19 Subjective:: Patient seen by the bedside, she had dialysis today. She is improving, Reason For Visit: PNEUMONIA, ESRD Physical Exam Vital Signs: Temp Pulse Resp BP Pulse Ox 98.2 F 105 H 17 170/80 H 89 L 04/02/19 07:11 04/02/19 14:00 04/02/19 07:11 04/02/19 12:00 04/02/19 07:11 Intake & Output 04/01/19 04/02/19 04/03/19 06:59 06:59 06:59 Intake Total 950 780 580 Output Total 0 0 1800 Balance 950 780 -1220 Weight 44 kg 43.8 kg General appearance: PRESENT: no acute distress Eye exam: PRESENT: PERRLA Respiratory exam: PRESENT: clear to auscultation vinicius Cardiovascular exam: PRESENT: +S1, +S2 GI/Abdominal exam: PRESENT: soft Neurological exam: PRESENT: alert Results Laboratory Results: 04/02/19 05:58 04/02/19 05:58 04/02/19 04/02/19 05:58 05:58 WBC 7.2 RBC 2.82 L Hgb 8.3 L Hct 26.7 L MCV 95 MCH 29.6 MCHC 31.2 L RDW 25.8 H Plt Count 304 Sodium 145.1 H Potassium 3.3 L Chloride 106 Carbon Dioxide 25 Anion Gap 14 BUN 33 H Creatinine 3.76 H Est GFR ( Amer) 14 L Glucose 95 Calcium 8.0 L 03/29/19 03/30/19 22:30 05:32 CK-MB (CK-2) Cancelled 2.13 Troponin I 0.253 0.239 NT-Pro-B Natriuret Pep 98089 H 44330 H Impressions: Chest X-Ray 03/29/19 22:00 IMPRESSION: Cardiomegaly. Reticulonodular changes suggesting minor pneumonitis copyright 2011 [employer]- All Rights Reserved Assessment & Plan - Diagnosis (1) Acute hypoxemic respiratory failure Is this a current diagnosis for this admission?: Yes (2) Healthcare-associated pneumonia Is this a current diagnosis for this admission?: Yes Plan: Pneumonia is improving, advised to have a total of 7 days of IV antibiotic, she will be discharged home on Tuesday after dialysis (3) End stage renal disease Is this a current diagnosis for this admission?: Yes (4) Peripheral vascular disease Is this a current diagnosis for this admission?: Yes
[2019-04-02] MEDS: ACETAMINOPHEN 325 MG TABLET PO PRN (18:36)
[2019-04-03] MEDS: HYDRALAZINE HCL 50 MG TABLET PO SCH ×4 (06:03→21:20)
[2019-04-03] MEDS: HEPARIN SOD (PORCINE) 5,000 UNIT/ML 1 ML VIAL SUBCUT SCH ×3 (06:03→21:20)
[2019-04-03] MEDS: PIPERACILLIN SODIUM/TAZOBACTAM 2.25 GM in NORMAL SALINE 50 ML IV SCH ×3 (06:03→21:20)
[2019-04-03] MEDS: CARVEDILOL 3.125 MG TABLET PO SCH ×2 (09:12→21:20)
[2019-04-03] MEDS: VALSARTAN 160 MG TABLET PO SCH (09:12)
[2019-04-03] MEDS: FUROSEMIDE 40 MG TABLET PO SCH (09:12)
[2019-04-03] MEDS ORDERED: DIPHENHYDRAMINE HCL 25 MG CAPSULE PO ONE (17:00)
[2019-04-03] MEDS ORDERED: DIPHENHYDRAMINE HCL 25 MG CAPSULE ONE (17:11)
--- NOTE | 2019-04-03 18:27 | PDOC PROGRESS REPORT ---
Subjective Progress Note for:: 04/03/19 Subjective:: Patient seen by the bedside, admitted for pneumonia Reason For Visit: PNEUMONIA, ESRD Physical Exam Vital Signs: Temp Pulse Resp BP Pulse Ox 98.9 F 68 18 144/40 H 100 04/03/19 16:46 04/03/19 16:46 04/03/19 16:46 04/03/19 17:28 04/03/19 16:46 Intake & Output 04/02/19 04/03/19 04/04/19 06:59 06:59 06:59 Intake Total 780 1330 50 Output Total 0 1800 Balance 780 -470 50 Weight 43.8 kg 42 kg General appearance: PRESENT: no acute distress Eye exam: PRESENT: PERRLA Respiratory exam: PRESENT: clear to auscultation vinicius Cardiovascular exam: PRESENT: +S1, +S2 GI/Abdominal exam: PRESENT: soft Neurological exam: PRESENT: alert, CN II-XII grossly intact Results Laboratory Results: 04/02/19 05:58 04/02/19 05:58 03/29/19 03/30/19 22:30 05:32 CK-MB (CK-2) Cancelled 2.13 Troponin I 0.253 0.239 NT-Pro-B Natriuret Pep 88697 H 30715 H Impressions: Chest X-Ray 03/29/19 22:00 IMPRESSION: Cardiomegaly. Reticulonodular changes suggesting minor pneumonitis copyright 2011 [employer]- All Rights Reserved Assessment & Plan - Diagnosis (1) Acute hypoxemic respiratory failure Is this a current diagnosis for this admission?: Yes (2) Healthcare-associated pneumonia Is this a current diagnosis for this admission?: Yes Plan: Continue IV antibiotic (3) End stage renal disease Is this a current diagnosis for this admission?: Yes (4) Peripheral vascular disease Is this a current diagnosis for this admission?: Yes
[2019-04-04] MEDS: HYDRALAZINE HCL 50 MG TABLET PO SCH (06:24)
[2019-04-04] MEDS: PIPERACILLIN SODIUM/TAZOBACTAM 2.25 GM in NORMAL SALINE 50 ML IV SCH (06:25)
[2019-04-04] MEDS: HEPARIN SOD (PORCINE) 5,000 UNIT/ML 1 ML VIAL SUBCUT SCH (06:25)
[2019-04-04 06:50] LABS: VANCOMYCIN,TROUGH 21.5 ug/mL (5.0-20.0)
[2019-04-04] MEDS ORDERED: EPOETIN ALFA-EPBX 20,000 UNIT in SYRINGE, DISPOSABLE, 1 EACH IV PRN (07:29)
--- NOTE | 2019-04-04 08:37 | PDOC DISCHARGE SUMMARY ---
Impression - Admit/DC Date/PCP Admission Date/Primary Care Provider: 03/30/19 00:12 MARIANO WASHINGTON MD Discharge Date: 04/04/19 - Discharge Diagnosis (1) Acute hypoxemic respiratory failure Is this a current diagnosis for this admission?: Yes (2) Healthcare-associated pneumonia Is this a current diagnosis for this admission?: Yes (3) End stage renal disease Is this a current diagnosis for this admission?: Yes (4) Peripheral vascular disease Is this a current diagnosis for this admission?: Yes - Additional Information Resuscitation Status: Do Not Resuscitate Discharge Activity: Activity As Tolerated, Balance Activity w/Rest Referrals: MARIANO WASHINGTON MD [Primary Care Provider] - 04/11/19 9:30 am LEN JARVIS PA-C [ALLIED HEALTH PROFESSIONAL] - Follow up as needed (The patient will see the [facility] in dialysis.) Home Medications: Carvedilol [Coreg 3.125 mg Tablet] 3.125 mg PO Q12 03/30/19 Furosemide [Lasix 40 mg Tablet] 40 mg PO DAILY 03/30/19 Valsartan [Diovan] 320 mg PO DAILY 03/30/19 History of Present Illiness History of Present Illness: BRIAN GUDINO is a 83 year old female,She has end-stage renal disease on maintenance hemodialysis, she presented to the emergency room for evaluation of shortness of breath, She recently had amputation of the left lower extremity approximately at the end of February, when she arrived in the emergency room the oxygen saturation was in the low 60s, she required noninvasive positive pressure ventilation with BiPAP. Chest x-ray that was done demonstrated bilateral pneumonia worse on the left than the right. She also was found to have elevated BNP, I do not understand the value of BNP in the patient with end-stage renal disease, it is essentially uninterpretable.The chest x-ray is consistent with bilateral pneumonia,There is associated leukocytosis, this is consistent with pneumonia rather than CHF I spoke to the patient's daughter about CODE STATUS, patient is wish is to be DNR. She also recently left the [place] [facility] where she was for rehabilitation, She probably have healthcare associated pneumonia Hospital Course Hospital Course: Patient was admitted for the management of pneumonia associated with acute hypoxemic respiratory failure. She has end-stage kidney disease on maintenance hemodialysis, she was treated with IV antibiotic, vancomycin and Zosyn, the choice of antibiotic was based on the fact that she she had healthcare associated pneumonia. She recently went amputation of the left leg due to PAD and she was just discharged from the [place] [facility] after rehabilitation and physical therapy.She was seen by nephrology, underwent hemodialysis in the hospital, she had 7 days of intravenous antibiotic which is the recommended duration of antibiotic usage pneumonia. Patient was stable throughout hospital stay, it was felt that patient has maximized hospital stay on could be safely d ischarged home Physical Exam Vital Signs: Temp Pulse Resp BP Pulse Ox 98.5 F 75 20 149/60 H 97 04/04/19 03:21 04/04/19 07:00 04/04/19 03:21 04/04/19 03:21 04/04/19 03:21 Intake & Output 04/03/19 04/04/19 04/05/19 06:59 06:59 06:59 Intake Total 1330 370 50 Output Total 1800 Balance -470 370 50 Weight 42 kg 41.8 kg General appearance: PRESENT: no acute distress Eye exam: PRESENT: PERRLA Respiratory exam: PRESENT: clear to auscultation vinicius Cardiovascular exam: PRESENT: +S1, +S2 GI/Abdominal exam: PRESENT: soft Neurological exam: PRESENT: alert Results Laboratory Results: WBC 7.2 10^3/uL (4.0-10.5) 04/02/19 05:58 RBC 2.82 10^6/uL (3.72-5.28) L 04/02/19 05:58 Hgb 8.3 g/dL (12.0-15.5) L 04/02/19 05:58 Hct 26.7 % (36.0-47.0) L 04/02/19 05:58 MCV 95 fl (80-97) 04/02/19 05:58 MCH 29.6 pg (27.0-33.4) 04/02/19 05:58 MCHC 31.2 g/dL (32.0-36.0) L 04/02/19 05:58 RDW 25.8 % (11.5-14.0) H 04/02/19 05:58 Plt Count 304 10^3/uL (150-450) 04/02/19 05:58 Lymph % (Auto) 19.9 % (13-45) 04/01/19 05:10 Schuyler % (Auto) 12.3 % (3-13) 04/01/19 05:10 Eos % (Auto) 2.2 % (0-6) 04/01/19 05:10 Baso % (Auto) 1.3 % (0-2) 04/01/19 05:10 Absolute Neuts (auto) 3.5 10^3/uL (1.7-8.2) 04/01/19 05:10 Absolute Lymphs (auto) 1.1 10^3/uL (0.5-4.7) 04/01/19 05:10 Absolute Monos (auto) 0.7 10^3/uL (0.1-1.4) 04/01/19 05:10 Absolute Eos (auto) 0.1 10^3/uL (0.0-0.6) 04/01/19 05:10 Absolute Basos (auto) 0.1 10^3/uL (0.0-0.2) 04/01/19 05:10 Seg Neutrophils % 64.3 % (42-78) 04/01/19 05:10 Platelet Comment ADEQUATE 04/01/19 05:10 Polychromasia SLIGHT 04/01/19 05:10 Hypochromasia 2+ 04/01/19 05:10 Anisocytosis 3+ 04/01/19 05:10 Tear Drop Cells SLIGHT 03/29/19 22:30 Ovalocytes 1+ 03/29/19 22:30 Schistocytes SLIGHT 03/29/19 22:30 Sodium 145.1 mmol/L (137-145) H 04/02/19 05:58 Potassium 3.3 mmol/L (3.6-5.0) L 04/02/19 05:58 Chloride 106 mmol/L (98-107) 04/02/19 05:58 Carbon Dioxide 25 mmol/L (22-30) 04/02/19 05:58 Anion Gap 14 (5-19) 04/02/19 05:58 BUN 33 mg/dL (7-20) H 04/02/19 05:58 Creatinine 3.76 mg/dL (0.52-1.25) H 04/02/19 05:58 Est GFR ( Amer) 14 (>60) L 04/02/19 05:58 Est GFR (MDRD) Non-Af 12 (>60) L 04/02/19 05:58 Glucose 95 mg/dL (75-110) 04/02/19 05:58 Hemoglobin A1c % 5.1 % (4.7-6.0) 03/30/19 05:32 Lactic Acid 1.9 mmol/L (0.7-2.1) 03/29/19 22:30 Calcium 8.0 mg/dL (8.4-10.2) L 04/02/19 05:58 Magnesium 2.2 mg/dL (1.6-2.3) 03/29/19 22:30 Total Bilirubin 0.5 mg/dL (0.2-1.3) 04/01/19 05:10 Direct Bilirubin 0.3 mg/dL (0.0-0.4) 04/01/19 05:10 Neonat Total Bilirubin Not Reportable 04/01/19 05:10 Neonat Direct Bilirubin Not Reportable 04/01/19 05:10 Neonat Indirect Bili Not Reportable 04/01/19 05:10 AST 23 U/L (14-36) 04/01/19 05:10 ALT 22 U/L (<35) 04/01/19 05:10 Alkaline Phosphatase 602 U/L (38-126) H 04/01/19 05:10 CK-MB (CK-2) 2.13 ng/mL (<4.55) 03/30/19 05:32 Troponin I 0.239 ng/mL 03/30/19 05:32 NT-Pro-B Natriuret Pep 05649 pg/mL (<450) H 03/30/19 05:32 Total Protein 6.4 g/dL (6.3-8.2) 04/01/19 05:10 Albumin 3.2 g/dL (3.5-5.0) L 04/01/19 05:10 Time Trough Drawn 0608 04/04/19 06:08 Vancomycin Trough 21.5 ug/mL (5.0-20.0) H 04/04/19 06:08 03/29/19 03/30/19 22:30 05:32 CK-MB (CK-2) Cancelled 2.13 Troponin I 0.253 0.239 NT-Pro-B Natriuret Pep 34376 H 65736 H Impressions: Chest X-Ray 03/29/19 22:00 IMPRESSION: Cardiomegaly. Reticulonodular changes suggesting minor pneumonitis copyright 2011 [employer]- All Rights Reserved Stroke Is this a Stroke Patient?: No Stroke Pt being discharged on Anti-thrombolytic therapy?: No Reason(s) for not prescribing Anti-thrombolytic therapy:: Not indicated Stroke Pt being discharged on Anti-coagulation therapy?: No Reason(s) for not prescribing Anti-coagulation therapy:: Not indicated Stroke Pt being discharged on Statins?: No Reason(s) for not prescribing Statins therapy:: Not indicated Acute Heart Failure - Is this a Heart Failure Patient?: No Follow-up Appointment scheduled within 7 days?: Yes
[2019-04-04] MEDS: VALSARTAN 160 MG TABLET PO SCH (12:10)
[2019-04-04] MEDS: FUROSEMIDE 40 MG TABLET PO SCH (12:11)
[2019-04-04] MEDS: CARVEDILOL 3.125 MG TABLET PO SCH (12:11)
[2019-04-04 12:22] VITALS: BP 159/48
--- NOTE | 2019-04-04 15:54 | PDOC PROGRESS REPORT ---
Subjective Progress Note for:: 04/04/19 Reason For Visit: Patient admitted with pneumonia in the background of ESRD. Patient seen today undergoing dialysis. She is in no distress and feels a lot better. Dialysis is stable. Labs and medications were reviewed. She denies any history of chest pain or shortness of breath. Dialysis orders were reviewed with the treating dialysis nurse. Physical Exam Vital Signs: Temp Pulse Resp BP Pulse Ox 98.2 F 77 16 159/48 H 98 04/04/19 12:20 04/04/19 12:20 04/04/19 12:20 04/04/19 12:20 04/04/19 12:20 Intake & Output 04/03/19 04/04/19 04/05/19 06:59 06:59 06:59 Intake Total 1330 370 50 Output Total 1800 1000 Balance -470 370 -950 Weight 42 kg 41.8 kg General appearance: PRESENT: no acute distress Respiratory exam: PRESENT: clear to auscultation vinicisu. ABSENT: chest wall tenderness, crackles Cardiovascular exam: PRESENT: +S1, +S2, systolic murmur GI/Abdominal exam: PRESENT: normal bowel sounds, soft. ABSENT: organomegaly, tenderness Extremities exam: ABSENT: pedal edema Neurological exam: PRESENT: alert, awake, oriented to person, oriented to place Psychiatric exam: PRESENT: appropriate affect Results Laboratory Results: 04/02/19 05:58 04/02/19 05:58 03/29/19 23:40 Blood Blood Culture - Final NO GROWTH IN 5 DAYS 03/29/19 22:30 Blood Blood Culture - Final NO GROWTH IN 5 DAYS 03/29/19 03/30/19 22:30 05:32 CK-MB (CK-2) Cancelled 2.13 Troponin I 0.253 0.239 NT-Pro-B Natriuret Pep 17297 H 49122 H Impressions: Chest X-Ray 03/29/19 22:00 IMPRESSION: Cardiomegaly. Reticulonodular changes suggesting minor pneumonitis copyright 2011 [employer]- All Rights Reserved Assessment & Plan - Diagnosis (1) Pneumonia Qualifiers: Pneumonia type: due to unspecified organism Laterality: unspecified laterality Lung location: unspecified part of lung Qualified Code(s): J18.9 - Pneumonia, unspecified organism Plan: Improving on antibiotics. (2) Anemia in chronic kidney disease Qualifiers: Chronic kidney disease stage: on chronic dialysis Qualified Code(s): N18.6 - End stage renal disease; D63.1 - Anemia in chronic kidney disease; Z99.2 - De pendence on renal dialysis Plan: Adjust erythropoietin. (3) End-stage renal disease on hemodialysis Plan: Currently undergoing dialysis without any issues. Vital signs are showing high blood pressure she always gets anxious while she is on dialysis. Appropriate antihypertensive medications have been administered. Dialysis is being supervised to ensure safe and smooth procedure. Plan to remove between 1 and 2 L as tolerated. Dialysis orders were reviewed with the treating dialysis nurse. (4) Hypertension Qualifiers: Hypertension type: secondary to other renal disorders Qualified Code(s): I15.1 - Hypertension secondary to other renal disorders Plan: Currently uncontrolled as she is on dialysis. Monitor. Antihypertensives have been given. 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 She is got evidences of peripheral vascular disease of the right leg which is unfortunate. Patient had refused any form of surgical treatment when she was begun on dialysis earlier. She and her daughter had been explained about the potential complications. (6) Peripheral vascular disease Plan: She has left BKA and now having this is affecting the right leg as well.
[2019-04-04] MEDS ORDERED: VANCOMYCIN HCL 750 MG in DEXTROSE 5%-WATER 250 ML IV SCH (18:00)
== END 2019-04-04 13:10 | disposition home or self-care (01) | DRG 193 ==
LOC: ER 21:56 → EH 03-30 00:12 → 4W 03-30 09:29 → 3W 03-30 16:04
PROVIDERS: ADMIT Internal Medicine; ATTEND Internal Medicine
PROC: 5A09457 Assistance with Respiratory Ventilation, 24-96 Consecutive Hours, Continuous Positive Airway Pressure (ICD-10-PCS; principal; 2019-03-29)
PROC: 5A1D70Z Performance of Urinary Filtration, Intermittent, Less than 6 Hours Per Day (ICD-10-PCS; 2019-03-30)
PROC: 5A1D70Z Performance of Urinary Filtration, Intermittent, Less than 6 Hours Per Day (ICD-10-PCS; 2019-04-02)
PROC: 5A1D70Z Performance of Urinary Filtration, Intermittent, Less than 6 Hours Per Day (ICD-10-PCS; 2019-04-04)
DX: J18.9 Pneumonia, unspecified organism (principal); N18.6 End stage renal disease; J96.01 Acute respiratory failure with hypoxia; I12.0 Hypertensive chronic kidney disease with stage 5 chronic kidney disease or end stage renal disease; Z66 Do not resuscitate; I73.9 Peripheral vascular disease, unspecified; E78.5 Hyperlipidemia, unspecified; D63.1 Anemia in chronic kidney disease; F32.9 Major depressive disorder, single episode, unspecified; N25.0 Renal osteodystrophy; E21.2 Other hyperparathyroidism; E78.00 Pure hypercholesterolemia, unspecified; Z79.899 Other long term (current) drug therapy; Z99.2 Dependence on renal dialysis; Z89.612 Acquired absence of left leg above knee; Z91.018 Allergy to other foods; Z91.048 Other nonmedicinal substance allergy status; Z87.11 Personal history of peptic ulcer disease
CPT/HCPCS: 36415; 71045; 80048; 80053; 80202; 82553; 83036; 83605; 83735; 83880; 84484; 85025; 85027; 87040; 93005; 93010; 94640; 94660; 96365; 96367; 96375; 99285; J1644; J2060; J2543; J3370; J3490; J7060; J7620; Q5105

== ENCOUNTER 2019-04-13 14:19 | Emergency (ER) | payer MEDICARE ==
--- NOTE | 2019-04-13 14:32 | ER Document Report ---
ED Medical Screen (RME) - General Chief Complaint: Shortness Of Breath Stated Complaint: SHORTNESS OF BREATH Time Seen by Provider: 04/13/19 14:25 Primary Care Provider: MARIANO WASHINGTON MD [Primary Care Provider] - Follow up as needed TRAVEL OUTSIDE OF THE [place] IN LAST 30 DAYS: No - HPI Notes: 04/13/19 14:28 Patient is an 83-year-old female with a history of hypertension, hypercholesterolemia, end-stage renal disease on maintenance hemodialysis (m/w/f)-did not go today, recent admission for pneumonia with discharge 9 days ago who presents per Dr. Washington for evaluation of shortness of breath and oxygen saturation at 90% in his office today. Patient states that her shortness of breath started yesterday. She is otherwise able to eat and drink without difficultly. No fever. I have treated and performed a rapid initial assessment of this patient. A comprehensive ED assessment and evaluation of the patient, analysis of test results and completion of medical decision making process will be conducted by additional ED providers. PHYSICAL EXAMINATION: GENERAL: Well-appearing, well-nourished and in no acute distress. A&Ox4. Answers questions appropriately. LUNGS: crackle RLL w/o significant retraction noted. Pulse ox varies 90-94% on RA currently. - Related Data Allergies/Adverse Reactions: aloe vera [Aloe Vera] Allergy (Unknown, Verified 04/13/19 14:22) Swelling jalapeno peppers Allergy (Unknown, Uncoded 04/13/19 14:22) Swelling Past Medical History - Past Medical History Cardiac Medical History: Reports: Hx Hypercholesterolemia, Hx Hypertension, Hx Peripheral Vascular Disease Denies: Hx Coronary Artery Disease, Hx Heart Attack Pulmonary Medical History: Reports: Hx Pneumonia - hx of Denies: Hx Asthma, Hx Bronchitis, Hx COPD Neurological Medical History: Denies: Hx Cerebrovascular Accident, Hx Seizures, Hx Parkinson's Disease Renal/ Medical History: Reports: Hx End Stage Renal Disease, Hx Kidney Stones. Denies: Hx Peritoneal Dialysis GI Medical History: Reports: Hx Diverticulitis, Hx Ulcer - Peptic ulcer disease in 1992-no history of GI bleeding in the past Musculoskeltal Medical History: Denies Hx Arthritis, Denies Hx Multiple Sclerosis Psychiatric Medical History: Denies: Hx Schizophrenia Past Surgical History: Reports: Hx Kidney (Renal Surgery) - 1 removal, Hx Orthopedic Surgery - left AKA mar. Denies: Hx Hysterectomy - Immunizations Immunizations up to date: Yes Hx Diphtheria, Pertussis, Tetanus Vaccination: Yes Physical Exam - Vital signs Vitals: Temp Pulse Resp BP Pulse Ox 99 F 76 28 H 163/64 H 91 L 04/13/19 14:26 04/13/19 14:26 04/13/19 14:26 04/13/19 14:26 04/13/19 14:26 Course - Vital Signs Vital signs: Temp Pulse Resp BP Pulse Ox 99 F 76 28 H 163/64 H 91 L 04/13/19 14:26 04/13/19 14:26 04/13/19 14:26 04/13/19 14:26 04/13/19 14:26 Doctor's Discharge - Discharge Referrals: MARIANO WASHINGTON MD [Primary Care Provider] - Follow up as needed
[2019-04-13] MEDS ORDERED: IPRATROPIUM/ALBUTEROL 0.5-2.5 MG/3 ML AMPUL NEB ONE (14:33)
--- NOTE | 2019-04-13 15:39 | RADIOLOGY REPORT (SQ) ---
EXAM DESCRIPTION: CHEST 2 VIEWS COMPLETED DATE/TIME: 04/13/2019 3:20 pm REASON FOR STUDY: SOB, crackle RLL COMPARISON: 03/29/2019 EXAM PARAMETERS: NUMBER OF VIEWS: two views TECHNIQUE: Digital Frontal and Lateral radiographic views of the chest acquired. RADIATION DOSE: NA LIMITATIONS: none FINDINGS: LUNGS AND PLEURA: Pulmonary vascular congestion. Cannot exclude mild pulmonary edema. Il l-defined retrocardiac opacification on the right. Ill-defined posterior inferior opacification on t he lateral view. MEDIASTINUM AND HILAR STRUCTURES: No masses or contour abnormalities. HEART AND VASCULAR STRUCTURES: Cardiomegaly. BONES: No acute findings. HARDWARE: None in the chest. OTHER: No other significant finding. IMPRESSION: Cardiomegaly. Cannot exclude pulmonary edema. Cannot exclude a right lower lobe pneumo diego. TECHNICAL DOCUMENTATION: JOB ID: [id number] [employer]- All Rights Reserved Reading location - IP/workstation name: [email or web address]
--- NOTE | 2019-04-13 16:08 | ER Document Report ---
ED General - General Chief Complaint: Shortness Of Breath Stated Complaint: SHORTNESS OF BREATH Time Seen by Provider: 04/13/19 14:25 Primary Care Provider: MARIANO WASHINGTON MD [Primary Care Provider] - Follow up as needed TRAVEL OUTSIDE OF THE [place] IN LAST 30 DAYS: No - HPI Notes: Patient is an 83-year-old female with a history of end-stage renal disease who presents to the emergency department for evaluation of shortness of breath. Patient states that she had been admitted to the hospital a few weeks ago, discharged, treated for pneumonia. She states she finished her antibiotics. She was feeling significantly improved. 2 days ago she started feeling short of breath again. She had a doctor's appointment with her primary care physician, who found her to be borderline hypoxic with crackles in the bases. She was sent to the ED for further evaluation. The patient is a Tuesday dialysis patient, did not go to dialysis this morning as she was not feeling well. No known fevers. No nausea or vomiting. Eating and drinking normally. She does still urinate, has had no urinary symptoms. She denies any pain at this point, states her only recent pain has been chronic right leg pain. - Related Data Allergies/Adverse Reactions: aloe vera [Aloe Vera] Allergy (Unknown, Verified 04/13/19 14:22) Swelling jalapeno peppers Allergy (Unknown, Uncoded 04/13/19 14:22) Swelling Past Medical History - General Information source: Patient - Social History Smoking Status: Never Smoker Chew tobacco use (# tins/day): No Frequency of alcohol use: None Drug Abuse: None Family History: Reviewed & Not Pertinent Patient has suicidal ideation: No Patient has homicidal ideation: No - Past Medical History Cardiac Medical History: Reports: Hx Hypercholesterolemia, Hx Hypertension, Hx Peripheral Vascular Disease Denies: Hx Coronary Artery Disease, Hx Heart Attack Pulmonary Medical History: Reports: Hx Pneumonia - hx of Denies: Hx Asthma, Hx Bronchitis, Hx COPD Neurological Medical History: Denies: Hx Cerebrovascular Accident, Hx Seizures, Hx Parkinson's Disease Renal/ Medical History: Reports: Hx End Stage Renal Disease, Hx Kidney Stones. Denies: Hx Peritoneal Dialysis GI Medical History: Reports: Hx Diverticulitis, Hx Ulcer - Peptic ulcer disease in 1992-no history of GI bleeding in the past Musculoskeletal Medical History: Denies Hx Arthritis, Denies Hx Multiple Sclerosis Psychiatric Medical History: Denies: Hx Schizophrenia Past Surgical History: Reports: Hx Kidney (Renal Surgery) - 1 removal, Hx Orthopedic Surgery - left AKA mar. Denies: Hx Hysterectomy - Immunizations Immunizations up to date: Yes Hx Diphtheria, Pertussis, Tetanus Vaccination: Yes Hx Pneumococcal Vaccination: 07/04/16 Review of Systems - Review of Systems Constitutional: No symptoms reported EENT: No symptoms reported Cardiovascular: No symptoms reported Respiratory: See HPI Gastrointestinal: No symptoms reported Genitourinary: No symptoms reported Musculoskeletal: No symptoms reported Skin: No symptoms reported Neurological/Psychological: No symptoms reported Physical Exam - Vital signs Vitals: Temp Pulse Resp BP Pulse Ox 99 F 76 28 H 163/64 H 91 L 04/13/19 14:26 04/13/19 14:26 04/13/19 14:26 04/13/19 14:26 04/13/19 14:26 - Notes Notes: This is an 83-year-old female, frail in appearance, in no acute distress. Head is normocephalic and atraumatic, pupils are equal round, reactive to light. Oral mucosa is moist. Uvula is midline. Heart is regular, lungs show bibasilar rales. Abdomen soft, nontender, normoactive bowel sounds. Patient has a left AKA, stump is intact without signs of infection. Right lower extremity reveals no posterior calf tenderness, no cyanosis, clubbing, edema. Peripheral pulse at posterior tibial site is 2+. Patient is awake and alert, neurological exam is nonfocal. Course - Re-evaluation Re-evalutation: 04/13/19 16:08 Patient presents emergency department for evaluation of difficulty breathing. Clinically she does not appear to be a pneumonia at this time, awaiting blood work. Laboratory investigations are still pending. My primary concern is that this patient is more short of breath that she needs to be dialyzed. We will con tinue to monitor. 04/13/19 22:48 Patient's laboratory investigation was found to be largely unremarkable. She does have known end-stage renal disease. Her elect lites were not significantly altered. Her chest x-ray does show questionable pneumonia. Given her recent hospitalization and status this is a dialysis patient, this was covered with IV cefepime. Patient had blood cultures ordered. Unfortunately, ultimately I believe that the patient requires most his dialysis. We do not have any d ialysis beds available at this time. Patient has been seen at [facility] in the past, is amenable to transfer there. Awaiting phone call from internal medicine physician. 04/13/19 23:26 Patient will be transferred to [facility], Dr. Malagon excepting. - Vital Signs Vital signs: Temp Pulse Resp BP Pulse Ox 99 F 76 26 H 163/104 H 94 04/13/19 14:26 04/13/19 14:26 04/13/19 23:02 04/13/19 23:02 04/13/19 23:02 - Laboratory Result Diagrams: 04/13/19 16:38 04/13/19 15:36 Laboratory results interpreted by me: 04/13/19 04/13/19 04/13/19 15:36 15:36 16:38 RBC 2.53 L Hgb 7.7 L Hct 24.7 L MCV 98 H MCHC 31.4 L RDW 24.7 H BUN 37 H Creatinine 3.24 H Est GFR ( Amer) 17 L Est GFR (MDRD) Non-Af 14 L Alkaline Phosphatase 845 H NT-Pro-B Natriuret Pep 03311 H - EKG Interpretation by Me Additional EKG results interpreted by me: 04/13/19 22:49 Sinus mechanism with rate of 80 bpm, PVCs and PACs noted. Normal axis. Nonspecific ST changes, no acute changes concerning for ischemia or infarction. No significant change compared to prior study of June 16, 2017. Discharge - Discharge Clinical Impression: Anemia, End-stage renal disease on hemodialysis, Pneumonia, Hypoxia Condition: Stable Disposition: [facility] Admitting Provider: Dr. Malagon Referrals: MARIANO WASHINGTON MD [Primary Care Provider] - Follow up as needed
[2019-04-13 16:10] LABS: ALBUMIN 3.7 g/dL (3.5-5.0); ALKALINE PHOSPHATASE 845 U/L (38-126); ANION GAP 11 (5-19); ASPARTATE AMINO TRANSFERASE 24 U/L (14-36); BILIRUBIN,DIRECT 0.2 mg/dL (0.0-0.4); BILIRUBIN,TOTAL 0.3 mg/dL (0.2-1.3); BLOOD UREA NITROGEN 37 mg/dL (7-20); CALCIUM 9.1 mg/dL (8.4-10.2); CARBON DIOXIDE 27 mmol/L (22-30); CHLORIDE 103 mmol/L (98-107); GLUCOSE 93 mg/dL (75-110); POTASSIUM 4.1 mmol/L (3.6-5.0)
[2019-04-13 16:23] LABS: TROPONIN I 0.046 ng/mL
[2019-04-13 17:10] LABS: ABSOLUTE EOSINOPHILS # (AUTO) 0.1 10^3/uL (0.0-0.6); ABSOLUTE LYMPHOCYTES (AUTO) 1.4 10^3/uL (0.5-4.7); ABSOLUTE MONOCYTES (AUTO) 0.5 10^3/uL (0.1-1.4); ABSOLUTE NEUT (AUTO) 3.2 10^3/uL (1.7-8.2); BASOPHILS % (AUTO) 0.8 % (0-2); EOSINOPHILS % (AUTO) 1.9 % (0-6); HEMATOCRIT 24.7 % (36.0-47.0); MEAN CORPUSCULAR HEMOGLOBIN 30.6 pg (27.0-33.4); MEAN CORPUSCULAR HGB CONC 31.4 g/dL (32.0-36.0); MEAN CORPUSCULAR VOLUME 98 fl (80-97); MONOCYTES % (AUTO) 9.9 % (3-13); PLATELET COUNT 377 10^3/uL (150-450); RED BLOOD COUNT 2.53 10^6/uL (3.72-5.28); RED CELL DISTRIBUTION WIDTH 24.7 % (11.5-14.0); SEGMENTED NEUTROPHILS % (AUTO) 61.4 % (42-78); TOTAL CELLS COUNTED % (AUTO) 100 %; WHITE BLOOD COUNT 5.3 10^3/uL (4.0-10.5)
[2019-04-13 17:27] LABS: ANISOCYTOSIS 3+; OVALOCYTES SLIGHT; PLATELET COMMENT ADEQUATE; POIKILOCYTOSIS SLIGHT; POLYCHROMASIA SLIGHT; TEAR DROP CELLS SLIGHT
[2019-04-13 17:29] LABS: HEMOGLOBIN 7.7 g/dL (12.0-15.5)
[2019-04-13] MEDS ORDERED: CEFEPIME 1 GM/D5W RTU 1 GM/50 ML RTUPB IV ONE (19:28)
--- NOTE | 2019-04-13 21:13 | EKG REPORT ---
SEVERITY:- ABNORMAL ECG - SINUS RHYTHM CONSIDER LEFT VENTRICULAR HYPERTROPHY : Confirmed by: Jw Hernández MD 13-Apr-2019 21:13:37
[2019-04-14 07:47] VITALS: BP 180/58
--- NOTE | 2019-04-16 11:58 | EKG REPORT ---
SEVERITY:- ABNORMAL ECG - SINUS RHYTHM MULTIPLE PREMATURE COMPLEXES, SUPRAVEN CONSIDER LEFT VENTRICULAR HYPERTROPHY : Confirmed on behalf of: Jw Hernández MD 16-Apr-2019 11:58:07
== END 2019-04-14 08:10 | disposition short-term general hospital (02) ==
LOC: ER 14:19
DX: J18.9 Pneumonia, unspecified organism (principal); I12.0 Hypertensive chronic kidney disease with stage 5 chronic kidney disease or end stage renal disease; D63.1 Anemia in chronic kidney disease; N18.6 End stage renal disease; R09.02 Hypoxemia; E78.00 Pure hypercholesterolemia, unspecified; Z89.612 Acquired absence of left leg above knee; Z99.2 Dependence on renal dialysis
CPT/HCPCS: 93005; 36415; 87040; 85025; 87077; 80053; 84484; 83880; 71046; 93010; A9270; J0692; 94640; 96365; 99285; J7620

== ENCOUNTER 2019-12-28 06:28 | Inpatient (IN) | payer MEDICARE ==
[2019-12-28] MEDS ORDERED: NALOXONE HCL INJ 2 MG/2 ML DISP.SYRIN ONE (06:33)
[2019-12-28] MEDS ORDERED: NALOXONE HCL INJ 2 MG/2 ML DISP.SYRIN IV ONE (06:41)
[2019-12-28] MEDS ORDERED: PIPERACILLIN/TAZOBACTAM 4.5 GM VIAL IV ONE (06:43)
[2019-12-28] MEDS ORDERED: VANCOMYCIN HCL INJ 1000 MG VIAL IV ONE (06:43)
--- NOTE | 2019-12-28 07:02 | ER Document Report ---
ED General - General Chief Complaint: Shortness Of Breath Stated Complaint: SHORTNESS OF BREATH Time Seen by Provider: 12/28/19 06:38 Primary Care Provider: MARIANO WASHINGTON MD [Primary Care Provider] - Follow up as needed TRAVEL OUTSIDE OF THE [place] IN LAST 30 DAYS: No - HPI Notes: Chief complaint: Respiratory distress and altered mental status History of present illness: 83-year-old female patient followed by Dr. Washington and also followed by nephrology with a history of end-stage renal disease on Tuesday hemodialysis presenting now via private automobile transported here by family for lethargy and difficulty breathing. FAMILY MEMBERS INDICATE PATIENT IS ON DNR/DNI STATUS. Patient received full dialysis session on Tuesday. Family member's were getting the patient up to get her ready to go to dialysis when they observed her change in mental status and difficulty breathing and they transported her directly here. Extensive old hospital records from this facility have been reviewed. Patient is not able to relate her own history. I have spoken to the patient's daughter Natacha Hobson at and she confirms DNR/DNI status. - Related Data Allergies/Adverse Reactions: aloe vera [Aloe Vera] Allergy (Unknown, Verified 04/13/19 14:22) Swelling jalapeno peppers Allergy (Unknown, Uncoded 04/13/19 14:22) Swelling Past Medical History - General Information source: Relative, ON LICENSE OF [facility] Records Cannot obtain history due to: Unstable vital signs, Altered mental status - Social History Smoking Status: Never Smoker Frequency of alcohol use: None Drug Abuse: None - Old left AKA Family History: Reviewed & Not Pertinent - Past Medical History Cardiac Medical History: Reports: Hx Hypercholesterolemia, Hx Hypertension, Hx Peripheral Vascular Disease Denies: Hx Coronary Artery Disease, Hx Heart Attack Pulmonary Medical History: Reports: Hx Pneumonia - hx of Denies: Hx Asthma, Hx Bronchitis, Hx COPD Neurological Medical History: Denies: Hx Cerebrovascular Accident, Hx Seizures, Hx Parkinson's Disease Renal/ Medical History: Reports: Hx End Stage Renal Disease, Hx Kidney Stones. Denies: Hx Peritoneal Dialysis GI Medical History: Reports: Hx Diverticulitis, Hx Ulcer - Peptic ulcer disease in 1992-no history of GI bleeding in the past Musculoskeletal Medical History: Denies Hx Arthritis, Denies Hx Multiple Sclerosis Psychiatric Medical History: Denies: Hx Schizophrenia Past Surgical History: Reports: Hx Kidney (Renal Surgery) - 1 removal, Hx Orthopedic Surgery - left AKA mar. Denies: Hx Hysterectomy - Immunizations Immunizations up to date: Yes Hx Diphtheria, Pertussis, Tetanus Vaccination: Yes Hx Pneumococcal Vaccination: 07/04/16 Review of Systems - Review of Systems -: Yes ROS unobtainable due to patient's medical condition Physical Exam - Vital signs Vitals: Resp Pulse Ox 22 H 97 12/28/19 06:45 12/28/19 06:45 - Notes Notes: GENERAL: Emaciated frail elderly female obtunded with agonal respirations. SKIN: Good turgor no rashes. HEAD: Bitemporal wasting. EYES: Pupils are small equal and sluggish. Gaze is conjugate. Conjunctivae and sclerae clear. EARS: CANALS AND TMS CLEAR. NOSE: CLEAR. MOUTH: Moist mucosa. Edentulous. No stridor or edema. No drooling. NECK: Supple. No masses or thyromegaly. No adenopathy. Carotids 1+ without bruits. Prominent bilateral JVD. BACK: Symmetrical without tenderness. CHEST: Respirations agonal. Breath sounds grossly clear and symmetrical. HEART: Tachycardic regular rhythm. No murmur gallop or rub. ABDOMEN: Soft nontender without masses, organomegaly or rebound. Bowel sounds normally active. No bruits. GENITALIA: Normal female. EXTREMITIES: Left AKA. No edema. No calf tenderness. Cap refill less than 1.5 seconds. Dorsalis pedis and posterior tibial pulses 3+ and symmetrical. NEUROLOGICAL: GCS 11 (eyes 4 verbal to best motor 5). Moves all 4 extremities symmetrically in response to pain Course - Re-evaluation Re-evalutation: 12/28/19 08:50 Patient was initially bagged. She had no IV access initially and I had a placed on intraosseous line for her. We gave Narcan. We covered her for possible sepsis obtaining blood cultures and giving initial dose of Zosyn and vancomycin. We confirmed with family that she is on DNR/DNI status. We placed her on BiPAP and she tolerated this reasonably well. Her chest x-ray shows fluid overload. I have paged nephrology for dialysis. Case was discussed with her primary care physician Dr. Washington who is excepted for admission to [facility]. - Vital Signs Vital signs: Temp Pulse Resp BP Pulse Ox 22 H 97 12/28/19 06:45 12/28/19 06:45 - Laboratory Result Diagrams: 12/28/19 07:40 12/28/19 07:02 Laboratory results interpreted by me: 12/28/19 12/28/19 12/28/19 07:02 07:02 07:02 RBC Hgb Hct MCV MCHC RDW [place] % (Auto) VBG pH 7.06 L* VBG pCO2 89.0 H* Potassium 3.5 L BUN 27 H Creatinine 3.89 H Est GFR ( Amer) 13 L Est GFR (MDRD) Non-Af 11 L Glucose 232 H POC Glucose Lactic Acid 5.8 H Alkaline Phosphatase 1231 H 12/28/19 12/28/19 07:40 08:19 RBC 2.78 L Hgb 9.2 L Hct 29.9 L MCV 107 H MCHC 30.9 L RDW 19.5 H [place] % (Auto) 2.9 L VBG pH VBG pCO2 Potassium BUN Creatinine Est GFR ( Amer) Est GFR (MDRD) Non-Af Glucose POC Glucose 284 H Lactic Acid Alkaline Phosphatase Procedures - Additional Procedures IO insertion Additional Procedures: IO insertion - Left pretibial IO line placed by me without difficulty or complications. Critical Care Note - Critical Care Note Total time excluding time spent on procedures (mins): 35 - DNR/DNI status is confirmed with family. Patient was bagged initially. I placed an IO line and gave the patient 1 mg of Narcan. She improved slightly with this. Random glucose 245. BiPAP initiated. Discharge - Discharge Clinical Impression: End-stage renal disease on hemodialysis, Paroxysmal atrial fibrillation Acute respiratory failure Qualifiers: Respiratory failure complication: hypoxia and hypercapnia Qualified Code(s): J96.01 - Acute respiratory failure with hypoxia; J96.02 - Acute respiratory failure with hypercapnia Fluid overload Qualifiers: Hypervolemia type: other Qualified Code(s): E87.79 - Other fluid overload Condition: Poor Disposition: ADMITTED INPATIENT Admitting Provider: Devora Unit Admitted: [facility] Referrals: MARIANO WASHINGTON MD [Primary Care Provider] - Follow up as needed
[2019-12-28] MEDS ORDERED: DIPHENHYDRAMINE HCL 50 MG/ML VIAL IV ONE (07:15)
[2019-12-28 07:18] LABS: VENOUS BLOOD HCO3 24.6 mmol/L (20-32)
[2019-12-28] MEDS ORDERED: LORAZEPAM INJ 2 MG/1 ML VIAL IV ONE ×2 (07:22→07:24)
[2019-12-28 07:23] LABS: INTERNATIONAL RATION (INR) 1.08
[2019-12-28 07:34] LABS: VENOUS BLOOD PH 7.06 (7.30-7.42)
[2019-12-28 07:37] LABS: ALBUMIN 3.8 g/dL (3.5-5.0); ALKALINE PHOSPHATASE 1231 U/L (38-126); ANION GAP 11 (5-19); ASPARTATE AMINO TRANSFERASE 35 U/L (14-36); BILIRUBIN,DIRECT 0.2 mg/dL (0.0-0.4); BILIRUBIN,TOTAL 0.5 mg/dL (0.2-1.3); BLOOD UREA NITROGEN 27 mg/dL (7-20); CALCIUM 10.1 mg/dL (8.4-10.2); CARBON DIOXIDE 26 mmol/L (22-30); CHLORIDE 103 mmol/L (98-107); GLUCOSE 232 mg/dL (75-110); POTASSIUM 3.5 mmol/L (3.6-5.0); TOTAL PROTEIN 6.7 g/dL (6.3-8.2)
[2019-12-28 07:59] LABS: ABSOLUTE BASOPHILS # (AUTO) 0.1 10^3/uL (0.0-0.2); ABSOLUTE EOSINOPHILS # (AUTO) 0.1 10^3/uL (0.0-0.6); ABSOLUTE LYMPHOCYTES (AUTO) 1.7 10^3/uL (0.5-4.7); ABSOLUTE MONOCYTES (AUTO) 0.3 10^3/uL (0.1-1.4); ABSOLUTE NEUT (AUTO) 7.7 10^3/uL (1.7-8.2); BASOPHILS % (AUTO) 1.2 % (0-2); EOSINOPHILS % (AUTO) 1.1 % (0-6); HEMATOCRIT 29.9 % (36.0-47.0); HEMOGLOBIN 9.2 g/dL (12.0-15.5); LYMPHOCYTES % (AUTO) 16.9 % (13-45); MEAN CORPUSCULAR HEMOGLOBIN 33.2 pg (27.0-33.4); MEAN CORPUSCULAR HGB CONC 30.9 g/dL (32.0-36.0); MEAN CORPUSCULAR VOLUME 107 fl (80-97); MONOCYTES % (AUTO) 2.9 % (3-13); PLATELET COUNT 332 10^3/uL (150-450); RED BLOOD COUNT 2.78 10^6/uL (3.72-5.28); RED CELL DISTRIBUTION WIDTH 19.5 % (11.5-14.0); SEGMENTED NEUTROPHILS % (AUTO) 77.9 % (42-78); TOTAL CELLS COUNTED % (AUTO) 100 %; WHITE BLOOD COUNT 9.9 10^3/uL (4.0-10.5)
--- NOTE | 2019-12-28 08:24 | RADIOLOGY REPORT (SQ) ---
EXAM DESCRIPTION: CHEST SINGLE VIEW IMAGES COMPLETED DATE/TIME: 12/28/2019 7:45 am REASON FOR STUDY: dyspnea COMPARISON: 04/13/2019 EXAM PARAMETERS: NUMBER OF VIEWS: One view. TECHNIQUE: Single frontal radiographic view of the chest acquired. RADIATION DOSE: NA LIMITATIONS: Patient rotation. FINDINGS: LUNGS AND PLEURA: Diffuse bilateral interstitial opacities. Right infrahilar opacificatio n. No large effusion. No pneumothorax. MEDIASTINUM AND HILAR STRUCTURES: Central vascular congestion. HEART AND VASCULAR STRUCTURES: Enlarged cardiac silhouette, likely partially related to portable tech nique. BONES: Dextroconvex thoracic curvature. No acute findings. Decreased mineralization. HARDWARE: None in the chest. Surgical clip overlies left upper quadrant. OTHER: No other significant finding. IMPRESSION: Enlarged cardiac silhouette with diffuse bilateral interstitial opacities, likely edema. Additional right infrahilar opacities possibly asymmetric edema, atelectasis or infection. TECHNICAL DOCUMENTATION: JOB ID: [id number] 2010 [employer]- All Rights Reserved Reading location - IP/workstation name: [email or web address]
[2019-12-28 10:34] LABS: APPEARANCE,URINE SLIGHTLY-CLOUDY; BILIRUBIN,URINE NEGATIVE (NEGATIVE); COLOR,URINE YELLOW; GLUCOSE, URINE >=500 mg/dL (NEGATIVE); KETONES,URINE NEGATIVE (NEGATIVE); PROTEIN,URINE 100 mg/dL (NEGATIVE); URINE SPECIFIC GRAVITY 1.007; UROBILINOGEN,URINE NEGATIVE mg/dL (<2.0)
[2019-12-28] MEDS ORDERED: ONDANSETRON 4 MG TAB.RAPDIS PO PRN (10:37)
[2019-12-28] MEDS ORDERED: ACETAMINOPHEN 325 MG TABLET PO PRN (10:37)
[2019-12-28] MEDS ORDERED: GLUCAGON,HUMAN RECOMB 1 MG INJ SUBCUT PRN (10:37)
[2019-12-28] MEDS ORDERED: DEXTROSE 40% GEL 15 GM TUBE PO PRN ×2 (10:37)
[2019-12-28] MEDS ORDERED: DEXTROSE 50%-WATER 25 GM/50 ML DISP.SYRIN IV PRN ×2 (10:37)
--- NOTE | 2019-12-28 10:49 | Progress Note ---
Provider Note Provider Note: This patient is an 83 o woman getting HD M/W/F who felt SOB this AM and was to get HD today, but due to her SOB she instead came to the ED where she was placed on bipap. She als received 0.5mg of ativan for sedation and is quite sleepy. History comes from ED MD Felix and daughter at bedside. Daughter clearly st ates she is to be DNR/DNI. Policy is to provide HD on bipap in the ICU, then send to floor. Primary MD is Shyanne.
[2019-12-28] MEDS ORDERED: PANTOPRAZOLE SODIUM 40 MG VIAL IV SCH (12:00)
[2019-12-28] MEDS ORDERED: EPOETIN ALFA-EPBX 2,000 UNIT, EPOETIN ALFA-EPBX 3,000 UNIT, EPOETIN ALFA-EPBX 20,000 UN... IV PRN ×4 (12:40)
--- NOTE | 2019-12-28 12:47 | PDOC CONSULTATION ---
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 Her last dialysis was Tuesday. Apparently she began to show alteration of mental status as well as difficulty to breathe while family was getting ready to be transported to [facility] for dialysis today and hence was brought straight to the hospital. Initial evaluations revealed that she was in congestive heart failure and with severe hypertension. She has responded to BiPAP after failing nasal cannula. Labs and medications were reviewed. She has had a history of a right nephrectomy apparently for a large stone and not due to cancer as per patient and other comorbidities include history of diverticulosis, nephrolithiasis, anxiety/depression, anemia of chronic disease.Patient is subsequently seen while undergoing dialysis. She looks very moribund on the BiPAP. She is hard to wake and. Labs and medications and dialysis orders were reviewed with the treating dialysis nurse. Past Medical History Cardiac Medical History: Reports: Hyperlipidemia, Hypertension-primary, Peripheral Vascular Disease Denies: Coronary Artery Disease, Myocardial Infarction Pulmonary Medical History: Reports: Pneumonia - hx of Denies: Asthma, Bronchitis, Chronic Obstructive Pulmonary Disease (COPD) Neurological Medical History: Denies: Seizures Renal/ Medical History: Reports: End Stage Renal Disease, Secondary Hyperparathyroidism Denies: Benign Prostatic Hyperplasia GI Medical History: Reports: Diverticulitis Musculoskeltal Medical History: Denies: Arthritis Psychiatric Medical History: Past Surgical History Past Surgical History: Reports: Orthopedic Surgery - left AKA mar Denies: Hysterectomy Social History Smoking Status: Never Smoker Frequency of Alcohol Use: None Hx Recreational Drug Use: No Drugs: None Hx Prescription Drug Abuse: No Family History Parental Family History Reviewed: No Children Family History Reviewed: No Sibling(s) Family History Reviewed.: No Medication/Allergy Home Medications: Carvedilol [Coreg 3.125 mg Tablet] 3.125 mg PO Q12 03/30/19 Furosemide [Lasix 40 mg Tablet] 40 mg PO DAILY 03/30/19 Valsartan [Diovan] 320 mg PO DAILY 03/30/19 Clonidine HCl [Catapres 0.2 mg Tablet] 0.2 mg PO DAILYP PRN 12/28/19 Gabapentin [Neurontin 100 mg Capsule] 100 mg PO .BEFORE DIALYSIS 12/28/19 Allergies/Adverse Reactions: aloe vera [Aloe Vera] Allergy (Unknown, Verified 04/13/19 14:22) Swelling jalapeno peppers Allergy (Unknown, Uncoded 04/13/19 14:22) Swelling Review of Systems ROS unobtainable: Due to mental status Physical Exam Vital Signs: Temp Pulse Resp BP Pulse Ox 98.1 F 80 25 H 122/62 100 12/28/19 12:31 12/28/19 12:31 12/28/19 12:31 12/28/19 12:31 12/28/19 12:31 Intake & Output 12/27/19 12/28/19 12/29/19 06:59 06:59 06:59 Weight 36.7 kg General appearance: PRESENT: disheveled Exam: Looks quite sick and moribund on the BiPAP. She is not very responsive to questions. Eye exam: PRESENT: EOMI, PERRLA Neck exam: ABSENT: lymphadenopathy, meningismus, tenderness, thyromegaly, tracheal deviation Respiratory exam: PRESENT: clear to auscultation vinicius, crackles, decreased breath sounds Cardiovascular exam: PRESENT: +S1, +S2. ABSENT: RRR GI/Abdominal exam: PRESENT: normal bowel sounds, soft. ABSENT: organomegaly, tenderness Extremities exam: PRESENT: pedal edema Neurological exam: PRESENT: altered Skin exam: ABSENT: erythema, mottled, rash Results Laboratory Results: 12/28/19 07:40 12/28/19 07:02 12/28/19 12/28/19 12/28/19 07:02 07:02 07:02 WBC Cancelled RBC Cancelled Hgb Cancelled Hct Cancelled MCV Cancelled MCH Cancelled MCHC Cancelled RDW Cancelled Plt Count Cancelled Seg Neutrophils % Cancelled VBG pH 7.06 L* VBG pCO2 89.0 H* VBG HCO3 24.6 VBG Base Excess -7.0 Sodium 140.4 Potassium 3.5 L Chloride 103 Carbon Dioxide 26 Anion Gap 11 BUN 27 H Creatinine 3.89 H Est GFR ( Amer) 13 L Glucose 232 H Lactic Acid Calcium 10.1 Total Bilirubin 0.5 AST 35 Alkaline Phosphatase 1231 H Total Protein 6.7 Albumin 3.8 Urine Color Urine Appearance Urine pH Ur Specific [place] Urine Protein Urine Glucose (UA) Urine Ketones Urine Blood Urine RBC (Auto) 12/28/19 12/28/19 12/28/19 07:02 07:40 10:00 WBC 9.9 RBC 2.78 L Hgb 9.2 L Hct 29.9 L MCV 107 H MCH 33.2 MCHC 30.9 L RDW 19.5 H Plt Count 332 Seg Neutrophils % 77.9 VBG pH VBG pCO2 VBG HCO3 VBG Base Excess Sodium Potassium Chloride Carbon Dioxide Anion Gap BUN Creatinine Est GFR ( Amer) Glucose Lactic Acid 5.8 H Calcium Total Bilirubin AST Alkaline Phosphatase Total Protein Albumin Urine Color YELLOW Urine Appearance SLIGHTLY-CLOUDY Urine pH 7.0 Ur Specific [place] 1.007 Urine Protein 100 H Urine Glucose (UA) >=500 H Urine Ketones NEGATIVE Urine Blood SMALL H Urine RBC (Auto) 7 12/28/19 07:02 Troponin I 0.096 Impressions: Chest X-Ray 12/28/19 06:44 IMPRESSION: Enlarged cardiac silhouette with diffuse bilateral interstitial opacities, likely edema. Additional right infrahilar opacities possibly asym metric edema, atelectasis or infection. Assessment & Plan - Diagnosis (1) Congestive heart failure Qualifiers: Heart failure type: unspecified Heart failure chronicity: unspecified Qualified Code(s): I50.9 - Heart failure, unspecified Plan: Patient decompensated heart failure in the setting of ESRD and hypertension. Emergent dialysis and is ongoing. We will try to remove 3-4 L of fluid as tolerated and see the response. (2) Acute respiratory failure Qualifiers: Respiratory failure complication: hypoxia and hypercapnia Qualified Code(s): J96.01 - Acute respiratory failure with hypoxia; J96.02 - Acute respiratory failure with hypercapnia Plan: Secondary to congestive heart failure. Patient on BiPAP. For emergent dialy sis. Patient poorly responsive. (3) End-stage renal disease on hemodialysis Plan: Patient currently undergoing emergent dialysis in the setting of decompensated heart failure. Patient apparently had her last dialysis on Tuesday. Patient has been gradually deteriorating over the last few months in the setting of ESRD and hypertensive heart disease and tertiary hyperparathyroidism as she has refused any surgical interventions when it was initially found. We will plan to remove 3-4 L as tolerated. Dialysis being supervised. Dialysis orders were reviewed with the treating dialysis nurse. (4) Paroxysmal atrial fibrillation Plan: Currently rate controlled. Monitor (5) Anemia in chronic kidney disease Qualifiers: Chronic kidney disease stage: on chronic dialysis Qualified Code(s): N18.6 - End stage renal disease; D63.1 - Anemia in chronic kidney disease; Z99.2 - Dependence on renal dialysis Plan: Adjust erythropoietin. (6) Tertiary hyperparathyroidism Plan: Continue on current guidelines.
[2019-12-28] MEDS ORDERED: HEPARIN SOD (PORCINE) 5,000 UNIT/ML 1 ML VIAL SUBCUT SCH (14:00)
[2019-12-28] MEDS ORDERED: CLONIDINE HCL 0.2 MG TABLET PO PRN (17:20)
[2019-12-28 17:27] LABS: ARTERIAL BLOOD BASE EXCESS 3.1 mmol/L; ARTERIAL BLOOD H2CO3 1.52 mmol/L (1.05-1.35); ARTERIAL BLOOD HCO3 28.9 mmol/L (20-24); ARTERIAL BLOOD O2 SATURATION 97.8 % (94-98); ARTERIAL BLOOD PCO2 50.4 mmHg (35-45); ARTERIAL BLOOD PH 7.38 (7.35-7.45); ARTERIAL BLOOD TOTAL CO2 30.4 mmol/L (21-25)
[2019-12-28 17:28] LABS: ARTERIAL BLOOD FIO2 40%
[2019-12-28] MEDS ORDERED: (PENDING PHARMACY ID) (Valsartan [Diovan] 320 MG) PO SCH (17:30)
--- NOTE | 2019-12-28 17:34 | Progress Note ---
Provider Note Provider Note: Tolerated HD with 2-2.5 L off. Arousable, ativan wearing off and ABG shows normal pH. Transfer out to [facility] until fully awake.
[2019-12-28] MEDS ORDERED: GABAPENTIN 100 MG CAPSULE PO SCH (18:00)
[2019-12-28] MEDS: CARVEDILOL 3.125 MG TABLET PO SCH (19:00)
[2019-12-28] MEDS: FUROSEMIDE 40 MG TABLET PO SCH (19:00)
--- NOTE | 2019-12-28 19:21 | EKG REPORT ---
SEVERITY:- ABNORMAL ECG - SINUS TACHYCARDIA MULTIPLE PREMATURE COMPLEXES, VENT LVH WITH SECONDARY REPOLARIZATION ABNORMALITY : Confirmed by: Caryn Anthony 28-Dec-2019 19:21:14
--- NOTE | 2019-12-28 19:23 | EKG REPORT ---
SEVERITY:- ABNORMAL ECG - ATRIAL FIBRILLATION MULTIPLE VENTRICULAR PREMATURE COMPLEXES LVH WITH SECONDARY REPOLARIZATION ABNORMALITY : Confirmed by: Caryn Anthony 28-Dec-2019 19:22:21
[2019-12-28] MEDS: LABETALOL HCL INJ 20 MG/4 ML DISP.SYRIN IV PRN ×3 (20:19→23:55)
--- NOTE | 2019-12-28 22:05 | PDOC H&P ---
History of Present Illness Admission Date/PCP: 12/28/19 09:01 MARIANO WASHINGTON MD History of Present Illness: BRIAN GUDINO is a 83 year old female,She was brought to the emergency room for evaluation of altered mental status, respiratory distress, she has end-stage renal disease on hemodialysis, she was last dialyzed on Tuesday this week, she get hemodialysis on Mondays, Wednesdays and Fridays no history could be obtained from this patient, she is a DNR status. Prognosis is very poor, patient looks moribund cannot get any history from this patient. She was dialyzed this morning in intensive care unit. It looks like end-of-life situation comfort care is appropriate Past Medical History Cardiac Medical History: Reports: Hyperlipidema, Hypertension, Peripheral Vascular Disease Pulmonary Medical History: Reports: Pneumonia - hx of Neurological Medical History: Denies: Seizures Renal/ Medical History: Reports: End Stage Renal Disease GI Medical History: Reports: Diverticulitis Musculoskeltal Medical History: Denies: Arthritis Psychiatric Medical History: Hematology: Reports: Bleeding Tendencies Denies: Anemia Past Surgical History Past Surgical History: Reports: Orthopedic Surgery - left AKA mar Denies: Hysterectomy Social History Smoking Status: Never Smoker Frequency of Alcohol Use: None Hx Recreational Drug Use: No Drugs: None Hx Prescription Drug Abuse: No Family History Family History: Reviewed & Not Pertinent Parental Family History Reviewed: Yes Children Family History Reviewed: Yes Sibling(s) Family History Reviewed.: Yes Medication/Allergy Home Medications: Carvedilol [Coreg 3.125 mg Tablet] 3.125 mg PO Q12 03/30/19 Furosemide [Lasix 40 mg Tablet] 40 mg PO DAILY 03/30/19 Valsartan [Diovan] 320 mg PO DAILY 03/30/19 Clonidine HCl [Catapres 0.2 mg Tablet] 0.2 mg PO DAILYP PRN 12/28/19 Gabapentin [Neurontin 100 mg Capsule] 100 mg PO .BEFORE DIALYSIS 12/28/19 Allergies/Adverse Reactions: aloe vera [Aloe Vera] Allergy (Unknown, Verified 04/13/19 14:22) Swelling jalapeno peppers Allergy (Unknown, Uncoded 04/13/19 14:22) Swelling Review of Systems ROS unobtainable: Due to mental status Physical Exam Vital Signs: Temp Pulse Resp BP Pulse Ox 97.9 F 75 17 150/50 H 100 12/28/19 18:14 12/28/19 18:14 12/28/19 18:14 12/28/19 18:14 12/28/19 18:14 Intake & Output 12/27/19 12/28/19 12/29/19 06:59 06:59 06:59 Intake Total 0 Output Total 3000 Balance -3000 Weight 37.8 kg General appearance: PRESENT: thin, other - Patient unresponsive she is moribund Respiratory exam: PRESENT: rhonchi Cardiovascular exam: PRESENT: +S1, +S2 Extremities exam: PRESENT: right AKA Neurological exam: PRESENT: altered Skin exam: PRESENT: mottled Results Laboratory Results: 12/28/19 07:40 12/28/19 07:02 12/28/19 12/28/19 12/28/19 07:02 07:02 07:02 WBC Cancelled RBC Cancelled Hgb Cancelled Hct Cancelled MCV Cancelled MCH Cancelled MCHC Cancelled RDW Cancelled Plt Count Cancelled Seg Neutrophils % Cancelled Carbonic Acid HCO3/H2CO3 Ratio ABG pH ABG pCO2 ABG pO2 ABG HCO3 ABG O2 Saturation ABG Base Excess VBG pH 7.06 L* VBG pCO2 89.0 H* VBG HCO3 24.6 VBG Base Excess -7.0 FiO2 Sodium 140.4 Potassium 3.5 L Chloride 103 Carbon Dioxide 26 Anion Gap 11 BUN 27 H Creatinine 3.89 H Est GFR ( Amer) 13 L Glucose 232 H Lactic Acid Calcium 10.1 Total Bilirubin 0.5 AST 35 Alkaline Phosphatase 1231 H Total Protein 6.7 Albumin 3.8 Urine Color Urine Appearance Urine pH Ur Specific [place] Urine Protein Urine Glucose (UA) Urine Ketones Urine Blood Urine RBC (Auto) 12/28/19 12/28/19 12/28/19 07:02 07:40 10:00 WBC 9.9 RBC 2.78 L Hgb 9.2 L Hct 29.9 L MCV 107 H MCH 33.2 MCHC 30.9 L RDW 19.5 H Plt Count 332 Seg Neutrophils % 77.9 Carbonic Acid HCO3/H2CO3 Ratio ABG pH ABG pCO2 ABG pO2 ABG HCO3 ABG O2 Saturation ABG Base Excess VBG pH VBG pCO2 VBG HCO3 VBG Base Excess FiO2 Sodium Potassium Chloride Carbon Dioxide Anion Gap BUN Creatinine Est GFR ( Amer) Glucose Lactic Acid 5.8 H Calcium Total Bilirubin AST Alkaline Phosphatase Total Protein Albumin Urine Color YELLOW Urine Appearance SLIGHTLY-CLOUDY Urine pH 7.0 Ur Specific [place] 1.007 Urine Protein 100 H Urine Glucose (UA) >=500 H Urine Ketones NEGATIVE Urine Blood SMALL H Urine RBC (Auto) 7 12/28/19 12/28/19 12/28/19 13:37 16:53 19:21 WBC RBC Hgb Hct MCV MCH MCHC RDW Plt Count Seg Neutrophils % Carbonic Acid 1.52 H HCO3/H2CO3 Ratio 19:1 ABG pH 7.38 ABG pCO2 50.4 H ABG pO2 108.0 H ABG HCO3 28.9 H ABG O2 Saturation 97.8 ABG Base Excess 3.1 VBG pH VBG pCO2 VBG HCO3 VBG Base Excess FiO2 40% Sodium Potassium Chloride Carbon Dioxide Anion Gap BUN Creatinine Est GFR ( Amer) Glucose Lactic Acid 0.8 1.8 Calcium Total Bilirubin AST Alkaline Phosphatase Total Protein Albumin Urine Color Urine Appearance Urine pH Ur Specific [place] Urine Protein Urine Glucose (UA) Urine Ketones Urine Blood Urine RBC (Auto) 12/28/19 07:02 Troponin I 0.096 Impressions: Chest X-Ray 12/28/19 06:44 IMPRESSION: Enlarged cardiac silhouette with diffuse bilateral interstitial opacities, likely edema. Additional right infrahilar opacities possibly asymmetric edema, atelectasis or infection. Assessment & Plan - Diagnosis (1) Acute hypoxemic respiratory failure Is this a current diagnosis for this admission?: Yes Plan: The etiology is most likely from pulmonary edema from kidney failure patient continues to require noninvasive positive pressure ventilation, BiPAP.Patient is a DNR extremely poor prognosis (2) End-stage renal disease on hemodialysis Is this a current diagnosis for this admission?: Yes Plan: Per nephrology (3) Paroxysmal atrial fibrillation Is this a current diagnosis for this admission?: Yes
[2019-12-29 05:32] LABS: ANION GAP 11 (5-19); BLOOD UREA NITROGEN 18 mg/dL (7-20); CALCIUM 9.9 mg/dL (8.4-10.2); CARBON DIOXIDE 27 mmol/L (22-30); CHLORIDE 99 mmol/L (98-107); GLUCOSE 87 mg/dL (75-110); POTASSIUM 3.4 mmol/L (3.6-5.0)
[2019-12-29] MEDS: CARVEDILOL 3.125 MG TABLET PO SCH ×2 (05:32→17:11)
[2019-12-29] MEDS: LABETALOL HCL INJ 20 MG/4 ML DISP.SYRIN IV PRN ×3 (06:17→13:37)
[2019-12-29 07:31] LABS: ABSOLUTE LYMPHOCYTES (AUTO) 0.6 10^3/uL (0.5-4.7); ABSOLUTE MONOCYTES (AUTO) 0.4 10^3/uL (0.1-1.4); ABSOLUTE NEUT (AUTO) 4.6 10^3/uL (1.7-8.2); BASOPHILS % (AUTO) 0.6 % (0-2); EOSINOPHILS % (AUTO) 0.2 % (0-6); HEMATOCRIT 28.5 % (36.0-47.0); HEMOGLOBIN 9.2 g/dL (12.0-15.5); LYMPHOCYTES % (AUTO) 9.9 % (13-45); MEAN CORPUSCULAR HGB CONC 32.3 g/dL (32.0-36.0); MONOCYTES % (AUTO) 6.9 % (3-13); PLATELET COUNT 278 10^3/uL (150-450); RED BLOOD COUNT 2.79 10^6/uL (3.72-5.28); RED CELL DISTRIBUTION WIDTH 18.4 % (11.5-14.0); SEGMENTED NEUTROPHILS % (AUTO) 82.4 % (42-78); TOTAL CELLS COUNTED % (AUTO) 100 %; WHITE BLOOD COUNT 5.6 10^3/uL (4.0-10.5)
[2019-12-29 07:58] LABS: MEAN CORPUSCULAR VOLUME 102 fl (80-97)
[2019-12-29] MEDS: FUROSEMIDE 40 MG TABLET PO SCH (09:49)
[2019-12-29] MEDS: VALSARTAN 160 MG TABLET PO SCH (09:49)
--- NOTE | 2019-12-29 22:02 | EKG REPORT ---
SEVERITY:- ABNORMAL ECG - MULTOFOCAL ATRAIL TACHYCARDIA ABERRANT COMPLEX, POSSIBLY SUPRAVENTRICULAR LEFT VENTRICULAR HYPERTROPHY ANTERIOR Q WAVES, POSSIBLY DUE TO LVH BORDERLINE PROLONGED QT INTERVAL ANT T WAVE INVERSION CONSISTENT WITH ISCHEMIA : Confirmed by: Caryn Anthony 29-Dec-2019 22:01:55
[2019-12-30] MEDS: CARVEDILOL 3.125 MG TABLET PO SCH ×2 (05:20→17:28)
[2019-12-30] MEDS: LABETALOL HCL INJ 20 MG/4 ML DISP.SYRIN IV PRN (08:18)
[2019-12-30] MEDS: VALSARTAN 160 MG TABLET PO SCH (10:08)
[2019-12-30] MEDS: FUROSEMIDE 40 MG TABLET PO SCH (10:08)
--- NOTE | 2019-12-30 18:02 | PDOC PROGRESS REPORT ---
Subjective Progress Note for:: 12/29/19 Subjective:: Patient is awake and appropriate in her responses, requested for food before my bedside visit today. She denied any chest pain or difficulty with breathing. No reported fever. No nausea, vomiting or abdominal pain. Reason For Visit: VOLUME OVERLOAD, ON BIPAP AND NEEDING HD Physical Exam Vital Signs: Temp Pulse Resp BP Pulse Ox 97.5 F 90 16 127/65 H 96 12/29/19 17:24 12/29/19 19:00 12/29/19 17:24 12/29/19 17:24 12/29/19 17:24 Intake & Output 12/28/19 12/29/19 12/30/19 06:59 06:59 06:59 Intake Total 0 Output Total 3050 Balance -3050 Weight 32.8 kg General appearance: PRESENT: no acute distress Head exam: PRESENT: atraumatic, normocephalic Eye exam: PRESENT: conjunctiva pink. ABSENT: scleral icterus Respiratory exam: PRESENT: clear to auscultation vinicius, decreased breath sounds - at lung bases Cardiovascular exam: PRESENT: RRR, +S1, +S2. ABSENT: diastolic murmur, rubs, systolic murmur Vascular exam: ABSENT: pallor GI/Abdominal exam: PRESENT: normal bowel sounds, soft. ABSENT: distended, guarding, mass, organolmegaly, rebound, tenderness Extremities exam: PRESENT: right AKA. ABSENT: pedal edema Neurological exam: PRESENT: alert, awake Psychiatric exam: PRESENT: appropriate affect, normal mood. ABSENT: homicidal ideation, suicidal ideation Skin exam: PRESENT: dry, warm Results Laboratory Results: 12/29/19 06:47 12/29/19 04:32 12/29/19 12/29/19 12/29/19 04:32 04:37 06:47 WBC Cancelled 5.6 RBC Cancelled 2.79 L Hgb Cancelled 9.2 L Hct Cancelled 28.5 L MCV Cancelled 102 H D MCH Cancelled 33.0 MCHC Cancelled 32.3 RDW Cancelled 18.4 H Plt Count Cancelled 278 Seg Neutrophils % Cancelled 82.4 H Sodium 136.5 L Potassium 3.4 L Chloride 99 Carbon Dioxide 27 Anion Gap 11 BUN 18 Creatinine 2.46 H Est GFR ( Amer) 23 L Glucose 87 Calcium 9.9 12/28/19 07:02 Troponin I 0.096 Impressions: Chest X-Ray 12/28/19 06:44 IMPRESSION: Enlarged cardiac silhouette with diffuse bilateral interstitial opacities, likely edema. Additional right infrahilar opacities possibly asymmetric edema, atelectasis or infection. Assessment & Plan - Diagnosis (1) Acute metabolic encephalopathy Is this a current diagnosis for this admission?: Yes Plan: Improved, probably multi-factorial with hypoxemia, hyperglycemia and renal failure. (2) End-stage renal disease on hemodialysis Is this a current diagnosis for this admission?: Yes Plan: Continue current management with hemodialysis support. (3) Paroxysmal atrial fibrillation Is this a current diagnosis for this admission?: Yes Plan: Continue current management. (4) Acute hypoxemic respiratory failure Is this a current diagnosis for this admission?: Yes Plan: Continue current management. - Time Time Spent with patient: 25-34 minutes Level of Care: IMCU Medications reviewed and adjusted accordingly: Yes Anticipated discharge: Home with Homehealth Within: Other - Inpatient Certification Based on my medical assessment, after consideration of the patient's comorbidities, presenting symptoms, or acuity I expect that the services needed warrant INPATIENT care.: Yes I certify that my determination is in accordance with my understanding of Medicare's requirements for reasonable and necessary INPATIENT services [42 CFR 412.3e].: Yes Medical Necessity: Significant Comorbidiites Make Outpatient Treatment Too Risky, Need Close Monitoring Due to Risk of Patient Decompensation, Need For Continuous Telemetry Monitoring, Risk of Complication if Not Cared For in Hospital, Risk of Diagnosis Which Will Require Inpatient Eval/Care/Monitoring Post Hospital Care: D/C Hand Stapler Documentation - Plan Summary Plan Summary: Continue current management.
--- NOTE | 2019-12-30 18:05 | PDOC PROGRESS REPORT ---
Subjective Progress Note for:: 12/30/19 Subjective:: Patient denied any chest pain or difficulty with breathing. No reported fever. No nausea, vomiting or abdominal pain. Tolerating oral feeding. Reason For Visit: VOLUME OVERLOAD, ON BIPAP AND NEEDING HD Physical Exam Vital Signs: Temp Pulse Resp BP Pulse Ox 98.9 F 69 17 129/85 H 94 12/30/19 15:24 12/30/19 15:24 12/30/19 15:24 12/30/19 15:24 12/30/19 15:24 Intake & Output 12/29/19 12/30/19 12/31/19 06:59 06:59 06:59 Intake Total 0 150 Output Total 3050 65 Balance -3050 85 Weight 32.8 kg 37.2 kg Physical Exam: General appearance: PRESENT: no acute distress Head exam: PRESENT: atraumatic, normocephalic Eye exam: PRESENT: conjunctiva pink. ABSENT: pallor, scleral icterus Respiratory exam: PRESENT: clear to auscultation vinicius, decreased breath sounds - at lung bases Cardiovascular exam: PRESENT: RRR, +S1, +S2. ABSENT: diastolic murmur, rubs, systolic murmur GI/Abdominal exam: PRESENT: normal bowel sounds, soft. ABSENT: distended, guarding, mass, organomegaly, rebound, tenderness Extremities exam: PRESENT: right AKA. ABSENT: pedal edema Neurological exam: PRESENT: alert, awake Psychiatric exam: PRESENT: appropriate affect, normal mood. ABSENT: homicidal ideation, suicidal ideation Skin exam: PRESENT: dry, warm Results Laboratory Results: 12/29/19 06:47 12/29/19 04:32 12/28/19 07:02 Troponin I 0.096 Impressions: Chest X-Ray 12/28/19 06:44 IMPRESSION: Enlarged cardiac silhouette with diffuse bilateral interstitial opacities, likely edema. Additional right infrahilar opacities possibly asymmetric edema, atelectasis or infection. Assessment & Plan - Diagnosis (1) Acute metabolic encephalopathy Is this a current diagnosis for this admission?: Yes (2) End-stage renal disease on hemodialysis Is this a current diagnosis for this admission?: Yes (3) Paroxysmal atrial fibrillation Is this a current diagnosis for this admission?: Yes (4) Acute hypoxemic respiratory failure Is this a current diagnosis for this admission?: Yes - Time Time Spent with patient: 25-34 minutes Level of Care: IMCU Medications reviewed and adjusted accordingly: Yes Anticipated discharge: Home with Homehealth Within: Other - Inpatient Certification Based on my medical assessment, after consideration of the patient's comorbidities, presenting symptoms, or acuity I expect that the services needed warrant INPATIENT care.: Yes I certify that my determination is in accordance with my understanding of Medicare's requirements for reasonable and necessary INPATIENT services [42 CFR 412.3e].: Yes Medical Necessity: Significant Comorbidiites Make Outpatient Treatment Too Risky, Need Close Monitoring Due to Risk of Patient Decompensation, Risk of Complication if Not Cared For in Hospital, Risk of Diagnosis Which Will Require Inpatient Eval/Care/Monitoring Post Hospital Care: D/C Gas Pump Attendant Documentation - Plan Summary Plan Summary: Continue current management.
[2019-12-31] MEDS: CARVEDILOL 3.125 MG TABLET PO SCH ×2 (06:21→18:09)
[2019-12-31] MEDS ORDERED: NORMAL SALINE 1000 ML 1,000 ML IV PRN (09:16)
[2019-12-31] MEDS ORDERED: EPOETIN ALFA-EPBX 10,000 UNIT/ML VIAL (RENAL) IV ONE (09:30)
[2019-12-31] MEDS: VALSARTAN 160 MG TABLET PO SCH (11:48)
[2019-12-31] MEDS: FUROSEMIDE 40 MG TABLET PO SCH (11:49)
[2019-12-31] MEDS ORDERED: DILTIAZEM HCL/D5W 125 MG/125 ML RTUINJ IV PRN (12:26)
[2019-12-31] MEDS ORDERED: LORAZEPAM INJ 2 MG/1 ML VIAL ONE (13:56)
--- NOTE | 2019-12-31 20:11 | CDI QUERY ---
<BALTAZAR NEAL - Last Filed: 12/31/19 20:10> CDI Query CDI Review: Dear Provider: To better reflect your patients severity of illness, morbidity, and resource utilization Please specify and document in the Progress Notes and Discharge Summary if you are monitoring / treating / evaluating any of the following conditions: Query Clinical indicators Please specify the type and acuity of heart failure: TYPE Systolic Diastolic Combined systolic and diastolic Other heart failure (please specify) ACUITY Acute Chronic Acute on chronic (decompensated, exacerbated) Unable to determine Per Nephrology Note: (1) Congestive heart failure Qualifiers: Heart failure type: unspecified Heart failure chronicity: unspecified Qualified Code(s): I50.9 - Heart failure, unspecified Plan: Patient decompensated heart failure in the setting of ESRD and hypertension. Emergent dialysis and is ongoing. We will try to remove 3-4 L of fluid as tolerated and see the response. The terms probable, suspected, likely, possible or still to be ruled out may be used if you are unable to determine the exact nature of a condition. Thank you for your consideration, Clinical Documentation Physician Advisor ALIE Calhoun RN <CHARLEY VALLEJO - Last Filed: 01/01/20 08:02> CDI Query Agree with Query: No - Please direct your query to her PCP.
--- NOTE | 2019-12-31 20:17 | PDOC PROGRESS REPORT ---
Subjective Progress Note for:: 12/31/19 Subjective:: Patient seen by the bedside, she is very confused, the heart rate is increased she is in A. fib Reason For Visit: VOLUME OVERLOAD, ON BIPAP AND NEEDING HD Physical Exam Vital Signs: Temp Pulse Resp BP Pulse Ox 97.9 F 5 L 26 H 136/97 H 97 12/31/19 16:00 12/31/19 17:00 12/31/19 16:00 12/31/19 17:05 12/31/19 17:05 Intake & Output 12/30/19 12/31/19 01/01/20 06:59 06:59 06:59 Intake Total 150 320 21 Output Total 65 110 1400 Balance 85 210 -1379 Weight 37.2 kg 34.2 kg General appearance: PRESENT: mild distress Eye exam: PRESENT: PERRLA Respiratory exam: PRESENT: clear to auscultation vinicius Cardiovascular exam: PRESENT: +S1, +S2 GI/Abdominal exam: PRESENT: soft Neurological exam: PRESENT: alert Results Laboratory Results: 12/29/19 06:47 12/29/19 04:32 12/28/19 07:02 Troponin I 0.096 Impressions: Chest X-Ray 12/28/19 06:44 IMPRESSION: Enlarged cardiac silhouette with diffuse bilateral interstitial opa cities, likely edema. Additional right infrahilar opacities possibly asymmetric edema, atelectasis or infection. Assessment & Plan - Diagnosis (1) Acute hypoxemic respiratory failure Is this a current diagnosis for this admission?: Yes (2) End-stage renal disease on hemodialysis Is this a current diagnosis for this admission?: Yes Plan: She was dialyzed today (3) Paroxysmal atrial fibrillation Is this a current diagnosis for this admission?: Yes Plan: Start Cardizem infusion - Time Time Spent with patient: 25-34 minutes Level of Care: IMCU
--- NOTE | 2020-01-01 02:17 | PDOC PROGRESS REPORT ---
Subjective Progress Note for:: 12/31/19 Subjective:: I am seeing the patient dialysis this morning. She is very comfortable and does not have any complaints. He denies any shortness of breath. She denies any other complaints. She is tolerating dialysis well. Reason For Visit: VOLUME OVERLOAD, ON BIPAP AND NEEDING HD Physical Exam Vital Signs: Temp Pulse Resp BP Pulse Ox 98.0 F 83 22 H 130/78 H 90 L 12/31/19 00:45 12/31/19 07:00 12/31/19 00:45 12/31/19 00:45 12/31/19 00:45 Intake & Output 12/30/19 12/31/19 01/01/20 06:59 06:59 06:59 Intake Total 150 320 Output Total 65 110 Balance 85 210 Weight 37.2 kg 34.2 kg Vitals during dialysis: Blood pressure 147/57, heart rate of 63, blood flow rate of 400 mL/min and dialysate flow rate of 800 mL/min. Exam: General appearance: PRESENT: no acute distress, cooperative, well-developed, well-nourished Head exam: PRESENT: atraumatic, normocephalic Eye exam: PRESENT: conjunctiva pink, PERRLA. ABSENT: scleral icterus Neck exam: ABSENT: JVD Respiratory exam: PRESENT: Normal breath sounds. ABSENT: crackles, rales, rhonchi, unlabored, wheezes Cardiovascular exam: PRESENT: Irregularly irregular rate rhythm -+S1, +S2. ABSENT: diastolic murmur, systolic murmur GI/Abdominal exam: PRESENT: normal bowel sounds, soft. ABSENT: guarding, mass, tenderness Extremities exam: ABSENT: No edema, left AKA Neurological exam: PRESENT: alert, awake, oriented to person, place and time. Skin exam: PRESENT: dry, warm, Cardiovascular exam: PRESENT: +S1, +S2. ABSENT: RRR GI/Abdominal exam: PRESENT: normal bowel sounds, soft. ABSENT: organomegaly, tenderness Results Laboratory Results: 12/29/19 06:47 12/29/19 04:32 12/28/19 07:02 Troponin I 0.096 Impressions: Chest X-Ray 12/28/19 06:44 IMPRESSION: Enlarged cardiac silhouette with diffuse bilateral interstitial opacities, likely edema. Additional right infrahilar opacities possibly asymmetric edema, atelectasis or infection. Assessment & Plan - Diagnosis (1) End-stage renal disease on hemodialysis Is this a current diagnosis for this admission?: Yes Plan: We will do dialysis today for 3 hours, using the patient's AV fistula, with 3 potassium bath, blood flow rate of 400 mL per minute, dialysate flow rate of 800 mL per minute, ultrafiltration 1 to 1.5 L as tolerated, no heparin and Retacrit with 10,000 units during dialysis intravenously. Patient is monitored closely during dialysis. (2) Paroxysmal atrial fibrillation Is this a current diagnosis for this admission?: Yes (3) Tertiary hyperparathyroidism Is this a current diagnosis for this admission?: Yes (4) Anemia in chronic kidney disease Qualifiers: Chronic kidney disease stage: on chronic dialysis Qualified Code(s): N18.6 - End stage renal disease; D63.1 - Anemia in chronic kidney disease; Z99.2 - Dependence on renal dialysis Is this a current diagnosis for this admission?: Yes Plan: Retacrit during dialysis as needed. (5) Congestive heart failure Qualifiers: Heart failure type: unspecified Heart failure chronicity: unspecified Qualified Code(s): I50.9 - Heart failure, unspecified Is this a current diagnosis for this admission?: Yes Plan: Clinically compensated. - Time Time with patient: 15-25 minutes
[2020-01-01] MEDS: CARVEDILOL 3.125 MG TABLET PO SCH ×2 (05:31→18:16)
[2020-01-01] MEDS: VALSARTAN 160 MG TABLET PO SCH (10:17)
[2020-01-01] MEDS: FUROSEMIDE 40 MG TABLET PO SCH (10:18)
[2020-01-01] MEDS ORDERED: METOPROLOL TARTRATE 25 MG TABLET PO ONE (15:00)
--- NOTE | 2020-01-01 21:25 | PDOC PROGRESS REPORT ---
Subjective Progress Note for:: 01/01/20 Subjective:: Patient is more responsive today, she is presently on intravenous Cardizem infusion for rate control of the proximal atrial fibrillation, this will be changed to p.o. Reason For Visit: VOLUME OVERLOAD, ON BIPAP AND NEEDING HD Physical Exam Vital Signs: Temp Pulse Resp BP Pulse Ox 97.3 F 101 H 14 84/62 L 92 01/01/20 16:00 01/01/20 16:00 01/01/20 16:00 01/01/20 16:00 01/01/20 16:00 Intake & Output 12/31/19 01/01/20 01/02/20 06:59 06:59 06:59 Intake Total 320 21 Output Total 110 1600 Balance 210 -1579 Weight 34.2 kg 34.2 kg General appearance: PRESENT: no acute distress Eye exam: PRESENT: PERRLA Respiratory exam: PRESENT: clear to auscultation vinicius Cardiovascular exam: PRESENT: +S1, +S2 GI/Abdominal exam: PRESENT: soft Neurological exam: PRESENT: alert Results Laboratory Results: 12/29/19 06:47 12/29/19 04:32 12/28/19 07:02 Troponin I 0.096 Impressions: Chest X-Ray 12/28/19 06:44 IMPRESSION: Enlarged cardiac silhouette with diffuse bilateral interstitial opacities, likely edema. Additional right infrahilar opacities possibly asymmetric edema, atelectasis or infection. Assessment & Plan - Diagnosis (1) Acute hypoxemic respiratory failure Is this a current diagnosis for this admission?: Yes (2) End-stage renal disease on hemodialysis Is this a current diagnosis for this admission?: Yes (3) Paroxysmal atrial fibrillation Is this a current diagnosis for this admission?: Yes Plan: Start p.o. carvedilol ,d/c IV cardizem - Time Time Spent with patient: 15-24 minutes Level of Care: [facility]
[2020-01-01] MEDS: METOPROLOL TARTRATE 25 MG TABLET PO SCH (21:43)
[2020-01-02] MEDS ORDERED: NORMAL SALINE 1000 ML 1,000 ML IV PRN (05:00)
[2020-01-02] MEDS ORDERED: EPOETIN ALFA-EPBX 20,000 UNIT in SYRINGE, DISPOSABLE, 1 EACH IV PRN (05:00)
[2020-01-02 05:23] LABS: ABSOLUTE EOSINOPHILS # (AUTO) 0.3 10^3/uL (0.0-0.6); ABSOLUTE LYMPHOCYTES (AUTO) 1.1 10^3/uL (0.5-4.7); ABSOLUTE MONOCYTES (AUTO) 0.7 10^3/uL (0.1-1.4); ABSOLUTE NEUT (AUTO) 3.4 10^3/uL (1.7-8.2); BASOPHILS % (AUTO) 0.7 % (0-2); EOSINOPHILS % (AUTO) 5.9 % (0-6); HEMATOCRIT 28.5 % (36.0-47.0); HEMOGLOBIN 9.2 g/dL (12.0-15.5); LYMPHOCYTES % (AUTO) 19.3 % (13-45); MEAN CORPUSCULAR HEMOGLOBIN 32.7 pg (27.0-33.4); MEAN CORPUSCULAR HGB CONC 32.2 g/dL (32.0-36.0); MEAN CORPUSCULAR VOLUME 101 fl (80-97); PLATELET COUNT 280 10^3/uL (150-450); RED BLOOD COUNT 2.81 10^6/uL (3.72-5.28); RED CELL DISTRIBUTION WIDTH 19.3 % (11.5-14.0); SEGMENTED NEUTROPHILS % (AUTO) 61.1 % (42-78); TOTAL CELLS COUNTED % (AUTO) 100 %; WHITE BLOOD COUNT 5.5 10^3/uL (4.0-10.5)
[2020-01-02] MEDS: CARVEDILOL 3.125 MG TABLET PO SCH ×2 (05:35→17:02)
[2020-01-02 05:43] LABS: ANION GAP 10 (5-19); BLOOD UREA NITROGEN 31 mg/dL (7-20); CALCIUM 9.2 mg/dL (8.4-10.2); CARBON DIOXIDE 29 mmol/L (22-30); CHLORIDE 96 mmol/L (98-107); GLUCOSE 87 mg/dL (75-110); PHOSPHORUS 5.9 mg/dL (2.5-4.5)
[2020-01-02] MEDS: METOPROLOL TARTRATE 25 MG TABLET PO SCH (10:48)
--- NOTE | 2020-01-02 12:46 | PDOC PROGRESS REPORT ---
Subjective Progress Note for:: 01/02/20 Subjective:: The patient during dialysis this afternoon. She is not really verbalizing anything but she is awake and alert. She nods on questioning. P indicated that she wanted to go home. It looks like she has not been eating or drinking much her intake and output record. So far she is comfortable receiving dialysis. Reason For Visit: VOLUME OVERLOAD, ON BIPAP AND NEEDING HD Physical Exam Vital Signs: Temp Pulse Resp BP Pulse Ox 98.2 F 84 17 142/59 H 95 01/02/20 08:04 01/02/20 08:04 01/02/20 08:04 01/02/20 08:04 01/02/20 08:04 Intake & Output 01/01/20 01/02/20 01/03/20 06:59 06:59 06:59 Intake Total 21 124 Output Total 1600 200 Balance -1579 -76 Weight 34.2 kg 31.5 kg Vitals during dialysis: Blood pressure 124/73, heart rate of 81, blood flow rate of 450 mL/min and dialysate flow rate of 800 mL/min. Exam: General appearance: PRESENT: no acute distress, cooperative, well-developed, well-nourished Head exam: PRESENT: atraumatic, normocephalic Eye exam: PRESENT: conjunctiva slightly pale, PERRLA. ABSENT: scleral icterus Neck exam: ABSENT: JVD Respiratory exam: PRESENT: Normal breath sounds. ABSENT: crackles, rales, rhonchi, unlabored, wheezes Cardiovascular exam: PRESENT: Irregularly irregular rate rhythm -+S1, +S2. Grade 2/6 systolic murmur GI/Abdominal exam: PRESENT: normal bowel sounds, soft. ABSENT: guarding, mass, tenderness Extremities exam: ABSENT: No edema Neurological exam: PRESENT: alert, awake, not verbalizing anything. Skin exam: PRESENT: dry, warm, Cardiovascular exam: PRESENT: +S1, +S2. ABSENT: RRR GI/Abdominal exam: PRESENT: normal bowel sounds, soft. ABSENT: organomegaly, tenderness Results Laboratory Results: 01/02/20 04:52 01/02/20 04:52 01/02/20 01/02/20 04:52 04:52 WBC 5.5 RBC 2.81 L Hgb 9.2 L Hct 28.5 L MCV 101 H MCH 32.7 MCHC 32.2 RDW 19.3 H Plt Count 280 Seg Neutrophils % 61.1 Sodium 134.6 L Potassium 4.0 Chloride 96 L Carbon Dioxide 29 Anion Gap 10 BUN 31 H Creatinine 3.93 H Est GFR ( Amer) 13 L Glucose 87 Calcium 9.2 Phosphorus 5.9 H Magnesium 2.1 12/28/19 07:40 Blood Blood Culture - Final NO GROWTH IN 5 DAYS 12/28/19 07:02 Blood Blood Culture - Final NO GROWTH IN 5 DAYS 12/28/19 07:02 Troponin I 0.096 Impressions: Chest X-Ray 12/28/19 06:44 IMPRESSION: Enlarged cardiac silhouette with diffuse bilateral interstitial opacities, likely edema. Additional right infrahilar opacities possibly asymmetric edema, atelectasis or infection. Assessment & Plan - Diagnosis (1) End-stage renal disease on hemodialysis Is this a current diagnosis for this admission?: Yes Plan: We will do dialysis today for 3 hours, using the patient's AV fistula, with 3 potassium bath, blood flow rate of 450 mL per minute, dialysate flow rate of 800 mL per minute, ultrafiltration none since the patient is dry and will give 250 to 500 mL of fluids positive during dialysis, no heparin and Retacrit with 20,000 units during dialysis intravenously. Patient is monitored closely during dialysis. (2) Paroxysmal atrial fibrillation Is this a current diagnosis for this admission?: Yes Plan: Patient was on Cardizem drip and now on oral metoprolol per Dr. Lozoya. (3) Tertiary hyperparathyroidism Is this a current diagnosis for this admission?: Yes Plan: Not a candidate for surgery due to age. (4) Anemia in chronic kidney disease Qualifiers: Chronic kidney disease stage: on chronic dialysis Qualified Code(s): N18.6 - End stage renal disease; D63.1 - Anemia in chronic kidney disease; Z99.2 - Dependence on renal dialysis Is this a current diagnosis for this admission?: Yes Plan: Retacrit during dialysis as needed. (5) Congestive heart failure Qualifiers: Heart failure type: unspecified Heart failure chronicity: unspecified Qualified Code(s): I50.9 - Heart failure, unspecified Is this a current diagnosis for this admission?: Yes Plan: Clinically compensated. - Time Time with patient: 15-25 minutes
--- NOTE | 2020-01-02 16:50 | PDOC DISCHARGE SUMMARY ---
Impression - Admit/DC Date/PCP Admission Date/Primary Care Provider: 12/28/19 09:01 MARIANO WASHINGTON MD Discharge Date: 01/02/20 - Discharge Diagnosis (1) Acute hypoxemic respiratory failure Is this a current diagnosis for this admission?: Yes (2) End-stage renal disease on hemodialysis Is this a current diagnosis for this admission?: Yes (3) Paroxysmal atrial fibrillation Is this a current diagnosis for this admission?: Yes (4) Chronic systolic heart failure Is this a current diagnosis for this admission?: Yes - Additional Information Resuscitation Status: Do Not Intubate Referrals: MARIANO WASHINGTON MD [Primary Care Provider] - Follow up as needed (Someone will call you with your appointment tomorrow.) Home Medications: Carvedilol [Coreg 3.125 mg Tablet] 3.125 mg PO Q12 03/30/19 Furosemide [Lasix 40 mg Tablet] 40 mg PO DAILY 03/30/19 Valsartan [Diovan] 320 mg PO DAILY 03/30/19 Clonidine HCl [Catapres 0.2 mg Tablet] 0.2 mg PO DAILYP PRN 12/28/19 Gabapentin [Neurontin 100 mg Capsule] 100 mg PO .BEFORE DIALYSIS 12/28/19 History of Present Illiness History of Present Illness: BRIAN GUDINO is a 83 year old female,She was brought to the emergency room for evaluation of altered mental status, respiratory distress, she has end-stage renal disease on hemodialysis, she was last dialyzed on Tuesday this week, she get hemodialysis on Mondays, Wednesdays and Fridays no history could be obtained from this patient, she is a DNR status. Prognosis is very poor, patient looks moribund cannot get any history from this patient. She was dialyzed this morning in intensive care unit. It looks like end-of-life situation comfort care is appropriate Hospital Course Hospital Course: Patient was admitted for the management of acute hypoxemic respiratory failure, she required noninvasive positive pressure ventilation. She was seen in consultation by nephrology she is on hemodialysis, she received session of hemodialysis on this admission.She had episode of paroxysmal atrial fibrillation with rapid ventricular response, this was treated with Cardizem infusion for rate control. Patient overall condition was very poor.She was a DNR status Physical Exam Vital Signs: Temp Pulse Resp BP Pulse Ox 98.2 F 84 17 142/59 H 95 01/02/20 08:04 01/02/20 08:04 01/02/20 08:04 01/02/20 08:04 01/02/20 08:04 Intake & Output 01/01/20 01/02/20 01/03/20 06:59 06:59 06:59 Intake Total 21 124 200 Output Total 1600 200 Balance -1579 -76 200 Weight 34.2 kg 31.5 kg General appearance: PRESENT: no acute distress Eye exam: PRESENT: PERRLA Respiratory exam: PRESENT: clear to auscultation vinicius Cardiovascular exam: PRESENT: +S1, +S2 GI/Abdominal exam: PRESENT: soft Neurological exam: PRESENT: alert Results Laboratory Results: WBC 5.5 10^3/uL (4.0-10.5) 01/02/20 04:52 RBC 2.81 10^6/uL (3.72-5.28) L 01/02/20 04:52 Hgb 9.2 g/dL (12.0-15.5) L 01/02/20 04:52 Hct 28.5 % (36.0-47.0) L 01/02/20 04:52 MCV 101 fl (80-97) H 01/02/20 04:52 MCH 32.7 pg (27.0-33.4) 01/02/20 04:52 MCHC 32.2 g/dL (32.0-36.0) 01/02/20 04:52 RDW 19.3 % (11.5-14.0) H 01/02/20 04:52 Plt Count 280 10^3/uL (150-450) 01/02/20 04:52 Lymph % (Auto) 19.3 % (13-45) 01/02/20 04:52 [place] % (Auto) 13.0 % (3-13) 01/02/20 04:52 Eos % (Auto) 5.9 % (0-6) 01/02/20 04:52 Baso % (Auto) 0.7 % (0-2) 01/02/20 04:52 Absolute Neuts (auto) 3.4 10^3/uL (1.7-8.2) 01/02/20 04:52 Absolute Lymphs (auto) 1.1 10^3/uL (0.5-4.7) 01/02/20 04:52 Absolute Monos (auto) 0.7 10^3/uL (0.1-1.4) 01/02/20 04:52 Absolute Eos (auto) 0.3 10^3/uL (0.0-0.6) 01/02/20 04:52 Absolute Basos (auto) 0.0 10^3/uL (0.0-0.2) 01/02/20 04:52 Seg Neutrophils % 61.1 % (42-78) 01/02/20 04:52 Platelet Estimate Cancelled 12/29/19 04:37 PT 14.0 SEC (11.4-15.4) 12/28/19 07:02 INR 1.08 12/28/19 07:02 Carbonic Acid 1.52 mmol/L (1.05-1.35) H 12/28/19 16:53 HCO3/H2CO3 Ratio 19:1 12/28/19 16:53 ABG pH 7.38 (7.35-7.45) 12/28/19 16:53 ABG pCO2 50.4 mmHg (35-45) H 12/28/19 16:53 ABG pO2 108.0 mmHg (80-100) H 12/28/19 16:53 ABG HCO3 28.9 mmol/L (20-24) H 12/28/19 16:53 ABG Total CO2 30.4 mmol/L (21-25) H 12/28/19 16:53 ABG O2 Saturation 97.8 % (94-98) 12/28/19 16:53 ABG Base Excess 3.1 mmol/L 12/28/19 16:53 VBG pH 7.06 (7.30-7.42) L* 12/28/19 07:02 VBG pCO2 89.0 mmHg (35-63) H* 12/28/19 07:02 VBG HCO3 24.6 mmol/L (20-32) 12/28/19 07:02 VBG Base Excess -7.0 mmol/L 12/28/19 07:02 FiO2 40% 12/28/19 16:53 Sodium 134.6 mmol/L (137-145) L 01/02/20 04:52 Potassium 4.0 mmol/L (3.6-5.0) 01/02/20 04:52 Chloride 96 mmol/L (98-107) L 01/02/20 04:52 Carbon Dioxide 29 mmol/L (22-30) 01/02/20 04:52 Anion Gap 10 (5-19) 01/02/20 04:52 BUN 31 mg/dL (7-20) H 01/02/20 04:52 Creatinine 3.93 mg/dL (0.52-1.25) H 01/02/20 04:52 Est GFR ( Amer) 13 (>60) L 01/02/20 04:52 Est GFR (MDRD) Non-Af 11 (>60) L 01/02/20 04:52 Glucose 87 mg/dL (75-110) 01/02/20 04:52 POC Glucose 114 mg/dL (70-110) H 12/29/19 17:23 Lactic Acid 1.8 mmol/L (0.7-2.1) 12/28/19 19:21 Calcium 9.2 mg/dL (8.4-10.2) 01/02/20 04:52 Phosphorus 5.9 mg/dL (2.5-4.5) H 01/02/20 04:52 Magnesium 2.1 mg/dL (1.6-2.3) 01/02/20 04:52 Total Bilirubin 0.5 mg/dL (0.2-1.3) 12/28/19 07:02 Direct Bilirubin 0.2 mg/dL (0.0-0.4) 12/28/19 07:02 Neonat Total Bilirubin Not Reportable 12/28/19 07:02 Neonat Direct Bilirubin Not Reportable 12/28/19 07:02 Neonat Indirect Bili Not Reportable 12/28/19 07:02 AST 35 U/L (14-36) 12/28/19 07:02 ALT 17 U/L (<35) 12/28/19 07:02 Alkaline Phosphatase 1231 U/L (38-126) H 12/28/19 07:02 Troponin I 0.096 ng/mL 12/28/19 07:02 Total Protein 6.7 g/dL (6.3-8.2) 12/28/19 07:02 Albumin 3.8 g/dL (3.5-5.0) 12/28/19 07:02 Urine Color YELLOW 12/28/19 10:00 Urine Appearance SLIGHTLY-CLOUDY 12/28/19 10:00 Urine pH 7.0 (5.0-9.0) 12/28/19 10:00 Ur Specific [place] 1.007 12/28/19 10:00 Urine Protein 100 mg/dL (NEGATIVE) H 12/28/19 10:00 Urine Glucose (UA) >=500 mg/dL (NEGATIVE) H 12/28/19 10:00 Urine Ketones NEGATIVE mg/dL (NEGATIVE) 12/28/19 10:00 Urine Blood SMALL (NEGATIVE) H 12/28/19 10:00 Urine Nitrite (Reflex) NEGATIVE (NEGATIVE) 12/28/19 10:00 Urine Bilirubin NEGATIVE (NEGATIVE) 12/28/19 10:00 Urine Urobilinogen NEGATIVE mg/dL (<2.0) 12/28/19 10:00 Leukocyte Esterase Rfl LARGE (NEGATIVE) H 12/28/19 10:00 Urine RBC (Auto) 7 /HPF 12/28/19 10:00 U Hyaline Cast (Auto) 1 /LPF 12/28/19 10:00 Urine WBC (Reflex) 23 /HPF 12/28/19 10:00 Squamous Epi Cells Auto 6 /HPF 12/28/19 10:00 Urine Mucus (Auto) RARE /LPF 12/28/19 10:00 Urine Ascorbic Acid NEGATIVE (NEGATIVE) 12/28/19 10:00 Slides for Path Review Cancelled 12/29/19 04:37 12/28/19 07:02 Troponin I 0.096 Impressions: Chest X-Ray 12/28/19 06:44 IMPRESSION: Enlarged cardiac silhouette with diffuse bilateral interstitial opacities, likely edema. Additional right infrahilar opacities possibly asymmetric edema, atelectasis or infection. Stroke Is this a Stroke Patient?: No Acute Heart Failure - Is this a Heart Failure Patient?: No
[2020-01-02] MEDS: FUROSEMIDE 40 MG TABLET PO SCH (17:01)
[2020-01-02] MEDS: VALSARTAN 160 MG TABLET PO SCH (17:01)
[2020-01-02 17:24] VITALS: BP 84/62
== END 2020-01-02 19:45 | disposition home or self-care (01) | DRG 291 ==
LOC: ER 06:28 → EH 09:01 → ICU 12:00 → 3W 17:58
PROVIDERS: ADMIT Internal Medicine; ATTEND Internal Medicine
PROC: 0YHJ33Z Insertion of Infusion Device into Left Lower Leg, Percutaneous Approach (ICD-10-PCS; principal; 2019-12-28)
PROC: 5A1D70Z Performance of Urinary Filtration, Intermittent, Less than 6 Hours Per Day (ICD-10-PCS; 2019-12-28)
DX: I13.2 Hypertensive heart and chronic kidney disease with heart failure and with stage 5 chronic kidney disease, or end stage renal disease (principal); J96.01 Acute respiratory failure with hypoxia; N18.6 End stage renal disease; J96.02 Acute respiratory failure with hypercapnia; R64 Cachexia; Q60.0 Renal agenesis, unilateral; Z66 Do not resuscitate; E78.00 Pure hypercholesterolemia, unspecified; E21.2 Other hyperparathyroidism; D63.1 Anemia in chronic kidney disease; I50.9 Heart failure, unspecified; I73.9 Peripheral vascular disease, unspecified; I48.0 Paroxysmal atrial fibrillation; N25.0 Renal osteodystrophy; E87.79 Other fluid overload; R41.82 Altered mental status, unspecified; Z99.2 Dependence on renal dialysis; Z89.612 Acquired absence of left leg above knee
CPT/HCPCS: 36415; 71045; 80048; 80053; 81001; 82803; 82962; 83605; 83735; 84100; 84484; 85025; 85610; 87040; 93005; 93010; 94660; 96365; 96367; 96375; 99221; 99291; C9113; J1200; J2060; J2310; J2543; J3370; J3490; Q5105

== ENCOUNTER 2020-01-10 23:30 | Inpatient (IN) | payer MEDICARE ==
[2020-01-10] MEDS ORDERED: NITROGLYCERIN/D5W 50 MG/250 ML RTUINJ IV PRN (23:48)
[2020-01-11] LABS: VENOUS BLOOD BASE EXCESS -6.4 mmol/L; VENOUS BLOOD HCO3 25.6 mmol/L (20-32)
--- NOTE | 2020-01-11 | ER Document Report ---
ED Respiratory Problem - General Chief Complaint: Breathing Difficulty Stated Complaint: DIFFICULTY BREATHING Time Seen by Provider: 01/10/20 23:46 Notes: Patient is an 84-year-old female that comes emergency department for chief complaint of respiratory distress. She comes by personal vehicle with family. On arrival to the emergency department patient is gasping and unable to answer questions, daughter states that in the back of the car she kept stating "I cannot breathe". Patient has a history of congestive heart failure and she is on hemodialysis, her last dialysis was Tuesday and she has not missed any. Patient was hospitalized within the past 2 weeks for difficulty breathing and has been intubated recently as well. No fevers reported, daughter states that patient was actually doing well during the day, she is compliant with her medications reportedly. 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 TRAVEL OUTSIDE OF THE [place] IN LAST 30 DAYS: No - Related Data Allergies/Adverse Reactions: aloe vera [Aloe Vera] Allergy (Unknown, Verified 04/13/19 14:22) Swelling jalapeno peppers Allergy (Unknown, Uncoded 04/13/19 14:22) Swelling Past Medical History - General Information source: Relative - daughter - Social History Smoking Status: Never Smoker Drug Abuse: None Lives with: Family Family History: Reviewed & Not Pertinent - Past Medical History Cardiac Medical History: Reports: Hx Congestive Heart Failure, Hx Hypercholesterolemia, Hx Hypertension, Hx Peripheral Vascular Disease Denies: Hx Coronary Artery Disease, Hx Heart Attack Pulmonary Medical History: Reports: Hx Pneumonia - hx of Denies: Hx Asthma, Hx Bronchitis, Hx COPD Neurological Medical History: Denies: Hx Cerebrovascular Accident, Hx Seizures, Hx Parkinson's Disease Renal/ Medical History: Reports: Hx End Stage Renal Disease, Hx Kidney Stones. Denies: Hx Peritoneal Dialysis GI Medical History: Reports: Hx Diverticulitis, Hx Ulcer - Peptic ulcer disease in 1992-no history of GI bleeding in the past Musculoskeletal Medical History: Denies Hx Arthritis, Denies Hx Multiple Sclerosis Psychiatric Medical History: Denies: Hx Schizophrenia Past Surgical History: Reports: Hx Kidney (Renal Surgery) - 1 removal, Hx Orthopedic Surgery - left AKA mar. Denies: Hx Hysterectomy - Immunizations Immunizations up to date: Yes Hx Diphtheria, Pertussis, Tetanus Vaccination: Yes Hx Pneumococcal Vaccination: 07/04/16 Review of Systems - Review of Systems Constitutional: See HPI EENT: No symptoms reported Cardiovascular: See HPI Respiratory: See HPI Gastrointestinal: No symptoms reported Genitourinary: No symptoms reported Female Genitourinary: No symptoms reported Musculoskeletal: No symptoms reported Skin: No symptoms reported Hematologic/Lymphatic: No symptoms reported Neurological/Psychological: No symptoms reported Physical Exam - Vital signs Vitals: Pulse Ox 87 L 01/10/20 23:38 - Notes Notes: GENERAL: Patient in obvious respiratory distress, minimally responsive HEAD: Normocephalic, atraumatic. EYES: Pupils equal, round, and reactive to light. Extraocular movements intact. ENT: Oral mucosa moist, tongue midline. Oropharynx unremarkable. Airway patent. NECK: Full range of motion. Supple. Trachea midline. No lymphadenopathy. LUNGS: Tachypnea, labored breathing, severe respiratory distress. Scattered coarse breath sounds. Unable to speak responses. HEART: Tachycardia with extrasystoles, no murmur ABDOMEN: Soft, non-tender. Non-distended. EXTREMITIES: Left BKA, right leg without edema with normal distal pulses and sensation. BACK: no cervical, thoracic, lumbar midline tenderness. No saddle anesthesia, normal distal neurovascular exam. NEUROLOGICAL: Patient is cooperative but unable to answer any questions. PSYCH: Normal affect, normal mood. SKIN: Slightly diaphoretic Course - Re-evaluation Re-evalutation: 01/10/20 23:55 I have been at patient's bedside until now. Patient initially gasping for airin obvious respiratory distress, unable to answer questions, wide-eyed and groaning. Patient was cooperative however. Patient was immediately placed on nonrebreather because she had oxygen saturation in the 60s, she was transitioned to BiPAP as soon as possible. Patient was very tachycardic and her initial blo od pressure was 210 systolic. Patient was placed on nitroglycerin drip although after she was placed on BiPAP that blood pressure down trended even as we set this up, this was started on only a low drip initially at 10 mcg/min and then down to 5 mcg/min. Patient is extremely small. Oxygen saturation normalized into the mid and upper 90s on BiPAP, patient's work of breathing resolved, patient remains arousable at this time. Per daughter at bedside patient is DNR status but she can get intubated. She states Dr. Miranda did evaluate the patient at bedside. 01/11/20 00:20 Patient became awake, started saying "take this off my face", became slightly agitated. Attempted to calm her down, gave her 1 mg of morphine IV, after this she did calm down. Patient remains arousable and cooperative. Initial venous blood gas shows marked hypercarbia at 93.8 with pH of 7.08. However despite the significant respiratory acidosis patient continues to improve. CBC not showing leukocytosis, shows anemia without significant change from prior. Chemistry nonspecific, troponin indeterminate, BNP without significant change from prior. Chest x-ray showing bilateral opacities suggesting pneumonia, patient was given cefepime and vancomycin because of recent hospital admission. Blood cultures are pending. Venous blood gas cycled after 1 hour and this shows dramatic improvement. Patient remains arousable and is responsive on my reevaluation. Discussed with patient daughter, will discuss with her professional development manager because her dialysis is due today and will discuss with hospitalist for admission. They state agreement and appreciation. I called and spoke with Dr. Crane, professional development manager, he states that if patient is not admitted to the ICU then he should be able to dialyze patient this afternoon, however he asks that I clear this with nursing sulfuric acid plant supervisor. I called and spoke with Chrissie, nursing sulfuric acid plant supervisor, she states patient can be admitted to the IMCU if possible and if COVID is negative. Culture was checked and negative. I have spoken to Dr. Lozoya, patient's provider, patient accepted to IMCU full admission. - Vital Signs Vital signs: Temp Pulse Resp BP Pulse Ox 98.2 F 10 L 156/42 H 100 01/11/20 00:00 01/11/20 04:02 01/11/20 04:03 01/11/20 04:03 - Laboratory Result Diagrams: 01/11/20 00:23 01/10/20 23:45 Laboratory results interpreted by me: 01/10/20 01/10/20 01/10/20 23:45 23:45 23:45 RBC Hgb Hct MCV MCHC RDW VBG pH 7.05 L* VBG pCO2 93.8 H* Creatinine 3.27 H Est GFR ( Amer) 16 L Est GFR (MDRD) Non-Af 13 L Glucose 182 H AST 40 H Alkaline Phosphatase 1359 H NT-Pro-B Natriuret Pep 78342 H 07/10/20 07/10/20 00:23 00:43 RBC 3.20 L Hgb 10.7 L Hct 34.6 L MCV 108 H D MCHC 30.8 L RDW 19.4 H VBG pH 7.25 L VBG pCO2 Creatinine Est GFR ( Amer) Est GFR (MDRD) Non-Af Glucose AST Alkaline Phosphatase NT-Pro-B Natriuret Pep Critical Care Note - Critical Care Note Total time excluding time spent on procedures (mins): 40 - Respiratory distress, pneumonia, hypoxia Comments: Please allow 40 minutes of critical care time for evaluation and management of this critically ill patient. Patient treated for severe respiratory distress with respiratory acidosis and hypercarbia with oxygen, BiPAP, nitroglycerin drip. Treated for pneumonia with antibiotics. Time spent performing multiple re-evaluations, discussing with family, discussing with nephrology, admission to the hospital. Discharge - Discharge Clinical Impression: Respiratory distress, Hypoxia, Hypercarbia Pneumonia Qualifiers: Pneumonia type: due to unspecified organism Laterality: bilateral Lung location: unspecified part of lung Qualified Code(s): J18.9 - Pneumonia, unspecified organism Condition: Stable Disposition: ADMITTED INPATIENT Admitting Provider: [facility] Unit Admitted: [facility]
[2020-01-11 00:08] LABS: VENOUS BLOOD PH 7.05 (7.30-7.42)
[2020-01-11 00:09] LABS: VENOUS BLOOD PCO2 93.8 mmHg (35-63)
[2020-01-11 00:12] LABS: ALBUMIN 3.7 g/dL (3.5-5.0); ALKALINE PHOSPHATASE 1359 U/L (38-126); ANION GAP 12 (5-19); ASPARTATE AMINO TRANSFERASE 40 U/L (14-36); BILIRUBIN,DIRECT 0.2 mg/dL (0.0-0.4); BILIRUBIN,TOTAL 0.5 mg/dL (0.2-1.3); BLOOD UREA NITROGEN 16 mg/dL (7-20); CALCIUM 9.4 mg/dL (8.4-10.2); CARBON DIOXIDE 26 mmol/L (22-30); CHLORIDE 101 mmol/L (98-107); GLUCOSE 182 mg/dL (75-110); POTASSIUM 3.7 mmol/L (3.6-5.0); TOTAL PROTEIN 6.4 g/dL (6.3-8.2)
[2020-01-11] MEDS ORDERED: MORPHINE SULFATE 10 MG/ML INJ IV ONE (00:13)
--- NOTE | 2020-01-11 00:29 | RADIOLOGY REPORT (SQ) ---
AP Portable chest: 01/10/2020 11:27 PM CDT History: 84-year old patient with dyspnea, hypoxia. Comparison: Chest radiograph performed 2019. Findings: The cardiomediastinal silhouette is enlarged. No pneumothorax is seen. There are diffuse bilateral airspace opacities seen. Consolidative airspace opacities are seen at the right upper lobe which has significantly increased since prior imaging. Interstitial and central vascular prominence is seen. The lung volumes are low. The patient's chin overlies the apices. Impression: These bilateral airspace opacities appear increased since prior imaging. There are increasing consolidative airspace opacities at the right upper lobe. These are concerning for infection.
[2020-01-11 00:34] LABS: ABSOLUTE BASOPHILS # (AUTO) 0.1 10^3/uL (0.0-0.2); ABSOLUTE EOSINOPHILS # (AUTO) 0.1 10^3/uL (0.0-0.6); ABSOLUTE LYMPHOCYTES (AUTO) 1.4 10^3/uL (0.5-4.7); ABSOLUTE MONOCYTES (AUTO) 0.5 10^3/uL (0.1-1.4); ABSOLUTE NEUT (AUTO) 6.6 10^3/uL (1.7-8.2); BASOPHILS % (AUTO) 1.2 % (0-2); EOSINOPHILS % (AUTO) 1.5 % (0-6); HEMATOCRIT 34.6 % (36.0-47.0); HEMOGLOBIN 10.7 g/dL (12.0-15.5); LYMPHOCYTES % (AUTO) 16.4 % (13-45); MEAN CORPUSCULAR HEMOGLOBIN 33.3 pg (27.0-33.4); MEAN CORPUSCULAR HGB CONC 30.8 g/dL (32.0-36.0); MONOCYTES % (AUTO) 5.7 % (3-13); PLATELET COUNT 322 10^3/uL (150-450); RED CELL DISTRIBUTION WIDTH 19.4 % (11.5-14.0); SEGMENTED NEUTROPHILS % (AUTO) 75.2 % (42-78); TOTAL CELLS COUNTED % (AUTO) 100 %; WHITE BLOOD COUNT 8.7 10^3/uL (4.0-10.5)
[2020-01-11] MEDS ORDERED: CEFEPIME 2 GM/D5W RTU 2 GM/50 ML RTUPB IV ONE (00:46)
[2020-01-11 00:58] LABS: MEAN CORPUSCULAR VOLUME 108 fl (80-97)
[2020-01-11 01:01] LABS: TROPONIN I 0.093 ng/mL
[2020-01-11 01:21] LABS: VENOUS BLOOD BASE EXCESS -2.3 mmol/L; VENOUS BLOOD HCO3 25.6 mmol/L (20-32); VENOUS BLOOD PCO2 59.7 mmHg (35-63); VENOUS BLOOD PH 7.25 (7.30-7.42)
[2020-01-11] MEDS ORDERED: VANCOMYCIN HCL INJ 1000 MG VIAL IV ONE (01:24)
[2020-01-11] MEDS ORDERED: HEPARIN SOD (PORCINE) 1,000 UNIT/ML 10 ML VIAL IV PRN (02:07)
[2020-01-11] MEDS ORDERED: HEPARIN SOD (PORCINE) 5,000 UNIT/ML 1 ML VIAL SUBCUT ONE (02:45)
[2020-01-11] MEDS ORDERED: LEVOFLOXACIN 250 MG/D5W RTU 250 MG/50 ML RTUPB IV ONE (03:00)
[2020-01-11] MEDS: HEPARIN SOD (PORCINE) 5,000 UNIT/ML 1 ML VIAL SUBCUT SCH ×4 (03:08→22:32)
--- NOTE | 2020-01-11 07:43 | EKG REPORT ---
SEVERITY:- ABNORMAL ECG - SINUS TACHYCARDIA MULTIFORM VENTRICULAR PREMATURE COMPLEXES AND PACS CONSIDER LEFT VENTRICULAR HYPERTROPHY BORDERLINE T ABNORMALITIES, INFERIOR LEADS : Confirmed by: Jw Hernández MD 11-Jan-2020 07:41:58
[2020-01-11] MEDS: DILTIAZEM HCL/D5W 125 MG/125 ML RTUINJ IV PRN (09:52)
[2020-01-11] MEDS ORDERED: DILTIAZEM HCL/D5W 125 MG/125 ML RTUINJ IV ONE (10:24)
--- NOTE | 2020-01-11 15:06 | PDOC CONSULTATION ---
Consultation Consult Date: 01/11/20 Provider Consulted: Robert SPRINGER Consult reason:: ESRD for HD. 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 Evaluations have revealed that she has right pneumonia and respiratory failure. Currently she is now being seen while undergoing dialysis in the ICU. She looks very lethargic and is responding poorly to questions. Labs and medications were reviewed. She denies any history of chest pains, fever or chills. Dialysis orders were reviewed with the treating dialysis carter se. Her COVID PCR was negative on this admission. Past Medical History Cardiac Medical History: Reports: Hyperlipidemia, Hypertension-primary, Peripheral Vascular Disease Denies: Coronary Artery Disease, Myocardial Infarction Pulmonary Medical History: Reports: Pneumonia - hx of Denies: Asthma, Bronchitis, Chronic Obstructive Pulmonary Disease (COPD) Neurological Medical History: Denies: Seizures Renal/ Medical History: Reports: End Stage Renal Disease, Secondary Hyperpara thyroidism Denies: Benign Prostatic Hyperplasia GI Medical History: Reports: Diverticulitis Musculoskeltal Medical History: Denies: Arthritis Psychiatric Medical History: Hematology Medical History: Reports Anemia of Chronic Kidney Disease Past Surgical History Past Surgical History: Reports: Orthopedic Surgery - left AKA mar Denies: Hysterectomy Social History Lives with: Family Smoking Status: Never Smoker Frequency of Alcohol Use: None Hx Recreational Drug Use: No Drugs: None Hx Prescription Drug Abuse: No - Advance Directive Resuscitation Status: Do Not Resuscitate Family History Parental Family History Reviewed: No Children Family History Reviewed: No Sibling(s) Family History Reviewed.: No Medication/Allergy Home Medications: Carvedilol [Coreg 3.125 mg Tablet] 3.125 mg PO Q12 03/30/19 Furosemide [Lasix 40 mg Tablet] 40 mg PO DAILY 03/30/19 Valsartan [Diovan] 320 mg PO DAILY 03/30/19 Clonidine HCl [Catapres 0.2 mg Tablet] 0.2 mg PO DAILYP PRN 12/28/19 Gabapentin [Neurontin 100 mg Capsule] 100 mg PO .BEFORE DIALYSIS 12/28/19 Lidocaine/Prilocaine [Emla Cream 30 gm (Clinic Use Only)] 1 applic TP .BEFORE DIALYSIS 01/11/20 Pregabalin [Lyrica 25 Mg Capsule] 25 mg PO .BEFORE DIALYSIS 01/11/20 Allergies/Adverse Reactions: aloe vera [Aloe Vera] Allergy (Unknown, Verified 04/13/19 14:22) Swelling jalapeno peppers Allergy (Unknown, Uncoded 04/13/19 14:22) Swelling Review of Systems Constitutional: PRESENT: anorexia, fatigue, weakness. ABSENT: chills, fever(s), headache(s), night sweats Nose, Mouth, and Throat: ABSENT: mouth pain, sore throat Cardiovascular: PRESENT: dyspnea on exertion. ABSENT: chest pain, edema, orthropnea, palpitations Respiratory: PRESENT: cough, dyspnea. ABSENT: hemoptysis Gastrointestinal: ABSENT: abdominal pain, coffee ground emesis, hematemesis, vomiting Genitourinary: ABSENT: dysuria, hematuria Musculoskeletal: ABSENT: deformity, joint swelling Integumentary: PRESENT: pruritus. ABSENT: lesions, rash Neurological: ABSENT: abnormal speech, convulsions, focal weakness, frequent falls Hematologic/Lymphatic: ABSENT: easy bruising, lymphadenopathy Physical Exam Vital Signs: Temp Pulse Resp BP Pulse Ox 97.7 F 65 16 118/79 98 01/11/20 11:33 01/11/20 11:33 01/11/20 11:33 01/11/20 11:33 01/11/20 11:33 Intake & Output 01/10/20 01/11/20 01/12/20 06:59 06:59 06:59 Intake Total 60 Output Total 0 Balance 60 Weight 35.5 kg General appearance: PRESENT: disheveled Eye exam: PRESENT: EOMI, PERRLA Mouth exam: ABSENT: moist Respiratory exam: PRESENT: clear to auscultation vinicius, decreased breath sounds. ABSENT: crackles Cardiovascular exam: PRESENT: +S1, +S2 GI/Abdominal exam: PRESENT: normal bowel sounds, soft. ABSENT: organomegaly, tenderness Extremities exam: ABSENT: pedal edema Neurological exam: PRESENT: altered Skin exam: ABSENT: erythema, mottled, rash Results Laboratory Results: 01/11/20 00:23 01/10/20 23:45 01/10/20 01/10/20 01/10/20 23:45 23:45 23:45 WBC Cancelled RBC Cancelled Hgb Cancelled Hct Cancelled MCV Cancelled MCH Cancelled MCHC Cancelled RDW Cancelled Plt Count Cancelled Seg Neutrophils % Cancelled VBG pH 7.05 L* VBG pCO2 93.8 H* VBG HCO3 25.6 VBG Base Excess -6.4 Sodium 139.4 Potassium 3.7 Chloride 101 Carbon Dioxide 26 Anion Gap 12 BUN 16 Creatinine 3.27 H Est GFR ( Amer) 16 L Glucose 182 H Calcium 9.4 Total Bilirubin 0.5 AST 40 H Alkaline Phosphatase 1359 H Total Protein 6.4 Albumin 3.7 01/11/20 01/11/20 00:23 00:43 WBC 8.7 RBC 3.20 L Hgb 10.7 L Hct 34.6 L MCV 108 H D MCH 33.3 MCHC 30.8 L RDW 19.4 H Plt Count 322 Seg Neutrophils % 75.2 VBG pH 7.25 L VBG pCO2 59.7 VBG HCO3 25.6 VBG Base Excess -2.3 Sodium Potassium Chloride Carbon Dioxide Anion Gap BUN Creatinine Est GFR ( Amer) Glucose Calcium Total Bilirubin AST Alkaline Phosphatase Total Protein Albumin 01/10/20 01/10/20 23:45 23:45 CK-MB (CK-2) 1.25 Troponin I 0.093 NT-Pro-B Natriuret Pep 76904 H Assessment & Plan - Diagnosis (1) Acute hypoxemic respiratory failure Plan: Secondary to pneumonia. Currently on antibiotics. (2) End-stage renal disease on hemodialysis Plan: Patient currently in ICU undergoing dialysis. Dialysis being supervised. Vital signs are stable. However she is in A. fib presently rate controlled. Labs and medications were reviewed. Dialysis orders were reviewed with the treating dialysis nurse. (3) Hypertension Qualifiers: Plan: Controlled. Monitor. (4) Paroxysmal atrial fibrillation Plan: Currently on diltiazem and rate control. Monitor. (5) Renal osteodystrophy Plan: And has gone into tertiary hyperparathyroidism as she has refused surgical interventions. (6) Tertiary hyperparathyroidism Plan: Status quo. (7) HX: breast cancer Plan: Status quo.
[2020-01-11] MEDS ORDERED: VANCOMYCIN HCL 750 MG in DEXTROSE 5%-WATER 250 ML IV SCH (18:00)
[2020-01-11] MEDS ORDERED: VANCOMYCIN HCL 500 MG in DEXTROSE 5%-WATER 100 ML IV SCH (18:00)
--- NOTE | 2020-01-11 20:49 | PDOC H&P ---
History of Present Illness Admission Date/PCP: 01/11/20 01:54 MARIANO WASHINGTON MD History of Present Illness: BRIAN GUDINO is a 84 year old female She has a history of end-stage renal disease on maintenance hemodialysis she came to emergency room last night for evaluation of respiratory distress, hypertensive urgency, the emergency room a chest x-ray was done that demonstrated right lung pneumonia she was also found to have acute respiratory failure with hypoxemia and hypercapnia. Patient was recently discharged from this hospital when she presented with respiratory failure.During the course of the day she developed paroxysmal atrial fibrillation with rapid ventricular response, she required Cardizem infusion for ventricular rate control. Patient condition is very poor she is status post right above-knee amputation, extremely undernourished she has anterior chest wal l deformity, patient also expressed her desire to the nursing staff to stop hemodialysis ,she said she is tired of it Past Medical History Cardiac Medical History: Reports: Hyperlipidema, Hypertension, Peripheral Vascular Disease Pulmonary Medical History: Reports: Pneumonia - hx of Neurological Medical History: Denies: Seizures Renal/ Medical History: Reports: End Stage Renal Disease GI Medical History: Reports: Diverticulitis Musculoskeltal Medical History: Denies: Arthritis Psychiatric Medical History: Hematology: Reports: Bleeding Tendencies Past Surgical History Past Surgical History: Reports: Orthopedic Surgery - left AKA mar Social History Lives with: Family Smoking Status: Never Smoker Frequency of Alcohol Use: None Hx Recreational Drug Use: No Drugs: None Hx Prescription Drug Abuse: No - Advance Directive Resuscitation Status: Do Not Resuscitate Family History Family History: Reviewed & Not Pertinent Parental Family History Reviewed: Yes Children Family History Reviewed: Yes Sibling(s) Family History Reviewed.: Yes Medication/Allergy Home Medications: Carvedilol [Coreg 3.125 mg Tablet] 3.125 mg PO Q12 03/30/19 Furosemide [Lasix 40 mg Tablet] 40 mg PO DAILY 03/30/19 Valsartan [Diovan] 320 mg PO DAILY 03/30/19 Clonidine HCl [Catapres 0.2 mg Tablet] 0.2 mg PO DAILYP PRN 12/28/19 Gabapentin [Neurontin 100 mg Capsule] 100 mg PO .BEFORE DIALYSIS 12/28/19 Lidocaine/Prilocaine [Emla Cream 30 gm (Clinic Use Only)] 1 applic TP .BEFORE DIALYSIS 07/10/20 Pregabalin [Lyrica 25 Mg Capsule] 25 mg PO .BEFORE DIALYSIS 01/11/20 Allergies/Adverse Reactions: aloe vera [Aloe Vera] Allergy (Unknown, Verified 04/13/19 14:22) Swelling jalapeno peppers Allergy (Unknown, Uncoded 04/13/19 14:22) Swelling Review of Systems Constitutional: PRESENT: fever(s) Eyes: ABSENT: visual disturbances Ears: ABSENT: hearing changes Cardiovascular: ABSENT: chest pain, dyspnea on exertion, edema, orthropnea, palpitations Respiratory: PRESENT: cough, dyspnea Gastrointestinal: ABSENT: abdominal pain, constipation, diarrhea, hematemesis, hematochezia, nausea, vomiting Genitourinary: ABSENT: dysuria, hematuria Musculoskeletal: ABSENT: joint swelling Integumentary: ABSENT: rash, wounds Endocrine: ABSENT: cold intolerance, heat intolerance, menstrual abnormalities, polydipsia, polyuria Hematologic/Lymphatic: ABSENT: easy bleeding, easy bruising, lymphadenopathy Physical Exam Vital Signs: Temp Pulse Resp BP Pulse Ox 98.4 F 95 20 143/47 H 100 01/11/20 16:20 01/11/20 18:00 01/11/20 16:20 01/11/20 16:20 01/11/20 16:20 Intake & Output 01/10/20 01/11/20 01/12/20 06:59 06:59 06:59 Intake Total 60 Output Total 0 800 Balance 60 -800 Weight 35.5 kg General appearance: PRESENT: thin Head exam: PRESENT: atraumatic, normocephalic Eye exam: PRESENT: conjunctiva pink, EOMI, PERRLA Ear exam: PRESENT: normal external ear exam Respiratory exam: PRESENT: chest wall tenderness, rhonchi Cardiovascular exam: PRESENT: RRR, +S1, +S2 Vascular exam: PRESENT: normal capillary refill GI/Abdominal exam: PRESENT: normal bowel sounds, soft Rectal exam: PRESENT: deferred Extremities exam: PRESENT: right AKA Neurological exam: PRESENT: alert Psychiatric exam: PRESENT: appropriate affect, normal mood Skin exam: PRESENT: dry, intact, warm Results Laboratory Results: 01/11/20 00:23 01/10/20 23:45 01/10/20 01/10/20 01/10/20 23:45 23:45 23:45 WBC Cancelled RBC Cancelled Hgb Cancelled Hct Cancelled MCV Cancelled MCH Cancelled MCHC Cancelled RDW Cancelled Plt Count Cancelled Seg Neutrophils % Cancelled VBG pH 7.05 L* VBG pCO2 93.8 H* VBG HCO3 25.6 VBG Base Excess -6.4 Sodium 139.4 Potassium 3.7 Chloride 101 Carbon Dioxide 26 Anion Gap 12 BUN 16 Creatinine 3.27 H Est GFR ( Amer) 16 L Glucose 182 H Calcium 9.4 Total Bilirubin 0.5 AST 40 H Alkaline Phosphatase 1359 H Total Protein 6.4 Albumin 3.7 01/11/20 01/11/20 00:23 00:43 WBC 8.7 RBC 3.20 L Hgb 10.7 L Hct 34.6 L MCV 108 H D MCH 33.3 MCHC 30.8 L RDW 19.4 H Plt Count 322 Seg Neutrophils % 75.2 VBG pH 7.25 L VBG pCO2 59.7 VBG HCO3 25.6 VBG Base Excess -2.3 Sodium Potassium Chloride Carbon Dioxide Anion Gap BUN Creatinine Est GFR ( Amer) Glucose Calcium Total Bilirubin AST Alkaline Phosphatase Total Protein Albumin 01/10/20 01/10/20 23:45 23:45 CK-MB (CK-2) 1.25 Troponin I 0.093 NT-Pro-B Natriuret Pep 77786 H Assessment & Plan - Diagnosis (1) Acute respiratory failure with hypoxia and hypercapnia Is this a current diagnosis for this admission?: Yes Plan: Patient requires noninvasive positive pressure ventilation BiPAP (2) Paroxysmal atrial fibrillation with rapid ventricular response Is this a current diagnosis for this admission?: Yes Plan: Start Cardizem infusion (3) Pneumonia Qualifiers: Pneumonia type: due to unspecified organism Laterality: bilateral Lung location: unspecified part of lung Qualified Code(s): J18.9 - Pneumonia, unspecified organism Is this a current diagnosis for this admission?: Yes Plan: Antibiotic to cover healthcare associated pneumonia, vancomycin, ceftriaxone Levaquin (4) ESRD (end stage renal disease) Is this a current diagnosis for this admission?: Yes Plan: Management per nephrology
[2020-01-11] MEDS: LEVOFLOXACIN 250 MG/D5W RTU 250 MG/50 ML RTUPB IV SCH (22:32)
[2020-01-12] MEDS ORDERED: ACETAMINOPHEN 325 MG TABLET ONE (03:45)
[2020-01-12] MEDS: HEPARIN SOD (PORCINE) 5,000 UNIT/ML 1 ML VIAL SUBCUT SCH ×3 (06:22→22:52)
[2020-01-12] MEDS: DILTIAZEM HCL/D5W 125 MG/125 ML RTUINJ IV PRN (06:31)
[2020-01-12 06:53] LABS: ABSOLUTE EOSINOPHILS # (AUTO) 0.1 10^3/uL (0.0-0.6); ABSOLUTE LYMPHOCYTES (AUTO) 0.7 10^3/uL (0.5-4.7); ABSOLUTE MONOCYTES (AUTO) 0.4 10^3/uL (0.1-1.4); ABSOLUTE NEUT (AUTO) 2.6 10^3/uL (1.7-8.2); BASOPHILS % (AUTO) 0.9 % (0-2); EOSINOPHILS % (AUTO) 3.1 % (0-6); HEMATOCRIT 31.3 % (36.0-47.0); HEMOGLOBIN 10.1 g/dL (12.0-15.5); LYMPHOCYTES % (AUTO) 18.4 % (13-45); MEAN CORPUSCULAR HEMOGLOBIN 33.3 pg (27.0-33.4); MEAN CORPUSCULAR HGB CONC 32.1 g/dL (32.0-36.0); MONOCYTES % (AUTO) 11.1 % (3-13); PLATELET COUNT 276 10^3/uL (150-450); RED BLOOD COUNT 3.02 10^6/uL (3.72-5.28); RED CELL DISTRIBUTION WIDTH 19.4 % (11.5-14.0); SEGMENTED NEUTROPHILS % (AUTO) 66.5 % (42-78); TOTAL CELLS COUNTED % (AUTO) 100 %; WHITE BLOOD COUNT 3.9 10^3/uL (4.0-10.5)
[2020-01-12 07:10] LABS: ALBUMIN 3.2 g/dL (3.5-5.0); ALKALINE PHOSPHATASE 1184 U/L (38-126); ANION GAP 6 (5-19); ASPARTATE AMINO TRANSFERASE 23 U/L (14-36); BILIRUBIN,DIRECT 0.1 mg/dL (0.0-0.4); BILIRUBIN,TOTAL 0.5 mg/dL (0.2-1.3); BLOOD UREA NITROGEN 10 mg/dL (7-20); CALCIUM 9.7 mg/dL (8.4-10.2); CARBON DIOXIDE 29 mmol/L (22-30); CHLORIDE 99 mmol/L (98-107); GLUCOSE 90 mg/dL (75-110); POTASSIUM 3.2 mmol/L (3.6-5.0)
[2020-01-12 07:32] LABS: MEAN CORPUSCULAR VOLUME 104 fl (80-97)
--- NOTE | 2020-01-12 12:27 | PDOC PROGRESS REPORT ---
Subjective Progress Note for:: 01/12/20 Subjective:: Patient was admitting in the hospital for the atrial fibrillation with a rapid ventricular response shortness of the breath pneumonia Patient is initially refused to take her treatments Patient is currently on a Cardizem drip 5 continues to regularly take the medicines Patient's denied any chest pain no short of breath Reason For Visit: PNEUMONIA,ESRD,ACUTE HYPERCAPNIC AND HYPOXEMIC Physical Exam Vital Signs: Temp Pulse Resp BP Pulse Ox 98.7 F 98 15 175/66 H 95 01/12/20 11:40 01/12/20 11:40 01/12/20 11:40 01/12/20 11:40 01/12/20 11:40 Intake & Output 01/11/20 01/12/20 01/13/20 06:59 06:59 06:59 Intake Total 60 923 Output Total 0 800 Balance 60 123 Weight 35.5 kg 35.1 kg General appearance: PRESENT: no acute distress, well-developed, well-nourished Head exam: PRESENT: atraumatic, normocephalic Eye exam: PRESENT: conjunctiva pink, EOMI, PERRLA. ABSENT: scleral icterus Ear exam: PRESENT: normal external ear exam Mouth exam: PRESENT: moist, tongue midline Neck exam: PRESENT: full ROM. ABSENT: carotid bruit, JVD, lymphadenopathy, thyromegaly Respiratory exam: PRESENT: clear to auscultation vinicius Cardiovascular exam: PRESENT: RRR. ABSENT: diastolic murmur, rubs, systolic murmur Pulses: PRESENT: normal dorsalis pedis pul, +2 pedal pulses bilateral Vascular exam: PRESENT: normal capillary refill GI/Abdominal exam: PRESENT: normal bowel sounds, soft. ABSENT: distended, guarding, mass, organolmegaly, rebound, tenderness Rectal exam: PRESENT: deferred Neurological exam: PRESENT: alert, awake, oriented to person, oriented to place, oriented to time, oriented to situation, CN II-XII grossly intact. ABSENT: motor sensory deficit Psychiatric exam: PRESENT: appropriate affect, normal mood. ABSENT: homicidal ideation, suicidal ideation Skin exam: PRESENT: dry, intact, warm. ABSENT: cyanosis, rash Results Laboratory Results: 01/12/20 06:31 01/12/20 06:31 01/12/20 01/12/20 06:31 06:31 WBC 3.9 L RBC 3.02 L Hgb 10.1 L Hct 31.3 L MCV 104 H D MCH 33.3 MCHC 32.1 RDW 19.4 H Plt Count 276 Seg Neutrophils % 66.5 Sodium 134.0 L Potassium 3.2 L Chloride 99 Carbon Dioxide 29 Anion Gap 6 BUN 10 Creatinine 1.99 H Est GFR ( Amer) 29 L Glucose 90 Calcium 9.7 Total Bilirubin 0.5 AST 23 Alkaline Phosphatase 1184 H Total Protein 6.0 L Albumin 3.2 L 01/10/20 01/10/20 01/12/20 23:45 23:45 06:31 CK-MB (CK-2) 1.25 Troponin I 0.093 0.105 NT-Pro-B Natriuret Pep 53782 H Assessment & Plan - Diagnosis (1) Acute respiratory failure with hypoxia and hypercapnia Is this a current diagnosis for this admission?: Yes (2) Paroxysmal atrial fibrillation with rapid ventricular response Is this a current diagnosis for this admission?: Yes (3) Pneumonia Qualifiers: Pneumonia type: due to unspecified organism Laterality: bilateral Lung location: unspecified part of lung Qualified Code(s): J18.9 - Pneumonia, unspecified organism Is this a current diagnosis for this admission?: Yes (4) End stage renal disease Is this a current diagnosis for this admission?: Yes (5) Hypertension Qualifiers: Is this a current diagnosis for this admission?: Yes - Time Time Spent with patient: 15-24 minutes Level of Care: TELE Medications reviewed and adjusted accordingly: Yes Anticipated discharge: Other Within: Other - Plan Summary Plan Summary: Continues the Cardizem drips Continues to current medications Patient's troponin is elevated most likely underlying chronic kidney disease we consulted cardiology Get a 12-lead EKG
--- NOTE | 2020-01-12 15:15 | PDOC CONSULTATION ---
Consultation-Blank Consultation: CARDIOLOGY CONSULTATION by Dr. Marva Araiza on 01/12/2020. Patient seen at 5 PM. 60 minutes spent as patient more than 50% of time spent in direct patient care. REASON FOR CONSULTATION: Atrial fibrillation CONSULT REQUESTING PHYSICIAN: Dr. Chaparro HISTORY OF PRESENT ILLNESS: Patient is a 84-year-old Afro-Citizen Of [place] female with known history of end-stage renal disease on hemodialysis, hypertension, peripheral vascular disease and history of atrial fibrillation admitted through the emergency room with hypertensive urgency, and respiratory distress and found to have right-sided pneumonia. The patient also refused to take a p.o. Cardizem and hence the patient is on IV Cardizem. At present the rate is controlled. There is no ventricle arrhythmia seen on the monitor. She denies any chest pain discomfort. There is no PND orthopnea or leg edema. She has history of peripheral vascular disease and is status post left above-knee amputation. Past Medical History Cardiac Medical History: Reports: Hyperlipidema, Hypertension, Peripheral Vascular Disease Pulmonary Medical History: Reports: Pneumonia - hx of Neurological Medical History: Denies: Seizures Renal/ Medical History: Reports: End Stage Renal Disease GI Medical History: Reports: Diverticulitis Musculoskeltal Medical History: Denies: Arthritis Psychiatric Medical History: Hematology: Reports: Bleeding Tendencies Past Surgical History Past Surgical History: Reports: Orthopedic Surgery - left AKA mar. Resuscitation STATUS: The patient is a DNR. Her daughter is her surrogate healthcare decision maker. Social History Lives with: Family Smoking Status: Never Smoker Frequency of Alcohol Use: None Hx Recreational Drug Use: No Drugs: None Hx Prescription Drug Abuse: No - Advance Directive Resuscitation Status: Do Not Resuscitate Family History Family History: Reviewed & Not Pertinent Parental Family History Reviewed: Yes Children Family History Reviewed: Yes Sibling(s) Family History Reviewed.: Yes Medication/Allergy Home Medications: Carvedilol [Coreg 3.125 mg Tablet] 3.125 mg PO Q12 03/30/19 Furosemide [Lasix 40 mg Tablet] 40 mg PO DAILY 03/30/19 Valsartan [Diovan] 320 mg PO DAILY 03/30/19 Clonidine HCl [Catapres 0.2 mg Tablet] 0.2 mg PO DAILYP PRN 12/28/19 Gabapentin [Neurontin 100 mg Capsule] 100 mg PO .BEFORE DIALYSIS 12/28/19 Lidocaine/Prilocaine [Emla Cream 30 gm (Clinic Use Only)] 1 applic TP .BEFORE DIALYSIS 01/11/20 Pregabalin [Lyrica 25 Mg Capsule] 25 mg PO .BEFORE DIALYSIS 01/11/20 Allergies/Adverse Reactions: aloe vera [Aloe Vera] Allergy (Unknown, Verified 04/13/19 14:22) Swelling jalapeno peppers Allergy (Unknown, Uncoded 04/13/19 14:22) Swelling Review of Systems Constitutional: PRESENT: fever(s) Eyes: ABSENT: visual disturbances Ears: ABSENT: hearing changes Cardiovascular: ABSENT: chest pain, dyspnea on exertion, edema, orthropnea, palpitations Respiratory: PRESENT: cough, dyspnea Gastrointestinal: ABSENT: abdominal pain, constipation, diarrhea, hematemesis, hematochezia, nausea, vomiting Genitourinary: ABSENT: dysuria, hematuria Musculoskeletal: ABSENT: joint swelling Integumentary: ABSENT: rash, wounds Endocrine: ABSENT: cold intolerance, heat intolerance, menstrual abnormalities, polydipsia, polyuria Hematologic/Lymphatic: ABSENT: easy bleeding, easy bruising, lymphadenopathy. PHYSICAL EXAMINATION: The patient is a frail build and appears to be malnourished and chronically ill. She appears to be cachectic also. Selected Entries 01/12/20 01/12/20 16:08 16:13 Temperature 98.4 F Temperature Oral Source Pulse Rate 80 Respiratory 15 Rate Blood Pressure 131/62 H Blood Pressure 85 Mean BP Location Left Arm BP Position Supine O2 Sat by Pulse 92 93 Oximetry Oxygen Delivery Nasal Cannula Method ( includes room air) Oxygen Flow 2 Rate HEAD: Is atraumatic normocephalic. EYES: Pupils are equal round regular reactive light accommodation. HEENT is negative. NECK: Is supple. There is no JVD. Carotids are equal there is no bruit there is no lymphadenopathy. There is no goiter. LUNGS: Clear to auscultation percussion. HEART: S1-S2 is heard. There is no S3 gallop. There is no S4 gallop. S1 is a variable intensity. Systolic murmur left sternal border and the apex there is no rub. ABDOMEN: Is soft. Nontender. There is no paraspinal megaly. Bowel sounds are well heard. EXTREMITIES: Femorals are diminished. Leg pulses are diminished. There is left AKA. ANUS: The patient is conscious awake alert confused. There is no focal deficits. PSYCHIATRIC.: The patient does not appear to be anxious or agitated. Labs- Entire Visit 01/10/20 01/10/20 01/10/20 23:45 23:45 23:45 WBC Cancelled RBC Cancelled Hgb Cancelled Hct Cancelled MCV Cancelled MCH Cancelled MCHC Cancelled RDW Cancelled Plt Count Cancelled Lymph % (Auto) Cancelled [place] % (Auto) Cancelled Eos % (Auto) Cancelled Baso % (Auto) Cancelled Absolute Neuts (auto) Cancelled Absolute Lymphs (auto) Cancelled Absolute Monos (auto) Cancelled Absolute Eos (auto) Cancelled Absolute Basos (auto) Cancelled Seg Neutrophils % Cancelled Platelet Estimate Cancelled VBG pH VBG pCO2 VBG HCO3 VBG Base Excess Sodium 139.4 Potassium 3.7 Chloride 101 Carbon Dioxide 26 Anion Gap 12 BUN 16 Creatinine 3.27 H Est GFR ( Amer) 16 L Est GFR (MDRD) Non-Af 13 L Glucose 182 H Hemoglobin A1c % Calcium 9.4 Total Bilirubin 0.5 Direct Bilirubin 0.2 Neonat Total Bilirubin Not Reportable Neonat Direct Bilirubin Not Reportable Neonat Indirect Bili Not Reportable AST 40 H ALT 15 Alkaline Phosphatase 1359 H CK-MB (CK-2) Troponin I 0.093 NT-Pro-B Natriuret Pep 65299 H Total Protein 6.4 Albumin 3.7 SARS-CoV-2 (PCR) Slides for Path Review Cancelled 01/10/20 01/10/20 01/11/20 23:45 23:45 00:23 WBC 8.7 RBC 3.20 L Hgb 10.7 L Hct 34.6 L MCV 108 H D MCH 33.3 MCHC 30.8 L RDW 19.4 H Plt Count 322 Lymph % (Auto) 16.4 [place] % (Auto) 5.7 Eos % (Auto) 1.5 Baso % (Auto) 1.2 Absolute Neuts (auto) 6.6 Absolute Lymphs (auto) 1.4 Absolute Monos (auto) 0.5 Absolute Eos (auto) 0.1 Absolute Basos (auto) 0.1 Seg Neutrophils % 75.2 Platelet Estimate VBG pH 7.05 L* VBG pCO2 93.8 H* VBG HCO3 25.6 VBG Base Excess -6.4 Sodium Potassium Chloride Carbon Dioxide Anion Gap BUN Creatinine Est GFR ( Amer) Est GFR (MDRD) Non-Af Glucose Hemoglobin A1c % Calcium Total Bilirubin Direct Bilirubin Neonat Total Bilirubin Neonat Direct Bilirubin Neonat Indirect Bili AST ALT Alkaline Phosphatase CK-MB (CK-2) 1.25 Troponin I NT-Pro-B Natriuret Pep Total Protein Albumin SARS-CoV-2 (PCR) Slides for Path Review 01/11/20 01/11/20 01/12/20 00:43 01:51 06:31 WBC 3.9 L RBC 3.02 L Hgb 10.1 L Hct 31.3 L MCV 104 H D MCH 33.3 MCHC 32.1 RDW 19.4 H Plt Count 276 Lymph % (Auto) 18.4 [place] % (Auto) 11.1 Eos % (Auto) 3.1 Baso % (Auto) 0.9 Absolute Neuts (auto) 2.6 Absolute Lymphs (auto) 0.7 Absolute Monos (auto) 0.4 Absolute Eos (auto) 0.1 Absolute Basos (auto) 0.0 Seg Neutrophils % 66.5 Platelet Estimate VBG pH 7.25 L VBG pCO2 59.7 VBG HCO3 25.6 VBG Base Excess -2.3 Sodium Potassium Chloride Carbon Dioxide Anion Gap BUN Creatinine Est GFR ( Amer) Est GFR (MDRD) Non-Af Glucose Hemoglobin A1c % Calcium Total Bilirubin Direct Bilirubin Neonat Total Bilirubin Neonat Direct Bilirubin Neonat Indirect Bili AST ALT Alkaline Phosphatase CK-MB (CK-2) Troponin I NT-Pro-B Natriuret Pep Total Protein Albumin SARS-CoV-2 (PCR) NEGATIVE Slides for Path Review 01/12/20 01/12/20 01/12/20 06:31 06:31 06:31 WBC RBC Hgb Hct MCV MCH MCHC RDW Plt Count Lymph % (Auto) [place] % (Auto) Eos % (Auto) Baso % (Auto) Absolute Neuts (auto) Absolute Lymphs (auto) Absolute Monos (auto) Absolute Eos (auto) Absolute Basos (auto) Seg Neutrophils % Platelet Estimate VBG pH VBG pCO2 VBG HCO3 VBG Base Excess Sodium 134.0 L Potassium 3.2 L Chloride 99 Carbon Dioxide 29 Anion Gap 6 BUN 10 Creatinine 1.99 H Est GFR ( Amer) 29 L Est GFR (MDRD) Non-Af 24 L Glucose 90 Hemoglobin A1c % 4.5 L Calcium 9.7 Total Bilirubin 0.5 Direct Bilirubin 0.1 Neonat Total Bilirubin Not Reportable Neonat Direct Bilirubin Not Reportable Neonat Indirect Bili Not Reportable AST 23 ALT 16 Alkaline Phosphatase 1184 H CK-MB (CK-2) Troponin I 0.105 NT-Pro-B Natriuret Pep Total Protein 6.0 L Albumin 3.2 L SARS-CoV-2 (PCR) Slides for Path Review SINUS TACHYCARDIA - STMT - * MULTIFORM VENTRICULAR PREMATURE COMPLEXES AND PACS [LVHSR] . CONSIDER LEFT VENTRICULAR HYPERTROPHY [T0IN] . BORDERLINE T ABNORMALITIES, INFERIOR LEADS Impression/RECOMMENDATION: 1. Chronic atrial fibrillation: Hypertension controlled ventricular response. The patient taking p.o. Not a candidate for chronic anticoagulation. 2. End-stage renal disease on hemodialysis. 3. Hypertension: Blood pressures are fair control but not optimally controlled 4. Peripheral vascular disease status post left AKA. 5. Severe dementia: But pleasantly confused. Medications reviewed. Medical regimen management plan discussed with RN Provider of the case. Medical decision making is of moderate complexity. 60 minutes spent as patient more than 50% time spent in direct patient care. Will follow.
[2020-01-12] MEDS: LEVOFLOXACIN 250 MG/D5W RTU 250 MG/50 ML RTUPB IV SCH (23:56)
[2020-01-13 03:48] LABS: APPEARANCE,URINE SLIGHTLY-CLOUDY; BILIRUBIN,URINE NEGATIVE (NEGATIVE); COLOR,URINE STRAW; GLUCOSE, URINE 50 mg/dL (NEGATIVE); KETONES,URINE NEGATIVE (NEGATIVE); LEUKOCYTE ESTERASE,URINE LARGE (NEGATIVE); NITRITE,URINE NEGATIVE (NEGATIVE); PROTEIN,URINE 30 mg/dL (NEGATIVE); URINE SPECIFIC GRAVITY 1.006; UROBILINOGEN,URINE NEGATIVE mg/dL (<2.0)
[2020-01-13 05:57] LABS: ALBUMIN 3.5 g/dL (3.5-5.0); ALKALINE PHOSPHATASE 1272 U/L (38-126); ANION GAP 9 (5-19); ASPARTATE AMINO TRANSFERASE 24 U/L (14-36); BILIRUBIN,DIRECT 0.2 mg/dL (0.0-0.4); BILIRUBIN,TOTAL 0.6 mg/dL (0.2-1.3); BLOOD UREA NITROGEN 18 mg/dL (7-20); CALCIUM 9.4 mg/dL (8.4-10.2); CARBON DIOXIDE 28 mmol/L (22-30); CHLORIDE 99 mmol/L (98-107); GLUCOSE 106 mg/dL (75-110); POTASSIUM 3.6 mmol/L (3.6-5.0); TOTAL PROTEIN 6.5 g/dL (6.3-8.2)
[2020-01-13 06:01] LABS: ABSOLUTE EOSINOPHILS # (AUTO) 0.1 10^3/uL (0.0-0.6); ABSOLUTE LYMPHOCYTES (AUTO) 0.7 10^3/uL (0.5-4.7); ABSOLUTE MONOCYTES (AUTO) 0.5 10^3/uL (0.1-1.4); ABSOLUTE NEUT (AUTO) 3.7 10^3/uL (1.7-8.2); BASOPHILS % (AUTO) 0.8 % (0-2); EOSINOPHILS % (AUTO) 1.6 % (0-6); HEMOGLOBIN 10.4 g/dL (12.0-15.5); LYMPHOCYTES % (AUTO) 13.1 % (13-45); MEAN CORPUSCULAR HEMOGLOBIN 32.9 pg (27.0-33.4); MEAN CORPUSCULAR HGB CONC 32.4 g/dL (32.0-36.0); MEAN CORPUSCULAR VOLUME 102 fl (80-97); MONOCYTES % (AUTO) 9.9 % (3-13); PLATELET COUNT 323 10^3/uL (150-450); RED BLOOD COUNT 3.16 10^6/uL (3.72-5.28); RED CELL DISTRIBUTION WIDTH 19.7 % (11.5-14.0); SEGMENTED NEUTROPHILS % (AUTO) 74.6 % (42-78); TOTAL CELLS COUNTED % (AUTO) 100 %
[2020-01-13] MEDS: ACETAMINOPHEN 325 MG TABLET PO PRN ×2 (06:02→20:47)
[2020-01-13] MEDS: HEPARIN SOD (PORCINE) 5,000 UNIT/ML 1 ML VIAL SUBCUT SCH ×3 (06:02→21:40)
[2020-01-13] MEDS: DILTIAZEM HCL/D5W 125 MG/125 ML RTUINJ IV PRN (06:03)
[2020-01-13] MEDS ORDERED: 1/2 NORMAL SALINE 1,000 ML IV PRN (08:41)
[2020-01-13] MEDS: DILTIAZEM HCL 120 MG CAP.SR.24H PO SCH (09:01)
--- NOTE | 2020-01-13 10:04 | PDOC PROGRESS REPORT ---
Subjective Progress Note for:: 01/13/20 Subjective:: Patient was agitated last night requiring restraints Patient is feeling better this morning Patient seen by the cardiology currently on Cardizem drip at 5 Patient creatinine is 2.66 Patient is currently on IV vancomycin Patient is no fever no chills No chest pain Reason For Visit: PNEUMONIA,ESRD,ACUTE HYPERCAPNIC AND HYPOXEMIC Physical Exam Vital Signs: Temp Pulse Resp BP Pulse Ox 98.2 F 86 17 168/89 H 92 01/13/20 08:00 01/13/20 08:00 01/13/20 08:00 01/13/20 08:00 01/13/20 08:16 Intake & Output 01/12/20 01/13/20 01/14/20 06:59 06:59 06:59 Intake Total 923 419 13 Output Total 800 100 Balance 123 319 13 Weight 35.1 kg 39.1 kg General appearance: PRESENT: no acute distress, well-developed, well-nourished Head exam: PRESENT: atraumatic, normocephalic Eye exam: PRESENT: conjunctiva pink, EOMI, PERRLA. ABSENT: scleral icterus Ear exam: PRESENT: normal external ear exam Mouth exam: PRESENT: moist, tongue midline Neck exam: PRESENT: full ROM. ABSENT: carotid bruit, JVD, lymphadenopathy, thyromegaly Respiratory exam: PRESENT: decreased breath sounds Cardiovascular exam: PRESENT: RRR. ABSENT: diastolic murmur, rubs, systolic murmur Vascular exam: PRESENT: normal capillary refill GI/Abdominal exam: PRESENT: normal bowel sounds, soft. ABSENT: distended, guarding, mass, organolmegaly, rebound, tenderness Rectal exam: PRESENT: deferred Neurological exam: PRESENT: alert, awake, oriented to person. ABSENT: motor sensory deficit Psychiatric exam: PRESENT: appropriate affect, normal mood. ABSENT: homicidal ideation, suicidal ideation Skin exam: PRESENT: dry, intact, warm. ABSENT: cyanosis, rash Results Laboratory Results: 01/13/20 05:17 01/13/20 05:17 01/13/20 01/13/20 01/13/20 03:19 05:17 05:17 WBC 5.0 RBC 3.16 L Hgb 10.4 L Hct 32.0 L MCV 102 H MCH 32.9 MCHC 32.4 RDW 19.7 H Plt Count 323 Seg Neutrophils % 74.6 Sodium 135.8 L Potassium 3.6 Chloride 99 Carbon Dioxide 28 Anion Gap 9 BUN 18 Creatinine 2.66 H Est GFR ( Amer) 21 L Glucose 106 Calcium 9.4 Total Bilirubin 0.6 AST 24 Alkaline Phosphatase 1272 H Total Protein 6.5 Albumin 3.5 Urine Color STRAW Urine Appearance SLIGHTLY-CLOUDY Urine pH 8.0 Ur Specific [place] 1.006 Urine Protein 30 H Urine Glucose (UA) 50 H Urine Ketones NEGATIVE Urine Blood SMALL H Urine Nitrite NEGATIVE Ur Leukocyte Esterase LARGE H Urine WBC (Auto) 23 Urine RBC (Auto) 2 01/10/20 01/10/20 01/12/20 23:45 23:45 06:31 CK-MB (CK-2) 1.25 Troponin I 0.093 0.105 NT-Pro-B Natriuret Pep 40610 H Assessment & Plan - Diagnosis (1) Acute respiratory failure with hypoxia and hypercapnia Is this a current diagnosis for this admission?: Yes Plan: We will get the chest x-ray (2) Paroxysmal atrial fibrillation with rapid ventricular response Is this a current diagnosis for this admission?: Yes Plan: The patient on a p.o. Cardizem (3) Pneumonia Qualifiers: Pneumonia type: due to unspecified organism Laterality: bilateral Lung location: unspecified part of lung Qualified Code(s): J18.9 - Pneumonia, unspecified organism Is this a current diagnosis for this admission?: Yes Plan: DC the IV vancomycin as continues the Levaquin repeat the chest x-ray (4) End stage renal disease Is this a current diagnosis for this admission?: Yes (5) Hypertension Qualifiers: Is this a current diagnosis for this admission?: Yes - Time Time Spent with patient: 15-24 minutes Level of Care: TELE Medications reviewed and adjusted accordingly: Yes Anticipated discharge: Other Within: Other - Plan Summary Plan Summary: Continues to current medications Within patients get the vancomycin through the dialysis
--- NOTE | 2020-01-13 12:13 | Progress Note ---
Provider Note Provider Note: CARDIOLOGY PROGRESS NOTE by Dr. Tomas Ralph on 01/13/2020. Subjective: The patient remains atrial fibrillation with controlled ventricular response. She is taking them off. Although she is pleasantly confused she denies chest pain or discomfort. She denies any shortness of breath. PHYSICAL EXAMINATION: The patient appears to be chronically ill frail build and malnourished and cachectic. Selected Entries 01/13/20 12:04 Temperature 98.7 F Temperature Oral Source Pulse Rate 76 Respiratory 17 Rate Blood Pressure 158/60 H Blood Pressure 92 Mean BP Location Left Arm BP Position Sitting O2 Sat by Pulse 97 Oximetry Oxygen Delivery Room Air Method HEAD: Is atraumatic normocephalic. EYES: Pupils are equal round regular reactive light accommodation. HEENT is negative. NECK: Is supple. There is no JVD. Carotids are equal there is no bruit there is no lymphadenopathy. There is no goiter. LUNGS: Clear to auscultation percussion. HEART: S1-S2 is heard. There is no S3 gallop. There is no S4 gallop. S1 is a variable intensity. Systolic murmur left sternal border and the apex there is no rub. ABDOMEN: Is soft. Nontender. There is no paraspinal megaly. Bowel sounds are well heard. EXTREMITIES: Femorals are diminished. Leg pulses are diminished. There is left AKA. ANUS: The patient is conscious awake alert confused. There is no focal deficits. PSYCHIATRIC.: The patient does not appear to be anxious or agitate Chest X-Ray 01/13/20 00:00 IMPRESSION: 1. Improved aeration in the right upper lobe. 2. Lytic appearance of the right humerus and glenoid at the shoulder joint is of uncertain etiology. Dedicated right shoulder radiographs recommended. Labs- Entire Visit 01/10/20 01/10/20 01/10/20 23:45 23:45 23:45 WBC Cancelled RBC Cancelled Hgb Cancelled Hct Cancelled MCV Cancelled MCH Cancelled MCHC Cancelled RDW Cancelled Plt Count Cancelled Lymph % (Auto) Cancelled [place] % (Auto) Cancelled Eos % (Auto) Cancelled Baso % (Auto) Cancelled Absolute Neuts (auto) Cancelled Absolute Lymphs (auto) Cancelled Absolute Monos (auto) Cancelled Absolute Eos (auto) Cancelled Absolute Basos (auto) Cancelled Total Counted Seg Neutrophils % Cancelled Seg Neuts % (Manual) Lymphocytes % (Manual) Atypical Lymphs % Monocytes % (Manual) Eosinophils % (Manual) Basophils % (Manual) Abs Neuts (Manual) Abs Lymphs (Manual) Abs Monocytes (Manual) Absolute Eos (Manual) Abs Basophils (Manual) Platelet Estimate Cancelled Platelet Comment Polychromasia Hypochromasia Poikilocytosis Anisocytosis Macrocytosis Tear Drop Cells Ovalocytes Schistocytes VBG pH VBG pCO2 VBG HCO3 VBG Base Excess Sodium 139.4 Potassium 3.7 Chloride 101 Carbon Dioxide 26 Anion Gap 12 BUN 16 Creatinine 3.27 H Est GFR ( Amer) 16 L Est GFR (MDRD) Non-Af 13 L Glucose 182 H Hemoglobin A1c % Calcium 9.4 Total Bilirubin 0.5 Direct Bilirubin 0.2 Neonat Total Bilirubin Not Reportable Neonat Direct Bilirubin Not Reportable Neonat Indirect Bili Not Reportable AST 40 H ALT 15 Alkaline Phosphatase 1359 H CK-MB (CK-2) Troponin I 0.093 NT-Pro-B Natriuret Pep 42433 H Total Protein 6.4 Albumin 3.7 Urine Color Urine Appearance Urine pH Ur Specific [place] Urine Protein Urine Glucose (UA) Urine Ketones Urine Blood Urine Nitrite Urine Nitrite (Reflex) Urine Bilirubin Urine Urobilinogen Ur Leukocyte Esterase Leukocyte Esterase Rfl Urine WBC (Auto) Urine RBC (Auto) Urine Bacteria (Auto) Urine WBC (Reflex) Squamous Epi Cells Auto Urine Ascorbic Acid SARS-CoV-2 (PCR) Slides for Path Review Cancelled 01/10/20 01/10/20 01/11/20 23:45 23:45 00:23 WBC 8.7 RBC 3.20 L Hgb 10.7 L Hct 34.6 L MCV 108 H D MCH 33.3 MCHC 30.8 L RDW 19.4 H Plt Count 322 Lymph % (Auto) 16.4 [place] % (Auto) 5.7 Eos % (Auto) 1.5 Baso % (Auto) 1.2 Absolute Neuts (auto) 6.6 Absolute Lymphs (auto) 1.4 Absolute Monos (auto) 0.5 Absolute Eos (auto) 0.1 Absolute Basos (auto) 0.1 Total Counted Seg Neutrophils % 75.2 Seg Neuts % (Manual) Lymphocytes % (Manual) Atypical Lymphs % Monocytes % (Manual) Eosinophils % (Manual) Basophils % (Manual) Abs Neuts (Manual) Abs Lymphs (Manual) Abs Monocytes (Manual) Absolute Eos (Manual) Abs Basophils (Manual) Platelet Estimate Platelet Comment Polychromasia Hypochromasia Poikilocytosis Anisocytosis Macrocytosis Tear Drop Cells Ovalocytes Schistocytes VBG pH 7.05 L* VBG pCO2 93.8 H* VBG HCO3 25.6 VBG Base Excess -6.4 Sodium Potassium Chloride Carbon Dioxide Anion Gap BUN Creatinine Est GFR ( Amer) Est GFR (MDRD) Non-Af Glucose Hemoglobin A1c % Calcium Total Bilirubin Direct Bilirubin Neonat Total Bilirubin Neonat Direct Bilirubin Neonat Indirect Bili AST ALT Alkaline Phosphatase CK-MB (CK-2) 1.25 Troponin I NT-Pro-B Natriuret Pep Total Protein Albumin Urine Color Urine Appearance Urine pH Ur Specific [place] Urine Protein Urine Glucose (UA) Urine Ketones Urine Blood Urine Nitrite Urine Nitrite (Reflex) Urine Bilirubin Urine Urobilinogen Ur Leukocyte Esterase Leukocyte Esterase Rfl Urine WBC (Auto) Urine RBC (Auto) Urine Bacteria (Auto) Urine WBC (Reflex) Squamous Epi Cells Auto Urine Ascorbic Acid SARS-CoV-2 (PCR) Slides for Path Review 01/11/20 01/11/20 01/12/20 00:43 01:51 06:31 WBC 3.9 L RBC 3.02 L Hgb 10.1 L Hct 31.3 L MCV 104 H D MCH 33.3 MCHC 32.1 RDW 19.4 H Plt Count 276 Lymph % (Auto) 18.4 [place] % (Auto) 11.1 Eos % (Auto) 3.1 Baso % (Auto) 0.9 Absolute Neuts (auto) 2.6 Absolute Lymphs (auto) 0.7 Absolute Monos (auto) 0.4 Absolute Eos (auto) 0.1 Absolute Basos (auto) 0.0 Total Counted Seg Neutrophils % 66.5 Seg Neuts % (Manual) Lymphocytes % (Manual) Atypical Lymphs % Monocytes % (Manual) Eosinophils % (Manual) Basophils % (Manual) Abs Neuts (Manual) Abs Lymphs (Manual) Abs Monocytes (Manual) Absolute Eos (Manual) Abs Basophils (Manual) Platelet Estimate Platelet Comment Polychromasia Hypochromasia Poikilocytosis Anisocytosis Macrocytosis Tear Drop Cells Ovalocytes Schistocytes VBG pH 7.25 L VBG pCO2 59.7 VBG HCO3 25.6 VBG Base Excess -2.3 Sodium Potassium Chloride Carbon Dioxide Anion Gap BUN Creatinine Est GFR ( Amer) Est GFR (MDRD) Non-Af Glucose Hemoglobin A1c % Calcium Total Bilirubin Direct Bilirubin Neonat Total Bilirubin Neonat Direct Bilirubin Neonat Indirect Bili AST ALT Alkaline Phosphatase CK-MB (CK-2) Troponin I NT-Pro-B Natriuret Pep Total Protein Albumin Urine Color Urine Appearance Urine pH Ur Specific [place] Urine Protein Urine Glucose (UA) Urine Ketones Urine Blood Urine Nitrite Urine Nitrite (Reflex) Urine Bilirubin Urine Urobilinogen Ur Leukocyte Esterase Leukocyte Esterase Rfl Urine WBC (Auto) Urine RBC (Auto) Urine Bacteria (Auto) Urine WBC (Reflex) Squamous Epi Cells Auto Urine Ascorbic Acid SARS-CoV-2 (PCR) NEGATIVE Slides for Path Review 01/12/20 01/12/20 01/12/20 06:31 06:31 06:31 WBC RBC Hgb Hct MCV MCH MCHC RDW Plt Count Lymph % (Auto) [place] % (Auto) Eos % (Auto) Baso % (Auto) Absolute Neuts (auto) Absolute Lymphs (auto) Absolute Monos (auto) Absolute Eos (auto) Absolute Basos (auto) Total Counted Seg Neutrophils % Seg Neuts % (Manual) Lymphocytes % (Manual) Atypical Lymphs % Monocytes % (Manual) Eosinophils % (Manual) Basophils % (Manual) Abs Neuts (Manual) Abs Lymphs (Manual) Abs Monocytes (Manual) Absolute Eos (Manual) Abs Basophils (Manual) Platelet Estimate Platelet Comment Polychromasia Hypochromasia Poikilocytosis Anisocytosis Macrocytosis Tear Drop Cells Ovalocytes Schistocytes VBG pH VBG pCO2 VBG HCO3 VBG Base Excess Sodium 134.0 L Potassium 3.2 L Chloride 99 Carbon Dioxide 29 Anion Gap 6 BUN 10 Creatinine 1.99 H Est GFR ( Amer) 29 L Est GFR (MDRD) Non-Af 24 L Glucose 90 Hemoglobin A1c % 4.5 L Calcium 9.7 Total Bilirubin 0.5 Direct Bilirubin 0.1 Neonat Total Bilirubin Not Reportable Neonat Direct Bilirubin Not Reportable Neonat Indirect Bili Not Reportable AST 23 ALT 16 Alkaline Phosphatase 1184 H CK-MB (CK-2) Troponin I 0.105 NT-Pro-B Natriuret Pep Total Protein 6.0 L Albumin 3.2 L Urine Color Urine Appearance Urine pH Ur Specific [place] Urine Protein Urine Glucose (UA) Urine Ketones Urine Blood Urine Nitrite Urine Nitrite (Reflex) Urine Bilirubin Urine Urobilinogen Ur Leukocyte Esterase Leukocyte Esterase Rfl Urine WBC (Auto) Urine RBC (Auto) Urine Bacteria (Auto) Urine WBC (Reflex) Squamous Epi Cells Auto Urine Ascorbic Acid SARS-CoV-2 (PCR) Slides for Path Review 01/13/20 01/13/20 01/13/20 03:19 05:17 05:17 WBC 5.0 RBC 3.16 L Hgb 10.4 L Hct 32.0 L MCV 102 H MCH 32.9 MCHC 32.4 RDW 19.7 H Plt Count 323 Lymph % (Auto) 13.1 [place] % (Auto) 9.9 Eos % (Auto) 1.6 Baso % (Auto) 0.8 Absolute Neuts (auto) 3.7 Absolute Lymphs (auto) 0.7 Absolute Monos (auto) 0.5 Absolute Eos (auto) 0.1 Absolute Basos (auto) 0.0 Total Counted Seg Neutrophils % 74.6 Seg Neuts % (Manual) Lymphocytes % (Manual) Atypical Lymphs % Monocytes % (Manual) Eosinophils % (Manual) Basophils % (Manual) Abs Neuts (Manual) Abs Lymphs (Manual) Abs Monocytes (Manual) Absolute Eos (Manual) Abs Basophils (Manual) Platelet Estimate Platelet Comment Polychromasia Hypochromasia Poikilocytosis Anisocytosis Macrocytosis Tear Drop Cells Ovalocytes Schistocytes VBG pH VBG pCO2 VBG HCO3 VBG Base Excess Sodium 135.8 L Potassium 3.6 Chloride 99 Carbon Dioxide 28 Anion Gap 9 BUN 18 Creatinine 2.66 H Est GFR ( Amer) 21 L Est GFR (MDRD) Non-Af 17 L Glucose 106 Hemoglobin A1c % Calcium 9.4 Total Bilirubin 0.6 Direct Bilirubin 0.2 Neonat Total Bilirubin Not Reportable Neonat Direct Bilirubin Not Reportable Neonat Indirect Bili Not Reportable AST 24 ALT 14 Alkaline Phosphatase 1272 H CK-MB (CK-2) Troponin I NT-Pro-B Natriuret Pep Total Protein 6.5 Albumin 3.5 Urine Color STRAW Urine Appearance SLIGHTLY-CLOUDY Urine pH 8.0 Ur Specific [place] 1.006 Urine Protein 30 H Urine Glucose (UA) 50 H Urine Ketones NEGATIVE Urine Blood SMALL H Urine Nitrite NEGATIVE Urine Nitrite (Reflex) Cancelled Urine Bilirubin NEGATIVE Urine Urobilinogen NEGATIVE Ur Leukocyte Esterase LARGE H Leukocyte Esterase Rfl Cancelled Urine WBC (Auto) 23 Urine RBC (Auto) 2 Urine Bacteria (Auto) TRACE Urine WBC (Reflex) Cancelled Squamous Epi Cells Auto 6 Urine Ascorbic Acid NEGATIVE SARS-CoV-2 (PCR) Slides for Path Review Impression/RECOMMENDATION: 1. Chronic atrial fibrillation: Hypertension controlled ventricular response. The patient taking p.o. Not a candidate for chronic anticoagulation. 2. End-stage renal disease on hemodialysis. 3. Hypertension: Blood pressures are fair control but not optimally controlled 4. Peripheral vascular disease status post left AKA. 5. Severe dementia: But pleasantly confused. Occasions reviewed medical regimen management plan discussed with attending provider on the case. 40 minutes spent as patient more than 50% of time spent in direct patient care. Cardiac status is stable. No further work-up needed in view of the patient's significant dementia. We will sign off.
--- NOTE | 2020-01-13 13:01 | RADIOLOGY REPORT (SQ) ---
EXAM DESCRIPTION: CHEST SINGLE VIEW IMAGES COMPLETED DATE/TIME: 01/13/2020 9:27 am REASON FOR STUDY: pnemonia COMPARISON: 01/11/2020, 04/13/2019 EXAM PARAMETERS: NUMBER OF VIEWS: One view. TECHNIQUE: Single frontal radiographic view of the chest acquired. RADIATION DOSE: NA LIMITATIONS: None. FINDINGS: LUNGS AND PLEURA: There is improved aeration in the right upper lobe with no residual cons olidation. Volume loss in the right lung is noted. MEDIASTINUM AND HILAR STRUCTURES: No masses. Contour normal. HEART AND VASCULAR STRUCTURES: Severe cardiomegaly. No pulmonary vascular congestion. BONES: Lytic appearance of the proximal right humerus has worsened since previous examination in 2018. Similar lytic appearance at the proximal left humerus has been present and may be secondar y to chronic degenerative or posttraumatic change. HARDWARE: None in the chest. OTHER: No other significant finding. IMPRESSION: 1. Improved aeration in the right upper lobe. 2. Lytic appearance of the right humerus and glenoid at the shoulder joint is of uncertain etiology. Dedicated right shoulder radiographs recommended. TECHNICAL DOCUMENTATION: JOB ID: [id number] 2010 [employer]- All Rights Reserved Reading location - IP/workstation name: [email or web address]
[2020-01-13] MEDS: LEVOFLOXACIN 250 MG TABLET PO SCH (17:25)
--- NOTE | 2020-01-13 22:50 | CDI QUERY ---
CDI Query CDI Review: Documentation in the Medical Record indicates this patient has: Height: 5 ft Weight: 39.1 kg (86.02 lbs) (Calculated BMI: 16.8 kg/m2 ) Also documented: Patient condition is very poor she is status post right above- knee amputation, extremely undernourished she has anterior chest wall deformity Based on your medical judgement, please further clarify in the Progress Notes the diagnosis associated with these findings: Severe malnutrition / BMI 16.8 kg/m2 Moderate malnutrition / BMI 16.8 kg/m2 Cachexia / BMI 16.8 kg/m2 Emaciation / BMI 16.8 kg/m2 Undernutrition / BMI 16.8 kg/m2 Other condition (please specify) None of the above / Not applicable Thank you for your consideration. ALIE Batista RN Clinical Face Boss Physician Advisor
[2020-01-14] MEDS ORDERED: HEPARIN SOD (PORCINE) 1,000 UNIT/ML 10 ML VIAL IV PRN (05:00)
[2020-01-14] MEDS: HEPARIN SOD (PORCINE) 5,000 UNIT/ML 1 ML VIAL SUBCUT SCH ×3 (05:20→22:25)
[2020-01-14 06:30] LABS: HEMATOCRIT 34.9 % (36.0-47.0); HEMOGLOBIN 11.3 g/dL (12.0-15.5); MEAN CORPUSCULAR HEMOGLOBIN 33.3 pg (27.0-33.4); MEAN CORPUSCULAR HGB CONC 32.4 g/dL (32.0-36.0); MEAN CORPUSCULAR VOLUME 103 fl (80-97); PLATELET COUNT 277 10^3/uL (150-450); RED BLOOD COUNT 3.39 10^6/uL (3.72-5.28); RED CELL DISTRIBUTION WIDTH 19.5 % (11.5-14.0)
[2020-01-14 06:34] LABS: ALBUMIN 3.5 g/dL (3.5-5.0); ALKALINE PHOSPHATASE 1303 U/L (38-126); ANION GAP 11 (5-19); ASPARTATE AMINO TRANSFERASE 18 U/L (14-36); BILIRUBIN,DIRECT 0.1 mg/dL (0.0-0.4); BILIRUBIN,TOTAL 0.5 mg/dL (0.2-1.3); BLOOD UREA NITROGEN 21 mg/dL (7-20); CALCIUM 9.6 mg/dL (8.4-10.2); CARBON DIOXIDE 25 mmol/L (22-30); CHLORIDE 99 mmol/L (98-107); GLUCOSE 87 mg/dL (75-110); POTASSIUM 3.6 mmol/L (3.6-5.0); TOTAL PROTEIN 6.2 g/dL (6.3-8.2)
[2020-01-14 07:32] LABS: ABSOLUTE LYMPHOCYTES# (MANUAL) 1.1 10^3/uL (0.5-4.7); ABSOLUTE MONOCYTES # (MANUAL) 0.4 10^3/uL (0.1-1.4); BASOPHILS % (MANUAL) 0 % (0-2); EOSINOPHILS % (MANUAL) 0 % (0-6); LYMPHOCYTES % (MANUAL) 26 % (13-45); MONOCYTES % (MANUAL) 10 % (3-13); SEGMENTED NEUTROPHILS % (MAN) 63 % (42-78); TOTAL CELLS COUNTED 100
[2020-01-14 07:33] LABS: ANISOCYTOSIS 2+; HYPOCHROMASIA SLIGHT; OVALOCYTES SLIGHT; POIKILOCYTOSIS SLIGHT; POLYCHROMASIA SLIGHT; SCHISTOCYTES SLIGHT; TEAR DROP CELLS SLIGHT
[2020-01-14 07:34] LABS: PLATELET COMMENT ADEQUATE
[2020-01-14] MEDS: DILTIAZEM HCL 120 MG CAP.SR.24H PO SCH (10:02)
--- NOTE | 2020-01-14 12:01 | PDOC PROGRESS REPORT ---
Subjective Progress Note for:: 01/14/20 Reason For Visit: Patient seen today on dialysis. Undergoing dialysis without any issues. She denies any history of chest pain or shortness of breath. Admits to the fact appetite is poor as she seems to be slowly wasting. Labs and medications were reviewed. Dialysis orders were reviewed with the treating dialysis nurse. Physical Exam Vital Signs: Temp Pulse Resp BP Pulse Ox 97.5 F 87 16 180/74 H 91 L 01/14/20 03:19 01/14/20 07:00 01/14/20 03:19 01/14/20 03:19 01/14/20 03:19 Intake & Output 01/13/20 01/14/20 01/15/20 06:59 06:59 06:59 Intake Total 419 383 Output Total 100 1000 Balance 319 383 -1000 Weight 39.1 kg 38.8 kg General appearance: PRESENT: no acute distress Respiratory exam: PRESENT: clear to auscultation vinicius, decreased breath sounds. ABSENT: crackles Cardiovascular exam: PRESENT: +S1, +S2 GI/Abdominal exam: PRESENT: normal bowel sounds, soft. ABSENT: organomegaly, tenderness Extremities exam: ABSENT: pedal edema Neurological exam: PRESENT: alert, awake, oriented to person, oriented to place Psychiatric exam: PRESENT: appropriate affect Skin exam: ABSENT: erythema, mottled, rash Results Laboratory Results: 01/14/20 05:20 01/14/20 05:20 01/14/20 01/14/20 05:20 05:20 WBC 4.0 RBC 3.39 L Hgb 11.3 L Hct 34.9 L MCV 103 H MCH 33.3 MCHC 32.4 RDW 19.5 H Plt Count 277 Seg Neutrophils % Not Reportable Sodium 135.1 L Potassium 3.6 Chloride 99 Carbon Dioxide 25 Anion Gap 11 BUN 21 H Creatinine 3.51 H Est GFR ( Amer) 15 L Glucose 87 Calcium 9.6 Total Bilirubin 0.5 AST 18 Alkaline Phosphatase 1303 H Total Protein 6.2 L Albumin 3.5 01/10/20 01/10/20 01/12/20 23:45 23:45 06:31 CK-MB (CK-2) 1.25 Troponin I 0.093 0.105 NT-Pro-B Natriuret Pep [id number] H Impressions: Chest X-Ray 01/13/20 00:00 IMPRESSION: 1. Improved aeration in the right upper lobe. 2. Lytic appearance of the right humerus and glenoid at the shoulder joint is of uncertain etiology. Dedicated right shoulder radiographs recommended. Assessment & Plan - Diagnosis (1) Acute hypoxemic respiratory failure Plan: Secondary to pneumonia. Markedly improved on current medication plans. Continue on the same (2) End-stage renal disease on hemodialysis Plan: Patient currently undergoing dialysis without any issues. Vital signs are stable. Dialysis being supervised. Plan to remove less than a liter of fluid as tolerated as she is rather on the dry side as she is not eating hardly much. Dialysis orders were reviewed with the treating dialysis nurse. (3) Hypertension Qualifiers: Is this a current diagnosis for this admission?: Yes Plan: Presently uncontrolled. See the response to fluid removal. She is always has had white coat hypertension even on outpatient dialysis. Monitor. (4) Paroxysmal atrial fibrillation Plan: Status quo. Rate controlled. Monitor. 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 Continue current guidelines. (6) Tertiary hyperparathyroidism Plan: Status quo. Refused surgery. (7) HX: breast cancer Plan: Status quo.
[2020-01-14] MEDS: LEVOFLOXACIN 250 MG TABLET PO SCH (17:54)
--- NOTE | 2020-01-14 18:31 | PDOC PROGRESS REPORT ---
Subjective Progress Note for:: 01/14/20 Subjective:: Patient seen by the bedside, she had hemodialysis today, she looks much better today compared to last week when she was admitted Reason For Visit: PNEUMONIA,ESRD,ACUTE HYPERCAPNIC AND HYPOXEMIC Physical Exam Vital Signs: Temp Pulse Resp BP Pulse Ox 98.8 F 106 H 28 H 149/72 H 96 01/14/20 15:26 01/14/20 15:26 01/14/20 15:26 01/14/20 15:26 01/14/20 15:26 Intake & Output 01/13/20 01/14/20 01/15/20 06:59 06:59 06:59 Intake Total 419 383 Output Total 100 1000 Balance 319 383 -1000 Weight 39.1 kg 38.8 kg General appearance: PRESENT: no acute distress Eye exam: PRESENT: PERRLA Respiratory exam: PRESENT: rhonchi Cardiovascular exam: PRESENT: +S1, +S2 GI/Abdominal exam: PRESENT: soft Neurological exam: PRESENT: alert Results Laboratory Results: 01/14/20 05:20 01/14/20 05:20 01/14/20 01/14/20 05:20 05:20 WBC 4.0 RBC 3.39 L Hgb 11.3 L Hct 34.9 L MCV 103 H MCH 33.3 MCHC 32.4 RDW 19.5 H Plt Count 277 Seg Neutrophils % Not Reportable Sodium 135.1 L Potassium 3.6 Chloride 99 Carbon Dioxide 25 Anion Gap 11 BUN 21 H Creatinine 3.51 H Est GFR ( Amer) 15 L Glucose 87 Calcium 9.6 Total Bilirubin 0.5 AST 18 Alkaline Phosphatase 1303 H Total Protein 6.2 L Albumin 3.5 01/10/20 01/10/20 01/12/20 23:45 23:45 06:31 CK-MB (CK-2) 1.25 Troponin I 0.093 0.105 NT-Pro-B Natriuret Pep 31748 H Impressions: Chest X-Ray 01/13/20 00:00 IMPRESSION: 1. Improved aeration in the right upper lobe. 2. Lytic appearance of the right humerus and glenoid at the shoulder joint is of uncertain etiology. Dedicated right shoulder radiographs recommended. Assessment & Plan - Diagnosis (1) Acute respiratory failure with hypoxia and hypercapnia Is this a current diagnosis for this admission?: Yes Plan: Continue supplemental oxygen via nasal cannula (2) Paroxysmal atrial fibrillation with rapid ventricular response Is this a current diagnosis for this admission?: Yes Plan: Continue p.o. Cardizem (3) Pneumonia Qualifiers: Pneumonia type: due to unspecified organism Laterality: bilateral Lung location: unspecified part of lung Qualified Code(s): J18.9 - Pneumonia, unspecified organism Is this a current diagnosis for this admission?: Yes Plan: Continue present antibiotic strategy (4) ESRD (end stage renal disease) Is this a current diagnosis for this admission?: Yes (5) Severe protein-calorie malnutrition Is this a current diagnosis for this admission?: Yes - Time Time Spent with patient: 25-34 minutes Level of Care: IMCU
[2020-01-15] MEDS: HEPARIN SOD (PORCINE) 5,000 UNIT/ML 1 ML VIAL SUBCUT SCH ×3 (05:22→22:29)
[2020-01-15] MEDS: DILTIAZEM HCL 120 MG CAP.SR.24H PO SCH ×2 (10:58→22:21)
[2020-01-15] MEDS: CARVEDILOL 12.5 MG TABLET PO SCH ×2 (14:57→22:18)
[2020-01-15] MEDS: LEVOFLOXACIN 250 MG TABLET PO SCH (17:43)
--- NOTE | 2020-01-15 20:21 | PDOC PROGRESS REPORT ---
Subjective Progress Note for:: 01/15/20 Subjective:: Patient seen by the bedside, she is improving there is still increased heart rate patient on Coreg at home, Coreg is added in addition to Cardizem Reason For Visit: PNEUMONIA,ESRD,ACUTE HYPERCAPNIC AND HYPOXEMIC Physical Exam Vital Signs: Temp Pulse Resp BP Pulse Ox 99.0 F 93 16 103/75 95 01/15/20 16:25 01/15/20 19:00 01/15/20 16:25 01/15/20 16:25 01/15/20 16:25 Intake & Output 01/14/20 01/15/20 01/16/20 06:59 06:59 06:59 Intake Total 383 240 Output Total 1000 0 Balance 383 -1000 240 Weight 38.8 kg 38.5 kg General appearance: PRESENT: no acute distress Eye exam: PRESENT: PERRLA Respiratory exam: PRESENT: clear to auscultation vinicius Cardiovascular exam: PRESENT: +S1, +S2 Neurological exam: PRESENT: alert Results Laboratory Results: 01/14/20 05:20 01/14/20 05:20 01/10/20 01/10/20 01/12/20 23:45 23:45 06:31 CK-MB (CK-2) 1.25 Troponin I 0.093 0.105 NT-Pro-B Natriuret Pep [id number] H Impressions: Chest X-Ray 01/13/20 00:00 IMPRESSION: 1. Improved aeration in the right upper lobe. 2. Lytic appearance of the right humerus and glenoid at the shoulder joint is of uncertain etiology. Dedicated right shoulder radiographs recommended. Assessment & Plan - Diagnosis (1) Acute respiratory failure with hypoxia and hypercapnia Is this a current diagnosis for this admission?: Yes Plan: Continue supplemental oxygen via nasal cannula (2) Paroxysmal atrial fibrillation with rapid ventricular response Is this a current diagnosis for this admission?: Yes (3) Pneumonia Qualifiers: Pneumonia type: due to unspecified organism Laterality: bilateral Lung location: unspecified part of lung Qualified Code(s): J18.9 - Pneumonia, unspecified organism Is this a current diagnosis for this admission?: Yes Plan: Continue present antibiotic strategy (4) ESRD (end stage renal disease) Is this a current diagnosis for this admission?: Yes (5) Severe protein-calorie malnutrition Is this a current diagnosis for this admission?: Yes - Time Time Spent with patient: 25-34 minutes Level of Care: IMCU
[2020-01-16] MEDS ORDERED: HEPARIN SOD (PORCINE) 1,000 UNIT/ML 10 ML VIAL IV PRN (05:00)
[2020-01-16 06:13] LABS: HEMOGLOBIN 10.5 g/dL (12.0-15.5); MEAN CORPUSCULAR HEMOGLOBIN 33.1 pg (27.0-33.4); MEAN CORPUSCULAR HGB CONC 31.8 g/dL (32.0-36.0); MEAN CORPUSCULAR VOLUME 104 fl (80-97); PLATELET COUNT 248 10^3/uL (150-450); RED BLOOD COUNT 3.16 10^6/uL (3.72-5.28); RED CELL DISTRIBUTION WIDTH 19.1 % (11.5-14.0)
[2020-01-16] MEDS: HEPARIN SOD (PORCINE) 5,000 UNIT/ML 1 ML VIAL SUBCUT SCH ×3 (06:45→22:02)
[2020-01-16 06:51] LABS: ANION GAP 5 (5-19); BLOOD UREA NITROGEN 26 mg/dL (7-20); CALCIUM 9.3 mg/dL (8.4-10.2); CARBON DIOXIDE 30 mmol/L (22-30); CHLORIDE 100 mmol/L (98-107); GLUCOSE 89 mg/dL (75-110); POTASSIUM 4.2 mmol/L (3.6-5.0)
[2020-01-16] MEDS: CARVEDILOL 12.5 MG TABLET PO SCH ×2 (11:06→22:02)
[2020-01-16] MEDS: DILTIAZEM HCL 120 MG CAP.SR.24H PO SCH ×2 (11:10→22:02)
--- NOTE | 2020-01-16 11:31 | RADIOLOGY REPORT (SQ) ---
EXAM DESCRIPTION: CHEST SINGLE VIEW IMAGES COMPLETED DATE/TIME: 01/16/2020 11:10 am REASON FOR STUDY: follow up pna COMPARISON: 01/13/2020 EXAM PARAMETERS: NUMBER OF VIEWS: One view. TECHNIQUE: Single frontal radiographic view of the chest acquired. RADIATION DOSE: NA LIMITATIONS: None. FINDINGS: LUNGS AND PLEURA: Persistent patchy right upper lobe and infrahilar airspace disease. Low lung volumes. No large effusion. No pneumothorax. MEDIASTINUM AND HILAR STRUCTURES: Stable. HEART AND VASCULAR STRUCTURES: Enlarged, stable. Unfolded atherosclerotic thoracic aorta. BONES: Decreased mineralization. Dysmorphic appearance of the proximal humerus bilaterally. HARDWARE: None in the chest. OTHER: No other significant finding. IMPRESSION: Persistent patchy right upper lobe and infrahilar opacities suspicious for pneumonia. Stable enlarged cardiac silhouette. TECHNICAL DOCUMENTATION: JOB ID: [id number] 2010 [employer]- All Rights Reserved Reading location - IP/workstation name: [email or web address]
--- NOTE | 2020-01-16 13:07 | RADIOLOGY REPORT (SQ) ---
EXAM DESCRIPTION: CT CHEST WITHOUT IMAGES COMPLETED DATE/TIME: 01/16/2020 12:46 pm REASON FOR STUDY: pneumonia COMPARISON: Same day radiograph. TECHNIQUE: CT scan performed of the chest without intravenous contrast. Images reviewed with lung, soft tissue and bone windows. Reconstructed coronal and sagittal MPR images reviewed. All images st ored on PACS. All CT scanners at this facility use dose modulation, iterative reconstruction, and/or weight based d osing when appropriate to reduce radiation dose to as low as reasonably achievable (ALARA). [facility]: Dose Right [facility]: CareDose [facility]: Dose Right [facility]: Teradose 4D [facility]: [employer] RADIATION DOSE: CT Rad equipment meets quality standard of care and radiation dose reduction techniq ues were employed. CTDIvol: 5.2 mGy. DLP: 162 mGy-cm. mGy. LIMITATIONS: No technical limitations. FINDINGS: LUNGS AND PLEURA: Mild right upper lobe linear consolidation and ground-glass attenuation. Additional mild patchy bilateral lower lobe linear opacities he was. No pleural effusion or pneumo thorax. No discrete pulmonary masses HILAR AND MEDIASTINAL STRUCTURES: No identified masses or abnormal nodes. No obvious aneurysm. HEART AND VASCULAR STRUCTURES: Cardiomegaly. Heavy three-vessel coronary atherosclerosis. UPPER ABDOMEN: He was no acute findings. Nonobstructing left renal stones. Metallic density within the left renal cortex. Mesenteric and aortic atherosclerosis. THYROID AND OTHER SOFT TISSUES: No masses. No adenopathy. BONES: Exaggerated thoracic kyphosis with serpiginous thoracolumbar curvature. Heterogeneous appeara nce of the bones with dense endplates possibly secondary to renal osteodystrophy. Unchanged expansil e sternum with central lucency compared to prior CT. HARDWARE: None in the chest. OTHER: No other significant findings. IMPRESSION: 1. Mild patchy linear consolidation within the right upper and bilateral lower lobes, l ikely atelectasis although infection is not excluded. 2. Marked cardiomegaly with extensive three-vessel coronary atherosclerosis. 3. Additional chronic findings as above. TECHNICAL DOCUMENTATION: JOB ID: [id number] Quality ID # [id number]: Final reports with documentation of one or more dose reduction techniques (e.g., Au tomated exposure control, adjustment of the mA and/or kV according to patient size, use of iterative reconstruction technique) 2010 [employer]- All Rights Reserved Reading location - IP/workstation name: [email or web address]
--- NOTE | 2020-01-16 13:12 | PDOC PROGRESS REPORT ---
Subjective Progress Note for:: 01/16/20 Reason For Visit: Patient seen on dialysis today. Undergoing dialysis without any issues. She denies history of chest pain or shortness of breath. Labs and medications are reviewed. Dialysis orders were reviewed with the treating dialysis nurse. Physical Exam Vital Signs: Temp Pulse Resp BP Pulse Ox 98.5 F 65 16 154/66 H 98 01/16/20 11:09 01/16/20 11:09 01/16/20 10:41 01/16/20 11:09 01/16/20 10:41 Intake & Output 01/15/20 01/16/20 01/17/20 06:59 06:59 06:59 Intake Total 240 Output Total 1000 0 600 Balance -1000 240 -600 Weight 38.5 kg 37.8 kg General appearance: PRESENT: no acute distress Respiratory exam: PRESENT: clear to auscultation vinicius, decreased breath sounds. ABSENT: crackles Cardiovascular exam: PRESENT: +S1, +S2 GI/Abdominal exam: PRESENT: normal bowel sounds, soft. ABSENT: organomegaly, tenderness Extremities exam: ABSENT: pedal edema Neurological exam: PRESENT: alert, awake Psychiatric exam: PRESENT: appropriate affect Results Laboratory Results: 01/16/20 05:45 01/16/20 05:45 01/16/20 01/16/20 05:45 05:45 WBC 3.0 L RBC 3.16 L Hgb 10.5 L Hct 33.0 L MCV 104 H MCH 33.1 MCHC 31.8 L RDW 19.1 H Plt Count 248 Sodium 135.2 L Potassium 4.2 Chloride 100 Carbon Dioxide 30 Anion Gap 5 BUN 26 H Creatinine 3.52 H Est GFR ( Amer) 15 L Glucose 89 Calcium 9.3 01/11/20 00:43 Blood Blood Culture - Final NO GROWTH IN 5 DAYS 01/10/20 23:45 Blood Blood Culture - Final NO GROWTH IN 5 DAYS 01/10/20 01/10/20 01/12/20 23:45 23:45 06:31 CK-MB (CK-2) 1.25 Troponin I 0.093 0.105 NT-Pro-B Natriuret Pep [id number] H Impressions: Chest CT 01/16/20 00:00 IMPRESSION: 1. Mild patchy linear consolidation within the right upper and bilateral lower lobes, likely atelectasis although infection is not excluded. 2. Marked cardiomegaly with extensive three-vessel coronary atherosclerosis. 3. Additional chronic findings as above. Chest X-Ray 01/16/20 00:00 IMPRESSION: Persistent patchy right upper lobe and infrahilar opacities suspicious for pneumonia. Stable enlarged cardiac silhouette. Assessment & Plan - Diagnosis (1) Acute hypoxemic respiratory failure Plan: Secondary to pneumonia. Markedly improved on current medication plans. Continue on the same (2) End-stage renal disease on hemodialysis Plan: Patient currently undergoing dialysis without any issues. Vital signs are stable. Dialysis being supervised. Plan to remove a liter of fluid as tolerated as she is rather on the dry side as she is not eating hardly much. Dialysis orders were reviewed with the treating dialysis nurse. (3) Hypertension Qualifiers: Is this a current diagnosis for this admission?: Yes Plan: Presently uncontrolled. See the response to fluid removal. She is always has had white coat hypertension even on outpatient dialysis. Monitor. (4) Paroxysmal atrial fibrillation Plan: Status quo. Rate controlled. Monitor. 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 Continue current guidelines. (6) Tertiary hyperparathyroidism Plan: Status quo. Refused surgery.Has severe diffuse vascular calcification as a byproduct of uncontrolled disease which is unfortunate. (7) HX: breast cancer Plan: Status quo.
[2020-01-16] MEDS: LINEZOLID 600 MG TABLET PO SCH ×2 (15:01→22:02)
--- NOTE | 2020-01-16 16:32 | PDOC PROGRESS REPORT ---
Subjective Progress Note for:: 01/16/20 Subjective:: Patient seen by the bedside, she had hemodialysis today, CT chest without contrast was obtained, it demonstrated mild right upper lobe linear consolidation and groundglass attenuation. Additional mild patchy bilateral lower lobe linear opacities no pleural effusion or pneumothorax.She has a healthcare associated pneumonia, presently on Levaquin this antibiotic does not have enough coverage to cover potential pathogens especially in this patient on dialysis, she was supposed to be getting vancomycin on dialysis days but not see any record of vancomycin, she will be started on zyvox that was to cover MRSA, continue Levaquin at the present dose Reason For Visit: PNEUMONIA,ESRD,ACUTE HYPERCAPNIC AND HYPOXEMIC Physical Exam Vital Signs: Temp Pulse Resp BP Pulse Ox 98.5 F 65 16 154/66 H 98 01/16/20 11:09 01/16/20 11:09 01/16/20 10:41 01/16/20 11:09 01/16/20 10:41 Intake & Output 01/15/20 01/16/20 01/17/20 06:59 06:59 06:59 Intake Total 240 280 Output Total 1000 0 600 Balance -1000 240 -320 Weight 38.5 kg 37.8 kg General appearance: PRESENT: no acute distress Eye exam: PRESENT: PERRLA Respiratory exam: PRESENT: clear to auscultation vinicius Cardiovascular exam: PRESENT: +S1, +S2 GI/Abdominal exam: PRESENT: soft Neurological exam: PRESENT: alert Results Laboratory Results: 01/16/20 05:45 01/16/20 05:45 01/16/20 01/16/20 05:45 05:45 WBC 3.0 L RBC 3.16 L Hgb 10.5 L Hct 33.0 L MCV 104 H MCH 33.1 MCHC 31.8 L RDW 19.1 H Plt Count 248 Sodium 135.2 L Potassium 4.2 Chloride 100 Carbon Dioxide 30 Anion Gap 5 BUN 26 H Creatinine 3.52 H Est GFR ( Amer) 15 L Glucose 89 Calcium 9.3 01/13/20 03:19 Clean Catch Midstream Urine Culture - Final C.albicans/C.dubliniensis 01/11/20 00:43 Blood Blood Culture - Final NO GROWTH IN 5 DAYS 01/10/20 23:45 Blood Blood Culture - Final NO GROWTH IN 5 DAYS 01/10/20 01/10/20 01/12/20 23:45 23:45 06:31 CK-MB (CK-2) 1.25 Troponin I 0.093 0.105 NT-Pro-B Natriuret Pep [id number] H Impressions: Chest CT 01/16/20 00:00 IMPRESSION: 1. Mild patchy linear consolidation within the right upper and bilateral lower lobes, likely atelectasis although infection is not excluded. 2. Marked cardiomegaly with extensive three-vessel coronary atherosclerosis. 3. Additional chronic findings as above. Chest X-Ray 01/16/20 00:00 IMPRESSION: Persistent patchy right upper lobe and infrahilar opacities suspicious for pneumonia. Stable enlarged cardiac silhouette. Assessment & Plan - Diagnosis (1) Acute respiratory failure with hypoxia and hypercapnia Is this a current diagnosis for this admission?: Yes Plan: Continue supplemental oxygen via nasal cannula (2) Paroxysmal atrial fibrillation with rapid ventricular response Is this a current diagnosis for this admission?: Yes (3) Pneumonia Qualifiers: Pneumonia type: due to unspecified organism Laterality: bilateral Lung location: unspecified part of lung Qualified Code(s): J18.9 - Pneumonia, unspecified organism Is this a current diagnosis for this admission?: Yes (4) ESRD (end stage renal disease) Is this a current diagnosis for this admission?: Yes (5) Severe protein-calorie malnutrition Is this a current diagnosis for this admission?: Yes (6) Healthcare-associated pneumonia Is this a current diagnosis for this admission?: Yes - Time Time Spent with patient: 25-34 minutes Level of Care: CU
[2020-01-16] MEDS: LEVOFLOXACIN 250 MG TABLET PO SCH (18:18)
[2020-01-17] MEDS: HEPARIN SOD (PORCINE) 5,000 UNIT/ML 1 ML VIAL SUBCUT SCH ×3 (05:18→22:54)
[2020-01-17] MEDS: DILTIAZEM HCL 120 MG CAP.SR.24H PO SCH ×2 (09:48→22:53)
[2020-01-17] MEDS: CARVEDILOL 12.5 MG TABLET PO SCH ×2 (09:48→22:53)
[2020-01-17] MEDS: LINEZOLID 600 MG TABLET PO SCH ×2 (09:49→22:54)
[2020-01-17] MEDS: LEVOFLOXACIN 250 MG TABLET PO SCH (18:26)
--- NOTE | 2020-01-17 19:25 | PDOC PROGRESS REPORT ---
Subjective Progress Note for:: 01/17/20 Subjective:: Patient seen by the bedside, she had hemodialysis today, CT chest without contrast was obtained, it demonstrated mild right upper lobe linear consolidation and groundglass attenuation. Additional mild patchy bilateral lower lobe linear opacities no pleural effusion or pneumothorax.She has a healthcare associated pneumonia, presently on Levaquin this antibiotic does not have enough coverage to cover potential pathogens especially in this patient on dialysis, she was supposed to be getting vancomycin on dialysis days but not see any record of vancomycin, she will be started on zyvox that was to cover MRSA, continue Levaquin at the present dose Reason For Visit: PNEUMONIA,ESRD,ACUTE HYPERCAPNIC AND HYPOXEMIC Physical Exam Vital Signs: Temp Pulse Resp BP Pulse Ox 98.2 F 57 L 19 139/48 H 98 01/17/20 15:43 01/17/20 15:43 01/17/20 15:43 01/17/20 15:43 01/17/20 15:43 Intake & Output 01/16/20 01/17/20 01/18/20 06:59 06:59 06:59 Intake Total 240 280 943 Output Total 0 600 Balance 240 -320 943 Weight 37.8 kg 39.8 kg 39.8 kg General appearance: PRESENT: no acute distress Eye exam: PRESENT: PERRLA Respiratory exam: PRESENT: rhonchi Cardiovascular exam: PRESENT: +S1, +S2 GI/Abdominal exam: PRESENT: soft Neurological exam: PRESENT: alert Results Laboratory Results: 01/16/20 05:45 01/16/20 05:45 01/10/20 01/10/20 01/12/20 23:45 23:45 06:31 CK-MB (CK-2) 1.25 Troponin I 0.093 0.105 NT-Pro-B Natriuret Pep [id number] H Impressions: Chest CT 01/16/20 00:00 IMPRESSION: 1. Mild patchy linear consolidation within the right upper and bilateral lower lobes, likely atelectasis although infection is not excluded. 2. Marked cardiomegaly with extensive three-vessel coronary atherosclerosis. 3. Additional chronic findings as above. Chest X-Ray 01/16/20 00:00 IMPRESSION: Persistent patchy right upper lobe and infrahilar opacities suspicious for pneumonia. Stable enlarged cardiac silhouette. Assessment & Plan - Diagnosis (1) Acute respiratory failure with hypoxia and hypercapnia Is this a current diagnosis for this admission?: Yes Plan: Continue supplemental oxygen via nasal cannula (2) Paroxysmal atrial fibrillation with rapid ventricular response Is this a current diagnosis for this admission?: Yes (3) Pneumonia Qualifiers: Pneumonia type: due to unspecified organism Laterality: bilateral Lung location: unspecified part of lung Qualified Code(s): J18.9 - Pneumonia, uns pecified organism Is this a current diagnosis for this admission?: Yes (4) ESRD (end stage renal disease) Is this a current diagnosis for this admission?: Yes (5) Severe protein-calorie malnutrition Is this a current diagnosis for this admission?: Yes (6) Healthcare-associated pneumonia Is this a current diagnosis for this admission?: Yes Plan: Continue antibiotic - Time Time Spent with patient: 35 or more minutes Level of Care: IMCU
[2020-01-18] MEDS ORDERED: HEPARIN SOD (PORCINE) 1,000 UNIT/ML 10 ML VIAL IV PRN (05:00)
[2020-01-18 08:15] LABS: HEMATOCRIT 30.2 % (36.0-47.0); HEMOGLOBIN 9.8 g/dL (12.0-15.5); MEAN CORPUSCULAR HEMOGLOBIN 33.7 pg (27.0-33.4); MEAN CORPUSCULAR HGB CONC 32.5 g/dL (32.0-36.0); MEAN CORPUSCULAR VOLUME 104 fl (80-97); PLATELET COUNT 243 10^3/uL (150-450); RED BLOOD COUNT 2.92 10^6/uL (3.72-5.28); RED CELL DISTRIBUTION WIDTH 18.6 % (11.5-14.0)
[2020-01-18 08:31] LABS: ANION GAP 7 (5-19); BLOOD UREA NITROGEN 21 mg/dL (7-20); CALCIUM 9.2 mg/dL (8.4-10.2); CARBON DIOXIDE 28 mmol/L (22-30); CHLORIDE 99 mmol/L (98-107); GLUCOSE 88 mg/dL (75-110); POTASSIUM 4.3 mmol/L (3.6-5.0)
[2020-01-18] MEDS: DILTIAZEM HCL 120 MG CAP.SR.24H PO SCH ×2 (10:43→21:25)
[2020-01-18] MEDS: LINEZOLID 600 MG TABLET PO SCH ×2 (10:44→21:26)
[2020-01-18] MEDS: CARVEDILOL 12.5 MG TABLET PO SCH ×2 (10:44→21:25)
[2020-01-18] MEDS: HEPARIN SOD (PORCINE) 5,000 UNIT/ML 1 ML VIAL SUBCUT SCH ×3 (10:56→21:25)
--- NOTE | 2020-01-18 11:45 | PDOC PROGRESS REPORT ---
Subjective Progress Note for:: 01/18/20 Reason For Visit: Patient seen today on dialysis. Dialysis proceeding well. No complaints of any chest pain shortness of breath. Patient looks happy. Wonders when she can go home. Labs and medications were reviewed. Dialysis orders were reviewed with the treating dialysis nurse. Physical Exam Vital Signs: Temp Pulse Resp BP Pulse Ox 97.9 F 63 16 150/53 H 93 01/18/20 03:24 01/18/20 03:24 01/18/20 03:24 01/18/20 03:24 01/18/20 03:24 Intake & Output 01/17/20 01/18/20 01/19/20 06:59 06:59 06:59 Intake Total 280 943 Output Total 600 Balance -320 943 Weight 39.8 kg 39.1 kg General appearance: PRESENT: no acute distress Respiratory exam: PRESENT: clear to auscultation vinicius, decreased breath sounds. ABSENT: crackles Cardiovascular exam: PRESENT: +S1, +S2 GI/Abdominal exam: PRESENT: normal bowel sounds, soft. ABSENT: organomegaly, tenderness Extremities exam: ABSENT: pedal edema Neurological exam: PRESENT: alert, awake, oriented to person, oriented to place Psychiatric exam: PRESENT: anxious Results Laboratory Results: 01/18/20 06:45 01/18/20 06:46 01/18/20 01/18/20 06:45 06:46 WBC 3.0 L RBC 2.92 L Hgb 9.8 L Hct 30.2 L MCV 104 H MCH 33.7 H MCHC 32.5 RDW 18.6 H Plt Count 243 Sodium 134.0 L Potassium 4.3 Chloride 99 Carbon Dioxide 28 Anion Gap 7 BUN 21 H Creatinine 3.49 H Est GFR ( Amer) 15 L Glucose 88 Calcium 9.2 01/10/20 01/10/20 01/12/20 23:45 23:45 06:31 CK-MB (CK-2) 1.25 Troponin I 0.093 0.105 NT-Pro-B Natriuret Pep 45093 H Impressions: Chest CT 01/16/20 00:00 IMPRESSION: 1. Mild patchy linear consolidation within the right upper and bilateral lower lobes, likely atelectasis although infection is not excluded. 2. Marked cardiomegaly with extensive three-vessel coronary atherosclerosis. 3. Additional chronic findings as above. Chest X-Ray 01/16/20 00:00 IMPRESSION: Persistent patchy right upper lobe and infrahilar opacities suspicious for pneumonia. Stable enlarged cardiac silhouette. Assessment & Plan - Diagnosis (1) Acute hypoxemic respiratory failure Plan: Secondary to pneumonia. Markedly improved on current medication plans. Continue on the same (2) End-stage renal disease on hemodialysis Plan: Patient currently undergoing dialysis without any issues. Vital signs are stable. Dialysis being supervised. Plan to remove a liter of fluid as tolerated as she is rather on the dry side as she is not eating hardly much. Dialysis orders were reviewed with the treating dialysis nurse. (3) Hypertension Qualifiers: Is this a current diagnosis for this admission?: Yes Plan: Presently uncontrolled. See the response to fluid removal. She is always has had white coat hypertension even on outpatient dialysis. Monitor. (4) Paroxysmal atrial fibrillation Plan: Status quo. Rate controlled. Monitor. 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 Continue current guidelines. (6) Tertiary hyperparathyroidism Plan: Status quo. Refused surgery.Has severe diffuse vascular calcification as a byproduct of uncontrolled disease which is unfortunate. (7) HX: breast cancer Plan: Status quo.
[2020-01-18] MEDS: LEVOFLOXACIN 250 MG TABLET PO SCH (18:06)
--- NOTE | 2020-01-18 21:46 | PDOC PROGRESS REPORT ---
Subjective Progress Note for:: 01/18/20 Subjective:: Patient seen by the bedside, she had hemodialysis today, CT chest without contrast was obtained, it demonstrated mild right upper lobe linear consolidation and groundglass attenuation. Additional mild patchy bilateral lower lobe linear opacities no pleural effusion or pneumothorax.She has a healthcare associated pneumonia, presently on Levaquin this antibiotic does not have enough coverage to cover potential pathogens especially in this patient on dialysis, she was supposed to be getting vancomycin on dialysis days but not see any record of vancomycin, she will be started on zyvox that was to cover MRSA, continue Levaquin at the present dose Reason For Visit: PNEUMONIA,ESRD,ACUTE HYPERCAPNIC AND HYPOXEMIC Physical Exam Vital Signs: Temp Pulse Resp BP Pulse Ox 98.2 F 71 16 112/55 L 93 01/18/20 19:20 01/18/20 19:20 01/18/20 19:20 01/18/20 19:20 01/18/20 19:20 Intake & Output 01/17/20 01/18/20 01/19/20 06:59 06:59 06:59 Intake Total 280 943 240 Output Total 600 1100 Balance -320 943 -860 Weight 39.8 kg 39.1 kg General appearance: PRESENT: no acute distress Eye exam: PRESENT: PERRLA Cardiovascular exam: PRESENT: +S1, +S2 Neurological exam: PRESENT: alert Results Laboratory Results: 01/18/20 06:45 01/18/20 06:46 01/18/20 01/18/20 06:45 06:46 WBC 3.0 L RBC 2.92 L Hgb 9.8 L Hct 30.2 L MCV 104 H MCH 33.7 H MCHC 32.5 RDW 18.6 H Plt Count 243 Sodium 134.0 L Potassium 4.3 Chloride 99 Carbon Dioxide 28 Anion Gap 7 BUN 21 H Creatinine 3.49 H Est GFR ( Amer) 15 L Glucose 88 Calcium 9.2 01/10/20 01/10/20 01/12/20 23:45 23:45 06:31 CK-MB (CK-2) 1.25 Troponin I 0.093 0.105 NT-Pro-B Natriuret Pep 83903 H Impressions: Chest CT 01/16/20 00:00 IMPRESSION: 1. Mild patchy linear consolidation within the right upper and bilateral lower lobes, likely atelectasis although infection is not excluded. 2. Marked cardiomegaly with extensive three-vessel coronary atherosclerosis. 3. Additional chronic findings as above. Chest X-Ray 01/16/20 00:00 IMPRESSION: Persistent patchy right upper lobe and infrahilar opacities suspicious for pneumonia. Stable enlarged cardiac silhouette. Assessment & Plan - Diagnosis (1) Acute respiratory failure with hypoxia and hypercapnia Is this a current diagnosis for this admission?: Yes Plan: Continue supplemental oxygen via nasal cannula (2) Paroxysmal atrial fibrillation with rapid ventricular response Is this a current diagnosis for this admission?: Yes (3) Pneumonia Qualifiers: Pneumonia type: due to unspecified organism Laterality: bilateral Lung location: unspecified part of lung Qualified Code(s): J18.9 - Pneumonia, unspecified organism Is this a current diagnosis for this admission?: Yes (4) ESRD (end stage renal disease) Is this a current diagnosis for this admission?: Yes (5) Severe protein-calorie malnutrition Is this a current diagnosis for this admission?: Yes (6) Healthcare-associated pneumonia Is this a current diagnosis for this admission?: Yes Plan: Continue antibiotic - Time Time Spent with patient: 25-34 minutes Level of Care: IMCU Medications reviewed and adjusted accordingly: Yes Anticipated discharge: Home Within: within 24 hours
[2020-01-19] MEDS: HEPARIN SOD (PORCINE) 5,000 UNIT/ML 1 ML VIAL SUBCUT SCH (06:13)
[2020-01-19] MEDS: LINEZOLID 600 MG TABLET PO SCH (10:31)
[2020-01-19] MEDS: CARVEDILOL 12.5 MG TABLET PO SCH (10:31)
[2020-01-19] MEDS: DILTIAZEM HCL 120 MG CAP.SR.24H PO SCH (10:32)
[2020-01-19 12:18] VITALS: BP 121/67
--- NOTE | 2020-01-19 12:35 | PDOC DISCHARGE SUMMARY ---
Impression - Admit/DC Date/PCP Admission Date/Primary Care Provider: 01/11/20 01:54 MARIANO WASHINGTON MD Discharge Date: 01/19/20 - Discharge Diagnosis (1) Acute respiratory failure with hypoxia and hypercapnia Is this a current diagnosis for this admission?: Yes (2) Healthcare-associated pneumonia Is this a current diagnosis for this admission?: Yes (3) Paroxysmal atrial fibrillation with rapid ventricular response Is this a current diagnosis for this admission?: Yes (4) ESRD (end stage renal disease) Is this a current diagnosis for this admission?: Yes (5) Severe protein-calorie malnutrition Is this a current diagnosis for this admission?: Yes - Additional Information Resuscitation Status: Do Not Resuscitate Discharge Diet: Other (Comments) - renal diet Discharge Activity: Activity As Tolerated Referrals: MARIAON WASHINGTON MD [Primary Care Provider] - 01/25/20 2:00 pm Prescriptions: Diltiazem HCl [Cardizem Cd 120 mg Capsule] 120 mg PO Q12 #180 cap.sr.24h Carvedilol [Coreg 12.5 mg Tablet] 12.5 mg PO Q12 #180 tablet Levofloxacin [Levaquin 250 mg Tablet] 250 mg PO QPM #7 tablet Home Medications: Furosemide [Lasix 40 mg Tablet] 40 mg PO DAILY 03/30/19 Valsartan [Diovan] 320 mg PO DAILY 03/30/19 Clonidine HCl [Catapres 0.2 mg Tablet] 0.2 mg PO DAILYP PRN 12/28/19 Gabapentin [Neurontin 100 mg Capsule] 100 mg PO .BEFORE DIALYSIS 12/28/19 Lidocaine/Prilocaine [Emla Cream 30 gm (Clinic Use Only)] 1 applic TP .BEFORE DIALYSIS 01/11/20 Pregabalin [Lyrica 25 mg Capsule] 25 mg PO .BEFORE DIALYSIS 01/11/20 Acetaminophen [Tylenol 325 mg Tablet] 650 mg PO Q6HP PRN tablet 01/19/20 Carvedilol [Coreg 12.5 mg Tablet] 12.5 mg PO Q12 #180 tablet 01/19/20 Diltiazem HCl [Cardizem Cd 120 mg Capsule] 120 mg PO Q12 #180 cap.sr.24h 01/19/20 Levofloxacin [Levaquin 250 mg Tablet] 250 mg PO QPM #7 tablet 01/19/20 History of Present Illiness History of Present Illness: BRIAN GUDINO is a 84 year old female She has a history of end-stage renal disease on maintenance hemodialysis she came to emergency room last night for evaluation of respiratory distress, hypertensive urgency, the emergency room a chest x-ray was done that demonstrated right lung pneumonia she was also found to have acute respiratory failure with hypoxemia and hypercapnia. Patient was recently discharged from this hospital when she presented with respiratory failure.During the course of the day she developed paroxysmal atrial fib rillation with rapid ventricular response, she required Cardizem infusion for ventricular rate control. Patient condition is very poor she is status post right above-knee amputation, extremely undernourished she has anterior chest wall deformity, patient also expressed her desire to the nursing staff to stop hemodialysis ,she said she is tired of it Hospital Course Hospital Course: Patient was admitted for the management of acute hypoxemic respiratory failure due to healthcare associated pneumonia, paroxysmal atrial fibrillation with rapid ventricular response, end-stage renal disease on hemodialysis. She was treated with IV antibiotic to cover potential pathogens, intravenous Zyvox, Levaquin initially she had cefepime this was discontinued. There was paroxysmal atrial fibrillation with rapid ventricular response, this was treated initially with intravenous Cardizem infusion ultimately transitioned to p.o. Cardizem she also was started on beta-adilson carvedilol, she was on carvedilol 6.25 mg p.o. twice daily at home before this admission this was increased to 12.5 mg p.o. twice daily, the combination of Cardizem and carvedilol maintained normal heart rate. She is not a candidate for anticoagulation, she has only one leg from amputation due to PAD with the risk of fall, the risk benefit ratio of anticoagulant in this patient is detrimental more on the risk side. She also had hemodialysis she was seen by nephrology Dr. Nikunj Crane, she has end-stage renal disease on hemodialysis Physical Exam Vital Signs: Temp Pulse Resp BP Pulse Ox 97.2 F 61 16 121/67 91 L 01/19/20 11:40 01/19/20 11:40 01/19/20 11:40 01/19/20 11:40 01/19/20 11:40 Intake & Output 01/18/20 01/19/20 01/20/20 06:59 06:59 06:59 Intake Total 943 490 Output Total 1100 Balance 943 -610 Weight 39.1 kg 37.1 kg General appearance: PRESENT: no acute distress Eye exam: PRESENT: PERRLA Respiratory exam: PRESENT: clear to auscultation vinicius Cardiovascular exam: PRESENT: +S1, +S2 GI/Abdominal exam: PRESENT: soft Neurological exam: PRESENT: alert Results Laboratory Results: WBC 3.0 10^3/uL (4.0-10.5) L 01/18/20 06:45 RBC 2.92 10^6/uL (3.72-5.28) L 01/18/20 06:45 Hgb 9.8 g/dL (12.0-15.5) L 01/18/20 06:45 Hct 30.2 % (36.0-47.0) L 01/18/20 06:45 MCV 104 fl (80-97) H 01/18/20 06:45 MCH 33.7 pg (27.0-33.4) H 01/18/20 06:45 MCHC 32.5 g/dL (32.0-36.0) 01/18/20 06:45 RDW 18.6 % (11.5-14.0) H 01/18/20 06:45 Plt Count 243 10^3/uL (150-450) 01/18/20 06:45 Lymph % (Auto) Not Reportable 01/14/20 05:20 Caroline % (Auto) Not Reportable 01/14/20 05:20 Eos % (Auto) Not Reportable 01/14/20 05:20 Baso % (Auto) Not Reportable 01/14/20 05:20 Absolute Neuts (auto) Not Reportable 01/14/20 05:20 Absolute Lymphs (auto) Not Reportable 01/14/20 05:20 Absolute Monos (auto) Not Reportable 01/14/20 05:20 Absolute Eos (auto) Not Reportable 01/14/20 05:20 Absolute Basos (auto) Not Reportable 01/14/20 05:20 Total Counted 100 01/14/20 05:20 Seg Neutrophils % Not Reportable 01/14/20 05:20 Seg Neuts % (Manual) 63 % (42-78) 01/14/20 05:20 Lymphocytes % (Manual) 26 % (13-45) 01/14/20 05:20 Atypical Lymphs % 1 % (0) 01/14/20 05:20 Monocytes % (Manual) 10 % (3-13) 01/14/20 05:20 Eosinophils % (Manual) 0 % (0-6) 01/14/20 05:20 Basophils % (Manual) 0 % (0-2) 01/14/20 05:20 Abs Neuts (Manual) 2.5 10^3/uL (1.7-8.2) 01/14/20 05:20 Abs Lymphs (Manual) 1.1 10^3/uL (0.5-4.7) 01/14/20 05:20 Abs Monocytes (Manual) 0.4 10^3/uL (0.1-1.4) 01/14/20 05:20 Absolute Eos (Manual) 0.0 10^3/uL (0.0-0.6) 01/14/20 05:20 Abs Basophils (Manual) 0.0 10^3/uL (0.0-0.2) 01/14/20 05:20 Platelet Estimate Cancelled 01/10/20 23:45 Platelet Comment ADEQUATE 01/14/20 05:20 Polychromasia SLIGHT 01/14/20 05:20 Hypochromasia SLIGHT 01/14/20 05:20 Poikilocytosis SLIGHT 01/14/20 05:20 Anisocytosis 2+ 01/14/20 05:20 Macrocytosis 1+ 01/14/20 05:20 Tear Drop Cells SLIGHT 01/14/20 05:20 Ovalocytes SLIGHT 01/14/20 05:20 Schistocytes SLIGHT 01/14/20 05:20 VBG pH 7.25 (7.30-7.42) L 01/11/20 00:43 VBG pCO2 59.7 mmHg (35-63) 01/11/20 00:43 VBG HCO3 25.6 mmol/L (20-32) 01/11/20 00:43 VBG Base Excess -2.3 mmol/L 01/11/20 00:43 Sodium 134.0 mmol/L (137-145) L 01/18/20 06:46 Potassium 4.3 mmol/L (3.6-5.0) 01/18/20 06:46 Chloride 99 mmol/L (98-107) 01/18/20 06:46 Carbon Dioxide 28 mmol/L (22-30) 01/18/20 06:46 Anion Gap 7 (5-19) 01/18/20 06:46 BUN 21 mg/dL (7-20) H 01/18/20 06:46 Creatinine 3.49 mg/dL (0.52-1.25) H 01/18/20 06:46 Est GFR ( Amer) 15 (>60) L 01/18/20 06:46 Est GFR (MDRD) Non-Af 13 (>60) L 01/18/20 06:46 Glucose 88 mg/dL (75-110) 01/18/20 06:46 Hemoglobin A1c % 4.5 % (4.7-6.0) L 01/12/20 06:31 Calcium 9.2 mg/dL (8.4-10.2) 01/18/20 06:46 Total Bilirubin 0.5 mg/dL (0.2-1.3) 01/14/20 05:20 Direct Bilirubin 0.1 mg/dL (0.0-0.4) 01/14/20 05:20 Neonat Total Bilirubin Not Reportable 01/14/20 05:20 Neonat Direct Bilirubin Not Reportable 01/14/20 05:20 Neonat Indirect Bili Not Reportable 01/14/20 05:20 AST 18 U/L (14-36) 01/14/20 05:20 ALT 11 U/L (<35) 01/14/20 05:20 Alkaline Phosphatase 1303 U/L (38-126) H 01/14/20 05:20 CK-MB (CK-2) 1.25 ng/mL (<4.55) 01/10/20 23:45 Troponin I 0.105 ng/mL 01/12/20 06:31 NT-Pro-B Natriuret Pep 38189 pg/mL (<450) H 01/10/20 23:45 Total Protein 6.2 g/dL (6.3-8.2) L 01/14/20 05:20 Albumin 3.5 g/dL (3.5-5.0) 01/14/20 05:20 Urine Color STRAW 01/13/20 03:19 Urine Appearance SLIGHTLY-CLOUDY 01/13/20 03:19 Urine pH 8.0 (5.0-9.0) 01/13/20 03:19 Ur Specific Stout 1.006 01/13/20 03:19 Urine Protein 30 mg/dL (NEGATIVE) H 01/13/20 03:19 Urine Glucose (UA) 50 mg/dL (NEGATIVE) H 01/13/20 03:19 Urine Ketones NEGATIVE mg/dL (NEGATIVE) 01/13/20 03:19 Urine Blood SMALL (NEGATIVE) H 01/13/20 03:19 Urine Nitrite NEGATIVE (NEGATIVE) 01/13/20 03:19 Urine Nitrite (Reflex) Cancelled 01/13/20 03:19 Urine Bilirubin NEGATIVE (NEGATIVE) 01/13/20 03:19 Urine Urobilinogen NEGATIVE mg/dL (<2.0) 01/13/20 03:19 Ur Leukocyte Esterase LARGE (NEGATIVE) H 01/13/20 03:19 Leukocyte Esterase Rfl Cancelled 01/13/20 03:19 Urine WBC (Auto) 23 /HPF 01/13/20 03:19 Urine RBC (Auto) 2 /HPF 01/13/20 03:19 Urine Bacteria (Auto) TRACE /HPF 01/13/20 03:19 Urine WBC (Reflex) Cancelled 01/13/20 03:19 Squamous Epi Cells Auto 6 /HPF 01/13/20 03:19 Urine Ascorbic Acid NEGATIVE (NEGATIVE) 01/13/20 03:19 SARS-CoV-2 (PCR) NEGATIVE (NEGATIVE) 01/11/20 01:51 Slides for Path Review Cancelled 01/10/20 23:45 01/10/20 01/10/20 01/12/20 23:45 23:45 06:31 CK-MB (CK-2) 1.25 Troponin I 0.093 0.105 NT-Pro-B Natriuret Pep 69453 H Impressions: Chest X-Ray 01/13/20 00:00 IMPRESSION: 1. Improved aeration in the right upper lobe. 2. Lytic appearance of the right humerus and glenoid at the shoulder joint is of uncertain etiology. Dedicated right shoulder radiographs recommended. Chest CT 01/16/20 00:00 IMPRESSION: 1. Mild patchy linear consolidation within the right upper and bilateral lower lobes, likely atelectasis although infection is not excluded. 2. Marked cardiomegaly with extensive three-vessel coronary atherosclerosis. 3. Additional chronic findings as above. Chest X-Ray 01/16/20 00:00 IMPRESSION: Persistent patchy right upper lobe and infrahilar opacities suspicious for pneumonia. Stable enlarged cardiac silhouette. Stroke Is this a Stroke Patient?: No Acute Heart Failure - Is this a Heart Failure Patient?: No
== END 2020-01-19 13:45 | disposition home health service (06) | DRG 189 ==
LOC: ER 23:30 → EH 01-11 01:54 → 5 01-11 04:50
PROVIDERS: ADMIT Internal Medicine; ATTEND Internal Medicine
PROC: 5A09557 Assistance with Respiratory Ventilation, Greater than 96 Consecutive Hours, Continuous Positive Airway Pressure (ICD-10-PCS; principal; 2020-01-10)
PROC: 3E0336Z Introduction of Nutritional Substance into Peripheral Vein, Percutaneous Approach (ICD-10-PCS; 2020-01-11)
PROC: 5A1D70Z Performance of Urinary Filtration, Intermittent, Less than 6 Hours Per Day (ICD-10-PCS; 2020-01-11)
DX: J96.01 Acute respiratory failure with hypoxia (principal); J18.9 Pneumonia, unspecified organism; N18.6 End stage renal disease; E43 Unspecified severe protein-calorie malnutrition; I12.0 Hypertensive chronic kidney disease with stage 5 chronic kidney disease or end stage renal disease; Z68.1 Body mass index [BMI] 19.9 or less, adult; J96.02 Acute respiratory failure with hypercapnia; I16.0 Hypertensive urgency; Z20.828 Contact with and (suspected) exposure to other viral communicable diseases; I48.0 Paroxysmal atrial fibrillation; Y95 Nosocomial condition; E78.5 Hyperlipidemia, unspecified; N25.0 Renal osteodystrophy; F03.90 Unspecified dementia, unspecified severity, without behavioral disturbance, psychotic disturbance, mood disturbance, and anxiety; E21.2 Other hyperparathyroidism; I73.9 Peripheral vascular disease, unspecified; Z66 Do not resuscitate; E78.00 Pure hypercholesterolemia, unspecified; Z99.2 Dependence on renal dialysis; Z79.899 Other long term (current) drug therapy; Z89.612 Acquired absence of left leg above knee; Z91.018 Allergy to other foods; Z91.048 Other nonmedicinal substance allergy status; Z90.5 Acquired absence of kidney; Z85.3 Personal history of malignant neoplasm of breast
CPT/HCPCS: 36415; 71045; 71250; 80048; 80053; 81001; 82553; 82803; 83036; 83880; 84484; 85025; 85027; 87040; 87086; 87635; 93005; 93010; 94660; 96374; 99291; C9803; J0692; J1644; J1956; J2270; J3370; J3490; J7060

== ENCOUNTER 2020-02-16 21:56 | Emergency (ER) | payer MEDICARE ==
[~2020-02-16 21:56] MED LIST changes: -DIAZEPAM 5 MG TABLET PO PRN; +EPINEPHRINE INJ 1 MG/10 ML DISP.SYRIN ONE
[2020-02-16] MEDS ORDERED: EPINEPHRINE INJ/PF 1 MG/1 ML AMPULE ONE ×2 (22:10→23:37)
--- NOTE | 2020-02-16 22:24 | ER Document Report ---
ED General - General Chief Complaint: Breathing Difficulty Stated Complaint: DIFFICULTY BREATHING Primary Care Provider: MARIANO WASHINGTON MD [Primary Care Provider] - Follow up as needed TRAVEL OUTSIDE OF THE [place] IN LAST 30 DAYS: No - HPI Notes: 84-year-old female rise in cardiac arrest via EMS. Per EMS report, patient was at home when she suddenly complained that she could not breathe, she collapsed to the ground. The family called EMS wanted full resuscitation, resuscitative efforts were started. EMS reports PEA and asystole. She obtain ROSC 4 times with EMS. HPI is limited due to acuity situation. - Related Data Allergies/Adverse Reactions: aloe vera [Aloe Vera] Allergy (Unknown, Verified 04/13/19 14:22) Swelling jalapeno peppers Allergy (Unknown, Uncoded 04/13/19 14:22) Swelling Past Medical History - Social History Smoking Status: Unknown if Ever Smoked Family History: Reviewed & Not Pertinent - Past Medical History Cardiac Medical History: Reports: Hx Congestive Heart Failure, Hx Hypercholesterolemia, Hx Hypertension, Hx Peripheral Vascular Disease Denies: Hx Coronary Artery Disease, Hx Heart Attack Pulmonary Medical History: Reports: Hx Pneumonia - hx of Denies: Hx Asthma, Hx Bronchitis, Hx COPD Neurological Medical History: Denies: Hx Cerebrovascular Accident, Hx Seizures, Hx Parkinson's Disease Renal/ Medical History: Reports: Hx End Stage Renal Disease, Hx Kidney Stones. Denies: Hx Peritoneal Dialysis GI Medical History: Reports: Hx Diverticulitis, Hx Ulcer - Peptic ulcer disease in 1992-no history of GI bleeding in the past Musculoskeletal Medical History: Denies Hx Arthritis, Denies Hx Multiple Sclerosis Psychiatric Medical History: Denies: Hx Schizophrenia Past Surgical History: Reports: Hx Kidney (Renal Surgery) - 1 removal, Hx Orthopedic Surgery - left AKA mar. Denies: Hx Hysterectomy - Immunizations Immunizations up to date: Yes Hx Diphtheria, Pertussis, Tetanus Vaccination: Yes Hx Pneumococcal Vaccination: 07/04/16 Review of Systems - Review of Systems -: Yes ROS unobtainable due to patient's medical condition Physical Exam - General General appearance: Unresponsive - HEENT Pupils: Dilated, Fixed - Respiratory Breath sounds: Rales - Cardiovascular Rhythm: Regular Murmur: Yes - Abdominal Distension: Distended - Suspect from air - Extremities General lower extremity: Other - Left AKA - Neurological [place] Coma Scale Eye Opening: None [place] Coma Scale Verbal: None [place] Coma Scale Motor: None Jose Coma Scale Total: 3 - Skin Skin Temperature: Cool Course - Re-evaluation Re-evalutation: 84-year-old female arrived in active cardiac arrest with chest compressions going. Per EMS report she had a witnessed arrest at home, family at the scene wanted full resuscitative efforts. On arrival she did not have a pulse, she underwent ACLS protocol and had Leon. She again lost pulses and underwent ACLS protocol, ROSC was achieved. She was subsequently intubated and started on an epi drip. During intubation she had no spontaneous respiratory efforts. Her pupils are fixed and dilated. I had concern for hyperkalemia given her dialysis status, she was treated with calcium and bicarb intra-arrest. 02/16/20 22:28 Patient was discussed with ICU APPLICATION SYSTEMS ARCHITECT Lane who accepted on behalf of Dr Farias. Patient will be admitted to the ICU. Daughter has arrived and I updated her on patient's critical condition and poor prognosis. The ICU charge nurse and APPLICATION SYSTEMS ARCHITECT informed me that per the chart review, patient was a DNR. I discussed code status with the patient's daughter at bedside, daughter would like everything done for the patient. The DNR status has been revoked at this time. 02/16/20 22:47 02/16/20 22:55 It has been relayed to me that there is an issue admitting the patient to the ICU given her PCP. Is been requested of me to contact the PCP and to discuss the admission process with him, as there is concern the PCP may want her to have a higher level of care. I do not believe stable for transfer at this time, she is in need of intensive care now. 02/16/20 23:[address] Yao, he is in agreement that she needs to be admitted to the ICU. 02/16/20 23:08 Patient continues to have further decline in blood pressure, she is now on epi and Levophed infusions. I have ordered more bicarb as I presume she is in a profound acidosis. - Laboratory Result Diagrams: 02/16/20 22:22 02/16/20 22:22 - Diagnostic Test Radiology reviewed: Image reviewed, Reports reviewed - EKG Interpretation by Me Additional EKG results interpreted by me: 02/16/20 23:22 EKG G interpreted by me, post arrest EKG. There is diffuse ST depressions. She is tachycardic. Prolonged QTC. Procedures - Intubation Orotracheal Airway evaluation: Large tongue Medications: Other - None Intubation method: Orotracheal Blade type: Ty Blade size: 3 Equipment used: Glidescope ETT size: 7.0 ETT secured at: Gums ETT secured at (cm): 22 Breath Sounds after Intubation: Equal End tidal CO2 confirmed: Yes Ventilator settings: CMV Post Intubation Xray: Yes Intubation Complications: No complications Critical Care Note - Critical Care Note Total time excluding time spent on procedures (mins): 75 Comments: 35 minutes of critical care spent directly resuscitating patient in relation to respiratory/cardiac arrest, return of spontaneous circulation, ongoing resuscitation afterwards, coordination of care Discharge - Discharge Clinical Impression: Cardiac arrest Condition: Critical Disposition: ADMITTED INPATIENT Admitting Provider: Jarrett (Central [facility] Tech) Unit Admitted: ICU Referrals: MARIANO WASHINGTON MD [Primary Care Provider] - Follow up as needed
[2020-02-16] MEDS ORDERED: DEXTROSE 5%-WATER 250 ML with NOREPINEPHRINE BITARTRATE 4 MG IV PRN ×2 (23:03)
[2020-02-16] MEDS ORDERED: DEXTROSE 5%-WATER 250 ML with EPINEPHRINE/PF 1 MG IV PRN ×2 (23:05)
[2020-02-16] MEDS ORDERED: NOREPINEPHRINE BITARTRATE INJ/PF 4 MG/4 ML SDV IV ONE (23:05)
[2020-02-16 23:10] LABS: ALBUMIN 2.4 g/dL (3.5-5.0); ALKALINE PHOSPHATASE 657 U/L (38-126); ANION GAP 19 (5-19); BILIRUBIN,DIRECT 0.2 mg/dL (0.0-0.4); BILIRUBIN,TOTAL 0.4 mg/dL (0.2-1.3); BLOOD UREA NITROGEN 30 mg/dL (7-20); CALCIUM 10.5 mg/dL (8.4-10.2); CARBON DIOXIDE 23 mmol/L (22-30); CHLORIDE 104 mmol/L (98-107); GLUCOSE 307 mg/dL (75-110); POTASSIUM 4.1 mmol/L (3.6-5.0); TOTAL PROTEIN 4.6 g/dL (6.3-8.2)
[2020-02-16] MEDS ORDERED: SODIUM BICARBONATE 8.4% INJ 50 MEQ/50 ML DISP.SYRIN ONE (23:10)
--- NOTE | 2020-02-16 23:17 | EKG REPORT ---
SEVERITY:- ABNORMAL ECG - SINUS TACHYCARDIA WITH IRREGULAR RATE 82-146 BORDERLINE LEFT AXIS DEVIATION REPOL ABNRM, PROBABLE ISCHEMIA, ANT-LAT LEADS BORDERLINE PROLONGED QT INTERVAL : Confirmed by: Michael Calvin MD 16-Feb-2020 23:16:30
[2020-02-16 23:24] LABS: ASPARTATE AMINO TRANSFERASE 922 U/L (14-36)
--- NOTE | 2020-02-16 23:31 | RADIOLOGY REPORT (SQ) ---
XR CHEST 1 VIEW HISTORY: Intubated. COMPARISON: 01/16/2020 FINDINGS: The endotracheal tube tip is approximately 2 cm from the michael. There is moderate cardiomegaly which is stable. Mild perihilar patchy opacities are seen. No large pleural effusions or pneumothorax. The stomach is markedly distended with air. IMPRESSION: 1. Endotracheal tube 2 cm from michael. No pneumothorax. 2. Cardiomegaly with perihilar opacities.
[2020-02-16 23:35] LABS: ABSOLUTE EOSINOPHILS # (AUTO) 0.1 10^3/uL (0.0-0.6); ABSOLUTE LYMPHOCYTES (AUTO) 1.1 10^3/uL (0.5-4.7); ABSOLUTE MONOCYTES (AUTO) 0.1 10^3/uL (0.1-1.4); ABSOLUTE NEUT (AUTO) 3.6 10^3/uL (1.7-8.2); BASOPHILS % (AUTO) 0.3 % (0-2); EOSINOPHILS % (AUTO) 1.2 % (0-6); HEMATOCRIT 33.2 % (36.0-47.0); HEMOGLOBIN 10.3 g/dL (12.0-15.5); LYMPHOCYTES % (AUTO) 22.9 % (13-45); MEAN CORPUSCULAR HEMOGLOBIN 33.7 pg (27.0-33.4); MEAN CORPUSCULAR HGB CONC 30.9 g/dL (32.0-36.0); MONOCYTES % (AUTO) 2.4 % (3-13); PLATELET COUNT 192 10^3/uL (150-450); RED BLOOD COUNT 3.05 10^6/uL (3.72-5.28); SEGMENTED NEUTROPHILS % (AUTO) 73.2 % (42-78); TOTAL CELLS COUNTED % (AUTO) 100 %; WHITE BLOOD COUNT 4.9 10^3/uL (4.0-10.5)
[2020-02-16 23:36] LABS: MEAN CORPUSCULAR VOLUME 109 fl (80-97)
[2020-02-16] MEDS ORDERED: EPINEPHRINE INJ 1 MG/10 ML DISP.SYRIN ONE ×2 (23:36→23:39)
[2020-02-16 23:42] LABS: VENOUS BLOOD HCO3 21.6 mmol/L (20-32)
[2020-02-16 23:48] LABS: VENOUS BLOOD PCO2 72.8 mmHg (35-63); VENOUS BLOOD PH 7.09 (7.30-7.42)
[2020-02-17] MEDS ORDERED: EPINEPHRINE INJ/PF 1 MG/1 ML AMPULE ONE ×2 (00:17→00:58)
[2020-02-17] MEDS ORDERED: EPINEPHRINE INJ 1 MG/10 ML DISP.SYRIN IV ONE (00:58)
[2020-02-17] MEDS ORDERED: SODIUM BICARBONATE 8.4% INJ 50 MEQ/50 ML DISP.SYRIN IV ONE (00:58)
[2020-02-17] MEDS ORDERED: SODIUM BICARBONATE 8.4% INJ 50 MEQ/50 ML DISP.SYRIN ONE ×2 (00:58→01:00)
[2020-02-17] MEDS ORDERED: CALCIUM GLUCONATE 1000 MG/10 ML INJ IV ONE (01:00)
[2020-02-17] MEDS ORDERED: PHENYLEPHRINE HCL INJ/PF 10 MG/1 ML SDV ONE (01:00)
[2020-02-17] MEDS ORDERED: EPINEPHRINE INJ 1 MG/10 ML DISP.SYRIN ONE (01:00)
[2020-02-17] MEDS ORDERED: NOREPINEPHRINE BITARTRATE INJ/PF 4 MG/4 ML SDV IV ONE (01:03)
--- NOTE | 2020-02-17 01:15 | RADIOLOGY REPORT (SQ) ---
EXAM DESCRIPTION: X-RAY CHEST- One View CLINICAL HISTORY: Orogastric tube placement. COMPARISON: February 16, 2020 TECHNIQUE: Single view of the chest. FINDINGS: There are overlying EKG leads. Exam is significantly technically limited given suboptimal patient positioning. Endotracheal tube appears in similar position. Enteric tube has been placed with distal tip just passing below the diaphragm. Advancement is recommended for more optimal placement. There is significant gastric distention with air. There are no discrete air space infiltrates, pneumothoraces or pleural effusions. The cardiomediastinal silhouette is persistently enlarged. Osseous structures stable in appearance. IMPRESSION: Status post placement of enteric tube with tip projecting just below the level diaphragm. There is persistent gastric distention with air. Advancement of the enteric tube is recommended for more optimal placement. Remainder of findings are grossly stable on this technically limited evaluation.
[2020-02-17] MEDS ORDERED: MORPHINE SULFATE 10 MG/ML INJ ONE (01:16)
[2020-02-17 01:18] VITALS: BP 44/29
[2020-02-17] MEDS ORDERED: MORPHINE SULFATE 10 MG/ML INJ IV ONE (01:32)
[2020-02-17] MEDS ORDERED: SODIUM BICARBONATE 4.2% INJ 5 MEQ/10 ML DISP.SYRIN IV ONE (04:16)
[2020-02-17] MEDS ORDERED: DEXTROSE 5%-WATER 250 ML with NOREPINEPHRINE BITARTRATE 4 MG IV PRN ×2 (04:17)
--- NOTE | 2020-02-17 04:26 | CRITICAL CARE ADMISSION REPORT ---
HPI Date:: 02/17/20 Time:: 01:00 Reason for ICU Reason:: acute respiratory failure due to post cardiac aarrest Admission Date/Time & PCP: Admission Date/Time: 02/16/20 22:53 Primary Care Provider: MARIANO WASHINGTON MD HPI: 84-year-old female s/p cardiac arrest via EMS. Per EMS report, patient was at home when she suddenly complained that she could not breathe, she collapsed to the ground. The family called EMS wanted full resuscitation, resuscitative efforts were started. EMS reports PEA and asystole. She obtain ROSC 4 times with EMS. Admitted to ICU for critical care and mechanical ventilator management. Patient condition immediately deteriorate, hemodynamically unstable despite max dose of vasopressors . 1 amp NaHco3 and neosynephrine IVP given. Patient become hypotensive and became pulseless. CODE BLUE initiated at 0103. 1 amp of epinephrine and 1 amp NaHCO3 pushed. Called in the daughther to the room. Talked to the daughther patient critical and poor prognosis. After few minutes daughter asked to stopped the compression at 0108. Noted patient agonal breathing, morphine 4 mg IV given . - Diagnosis/Plan (1) Cardiac arrest Is this a current diagnosis for this admission?: Yes Plan: s/p cardiac arrest. Max dose of vasopressors ( epinephrine and norepi) (2) Abnormal serum level of alkaline phosphatase Is this a current diagnosis for this admission?: Yes Plan: Monitor (3) Acute hypoxemic respiratory failure Is this a current diagnosis for this admission?: Yes Plan: Intubated Past Medical History Cardiac Medical History: Reports: Congestive Heart Failure, Hyperlipidema, Hypertension, Peripheral Vascular Disease Denies: Coronary Artery Disease, Myocardial Infarction Pulmonary Medical History: Reports: Pneumonia - hx of Denies: Asthma, Bronchitis, Chronic Obstructive Pulmonary Disease (COPD) Neurological Medical History: Denies: Seizures Renal/ Medical History: Reports: End Stage Renal Disease GI Medical History: Reports: Diverticulitis Musculoskeltal Medical History: Denies: Arthritis Psychiatric Medical History: Hematology: Reports: Bleeding Tendencies Denies: Anemia Past Surgical History Past Surgical History: Reports: Orthopedic Surgery - left AKA mar Denies: Hysterectomy Social/Family History - Social History Smoking Status: Unknown if Ever Smoked Frequency of Alcohol Use: None Hx Recreational Drug Use: No Drugs: None Hx Prescription Drug Abuse: No - Medication/Allergies Home Medications: Furosemide [Lasix 40 mg Tablet] 40 mg PO DAILY 03/30/19 Valsartan [Diovan] 320 mg PO DAILY 03/30/19 Clonidine HCl [Catapres 0.2 mg Tablet] 0.2 mg PO DAILYP PRN 12/28/19 Gabapentin [Neurontin 100 mg Capsule] 100 mg PO .BEFORE DIALYSIS 12/28/19 Lidocaine/Prilocaine [Emla Cream 30 gm (Clinic Use Only)] 1 applic TP .BEFORE DIALYSIS 01/11/20 Pregabalin [Lyrica 25 mg Capsule] 25 mg PO .BEFORE DIALYSIS 01/11/20 Acetaminophen [Tylenol 325 mg Tablet] 650 mg PO Q6HP PRN tablet 01/19/20 Carvedilol [Coreg 12.5 mg Tablet] 12.5 mg PO Q12 #180 tablet 01/19/20 Diltiazem HCl [Cardizem Cd 120 mg Capsule] 120 mg PO Q12 #180 cap.sr.24h 01/19/20 Levofloxacin [Levaquin 250 mg Tablet] 250 mg PO QPM #7 tablet 01/19/20 Allergies/Adverse Reactions: aloe vera [Aloe Vera] Allergy (Unknown, Verified 04/13/19 14:22) Swelling jalapeno peppers Allergy (Unknown, Uncoded 04/13/19 14:22) Swelling Physical Exam Vital Signs: Temp Pulse Resp BP Pulse Ox 28 H 44/29 L 93 02/17/20 01:01 02/17/20 01:02 02/17/20 01:00 Laboratory/Radiographs Laboratory Results: 02/16/20 23:15 02/16/20 22:22 02/16/20 02/16/20 02/16/20 22:22 22:22 23:15 WBC Cancelled RBC Cancelled Hgb Cancelled Hct Cancelled MCV Cancelled MCH Cancelled MCHC Cancelled RDW Cancelled Plt Count Cancelled Seg Neutrophils % Cancelled VBG pH VBG pCO2 VBG HCO3 VBG Base Excess Sodium 146.4 H Potassium 4.1 Chloride 104 Carbon Dioxide 23 Anion Gap 19 BUN 30 H Creatinine 3.77 H Est GFR ( Amer) 14 L Glucose 307 H Lactic Acid 11.5 H Calcium 10.5 H Total Bilirubin 0.4 AST 922 H Alkaline Phosphatase 657 H Total Protein 4.6 L Albumin 2.4 L 02/16/20 02/16/20 23:15 23:15 WBC 4.9 RBC 3.05 L Hgb 10.3 L Hct 33.2 L MCV 109 H D MCH 33.7 H MCHC 30.9 L RDW 20.0 H Plt Count 192 Seg Neutrophils % 73.2 VBG pH 7.09 L* VBG pCO2 72.8 H* VBG HCO3 21.6 VBG Base Excess -9.0 Sodium Potassium Chloride Carbon Dioxide Anion Gap BUN Creatinine Est GFR ( Amer) Glucose Lactic Acid Calcium Total Bilirubin AST Alkaline Phosphatase Total Protein Albumin Impressions: Chest X-Ray 02/16/20 22:44 IMPRESSION: 1. Endotracheal tube 2 cm from michael. No pneumothorax. 2. Cardiomegaly with perihilar opacities. Critical Time Critical Time (minutes): 30 -: The care of a critically ill patient is dynamic. This note represents a static moment in the admission process. Orders and treatments may be given simu ltaneously and urgently, and time is not accounting representative of the treatment process. This patient requires Critical Care secondary to life threatening organ or limb dysfunction. Without Critical Care services, the patient is at risk for increased mortality and morbidity.
--- NOTE | 2020-02-17 04:51 | Death Summary ---
Summary Date : 02/17/20 - Patient coded and family stopped the code Autopsy: No - Final Diagnosis (1) Cardiac arrest Is this a current diagnosis for this admission?: Yes (2) Abnormal serum level of alkaline phosphatase Is this a current diagnosis for this admission?: Yes (3) Acute hypoxemic respiratory failure Is this a current diagnosis for this admission?: Yes Hospital Course:: 84 y/o female was admitted to ER via EMS post cardiac arrest at home, obtained ROSC. She coded 6 times. Transferred to ICU intubated and hemodynamically unstable. Max dose epinephrine and norepinephrine. Patient condition immediately deteriorate , hypotensive and became pulseless. CODE BLUE initiated . 1 amp NaHCO3, 1 mg epinephrine IV given. Daugther was brought in to the room, to explain the critical care condition and poor outcome and prognosis. Daughter requested to stopped CPR.
== END 2020-02-17 01:39 | disposition expired ==
LOC: ER 21:56 → EH 22:53 → UNDOADMIN 22:53 → ICU 02-17 00:49 → EH 02-17 00:49 → UNDODISIN 02-17 01:39 → ER 02-17 01:39
DX: I46.9 Cardiac arrest, cause unspecified (principal); J96.01 Acute respiratory failure with hypoxia; R79.89 Other specified abnormal findings of blood chemistry; R14.0 Abdominal distension (gaseous); I13.2 Hypertensive heart and chronic kidney disease with heart failure and with stage 5 chronic kidney disease, or end stage renal disease; N18.6 End stage renal disease; Z99.2 Dependence on renal dialysis; Z79.899 Other long term (current) drug therapy; Z79.2 Long term (current) use of antibiotics; Z91.048 Other nonmedicinal substance allergy status; Z91.018 Allergy to other foods; Z90.5 Acquired absence of kidney; Z66 Do not resuscitate
CPT/HCPCS: 99291; 92950 ×2; 93005; 36415; 83605; 85025; 80053; 82803; 71045; 94660; 93010; 31500; J0610; J0171 ×2; J2270; J3490